=== PATIENT | male | born 1945 | race Caucasian/White ===

== ENCOUNTER 2020-12-25 00:24 | Observation (INO) | payer OTHER ==
[2020-12-25 00:45] LABS: Absolute Lymphocytes (CBC) 1.9 K/uL (0.7-4.9); Basophils % 1.2 % (0-1.3); Hematocrit 35.3 % (39.6-49.0); Lymphocytes % 27.9 % (15.3-44.8); MPV 9.4 fL (7.6-11.3); RBC Red Blood Cell Count 4.18 M/uL (4.33-5.43)
[2020-12-25 01:01] LABS: Protime INR 0.95
[2020-12-25 01:11] LABS: ALT/SGPT 17 U/L (12-78); AST/SGOT 12 U/L (15-37); Albumin 3.8 g/dL (3.4-5.0); Alkaline Phosphatase 97 U/L (45-117); BUN Blood Urea Nitrogen 15 mg/dL (7-18); Bicarbonate 26 mmol/L (21-32); Bilirubin Direct 0.1 mg/dL (0-0.2); Bilirubin Total 0.3 mg/dL (0.2-1.0); Glucose Level 119 mg/dL (74-106); NT PRO-BNP 333 pg/mL (<125); Potassium 3.2 mmol/L (3.5-5.1); Protein, Total 7.3 g/dL (6.4-8.2); Sodium Level 135 mmol/L (136-145); Troponin (Emerg Dept Use Only) < 0.02 ng/mL (0.0-0.045)
--- NOTE | 2020-12-25 03:51 | EDPHYS ---
[facility] Name: Farhad Wells Age: 75 yrs Sex: Male : 1945 Arrival Date: 12/25/2020 Time: 00:24 Bed 18 Private MD: ED Physician Ted Wilkinson HPI: 12/25 01:28 This 75 yrs old Male presents to ER via Ambulatory with complaints of Chest rn Pain > 30 y/o. 01:28 The patient or guardian reports chest pain that is located primarily in the substernal rn area. 01:29 Onset: last night. The pain radiates to back. Associated signs and symptoms: Pertinent rn positives: None. Pertinent negatives: abdominal pain, cough, diaphoresis, headache, lower extremity swelling, palpitations, shortness of breath, syncope, vomiting. The chest pain is described as a heaviness. Duration: The patient or guardian reports a single episode, that is still ongoing. Modifying factors: The symptoms are alleviated by nothing. the symptoms are aggravated by nothing. Severity of pain: At its worst the pain was moderate in the emergency department the pain has improved. The patient has not experienced similar symptoms in the past. The patient has not recently seen a physician. Reports chest pain at rest, still ongoing but improving, currently 5/10, has never had before, radiates to back, feels heavy/pressure, no diaphoresis. Did have single episode of emesis. No fever, doesn't feel ill. Rides bike frequently, rode 18 miles today without chest pain. No recent stress test. . Historical: - Allergies: 00:45 Sulfa (Sulfonamide Antibiotics); ak2 - Home Meds: 00:45 Flomax 0.4 mg Oral cp24 1 cap once daily [Active]; Lasix 20 mg Oral tab 1 tab once ak2 daily [Active]; metoprolol tartrate 50 mg Oral tab 1 tab 2 times per day [Active]; Norvasc 5 mg Oral tab 1 tab once daily [Active]; Pravachol 40 mg Oral tab 1 tab once daily [Active]; Protonix 40 mg Oral TbEC 1 tab once daily [Active]; ramipril 10 mg Oral cap 1 cap 2 times per day [Active]; - PMHx: 00:45 BPH; High Cholesterol; Hypertension; ak2 - Immunization history:: Adult Immunizations up to date. - Social history:: Smoking status: unknown. - Family history:: not pertinent. - Hospitalizations: : No recent hospitalization is reported. ROS: 01:29 Constitutional: Negative for fever, chills, and weight loss, Eyes: Negative for injury, rn pain, redness, and discharge, Neck: Negative for injury, pain, and swelling, Cardiovascular: Negative for palpitations, and edema, Respiratory: Negative for shortness of breath, cough, wheezing, and pleuritic chest pain, Abdomen/GI: Negative for abdominal pain, diarrhea, and constipation, Back: Negative for injury and pain, : Negative for injury, bleeding, discharge, and swelling, MS/Extremity: Negative for injury and deformity, Skin: Negative for injury, rash, and discoloration, Neuro: Negative for headache, weakness, numbness, tingling, and seizure. Exam: 01:29 Constitutional: This is a well developed, well nourished patient who is awake, alert, rn appears a little anxious Head/Face: Normocephalic, atraumatic. Eyes: Periorbital areas with no swelling, redness, or edema. Cardiovascular: Bradycardic, regular. No pulse deficits. Respiratory: Speaking full unlabored sentences. No increased work of breathing, no retractions or nasal flaring. Abdomen/GI: Soft, non-tender Skin: Warm, dry, no cyanosis MS/ Extremity: Pulses equal, no cyanosis. Neurovascular intact. Full, normal range of motion. Equal circumference. Neuro: Awake and alert, GCS 15 01:32 ECG was reviewed by the Attending Physician. rn Vital Signs: 00:42 BP 157 / 63; Pulse 53; Resp 16; Temp 97.9; Pulse Ox 100% on R/A; Weight 61.23 kg; ak2 Height 5 ft. 9 in. (175.26 cm); 01:24 BP 146 / 53; Pulse 58; Resp 16; Pulse Ox 100% on R/A; ak2 03:07 BP 132 / 58; Pulse 57; Resp 16; Pulse Ox 100% on R/A; ak2 05:54 BP 125 / 67; Pulse 53; Resp 16; Pulse Ox 100% on R/A; ak2 06:47 BP 145 / 73; Pulse 55; Resp 14; Pulse Ox 100% on R/A; ak2 07:14 BP 152 / 79; Pulse 87; Resp 15 S; Pulse Ox 98% on R/A; jd3 00:42 Body Mass Index 19.94 (61.23 kg, 175.26 cm) ak2 MDM: 00:30 Patient medically screened. rn 03:00 ED course: Pt states chest pain resolved. CT aorta pending. Neg trop. . rn 03:46 Differential diagnosis: abnormal EKG, acute myocardial infarction, acute pericarditis, rn anxiety, coronary artery disease costochondritis, esophagitis, gastritis, gastroesophageal reflux disease (GERD), pancreatitis, pericarditis, pleurisy, pneumonia, pneumothorax, pulmonary embolus, stable angina, thoracic aortic disection, unstable angina. The patient was given aspirin in the Emergency Department. 03:46 Data reviewed: vital signs, nurses notes, lab test result(s), EKG, radiologic studies, rn CT scan, plain films, and as a result, I will admit patient. Counseling: I had a detailed discussion with the patient and/or guardian regarding: the historical points, exam findings, and any diagnostic results supporting the discharge/admit diagnosis, lab results, radiology results, the need for further work-up and treatment in the hospital. Response to treatment: the patient's symptoms have markedly improved after treatment, and as a result, I will admit patient. Admission orders: after a detailed discussion of the patient's condition and case, the admit orders are written by me. ED course: Pt with extensive atherosclerosis of large and medium blood vessels on ct aorta, also noted atherosclerosis of coronary arteries on CT, no clear etiology of chest pain, but given smoking hx, HTN, HLD, and no clear diagnosis of chest pain with diffuse atherosclerosis, will admit for stress test. + incidental ascending aortic aneurysm but no acute dissection or leak. No gross flow abnormalities. . 12/25 00:37 Order name: Basic Metabolic Panel; Complete Time: : rn 12/25 00:37 Order name: CBC with Diff; Complete Time: rn 12/25 00:37 Order name: LFT's; Complete Time: rn 12/25 00:37 Order name: NT PRO-BNP; Complete Time: : rn 12/25 00:37 Order name: PT-INR; Complete Time: rn 12/25 00:37 Order name: Troponin (emerg Dept Use Only); Complete Time: 01:14 rn 12/25 00:37 Order name: XRAY Chest (1 view) rn 12/25 00:37 Order name: EKG; Complete Time: 00:38 rn 12/25 00:37 Order name: Cardiac monitoring; Complete Time: 07:02 rn 12/25 00:37 Order name: CT Aorta for Dissection rn 12/25 04:11 Order name: COVID-19 : Document "Date of Symptom Onset" if Symptomatic. ak2 12/25 05:33 Order name: SARS-COV-2 RT PCR EDMS 12/25 00:37 Order name: EKG - Nurse/Tech; Complete Time: 07:02 rn 12/25 00:37 Order name: IV Saline Lock; Complete Time: 07:03 rn 12/25 00:37 Order name: Labs collected and sent; Complete Time: 07:03 rn 12/25 00:37 Order name: O2 Per Protocol; Complete Time: 07:03 rn 12/25 00:37 Order name: O2 Sat Monitoring; Complete Time: 07:03 rn EC:32 Rate is 58 beats/min. Rhythm is regular. QRS [place] is Normal. RI interval is normal. QRS rn interval is normal. QT interval is normal. T waves are Normal. No ST changes noted. Clinical impression: Sinus bradycardia. Interpreted by me. Reviewed by me. Administered Medications: 03:55 Drug: Aspirin Chewable Tablet 324 mg Route: PO; ak2 03:55 Drug: Lovenox (enoxaparin) 60 mg Route: Sub-Q; Site: left upper abdomen; ak2 Disposition Summary: 12/25/20 03:50 Hospitalization Ordered Hospitalization Status: Observation rn Provider: Emil Virk rn Location: Telemetry/MedSurg (observation) rn Condition: Stable rn Problem: new rn Symptoms: have improved rn Bed/Room Type: Standard rn Room Assignment: 409(12/25/20 06:01) mw Diagnosis - Chest pain, unspecified rn - Atherosclerotic heart disease of [place] coronary artery rn - Thoracic aortic aneurysm, without rupture rn Forms: - Medication Reconciliation Form rn - SBAR form rn Signatures: Dispatcher [employer] EDID Emily Duncan RN RN mw Nieto, Roman, MD MD rn [place], Anthony ak2 Corrections: (The following items were deleted from the chart) 06:01 03:50 rn mw
--- NOTE | 2020-12-25 03:51 | ER ---
Nurse's Notes [facility] Name: Farhad Wells Age: 75 yrs Sex: Male : 1945 Arrival Date: 12/25/2020 Time: 00:24 Bed 18 Private MD: Diagnosis: Chest pain, unspecified;Atherosclerotic heart disease of [place] coronary artery;Thoracic aortic aneurysm, without rupture Presentation: 12/25 00:42 Chief complaint: Patient states: cp x1 day. Coronavirus screen: Client denies travel ak2 out of the [place] in the last 14 days. At this time, the client does not indicate any symptoms associated with coronavirus-19. Ebola Screen: Patient negative for fever greater than or equal to 101.5 degrees Fahrenheit, and additional compatible Ebola Virus Disease symptoms Patient denies exposure to infectious person. Patient denies travel to an Ebola-affected area in the 21 days before illness onset. No symptoms or risks identified at this time. Initial Sepsis Screen: Does the patient meet any 2 criteria? No. Patient's initial sepsis screen is negative. Does the patient have a suspected source of infection? No. Patient's initial sepsis screen is negative. Risk Assessment: Do you want to hurt yourself or someone else? Patient reports no desire to harm self or others. Onset of symptoms was December 24, 2020. 00:42 Method Of Arrival: Ambulatory ak2 00:42 Acuity: CHAPARRO 3 ak2 Triage Assessment: 00:45 General: Appears in no apparent distress. Behavior is calm, cooperative. Pain: ak2 Complains of pain in chest. Cardiovascular: Rhythm is sinus bradycardia. Historical: - Allergies: 00:45 Sulfa (Sulfonamide Antibiotics); ak2 - Home Meds: 00:45 Flomax 0.4 mg Oral cp24 1 cap once daily [Active]; Lasix 20 mg Oral tab 1 tab once ak2 daily [Active]; metoprolol tartrate 50 mg Oral tab 1 tab 2 times per day [Active]; Norvasc 5 mg Oral tab 1 tab once daily [Active]; Pravachol 40 mg Oral tab 1 tab once daily [Active]; Protonix 40 mg Oral TbEC 1 tab once daily [Active]; ramipril 10 mg Oral cap 1 cap 2 times per day [Active]; - PMHx: 00:45 BPH; High Cholesterol; Hypertension; ak2 - Immunization history:: Adult Immunizations up to date. - Social history:: Smoking status: unknown. - Family history:: not pertinent. - Hospitalizations: : No recent hospitalization is reported. Screenin:46 Abuse screen: Denies threats or abuse. Denies injuries from another. Nutritional ak2 screening: No deficits noted. Tuberculosis screening: No symptoms or risk factors identified. Fall Risk None identified. Assessment: 00:46 Pain: Pain radiates to back Pain began 1 day ago. ak2 01:24 Reassessment: Patient and/or family updated on plan of care and expected duration. Pain ak2 level reassessed. 03:06 Reassessment: Patient and/or family updated on plan of care and expected duration. Pain ak2 level reassessed. 05:54 Reassessment: Patient and/or family updated on plan of care and expected duration. Pain ak2 level reassessed. 07:14 Reassessment: Patient and/or family updated on plan of care and expected duration. Pain jd3 level reassessed. Patient is alert, oriented x 3, equal unlabored respirations, skin warm/dry/pink. Patient states feeling better. General: Appears in no apparent distress. comfortable, Behavior is calm, cooperative, appropriate for age. Pain: Denies pain. Neuro: Level of Consciousness is awake, alert, obeys commands, Oriented to person, place, time, situation. Cardiovascular: Capillary refill < 3 seconds Patient's skin is warm and dry. Rhythm is regular. Respiratory: Airway is patent Respiratory effort is even, unlabored, Respiratory pattern is regular, symmetrical. Vital Signs: 00:42 BP 157 / 63; Pulse 53; Resp 16; Temp 97.9; Pulse Ox 100% on R/A; Weight 61.23 kg; ak2 Height 5 ft. 9 in. (175.26 cm); 01:24 BP 146 / 53; Pulse 58; Resp 16; Pulse Ox 100% on R/A; ak2 03:07 BP 132 / 58; Pulse 57; Resp 16; Pulse Ox 100% on R/A; ak2 05:54 BP 125 / 67; Pulse 53; Resp 16; Pulse Ox 100% on R/A; ak2 06:47 BP 145 / 73; Pulse 55; Resp 14; Pulse Ox 100% on R/A; ak2 07:14 BP 152 / 79; Pulse 87; Resp 15 S; Pulse Ox 98% on R/A; jd3 00:42 Body Mass Index 19.94 (61.23 kg, 175.26 cm) ak2 ED Course: 00:24 Patient arrived in ED. bp1 00:30 Ted Wilkinson MD is Attending Physician. rn 00:41 Hugo Larsen is Primary Nurse. ak2 00:45 Triage completed. ak2 00:46 Patient has correct armband on for positive identification. manager banking on. Pulse ak2 ox on. NIBP on. 00:46 No provider procedures requiring assistance completed. Inserted saline lock: 20 gauge ak2 in left upper arm, using aseptic technique. 00:47 Patient placed in the treatment room. ak2 00:47 Patient maintains SpO2 saturation greater than 95% on room air. ak2 00:54 XRAY Chest (1 view) In Process Unspecified. EDMS 01:58 CT Aorta for Dissection In Process Unspecified. EDMS 03:49 Emil Virk MD is Hospitalizing Provider. rn 07:01 Jamaal Lugo RN is Primary Nurse. jd3 08:09 Patient admitted, IV remains in place. jd3 Administered Medications: 03:55 Drug: Aspirin Chewable Tablet 324 mg Route: PO; ak2 03:55 Drug: Lovenox (enoxaparin) 60 mg Route: Sub-Q; Site: left upper abdomen; ak2 Outcome: 03:50 Decision to Hospitalize by Provider. rn 08:08 Admitted to Tele accompanied by tech, via wheelchair, room 409, with chart, Report jd3 called to Yaquelin MORRISSEY 08:08 Condition: stable 08:08 Instructed on the need for admit, Demonstrated understanding of instructions. 08:09 Patient left the ED. jd3 Signatures: Dispatcher [employer] EDMS Ted Wilkinson MD MD rn Davies, Jonathon, RN RN Sarai Webb bp1 Hugo Larsen ak2
[2020-12-25] MEDS ORDERED: ASPIRIN 81 MG CHEWABLE TABLET ONE (04:15)
[2020-12-25] MEDS ORDERED: ENOXAPARIN 60 MG/0.6 ML SQ ONE (04:15)
--- NOTE | 2020-12-25 06:18 | EKG ---
Test Date: 2020-12-25 Test Time: 00:36:13 Flag Car Driver: KENDRA MEASUREMENT RESULTS: Intervals: Rate: 58 MA: 252 QRSD: 100 QT: 442 QTc: 433 [place]: P: 56 MA: 252 QRS: 48 T: 57 INTERPRETIVE STATEMENTS: Sinus bradycardia with sinus arrhythmia with 1st degree AV block Minimal voltage criteria for LVH, may be normal variant Borderline ECG Compared to ECG 05/30/2016 16:20:27 First degree AV block now present Sinus rhythm no longer present Electronically Signed On 12-25-20 06:17:37 CDT by Rojas Walls
[2020-12-25 08:21] VITALS: O2SAT 98
--- NOTE | 2020-12-25 08:37 | RAD REPORT ---
EXAM DESCRIPTION: RAD - Chest Single View - 12/25/2020 12:54 am CLINICAL HISTORY: CHEST PAIN Chest pain. COMPARISON: No comparisons FINDINGS: Portable technique limits examination quality. The lungs are mildly emphysematous but grossly clear. The heart is normal in size. No displaced fract ures. IMPRESSION: No acute intrathoracic process suspected.
[2020-12-25] MEDS ORDERED: cloNIDine HCL 0.1 MG TAB PO ONE (08:45)
[2020-12-25] MEDS ORDERED: ONDANSETRON 4 MG/2 ML VIAL IV PRN (08:45)
[2020-12-25 08:56] VITALS: BMI 20.2
--- NOTE | 2020-12-25 12:41 | RAD REPORT ---
EXAM DESCRIPTION: Angio Aorta For Dissection CLINICAL HISTORY: 75 years Male CHEST PAIN COMPARISON: None Available TECHNIQUE: CT angiography of the chest, abdomen and pelvis was performed with axial dataset after kunal michael injection of intravenous contrast. Multiplanar reformation, 3D and MIP reconstructions were perfo rmed. This exam was performed according to our departmental dose-optimization program, which includes automated exposure control, adjustment of the mA and/or kV according to patient size and/or use of i terative reconstruction technique. FINDINGS: CTA chest: Aorta: Ascending aortic aneurysm measuring 4.7 cm. No dissection. Atherosclerosis is present. Pulmonary arteries: No evidence of pulmonary embolism. Mediastinum: Unremarkable. No adenopathy. Heart: No pericardial effusion. Atherosclerosis of the coronary arteries. Lungs / airways: Calcified granuloma in the lingula. Mild paraseptal emphysematous changes of the ysabel g apices. No consolidation. Airways are patent. Pleura: No significant pleural effusion. No pneumothorax. Osseous: Multilevel degenerative changes. Soft tissues: Unremarkable. CTA abdomen and pelvis: Aorta: Atherosclerosis. No dissection or aneurysm. Celiac: Minimal atherosclerosis of the origin. No significant stenosis. SMA: Long segment of atherosclerosis inferiorly with noncalcified and calcified plaque resulting in moderate narrowing. Renal arteries: Atherosclerosis of the bilateral proximal renal arteries resulting in mild narrowing. CARMELO: Atherosclerosis proximally with mild narrowing.. Right common iliac: Atherosclerosis with mild narrowing. Right external iliac: Atherosclerosis with mild narrowing. Right common femoral: Atherosclerosis with mild narrowing. Left common iliac: Atherosclerosis with mild narrowing. Left external iliac: Atherosclerosis with mild narrowing. Left common femoral: Atherosclerosis with mild narrowing. Abdomen/pelvis: Liver: No focal lesions. No intrahepatic ductal distention. Gallbladder: Negative. Pancreas: Within normal limits. Spleen: Multiple calcified granulomas are present. Kidneys: No hydronephrosis. No focal lesion. Nonspecific mild bilateral perinephric stranding. Retroa ortic left renal vein. Adrenal glands: Within normal limits. Bowel: No significant distention. Appendix: Not seen.. Peritoneum: No free fluid or free air. Lymph Nodes: No lymphadenopathy. Reproductive: Unremarkable. Urinary bladder: Diffuse urinary bladder wall thickening. Osseous structures: Multilevel degenerative changes. Soft tissues: Unremarkable. IMPRESSION: CTA chest: 1. No aortic dissection or pulmonary embolism. 2. A 4.7 cm ascending aortic aneurysm. 3. No acute pulmonary findings. 4. Atherosclerosis of the coronary arteries. CTA abdomen and pelvis: 1. No aortic aneurysm or dissection. 2. Atherosclerosis of the aorta and its major branches as detailed above. 3. Diffuse urinary bladder wall thickening suspicious for cystitis. Electronically signed by: Heriberto Bobo MD 12/25/2020 2:50 AM CDT Due to temporary technical issues with the PACS/Fluency reporting system, reports are being signed by the in house radiologist without review as a courtesy to ensure prompt reporting. The interpreting r adiologist is fully responsible for the content of the report. Due to temporary technical issues with the PACS/Fluency reporting system, reports are being signed by the in house radiologist without review as a courtesy to ensure prompt reporting. The interpreting r adiologist is fully responsible for the content of the report.
--- NOTE | 2020-12-25 13:32 | CON ---
Date of Consultation: 12/25/2020 The patient admitted on 12/25/[address] Virk. Reason For Consultation: Atypical chest pain and hypertension. History Of Present Illness: Mr. Wells is a 75-year-old male. He is a patient of mine in the clinic. He recently had an echocardiogram in September that was normal about 15-18 miles a day witho ut any symptoms, but came in with midepigastric chest pain radiating to the back with nausea and vomi ting. Pressure of 201/94. Troponin is negative. CPK is negative. MB is negative. His pain lasted about 2-3 hours. Denied PND, orthopnea, pedal edema, palpitation, or syncope. Past Medical History: Basically positive for hypertension, gastroesophageal reflux disease, dyslipid emia, benign prostatic hypertrophy. Review of Systems: Negative. Social History: Negative. Family History: Noncontributory. Allergies: TO SULFA. Medications: At home include Norvasc 5 mg daily, Protonix, Pravachol, ramipril, Flomax, aspirin, Las ix 20 daily and Toprol 50 b.i.d. Physical Examination: Vital Signs: Initially when he came in pressure was 201/94, that has improved. He was in sinus rhyt hm. Vital signs were stable, otherwise afebrile. HEENT: Negative. Neck: Supple with no bruit. Chest: Clear. Cardiac: Revealed an S4 gallops. Abdomen: Benign. Extremities: Revealed no clubbing, cyanosis, or edema. Diagnostic Data: Show a creatinine of 1.49. BNP was 333. Potassium of 3.2. EKG was normal. CT an giogram showed atherosclerosis of the coronary. A 4.7 cm ascending aortic aneurysm. Noth ing focal otherwise. Impression And Plan: Atypical chest pain. I think he is having symptoms from gastroesophageal reflu x disease, possibly gallbladder. He is having slight hematuria and I think his kidneys need to be ev aluated. I do not think his pain is cardiac. However, with his CT results of ascending aortic small aneurysm and atherosclerosis in the coronary arteries and his risk factors, I would suggest that we will do a stress test as an outpatient. The case was discussed with Dr. Virk. I am comfortable w ith him going home. I will see him in the office very soon. His other problems including dyslipidem ia, gastroesophageal reflux disease, benign prostatic hypertrophy are normal. His blood pressure is very poorly controlled and may have been a reaction to the way he was feeling, apparently at home in the 130s. Nevertheless, I think if his pressure goes up, we can increase the metoprolol or add hydro chlorothiazide. He will keep a better log of his pressure and watch salt intake. Continue his exerc ise regimen as it is. JOSE GUADALUPE/ANGEL LUIS Voice ID: [id number] Report ID: [id number]
--- NOTE | 2020-12-25 14:10 | RAD REPORT ---
EXAM DESCRIPTION: US - Renal Ultrasound-Complete - 12/25/2020 1:58 pm CLINICAL HISTORY: Hematuria COMPARISON: December 25, 2020 cat scan FINDINGS: The right kidney measures 10 cm with a normal echotexture. The left kidney measures 10 cm with a normal echotexture. Prominent hypertrophied column of [place] seen bilaterally Hydronephrosis is not seen. No gross abnormality of bladder IMPRESSION: Unremarkable renal ultrasound.
[2020-12-25] MEDS ORDERED: PNEUMOCOCCAL VACCINE 0.5 ML IMVAC ONE (15:00)
[2020-12-25 16:28] VITALS: BP 182/84; TEMP 97.6
[2020-12-26] MEDS ORDERED: ASPIRIN EC 81 MG TAB PO SCH (06:00)
== END 2020-12-25 18:15 | disposition home or self-care (01) ==
LOC: ER 00:24 → ERHOLD 03:55 → 4TH 06:06
PROVIDERS: ADMIT Family Medicine; ATTEND Family Medicine
DX: R07.89 Other chest pain (principal); I71.2 Thoracic aortic aneurysm, without rupture; I25.10 Atherosclerotic heart disease of native coronary artery without angina pectoris; I10 Essential (primary) hypertension; K21.9 Gastro-esophageal reflux disease without esophagitis; R31.9 Hematuria, unspecified; E78.5 Hyperlipidemia, unspecified; N40.0 Benign prostatic hyperplasia without lower urinary tract symptoms; Z88.2 Allergy status to sulfonamides; Z79.82 Long term (current) use of aspirin; Z20.822 Contact with and (suspected) exposure to COVID-19
CPT/HCPCS: 93005; 85025; 80048; 36415; 85610; 80076; 84484 ×3; 83880; 71275; 74175; 71045; 76770; 96372; 99285; U0003; Q9967; J1650; G0378 ×2

== ENCOUNTER 2021-01-04 15:58 | Inpatient (IN) | payer OTHER ==
[2021-01-04] MEDS ORDERED: ONDANSETRON 4 MG/2 ML VIAL IV PRN (16:48)
[2021-01-04] MEDS ORDERED: NA CHLORIDE 0.9% 1,000 ML IV SCH (17:00)
[2021-01-04 17:46] VITALS: BMI 20.2
--- NOTE | 2021-01-04 18:49 | ER ---
Nurse's Notes [facility] Name: Farhad Wells Age: 75 yrs Sex: Male : 1945 Arrival Date: 01/04/2021 Time: 16:01 Bed Waiting Private MD: Diagnosis: Dehydration Presentation: 01/04 16:28 Chief complaint: Patient states: N/V/D since yesterday. Back pain since yesterday. ca1 Direct Admit from Dr. Virk. Coronavirus screen: Client denies travel out of the [place] in the last 14 days. diarrhea, nausea, vomiting. Client presents with at least one sign or symptom that may indicate coronavirus-19. Standard/surgical mask placed on the client. Provider contacted for isolation considerations. Ebola Screen: Patient negative for fever greater than or equal to 101.5 degrees Fahrenheit, and additional compatible Ebola Virus Disease symptoms Patient denies exposure to infectious person. Patient denies travel to an Ebola-affected area in the 21 days before illness onset. No symptoms or risks identified at this time. Initial Sepsis Screen: Does the patient meet any 2 criteria? No. Patient's initial sepsis screen is negative. Does the patient have a suspected source of infection? No. Patient's initial sepsis screen is negative. Risk Assessment: Do you want to hurt yourself or someone else? Patient reports no desire to harm self or others. Onset of symptoms was January 03, 2021. 16:28 Method Of Arrival: Ambulatory ca1 16:28 Acuity: CHAPARRO 3 ca1 Historical: - Allergies: 16:31 Sulfa (Sulfonamide Antibiotics); ca1 - Home Meds: 16:31 Flomax 0.4 mg Oral cp24 1 cap once daily [Active]; Lasix 20 mg Oral tab 1 tab once ca1 daily [Active]; metoprolol tartrate 50 mg Oral tab 1 tab 2 times per day [Active]; Pravachol 40 mg Oral tab 1 tab once daily [Active]; Protonix 40 mg Oral TbEC 1 tab once daily [Active]; ramipril 10 mg Oral cap 1 cap 2 times per day [Active]; Norvasc 5 mg Oral tab 1 tab once daily [Active]; - PMHx: 16:31 BPH; High Cholesterol; Hypertension; ca1 - Immunization history:: Client reports receiving the 2nd dose of the Covid vaccine, Date received: September 16, 2020 Client reports receiving the 1st dose of the Covid vaccine, August 19, 2020. - Social history:: Smoking status: Patient/guardian denies using tobacco, the patient reports quitting approximately 30 years ago. Vital Signs: 16:28 BP 142 / 73; Pulse 75; Resp 15 A; Temp 97.6; Weight 61.23 kg; Height 5 ft. 9 in. ca1 (175.26 cm) (R); Pain 0/10; 16:28 Body Mass Index 19.94 (61.23 kg, 175.26 cm) ca1 ED Course: 16:01 Patient arrived in ED. rg4 16:30 Triage completed. ca1 16:31 Arm band placed on right wrist. ca1 18:47 Emil Virk MD is Hospitalizing Provider. ss Administered Medications: No medications were administered Outcome: 18:47 Admitted to Tele Other with Employee Service Officer ss 18:48 Decision to Hospitalize by Provider. ss 18:48 Patient left the ED. Signatures: Dacia Brown, RN RN Marixa Landin rg4 Taylor Blanca RN RN ca1
[2021-01-04] MEDS: METOPROLOL XL 50 MG TAB PO SCH (21:00)
[2021-01-04] MEDS: NA CHLORIDE 0.9% 1,000 ML IV SCH (21:55)
[2021-01-04] MEDS: LORazepam 2 MG/ML VIAL IV PRN (21:56)
[2021-01-05 05:27] LABS: Absolute Lymphocytes (CBC) 0.8 K/uL (0.7-4.9); Basophils % 0.9 % (0-1.3); Hematocrit 34.4 % (39.6-49.0); Lymphocytes % 10.3 % (15.3-44.8); MPV 9.1 fL (7.6-11.3); RBC Red Blood Cell Count 4.06 M/uL (4.33-5.43)
[2021-01-05 06:04] LABS: Potassium 3.4 mmol/L (3.5-5.1)
--- NOTE | 2021-01-05 08:35 | RAD REPORT ---
EXAM DESCRIPTION: US - Abdomen Exam Limited - 01/05/2021 8:20 am CLINICAL HISTORY: Abdominal pain. COMPARISON: None. FINDINGS: A small amount of gallbladder sludge. Several additional tiny echogenic structures within the gallbladder which do not exhibit posterior shadowing. Gallbladder wall measures 3.3 millimeters The biliary tree is normal caliber. IMPRESSION: Small amount of gallbladder sludge. Several additional tiny echogenic structures within the gallbladder probably representing stones whic h did not shadow secondary to a combination of their small size and technical factors. Tiny sludge ba lls are another consideration. Mild gallbladder wall thickening. This may indicate cholecystitis or be secondary to hypoalbuminemia
[2021-01-05] MEDS: METOPROLOL XL 50 MG TAB PO SCH ×2 (08:42→22:19)
[2021-01-05] MEDS: PANTOPRAZOLE 40 MG INJ IV SCH (08:43)
[2021-01-05] MEDS: SODIUM CHLORIDE 0.9% 10ML INJ IV SCH (08:43)
--- NOTE | 2021-01-05 16:37 | PN ---
Date of Progress Note: 01/05/2021 The patient states he feels back to normal this morning and his sodium in fact is 136, potassium stil l slightly low. He is asymptomatic. His appetite is good and he feels he could go home. However, h is ultrasound show positive sludge and stones in the gallbladder and after discussion, it was felt th at surgery was indicated, the timing of which was discussed at length. We will consult Surgery this afternoon and see if we can be scheduled while in the hospital. HR/MODL Voice ID: [id number] Report ID: [id number]
[2021-01-05] MEDS: NA CHLORIDE 0.9% 1,000 ML IV SCH (22:01)
[2021-01-05] MEDS: TAMSULOSIN 0.4 MG SR CAP PO SCH (22:18)
[2021-01-05] MEDS: ramipriL 5 MG CAP PO SCH (22:18)
[2021-01-06 05:38] LABS: Absolute Lymphocytes (CBC) 0.9 K/uL (0.7-4.9); Basophils % 0.6 % (0-1.3); Hematocrit 32.1 % (39.6-49.0); Lymphocytes % 14.9 % (15.3-44.8); MPV 9.1 fL (7.6-11.3); RBC Red Blood Cell Count 3.81 M/uL (4.33-5.43)
[2021-01-06 05:51] LABS: Potassium 3.6 mmol/L (3.5-5.1)
[2021-01-06] MEDS: NA CHLORIDE 0.9% 1,000 ML IV SCH ×2 (06:51→11:21)
[2021-01-06 08:08] LABS: Protime INR 1.02
[2021-01-06 08:22] LABS: Bilirubin Direct 0.4 mg/dL (0-0.2); Bilirubin Total 0.8 mg/dL (0.2-1.0); Protein, Total 6.4 g/dL (6.4-8.2)
--- NOTE | 2021-01-06 08:56 | HP ---
Date of Admission: 01/04/2021 Entrance Complaint: Vomiting, abdominal pain, and general malaise. History Of Present Illness: The patient presented to the office with a history that he woke up the n ight before with pain in his back and a low-grade temperature associated with excessive vomiting, whi ch was projectile in nature and slight amount of diarrhea as well. The patient had similar symptoms approximately 2 weeks ago associated with chest pain. He was admitted and a workup for cardiac statu s was done and this was essentially normal as an outpatient. He had a stress test since then, which was also normal. Past history, the patient is in good general health. Rides a bike up to 75 to 100 miles trip and prior to this episode, has had no problems. However, this time the back pain was also noted in mid thoracic area. It should be noted that when the patient was seen in the office, blood count revealed hyponatremia with a sodium 125 and on further questioning, the patient states he did d rink a lot of water. The day before, he presented to the office, perhaps more than usual and no elec trolyte solution. Past History: As above. Social History: The patient does not smoke. Has daily beer consumption. Family History: Noncontributory. Physical Examination: General: The patient is an elderly male, in no acute distress with stable vital signs. Head and neck: Normocephalic. Pupils equal and react to light and accommodation. Fundi negative. Trachea midline. Thyroid not palpable. ENT: Negative. Chest: Clear to P and A. Cardiovascular: PMI midclavicular line. Heart sounds normal. Peripheral pulses are present and equ al bilaterally. Abdomen: No organomegaly. Bowel sounds hyperactive. Extremities: Slightly dehydrated. Good tone and movement bilaterally. Reflexes physiologic. Rectal: Deferred. Impression: Acute gastritis, dehydration, hyponatremia. Plan: The patient will be admitted and placed on IV fluids. Slow sodium replacement will be done. An ultrasound will be done of the abdomen as well to make sure he does not have a gallbladder conditi on. Depending on the results of the testing, further treatment may be indicated. HR/MODL Voice ID: [id number]
--- NOTE | 2021-01-06 08:56 | RAD REPORT ---
EXAM DESCRIPTION: RAD - Chest Single View - 01/06/2021 8:38 am CLINICAL HISTORY: possiblepending cholecystectomy, preop chest COMPARISON: December 25 TECHNIQUE: AP portable chest image was obtained 01/06/2021 8:38 am . FINDINGS: No acute lung parenchymal process. Interstitial pattern is similar when adjusting for the technique differences between the 2 examinations. Heart and vasculature are normal. No measurable ple ural effusion and no pneumothorax. No acute bony abnormality seen. No acute aortic findings suspected . IMPRESSION: No acute cardiopulmonary process. No significant change from comparison study.
[2021-01-06] MEDS: allopurinoL 300 MG TAB PO SCH (09:00)
[2021-01-06] MEDS: SODIUM CHLORIDE 0.9% 10ML INJ IV SCH (09:00)
[2021-01-06] MEDS: ASPIRIN 81 MG CHEWABLE TABLET PO SCH (09:00)
[2021-01-06] MEDS: LORazepam 2 MG/ML VIAL IV PRN (09:22)
[2021-01-06] MEDS: AMLODIPINE 5 MG TAB PO SCH (09:22)
[2021-01-06] MEDS: ramipriL 5 MG CAP PO SCH ×2 (09:24→21:51)
[2021-01-06] MEDS: PANTOPRAZOLE 40 MG INJ IV SCH (09:24)
[2021-01-06] MEDS: METOPROLOL XL 50 MG TAB PO SCH ×2 (09:25→21:51)
[2021-01-06] MEDS ORDERED: CEFOXITIN/SWI 1gm 1 GM/10 ML SYR ONE (12:21)
--- NOTE | 2021-01-06 12:38 | EKG ---
Test Date: 2021-01-06 Test Time: 08:21:38 Sql Server Architect: HERBIE MEASUREMENT RESULTS: Intervals: Rate: 68 CA: 222 QRSD: 102 QT: 390 QTc: 414 [place]: P: 51 CA: 222 QRS: 44 T: 53 INTERPRETIVE STATEMENTS: Sinus rhythm with 1st degree AV block Voltage criteria for left ventricular hypertrophy Abnormal ECG Compared to ECG 12/25/2020 00:36:13 Sinus bradycardia no longer present Sinus arrhythmia no longer present Electronically Signed On 01-06-21 12:37:16 CDT by Rojas Walls
[2021-01-06] MEDS ORDERED: ACETAMINOPHEN 500 MG TAB ONE (12:39)
[2021-01-06] MEDS ORDERED: CELECOXIB 100 MG CAPSULE ONE (12:39)
[2021-01-06] MEDS: BUPIVACAINE 0.5% PF 10 ML VIAL ONE ×2 (12:44→13:37)
[2021-01-06] MEDS ORDERED: propofoL 200 MG/20 ML VIAL IV ONE (12:45)
[2021-01-06] MEDS ORDERED: ROCURONIUM 50 MG/5 ML VIAL IV ONE (12:45)
[2021-01-06] MEDS ORDERED: KETOROLAC 30 MG/ML INJ ONE (12:45)
[2021-01-06] MEDS ORDERED: FENTANYL CITR 100 MCG/2 ML ONE (12:45)
[2021-01-06] MEDS ORDERED: dexAMETHasone 4 MG/ML VIAL ONE (12:45)
[2021-01-06] MEDS ORDERED: ONDANSETRON 4 MG/2 ML VIAL ONE (12:45)
[2021-01-06] MEDS ORDERED: LIDOCAINE 2% MPF 5 ML VIAL ONE (12:45)
[2021-01-06] MEDS ORDERED: EPHEDRINE SULF 50 MG/ML VIAL ONE (13:59)
[2021-01-06] MEDS ORDERED: GLYCOPYRROLATE 0.2 MG/ML SYR ONE (13:59)
--- NOTE | 2021-01-06 14:04 | P.BOP ---
Preoperative diagnosis: Acute cholecystitis, gallstone pancreatitis Postoperative diagnosis: same Primary procedure: Laparoscopic cholecystectomy Estimated blood loss: <10cc Specimen: gb Findings: as above Anesthesia: General Complications: None Drain(s): CUCA drain Transferred to: Recovery Room Condition: Good
[2021-01-06] MEDS ORDERED: Ringers Lactate 1,000 ML IV ONE (14:24)
--- NOTE | 2021-01-06 15:16 | CON ---
Date of Consultation: 01/06/2021 Diagnoses: Acute cholecystitis, symptomatic cholelithiasis, nausea, vomiting, intractable abdominal pain. History Of Present Illness: This is a case of a male with interesting story, for the last 2 weeks he has been having epigastric pain. At 1.2 weeks ago he was admitted to trying to rule out heart disea se since he was having pain in the epigastric area and going to his back. At that moment, he was fou nd to have kidney stones and he was discharged with a diagnosis of no cardiac disease that they can s ee that is acute and the patient decided then to start drinking more water and to see if he can get t his kidney stone to pass, but he still developed this epigastric pain radiating to the right upper qu adrant and back, associated with nausea and vomiting. I get to the point that when the blood work wa s done, they found him to have fever and also have some electrolyte disturbance. The patient was adm itted to the hospital once again and during the workup, we discovered that he has acute cholecystitis and gallbladder stones in the form of sludge. He state that he has not been able to eat properly si nce the pain started about 2 weeks ago and pain has started epigastric right to the right upper quadr ant. His knows about it since she has a gallbladder disease in the past and she can suspect to that. Allergies: SULFA. Medications: Flomax, Lasix, Pravachol, Protonix, Norvasc. Past Medical History: BPH, high cholesterol, hypertension. Social Habit: He does not drink. He does not smoke. Family History: Noncontributory. Physical Examination: General: The patient is awake, alert. Eyes: Pupils are equal, reactive, anicteric. Neck: Supple. Chest: Clear. Abdomen: Mild epigastric tenderness, no peritonitis. Extremities: Good capillary refill. Laboratory Data: Blood work shows WBC count of 7.6, hemoglobin of 11.5, platelets of 213. INR 1.02. Alkaline phosphate is 178, ALT 108, AST 29, total bilirubin of 0.8. Amylase 158, lipase 1437. Assessment: This is a 75-year-old patient with gallstone pancreatitis. It started about 2 weeks ago . He has been on and off, feels better from the epigastric pain this time. He was admitted for evid ence of electrolyte disturbance and found to have also that pain in the epigastric area an d found to have gallstones. The primary doctor contacted us for a possibility of laparoscopic possib le open cholecystectomy and the benefits, alternatives, and risks of that fully explained to the rian ent, which include, but not limited to infection, bleeding, damage to adjacent structures, anesthesia complication, choledocholithiasis, bile leak, pancreatitis, WI, and even . He also understands this may not relieve any symptoms. He might need more than one surgical intervention. He understoo d, signed a consent. Patient was booked in OR. TIMMY/ANGEL LUIS Voice ID: [id number] Report ID: [id number]
--- NOTE | 2021-01-06 16:29 | OP ---
Date of Procedure: 01/06/2021 Surgeon: Robert Chamberlain MD Preoperative Diagnoses: Acute cholecystitis, gallstone pancreatitis. Postoperative Diagnosis: Acute cholecystitis, gallstone pancreatitis. Procedure: Laparoscopic cholecystectomy. Specimen: Gallbladder. Anesthesia: General plus local. Drains: CUCA #10. Indications: This is the case of a male, who comes to us with acute abdominal pain, diagnosed with a cute cholecystitis, gallstone pancreatitis. The benefits, alternatives, and risks of laparoscopic po ssible open cholecystectomy were fully explained, which include, but not limited to infection, bleedi ng, damage to adjacent structures, anesthesia complication, choledocholithiasis, bile leak, pancreati tis, DC, and even . He also understands this may not relieve any symptoms. He might need more than one surgical intervention. He understood, signed a consent. Procedure In Detail: The patient was brought to the operating room, placed in supine position. Anes thesia was done without complication. Abdominal area was prepped and draped in usual sterile fashion . Marcaine 0.5% was injected for local anesthetic followed by sharp incision of the skin in the infr aumbilical region. Incision was carried down to fascia, which was opened under direct vision. Perit oneum was encountered opened under direct vision. Vicryl #1 placed inside the fascia. [place] trocar was carefully introduced. Pneumoperitoneum was obtained. I placed 3 more trocars, 5 mm each one of them, 1 in epigastric area and 2 in the upper quadrant using the same technique which consisted of l ocal anesthetic, sharp incision of the skin and introduction of the trocars under direct vision. Thi s allowed me to visualize the area of the gallbladder. Before that, we have to drain the gallbladder due to distention of the gallbladder and swelling. So under direct visualization, we put an Endo ne edle and deflated the gallbladder under direct visualization. Needle was removed once again under di rect visualization. Graspers placed in the fundus of the gallbladder. Another grasper in the infund ibulum retracting the gallbladder in the inferolateral fashion, exposing the triangle of Calot and ob taining critical view. Cystic duct and cystic artery were clearly isolated, free circumferentially a nd a connection between those and the gallbladder were clearly identified. We proceeded to ligate th ose by using at least 3 clips proximal, 1 clip distal, ligation in middle. Same was done with the cy stic artery. No bile leak. No bleeding. The gallbladder was removed from liver using Bovie cauteri zer and removed from abdominal cavity using EndoCatch through the umbilical incision. The area was i nspected once again. Due to all the inflammation in that area, probably related to the gallstone wilson creatitis too, I left a CUCA drain over the right upper quadrant exiting through one of the trocar site and securing that in place with 3-0 nylon. The area was inspected. No bile leak. No bleeding. At that moment, I proceeded to remove the trocars under direct vision. Deflated the pneumoperitoneum. Closed the fascia with #1 Vicryl. Irrigated subcutaneous tissue, closed that with 3-0 chromic and s kin with heath. Sponge count and instrument counts correct. The patient tolerated the procedure w ell. The patient was sent to recovery in stable condition. TIMMY/ANGEL LUIS Voice ID: [id number] Report ID: [id number]
[2021-01-06] MEDS: TAMSULOSIN 0.4 MG SR CAP PO SCH (18:23)
[2021-01-06] MEDS ORDERED: MORPHINE 2 MG/ML SYR IV PRN (18:36)
--- NOTE | 2021-01-06 21:44 | PN ---
The patient underwent his lap choly today. His immediate postoperative period. He has been stable. He did have an increase in his lipase. This will be repeated in the morning. Depending on the resu lts, he may need further evaluation while here. HR/MODL Voice ID: [id number] Report ID: [id number]
[2021-01-07] MEDS: NA CHLORIDE 0.9% 1,000 ML IV SCH ×2 (01:26→14:36)
[2021-01-07] MEDS: HYDROCODONE/APAP 5/325 MG TAB PO PRN ×2 (01:28→09:41)
[2021-01-07 05:45] LABS: Absolute Lymphocytes (CBC) 0.5 K/uL (0.7-4.9); Hematocrit 30.9 % (39.6-49.0); Lymphocytes % 6.3 % (15.3-44.8); MPV 8.9 fL (7.6-11.3); RBC Red Blood Cell Count 3.67 M/uL (4.33-5.43)
[2021-01-07 05:59] LABS: Albumin 2.8 g/dL (3.4-5.0); Bilirubin Direct 0.4 mg/dL (0-0.2); Bilirubin Total 0.9 mg/dL (0.2-1.0); Potassium 3.8 mmol/L (3.5-5.1); Protein, Total 6.1 g/dL (6.4-8.2)
[2021-01-07 07:35] LABS: Blood Morphology Comment NOT SEEN (NOT SEEN); Platelet Estimate ADEQ
[2021-01-07] MEDS: allopurinoL 300 MG TAB PO SCH (09:00)
[2021-01-07] MEDS: SODIUM CHLORIDE 0.9% 10ML INJ IV SCH (09:00)
[2021-01-07] MEDS: AMLODIPINE 5 MG TAB PO SCH (09:42)
[2021-01-07] MEDS: METOPROLOL XL 50 MG TAB PO SCH ×2 (09:42→21:47)
[2021-01-07] MEDS: ramipriL 5 MG CAP PO SCH ×2 (09:43→21:46)
[2021-01-07] MEDS: ASPIRIN 81 MG CHEWABLE TABLET PO SCH (09:43)
[2021-01-07] MEDS: PANTOPRAZOLE 40 MG INJ IV SCH (09:44)
[2021-01-07] MEDS: LORazepam 2 MG/ML VIAL IV PRN (16:56)
--- NOTE | 2021-01-07 17:00 | PN ---
Date of Progress Note: 01/07/2021 The patient states he feels pretty well this afternoon. His amylase and lipase have dropped, specifi ab the latter which is obviously a good sign. However, he is not belching or passing gas. He has been up and about. Blood pressure and pulse, he states are a little higher than his baseline, possi alix secondary to they withholding briefly on his beta-yenifer, trauma of the surgery, and the alcohol withdrawal, although there is no evidence of any alcohol withdrawal syndrome at all. HR/MODL Voice ID: [id number] Report ID: [id number]
[2021-01-07] MEDS: TAMSULOSIN 0.4 MG SR CAP PO SCH (21:47)
[2021-01-08 03:17] VITALS: O2SAT 96
[2021-01-08] MEDS: NA CHLORIDE 0.9% 1,000 ML IV SCH (03:25)
[2021-01-08 06:10] LABS: Basophils % 0.5 % (0-1.3); Hematocrit 30.9 % (39.6-49.0); Lymphocytes % 12.7 % (15.3-44.8); MPV 8.5 fL (7.6-11.3); RBC Red Blood Cell Count 3.69 M/uL (4.33-5.43)
[2021-01-08 06:16] LABS: Potassium 3.6 mmol/L (3.5-5.1)
[2021-01-08 08:15] LABS: Blood Morphology Comment NOT SEEN (NOT SEEN); Platelet Estimate ADEQ
[2021-01-08] MEDS: ramipriL 5 MG CAP PO SCH (08:30)
[2021-01-08] MEDS: METOPROLOL XL 50 MG TAB PO SCH (08:31)
[2021-01-08] MEDS: allopurinoL 300 MG TAB PO SCH (08:31)
[2021-01-08] MEDS: ASPIRIN 81 MG CHEWABLE TABLET PO SCH (08:32)
[2021-01-08] MEDS: PANTOPRAZOLE 40 MG INJ IV SCH (08:32)
[2021-01-08] MEDS: SODIUM CHLORIDE 0.9% 10ML INJ IV SCH (08:32)
[2021-01-08] MEDS: AMLODIPINE 5 MG TAB PO SCH (08:32)
--- NOTE | 2021-01-08 11:43 | PN ---
Date of Progress Note: 01/08/2021 The patient states he feels better. He is passing gas mostly rectally. Still has some slight draina ge. Abdomen is soft. His lipase has increased to 642 range. We will discuss discharge status with Dr. Ricardo grimaldo. Possibly could go home later today. HR/MODL Voice ID: [id number] Report ID: [id number]
--- NOTE | 2021-01-08 15:45 | PN ---
Date of Progress Note: 01/08/2021 Diagnosis: Gallstone pancreatitis, status post cholecystectomy. Subjective: The patient is doing well. No complaint. No nausea, no vomiting. No shortness of [place] th. No chest pain. Abdomen soft and depressible. initially was 1400, came down to 250, c marlyn up to 600, although he is completely asymptomatic. CUCA drain is intact with no bile leak. Plan: He advance his diet. There was a decision about keeping him until the pancreatic enzymes come lower again. He is asymptomatic. He wants to go home. There is a possibility that he will be disc harged home, but if the lipase keeps elevated, he will need an MRCP to make sure there is not residua l stenosis of the distal common bile duct. He also understands the importance of not drinking alcoho l. HM/MODL Voice ID: [id number] Report ID: [id number]
[2021-01-08 17:27] VITALS: BP 172/81; TEMP 98.6
== END 2021-01-08 17:59 | disposition home or self-care (01) | DRG 417 ==
LOC: ER 15:58 → 2ND 16:51 → OBSVTOIN 01-06 12:11
PROVIDERS: ADMIT Family Medicine; ATTEND Family Medicine
PROC: 0FT44ZZ Resection of Gallbladder, Percutaneous Endoscopic Approach (ICD-10-PCS; principal; 2021-01-06 13:30)
DX: K80.00 Calculus of gallbladder with acute cholecystitis without obstruction (principal); K85.10 Biliary acute pancreatitis without necrosis or infection; E87.1 Hypo-osmolality and hyponatremia; I10 Essential (primary) hypertension; E86.0 Dehydration; K29.00 Acute gastritis without bleeding; Z87.891 Personal history of nicotine dependence; Z88.1 Allergy status to other antibiotic agents; Z79.899 Other long term (current) drug therapy
CPT/HCPCS: 36415; 71045; 76705; 80048; 80076; 82150; 82274; 83690; 85025; 85610; 88304; 93005; 94010; 99285; C9113; G0378; J1100; J2270; J2405; J2704; J3010; J7030; J7120

== ENCOUNTER 2024-02-05 10:30 | Day surgery (SDC) | payer OTHER ==
[2024-02-01 13:48] LABS: Absolute Basophils 0.1 K/uL (0-0.5); Absolute Eosinophils 0.2 K/uL (0-0.5); Absolute Lymphocytes (CBC) 1.2 K/uL (0.7-4.9); Absolute Monocytes 0.5 K/uL (0.1-1.3); Absolute Neutrophil 4.2 K/uL (1.8-8.0); Basophils % 0.9 % (0-1.3); Eosinophils % 3.6 % (0-4.4); Hematocrit 39.5 % (39.6-49.0); Hemoglobin 12.5 g/dL (13.6-17.9); Lymphocytes % 19.2 % (15.3-44.8); MCH 28.1 pg (27.0-35.0); MCHC 31.7 g/dL (32.0-36.0); MCV 88.4 fL (80-100); MPV 9.2 fL (7.6-11.3); Monocytes % 7.9 % (3.3-12.3); Neutrophils % 68.4 % (41.7-73.7); Platelets 257 thou/uL (152-406); RBC Red Blood Cell Count 4.47 M/uL (4.33-5.43); Red Cell Distribution Width 15.8 % (12.1-15.2)
--- NOTE | 2024-02-01 13:53 | RAD REPORT ---
EXAM DESCRIPTION: RAD - Chest Pa And Lat (2 Views) - 02/01/2024 1:43 pm CLINICAL HISTORY: PRE OP LEFT HEART CATH Chest pain. COMPARISON: <Comparisons> FINDINGS: The lungs are clear. The heart is normal in size. No displaced fractures. IMPRESSION: No acute or concerning finding suspected. The USPSTF recommends annual screening for lung cancer with low-dose CT (LDCT) in adults aged 50 to 8 0 years who have a 20 pack-year smoking history and currently smoke or have quit within the past 15 y ears.
[2024-02-01 14:01] LABS: Anion Gap 9.5 mEq/L (5.0-15.0); Potassium 3.5 mEq/L (3.5-5.1)
[2024-02-01 14:34] LABS: PTT, Activated Partial Thromb 28.6 SECONDS (24.3-36.9); Protime INR 0.98
--- NOTE | 2024-02-02 14:09 | EKG ---
Test Date: 2024-02-01 Test Time: 13:33:48 Speech Language Pathology Assistant: ELIZABETH MEASUREMENT RESULTS: Intervals: Rate: 70 [place]: 240 QRSD: 94 QT: 396 QTc: 427 [place]: P: 73 [place]: 240 QRS: 74 T: 68 INTERPRETIVE STATEMENTS: Sinus rhythm with 1st degree AV block Voltage criteria for left ventricular hypertrophy Abnormal ECG Compared to ECG 01/06/2021 08:21:38 No significant changes Electronically Signed On 02-02-24 14:05:48 CDT by Duy Westbrook
[2024-02-05] MEDS ORDERED: NA CHLORIDE 0.9% 500 ML ONE (10:40)
[2024-02-05 11:14] VITALS: TEMP 98
[2024-02-05] MEDS ORDERED: VERAPAMIL HCL 10 MG/4 ML VIAL IV ONE (12:33)
[2024-02-05] MEDS ORDERED: LIDOCAINE 1% 20 ML MDV ONE (12:33)
[2024-02-05] MEDS ORDERED: ATROPINE SULF 1 MG/10 ML SYR IV ONE (12:33)
[2024-02-05] MEDS ORDERED: MIDAZOLAM HCL 2 MG/2 ML INJ ONE (12:33)
[2024-02-05] MEDS ORDERED: HEPA 1000U/500MLS 2,000 UNIT/1,000 ML BAG IV ONE (12:33)
[2024-02-05] MEDS ORDERED: HEPARIN 10,000 UNIT/10 ML VIAL IV ONE (12:34)
[2024-02-05] MEDS ORDERED: FENTANYL CITR 100 MCG/2 ML ONE (12:34)
[2024-02-05] MEDS ORDERED: CLOPIDOGREL 75 MG TABLET ONE (12:34)
[2024-02-05] MEDS ORDERED: TICAGRELOR 90 MG TABLET PO ONE (12:34)
[2024-02-05] MEDS ORDERED: HEPARIN 5000 UNIT/ML 1 ML VIAL ONE (12:34)
[2024-02-05] MEDS ORDERED: ASPIRIN 325 MG TAB ONE (12:35)
[2024-02-05 15:28] VITALS: BP 140/68; O2SAT 99
--- NOTE | 2024-02-05 20:39 | OP ---
Date of Procedure: 02/05/2024 Surgeon: LUCIUS SHARPE Procedure Performed: Selective coronary angiogram. Indication: Preop assessment for an open heart surgery before aortic valve replacement and aneurysm repair. Access: Right radial artery 6-[place]ian, closed with TR band. Complications: None. Bleeding: Less than 50 mL. Anesthesia: Total sedation time was 45 minutes, used fentanyl and Versed. Description Of Procedure: After risks, benefits, and alternatives were explained, the patient agreed to the procedure and signed informed consent. The patient was brought into cardiac catheterization laboratory, prepped and draped in usual sterile fashion, and then I accessed right radial artery usin g pediatric micropuncture kit, placed a 6-[place] Slender sheath and took 5-[place]ian [place] 4 catheter in to the aortic root and could not engage anything with it. Then, I exchanged for 6-[place] JL3.5, enga ged the left main, took standard views, and then exchanged for a 3DRC catheter, and was able to image the RCA, but because of the jet from the aortic valve stenosis, the catheter would not stay still an d so we had a nonselective injection of it and then removed the catheter and the sheath, placed TR ba nd for good hemostasis. Findings: 1.Left main appears to be large and normal. 2.LAD; proximal 30% to 40%, mid diffuse 50% to 60%, and then luminal irregularities. Diagonal 1 bra nch has 40% to 55%. 3.Left circumflex has proximal 60% stenosis with moderate size vessel. 4.RCA is large and dominant with proximal 40%, mid 30% to 40%, and the PDA has diffuse 40% stenosis. Conclusion: Moderate coronary artery disease. Recommendation: Proceed with valve replacement and aneurysm repair. This patient might benefit from single-vessel bypass to the LAD. SR/MODL Voice ID: [id number] Report ID: [id number]
== END 2024-02-05 15:35 | disposition home or self-care (01) ==
LOC: CCL 10:30
PROVIDERS: ATTEND Internal Medicine
DX: I35.2 Nonrheumatic aortic (valve) stenosis with insufficiency (principal); I25.10 Atherosclerotic heart disease of native coronary artery without angina pectoris; I71.20 Thoracic aortic aneurysm, without rupture, unspecified; R09.89 Other specified symptoms and signs involving the circulatory and respiratory systems; I10 Essential (primary) hypertension; E78.5 Hyperlipidemia, unspecified; Z87.891 Personal history of nicotine dependence; Z79.82 Long term (current) use of aspirin; Z79.899 Other long term (current) drug therapy; Z88.2 Allergy status to sulfonamides; Z82.49 Family history of ischemic heart disease and other diseases of the circulatory system
CPT/HCPCS: 93005; 85025; 80048; 36415; 85610; 85730; 71046; 93454; 76937; C1893; Q9967; J1644; J2001; J2250; J3010; J7040; 99152; 99153; J0461

== ENCOUNTER 2024-08-29 14:13 | Emergency (ER) | payer OTHER ==
--- OUTSIDE RECORDS SUMMARY | 2024-08-29 14:23 | XMS REPORT | Continuity of Care Document ---
Author Name Unknown Address [address] [facility] [address] [place] [id number] [facility] [address] [facility] [address] [place] [address] Care Team Providers Care Side Stapler Name Role Phone Emil Virk Attending Clinician Sol Peraza Attending Clinician Sol Wilkerson Admitting Clinician Emil Persaud Admitting Clinician Unavailable Payers Payer Name Policy Type Policy Number Effective Date Expirati on Date Source Problems Condition Name Condition Details Condition Category Status Onset Date Resolution Date Last Treatment Date Treating Clinician Comments Source Paroxysmal atrial fibrillati on Paroxysmal atrial fibrillati on Problem [facility] Cardiac pacemaker in situ Pacemaker Problem [facility] Sick sinus syndrome Sick sinus syndrome Problem [facility] Allergies, Adverse Reactions, Alerts Allergy Name Allergy Type Status Severity Reaction(s) Onset Date Inactive Date Treating Clinician Comments Source Sulfa (Sulfona mide Antibiot ics) DA Active MO NAUSEA. VOMITING 2023-06 0 00:00: 00 [facility] Substanc e with sulfonam bruna structur e and antibact erial mechanis m of action (substan ce) Substanc e with sulfonam bruna structur e and antibact erial mechanis m of action (substan ce) Active Unknown [facility] Social History Social Habit Start Date Stop Date Quantity Comments Source History of Tobacco Use [facility] Sex Assigned At [facility] Smoking Status Start Date Stop Date Source Never Smoker [facility] Medications Ordered Medication Name Filled Medication Name Start Date Stop Date Current Medication? Ordering Clinician Indication Dosage Frequency Signature (SIG) Comments Components Source Cyanocobala min 500 MCG Cyanocobala min 500 MCG No 1{table t} QD Cyanocobal hernández 500 MCG Potassium 99 MG Potassium 99 MG No 1{table t} QD Potassium 99 MG amLODIPine Besylate 5 MG amLODIPine Besylate 5 MG No 1{table t} QD amLODIPine Besylate 5 MG Pantoprazol e Sodium 40 MG Pantoprazol e Sodium 40 MG No QD Pantoprazo le Sodium 40 MG Allopurinol 300 MG Allopurinol 300 MG No 1{table t} QD Allopurino l 300 MG Ferrous Sulfate 325 (65 Fe) MG Ferrous Sulfate 325 (65 Fe) MG No 1{table t} Ferrous Sulfate 325 (65 Fe) MG Spironolact one 25 MG Spironolact one 25 MG No 1{table t} Spironolac tone 25 MG Tamsulosin HCl 0.4 MG Tamsulosin HCl 0.4 MG No 1{capsu le} QD Tamsulosin HCl 0.4 MG Clopidogrel Bisulfate 75 MG Clopidogrel Bisulfate 75 MG No 1{table t} QD Clopidogre l Bisulfate 75 MG Metoprolol Succinate ER 25 MG Metoprolol Succinate ER 25 MG No 1{table t} QD Metoprolol Succinate ER 25 MG Atorvastati n Calcium 40 MG Atorvastati n Calcium 40 MG No 1{table t} QD Atorvastat in Calcium 40 MG Aspirin 81 MG Aspirin 81 MG No 1{table t} QD Aspirin 81 MG Furosemide 20 MG Furosemide 20 MG No 1{table t} QD Furosemide 20 MG Vital Signs Vital Name Observation Time Observation Value Comments S ource height 2024-04-18 13:30:00 66 [in_i] [facility] weight-kg 2024-04-18 13:30:00 60.78 kg [facility] bmi 2024-04-18 13:30:00 21.63 kg/m2 Monse [facility] heart rate 2024-04-18 13:30:00 60 /min [facility] blood pressure systolic 2024-04-18 13:30:00 136 mm[Hg] [facility] pressure diastolic 2024-04-18 13:30:00 60 mm[Hg] [facility] Procedures Procedure Date / Time Performed Performing Clinicia n Source [id number] 2024-04-08 00:00:00 CUEJO.01 [facility] [id number] 2024-04-08 00:00:00 CUEJO.01 [facility] [id number] 2024-04-08 00:00:00 CUEJO.01 [facility] [id number] 2024-04-01 00:00:00 CHAAB.01 [facility] [id number] 2024-04-01 00:00:00 CHAAB.01 [facility] [id number] 2024-04-01 00:00:00 CHAAB.01 [facility] [id number] 2024-04-01 00:00:00 CHAAB.01 [facility] [id number] 2024-04-01 00:00:00 CHAAB.01 [facility] Encounters Start Date/Time End Date/Time Encounter Type Admission Type Attending [facility] Care Facility Care Department Encounter ID Source 2024-04-21 23:36:00 Outpatient Emil Virk [facility] [id number] [facility] 2024-04-18 13:07:02 Outpatient Emil Virk [facility] [id number] [facility] ties 2024-04-18 00:00:00 2024-04-18 00:00:00 Office Visit- New Pt.- Level [address] [facility] [id number] [facility] 2024-04-01 05:22:00 2024-04-10 15:16:00 Inpatient Sol Garcia [facility] INTE [id number] [facility] 2024-03-26 13:00:00 2024-03-26 13:00:00 Outpatient Sol Sutton [facility] OUTD [id number] [facility] 2024-03-26 13:00:00 2024-03-26 13:00:00 Outpatient PATRICIA Sutton Sol [facility] OUTD [id number] [facility] Results Test Description Test Time Test Comments Results Result Co mments Source HEPATIC FUNCTION [id number] 03:41:00* Test Item Value Reference Range Interpretation Comme nts TOTAL PROTEIN (test code = PROT) 6.2 g/dL 6.4-8.2 L ALBUMIN (test code = ALB) 2.70 g/dL 3.4-5.0 L BILIRUBIN TOTAL (test code = BILT) 0.80 mg/dL 0.0-1.0 N BILIRUBIN DIRECT (test code = BILD) 0.50 MG/DL 0.1-0.3 H BILIRUBIN INDIRECT (test cod e = BILIND) 0.30 MG/DL SGOT/AST (test code = AST) 30 IUnit/L 8-34 N SGPT/ALT (test code = ALT) 62 IUnit/L 10-49 H ALKALINE PHOSPHATASE TOTAL ( test code = ALKP) 144 IUnit/L 20-125 H [id number] 03:41:00* Test Item Value Reference Range Interpretation Comme nts MAGNESIUM (test code = MAG) 2.31 mg/dL 1.6-2.6 N CBC W/AUTO [id number] 03:28:00* Test Item Value Reference Range Interpretation Comme nts WHITE BLOOD CELL (test code = WBC) 11.3 x10 3/uL 4.5-11.0 H RED BLOOD CELL (test code = RBC) 2.85 x10 6/uL 4.00-5.60 L HEMOGLOBIN (test code = HGB) 7.9 g/dL 12.5-16.9 L HEMATOCRIT (test code = HCT) 23.9 % 37.5-50.7 L MEAN CELL VOLUME (test code = MCV) 83.9 fL 81.0-99.0 N MEAN CELL HGB (test code = MCH) 27.7 pg 27.0-33.0 N MEAN CELL HGB CONCETRATION (test code = MCHC) 33.1 g/dL 33.0-37.0 N RED CELL DISTRIBUTION WIDTH CV (test code = RDW) 15.1 % 11.5-14.5 H RED CELL DISTRIBUTION WIDTH SD (test code = RDW-SD) 46.4 fL 37.0-54.0 N PLATELET COUNT (test code = PLT) 390 x10 3/uL 150-400 N MEAN PLATELET VOLUME (test c ode = MPV) 10.4 fL 7.0-9.0 H NEUTROPHIL % (test code = NT%) 76.9 % 56.0-77.0 N IMMATURE GRANULOCYTE % (test code = IG%) 2.1 % 0.0-2.0 H LYMPHOCYTE % (test code = LY%) 9.0 % 14.0-32.0 L MONOCYTE % (test code = MO%) 7.3 % 4.8-9.0 N EOSINOPHIL % (test code = EO%) 4.2 % 0.3-3.7 H BASOPHIL % (test code = BA%) 0.5 % 0.0-2.0 N NUCLEATED RBC % (test code = NRBC%) 0.0 % 0-0 N NEUTROPHIL # (test code = NT#) 8.70 x10 3/uL 2.0-7.6 H IMMATURE GRANULOCYTE # (test code = IG#) 0.24 x10 3/uL 0.00-0.03 H LYMPHOCYTE # (test code = LY#) 1.02 x10 3/uL 1.0-3.8 N MONOCYTE # (test code = MO#) 0.83 x10 3/uL 0.1-0.8 H EOSINOPHIL # (test code = EO#) 0.48 x10 3/uL 0.0-0.2 H BASOPHIL # (test code = BA#) 0.06 x10 3/uL 0.0-0.2 N NUCLEATED RBC # (test code = NRBC#) 0.00 x10 3/uL 0.0-0.1 N PROTHROMBIN [id number] 03:21:00* Test Item Value Reference Range Interpretation Comme nts PROTHROMBIN TIME PATIENT (test code = PTP) 14.8 SECONDS 9.3-12.9 H INTERNATIONAL NORMAL RATIO (test code = INR) 1.3 0.8-1.2 H TARGET INR BY INDICATION Indication INR1. Prophylaxis of venous thrombosis 2.0 - 3.0 (orthopedic surgery), Prophylaxis of venous thrombosis (other than high-risk surgery), Treatment of Deep Vein Thrombosis/Pulmonary Embolism, Prevention of systemic embolism - Tissue heart valves, Acute Myocardial Infarction (to prevent systemic embolism), Valvular heart disease, Atrial Fibrillation, Bileaflet mechanical valve in aortic position.2. Mechanical prosthetic valves (high risk), 2.5 - 3.5 Presence of Lupus Anticoagulant or Antiphospholipid Antibodies, Prevention of systemic embolism - Acute Myocardial Infarction (to prevent recurrent infarct). GLUCOSE [id number] 20:31:00* Test Item Value Reference Range Interpretation Comme nts GLUCOSE BEDSIDE (test code = GLUBED) 135 MG/DL 70-110 H Performed by cer tified conduit reamer operator at [facility] GLUCOSE [id number] 17:26:00* Test Item Value Reference Range Interpretation Comme nts GLUCOSE BEDSIDE (test code = GLUBED) 124 MG/DL 70-110 H Performed by cer tified conduit reamer operator at [facility] GLUCOSE [id number] 11:33:00* Test Item Value Reference Range Interpretation Comme nts GLUCOSE BEDSIDE (test code = GLUBED) 104 MG/DL 70-110 N Performed by [facility] tified conduit reamer operator at [facility] GLUCOSE [id number] 09:04:00* Test Item Value Reference Range Interpretation Comme nts GLUCOSE BEDSIDE (test code = GLUBED) 174 MG/DL 70-110 H Performed by [facility] tified conduit reamer operator at [facility] BASIC METABOLIC [id number] 04:38:00* Test Item Value Reference Range Interpretation Comme nts SODIUM (test code = NA) 132 mEq/L 134-147 L POTASSIUM (test code = K) 4.1 mEq/L 3.4-5.0 N CHLORIDE (test code = CL) 103 mEq/L 100-108 N CARBON DIOXIDE (test code = CO2) 23 mEq/l 21-33 N ANION GAP (test code = GAP) 10 0-20 N GLUCOSE (test code = GLU) 101 mg/dL 77-141 N BLOOD UREA NITROGEN (test code = BUN) 22 mg/dL 7-25 N GLOMERULAR FILTRATION RATE (test code = GFR) 51.4 70-80 L The Glomerular Filtration Rate is a calculated parameterbased on serum Creatinine, patient age and sex. GFR valuesless than 60 mL/min/1.73 square meters are indicative ofChronic Kidney Disease. Values less than 15 mL/min/1.73square meters indicate Kidney failure. The calculation forGFR is based on the CKD-EPI (2020) calculation. This formulais race indifferent and is the recommended formula for GFRby the National Kidney Foundation for Adults.The GFR will not calculate if the sex is unknown or if thepatient's age is <18 years. CREATININE (test code = CREAT) 1.4 mg/dL 0.6-1.3 H CALCIUM (test code = CA) 8.0 mg/dL 8.0-10.5 N HEPATIC FUNCTION [id number] 04:38:00* Test Item Value Reference Range Interpretation Comme nts TOTAL PROTEIN (test code = PROT) 6.1 g/dL 6.4-8.2 L ALBUMIN (test code = ALB) 2.80 g/dL 3.4-5.0 L BILIRUBIN TOTAL (test code = BILT) 1.20 mg/dL 0.0-1.0 H BILIRUBIN DIRECT (test code = BILD) 0.60 MG/DL 0.1-0.3 H BILIRUBIN INDIRECT (test cod e = BILIND) 0.60 MG/DL SGOT/AST (test code = AST) 46 IUnit/L 8-34 H SGPT/ALT (test code = ALT) 75 IUnit/L 10-49 H ALKALINE PHOSPHATASE TOTAL ( test code = ALKP) 151 IUnit/L 20-125 H [id number] 04:38:00* Test Item Value Reference Range Interpretation Comme nts MAGNESIUM (test code = MAG) 2.41 mg/dL 1.6-2.6 N CBC W/AUTO [id number] 03:56:00* Test Item Value Reference Range Interpretation Comme nts WHITE BLOOD CELL (test code = WBC) 10.9 x10 3/uL 4.5-11.0 N RED BLOOD CELL (test code = RBC) 3.11 x10 6/uL 4.00-5.60 L HEMOGLOBIN (test code = HGB) 8.5 g/dL 12.5-16.9 L HEMATOCRIT (test code = HCT) 26.6 % 37.5-50.7 L MEAN CELL VOLUME (test code = MCV) 85.5 fL 81.0-99.0 N MEAN CELL HGB (test code = MCH) 27.3 pg 27.0-33.0 N MEAN CELL HGB CONCETRATION (test code = MCHC) 32.0 g/dL 33.0-37.0 L RED CELL DISTRIBUTION WIDTH CV (test code = RDW) 15.1 % 11.5-14.5 H RED CELL DISTRIBUTION WIDTH SD (test code = RDW-SD) 46.5 fL 37.0-54.0 N PLATELET COUNT (test code = PLT) 345 x10 3/uL 150-400 N MEAN PLATELET VOLUME (test c ode = MPV) 10.2 fL 7.0-9.0 H NEUTROPHIL % (test code = NT%) 78.7 % 56.0-77.0 H IMMATURE GRANULOCYTE % (test code = IG%) 1.9 % 0.0-2.0 N LYMPHOCYTE % (test code = LY%) 6.1 % 14.0-32.0 L MONOCYTE % (test code = MO%) 7.3 % 4.8-9.0 N EOSINOPHIL % (test code = EO%) 5.5 % 0.3-3.7 H BASOPHIL % (test code = BA%) 0.5 % 0.0-2.0 N NUCLEATED RBC % (test code = NRBC%) 0.0 % 0-0 N NEUTROPHIL # (test code = NT#) 8.59 x10 3/uL 2.0-7.6 H IMMATURE GRANULOCYTE # (test code = IG#) 0.21 x10 3/uL 0.00-0.03 H LYMPHOCYTE # (test code = LY#) 0.67 x10 3/uL 1.0-3.8 L MONOCYTE # (test code = MO#) 0.80 x10 3/uL 0.1-0.8 N EOSINOPHIL # (test code = EO#) 0.60 x10 3/uL 0.0-0.2 H BASOPHIL # (test code = BA#) 0.05 x10 3/uL 0.0-0.2 N NUCLEATED RBC # (test code = NRBC#) 0.00 x10 3/uL 0.0-0.1 N GLUCOSE [id number] 20:14:00* Test Item Value Reference Range Interpretation Comme nts GLUCOSE BEDSIDE (test code = GLUBED) 109 MG/DL 70-110 N Performed by cer tified conduit reamer operator at [facility] PROTHROMBIN [id number] 15:13:00* Test Item Value Reference Range Interpretation Comme nts PROTHROMBIN TIME PATIENT (test code = PTP) 13.4 SECONDS 9.3-12.9 H INTERNATIONAL NORMAL RATIO (test code = INR) 1.2 0.8-1.2 N TARGET INR BY INDICATION Indication INR1. Prophylaxis of venous thrombosis 2.0 - 3.0 (orthopedic surgery), Prophylaxis of venous thrombosis (other than high-risk surgery), Treatment of Deep Vein Thrombosis/Pulmonary Embolism, Prevention of systemic embolism - Tissue heart valves, Acute Myocardial Infarction (to prevent systemic embolism), Valvular heart disease, Atrial Fibrillation, Bileaflet mechanical valve in aortic position.2. Mechanical prosthetic valves (high risk), 2.5 - 3.5 Presence of Lupus Anticoagulant or Antiphospholipid Antibodies, Prevention of systemic embolism - Acute Myocardial Infarction (to prevent recurrent infarct). GLUCOSE [id number] 07:56:00* Test Item Value Reference Range Interpretation Comme nts GLUCOSE BEDSIDE (test code = GLUBED) 119 MG/DL 70-110 H Performed by cer tified conduit reamer operator at [facility] BASIC METABOLIC [id number] 03:23:00* Test Item Value Reference Range Interpretation Comme nts SODIUM (test code = NA) 132 mEq/L 134-147 L POTASSIUM (test code = K) 4.0 mEq/L 3.4-5.0 N CHLORIDE (test code = CL) 101 mEq/L 100-108 N CARBON DIOXIDE (test code = CO2) 25 mEq/l 21-33 N ANION GAP (test code = GAP) 10 0-20 N GLUCOSE (test code = GLU) 110 mg/dL 77-141 N BLOOD UREA NITROGEN (test code = BUN) 23 mg/dL 7-25 N GLOMERULAR FILTRATION RATE (test code = GFR) 47.4 70-80 L The Glomerular Filtration Rate is a calculated parameterbased on serum Creatinine, patient age and sex. GFR valuesless than 60 mL/min/1.73 square meters are indicative ofChronic Kidney Disease. Values less than 15 mL/min/1.73square meters indicate Kidney failure. The calculation forGFR is based on the CKD-EPI (202) calculation. This formulais race indifferent and is the recommended formula for GFRby the National Kidney Foundation for Adults.The GFR will not calculate if the sex is unknown or if thepatient's age is <18 years. CREATININE (test code = CREAT) 1.5 mg/dL 0.6-1.3 H CALCIUM (test code = CA) 8.3 mg/dL 8.0-10.5 N HEPATIC FUNCTION [id number] 03:23:00* Test Item Value Reference Range Interpretation Comme nts TOTAL PROTEIN (test code = PROT) 6.0 g/dL 6.4-8.2 L ALBUMIN (test code = ALB) 2.80 g/dL 3.4-5.0 L BILIRUBIN TOTAL (test code = BILT) 1.10 mg/dL 0.0-1.0 H BILIRUBIN DIRECT (test code = BILD) 0.60 MG/DL 0.1-0.3 H BILIRUBIN INDIRECT (test cod e = BILIND) 0.50 MG/DL SGOT/AST (test code = AST) 58 IUnit/L 8-34 H SGPT/ALT (test code = ALT) 80 IUnit/L 10-49 H ALKALINE PHOSPHATASE TOTAL ( test code = ALKP) 140 IUnit/L 20-125 H [id number] 03:23:00* Test Item Value Reference Range Interpretation Comme nts MAGNESIUM (test code = MAG) 2.34 mg/dL 1.6-2.6 N CBC W/AUTO [id number] 03:17:00* Test Item Value Reference Range Interpretation Comme nts WHITE BLOOD CELL (test code = WBC) 10.2 x10 3/uL 4.5-11.0 N RED BLOOD CELL (test code = RBC) 2.93 x10 6/uL 4.00-5.60 L HEMOGLOBIN (test code = HGB) 8.2 g/dL 12.5-16.9 L HEMATOCRIT (test code = HCT) 25.0 % 37.5-50.7 L MEAN CELL VOLUME (test code = MCV) 85.3 fL 81.0-99.0 N MEAN CELL HGB (test code = MCH) 28.0 pg 27.0-33.0 N MEAN CELL HGB CONCETRATION (test code = MCHC) 32.8 g/dL 33.0-37.0 L RED CELL DISTRIBUTION WIDTH CV (test code = RDW) 15.2 % 11.5-14.5 H RED CELL DISTRIBUTION WIDTH SD (test code = RDW-SD) 47.3 fL 37.0-54.0 N PLATELET COUNT (test code = PLT) 251 x10 3/uL 150-400 N MEAN PLATELET VOLUME (test c ode = MPV) 10.6 fL 7.0-9.0 H NEUTROPHIL % (test code = NT%) 74.3 % 56.0-77.0 N IMMATURE GRANULOCYTE % (test code = IG%) 1.6 % 0.0-2.0 N LYMPHOCYTE % (test code = LY%) 8.9 % 14.0-32.0 L MONOCYTE % (test code = MO%) 11.1 % 4.8-9.0 H EOSINOPHIL % (test code = EO%) 3.9 % 0.3-3.7 H BASOPHIL % (test code = BA%) 0.2 % 0.0-2.0 N NUCLEATED RBC % (test code = NRBC%) 0.0 % 0-0 N NEUTROPHIL # (test code = NT#) 7.55 x10 3/uL 2.0-7.6 N IMMATURE GRANULOCYTE # (test code = IG#) 0.16 x10 3/uL 0.00-0.03 H LYMPHOCYTE # (test code = LY#) 0.90 x10 3/uL 1.0-3.8 L MONOCYTE # (test code = MO#) 1.13 x10 3/uL 0.1-0.8 H EOSINOPHIL # (test code = EO#) 0.40 x10 3/uL 0.0-0.2 H BASOPHIL # (test code = BA#) 0.02 x10 3/uL 0.0-0.2 N NUCLEATED RBC # (test code = NRBC#) 0.00 x10 3/uL 0.0-0.1 N BASIC METABOLIC [id number] 21:04:00* Test Item Value Reference Range Interpretation Comme nts SODIUM (test code = NA) 131 mEq/L 134-147 L POTASSIUM (test code = K) 3.7 mEq/L 3.4-5.0 N CHLORIDE (test code = CL) 99 mEq/L 100-108 L CARBON DIOXIDE (test code = CO2) 25 mEq/l 21-33 N ANION GAP (test code = GAP) 11 0-20 N GLUCOSE (test code = GLU) 136 mg/dL 77-141 BLOOD UREA NITROGEN (test code = BUN) 28 mg/dL 7-25 H GLOMERULAR FILTRATION RATE (test code = GFR) 43.8 70-80 L The Glomerular Filtration Rate is a calculated parameterbased on serum Creatinine, patient age and sex. GFR valuesless than 60 mL/min/1.73 square meters are indicative ofChronic Kidney Disease. Values less than 15 mL/min/1.73square meters indicate Kidney failure. The calculation forGFR is based on the CKD-EPI (2020) calculation. This formulais race indifferent and is the recommended formula for GFRby the National Kidney Foundation for Adults.The GFR will not calculate if the sex is unknown or if thepatient's age is <18 years. CREATININE (test code = CREAT) 1.6 mg/dL 0.6-1.3 H CALCIUM (test code = CA) 7.7 mg/dL 8.0-10.5 L [id number] 21:04:00* Test Item Value Reference Range Interpretation Comme nts MAGNESIUM (test code = MAG) 2.11 mg/dL 1.6-2.6 N CALCIUM [id number] 21:04:00* Test Item Value Reference Range Interpretation Comme nts CALCIUM IONIZED (test code = HENRY) 1.07 MMOL/L 1.09-1.30 L GLUCOSE [id number] 17:12:00* Test Item Value Reference Range Interpretation Comme nts GLUCOSE BEDSIDE (test code = GLUBED) 142 MG/DL 70-110 H Performed by cer tified conduit reamer operator at [facility] GLUCOSE [id number] 11:43:00* Test Item Value Reference Range Interpretation Comme nts GLUCOSE BEDSIDE (test code = GLUBED) 113 MG/DL 70-110 H Performed by cer tified conduit reamer operator at [facility] GLUCOSE [id number] 07:51:00* Test Item Value Reference Range Interpretation Comme nts GLUCOSE BEDSIDE (test code = GLUBED) 112 MG/DL 70-110 H Performed by [facility] tified conduit reamer operator at [facility] HEPATIC FUNCTION [id number] 04:14:00* Test Item Value Reference Range Interpretation Comme nts TOTAL PROTEIN (test code = PROT) 5.6 g/dL 6.4-8.2 L ALBUMIN (test code = ALB) 2.70 g/dL 3.4-5.0 L BILIRUBIN TOTAL (test code = BILT) 1.10 mg/dL 0.0-1.0 H BILIRUBIN DIRECT (test code = BILD) 0.60 MG/DL 0.1-0.3 H BILIRUBIN INDIRECT (test cod e = BILIND) 0.50 MG/DL SGOT/AST (test code = AST) 70 IUnit/L 8-34 H SGPT/ALT (test code = ALT) 72 IUnit/L 10-49 H ALKALINE PHOSPHATASE TOTAL ( test code = ALKP) 123 IUnit/L 20-125 BASIC METABOLIC [id number] 03:26:00* Test Item Value Reference Range Interpretation Comme nts SODIUM (test code = NA) 133 mEq/L 134-147 L POTASSIUM (test code = K) 3.7 mEq/L 3.4-5.0 N CHLORIDE (test code = CL) 98 mEq/L 100-108 L CARBON DIOXIDE (test code = CO2) 27 mEq/l 21-33 N ANION GAP (test code = GAP) 12 0-20 N GLUCOSE (test code = GLU) 108 mg/dL 77-141 N BLOOD UREA NITROGEN (test code = BUN) 31 mg/dL 7-25 H GLOMERULAR FILTRATION RATE (test code = GFR) 43.8 70-80 L The Glomerular Filtration Rate is a calculated parameterbased on serum Creatinine, patient age and sex. GFR valuesless than 60 mL/min/1.73 square meters are indicative ofChronic Kidney Disease. Values less than 15 mL/min/1.73square meters indicate Kidney failure. The calculation forGFR is based on the CKD-EPI (2020) calculation. This formulais race indifferent and is the recommended formula for GFRby the National Kidney Foundation for Adults.The GFR will not calculate if the sex is unknown or if thepatient's age is <18 years. CREATININE (test code = CREAT) 1.6 mg/dL 0.6-1.3 H CALCIUM (test code = CA) 8.3 mg/dL 8.0-10.5 N [id number] 03:26:00* Test Item Value Reference Range Interpretation Comme nts MAGNESIUM (test code = MAG) 2.26 mg/dL 1.6-2.6 N CALCIUM [id number] 03:15:00* Test Item Value Reference Range Interpretation Comme nts CALCIUM IONIZED (test code = HENRY) 1.07 MMOL/L 1.09-1.30 L CBC W/AUTO [id number] 03:01:00* Test Item Value Reference Range Interpretation Comme nts WHITE BLOOD CELL (test code = WBC) 9.2 x10 3/uL 4.5-11.0 N RED BLOOD CELL (test code = RBC) 2.71 x10 6/uL 4.00-5.60 L HEMOGLOBIN (test code = HGB) 7.5 g/dL 12.5-16.9 L HEMATOCRIT (test code = HCT) 23.0 % 37.5-50.7 L MEAN CELL VOLUME (test code = MCV) 84.9 fL 81.0-99.0 N MEAN CELL HGB (test code = MCH) 27.7 pg 27.0-33.0 N MEAN CELL HGB CONCETRATION (test code = MCHC) 32.6 g/dL 33.0-37.0 L RED CELL DISTRIBUTION WIDTH CV (test code = RDW) 15.4 % 11.5-14.5 H RED CELL DISTRIBUTION WIDTH SD (test code = RDW-SD) 46.7 fL 37.0-54.0 N PLATELET COUNT (test code = PLT) 193 x10 3/uL 150-400 N MEAN PLATELET VOLUME (test c ode = MPV) 10.9 fL 7.0-9.0 H NEUTROPHIL % (test code = NT%) 76.3 % 56.0-77.0 N IMMATURE GRANULOCYTE % (test code = IG%) 1.1 % 0.0-2.0 N LYMPHOCYTE % (test code = LY%) 7.9 % 14.0-32.0 L MONOCYTE % (test code = MO%) 10.8 % 4.8-9.0 H EOSINOPHIL % (test code = EO%) 3.7 % 0.3-3.7 N BASOPHIL % (test code = BA%) 0.2 % 0.0-2.0 N NUCLEATED RBC % (test code = NRBC%) 0.0 % 0-0 N NEUTROPHIL # (test code = NT#) 7.04 x10 3/uL 2.0-7.6 N IMMATURE GRANULOCYTE # (test code = IG#) 0.10 x10 3/uL 0.00-0.03 H LYMPHOCYTE # (test code = LY#) 0.73 x10 3/uL 1.0-3.8 L MONOCYTE # (test code = MO#) 1.00 x10 3/uL 0.1-0.8 H EOSINOPHIL # (test code = EO#) 0.34 x10 3/uL 0.0-0.2 H BASOPHIL # (test code = BA#) 0.02 x10 3/uL 0.0-0.2 N NUCLEATED RBC # (test code = NRBC#) 0.00 x10 3/uL 0.0-0.1 N GLUCOSE [id number] 20:39:00* Test Item Value Reference Range Interpretation Comme nts GLUCOSE BEDSIDE (test code = GLUBED) 121 MG/DL 70-110 H Performed by cer tified conduit reamer operator at [facility] BASIC METABOLIC [id number] 16:40:00* Test Item Value Reference Range Interpretation Comme nts SODIUM (test code = NA) 132 mEq/L 134-147 L POTASSIUM (test code = K) 4.0 mEq/L 3.4-5.0 N CHLORIDE (test code = CL) 101 mEq/L 100-108 N CARBON DIOXIDE (test code = CO2) 26 mEq/l 21-33 N ANION GAP (test code = GAP) 9 0-20 N GLUCOSE (test code = GLU) 119 mg/dL 77-141 N BLOOD UREA NITROGEN (test code = BUN) 36 mg/dL 7-25 H GLOMERULAR FILTRATION RATE (test code = GFR) 40.8 70-80 L The Glomerular Filtration Rate is a calculated parameterbased on serum Creatinine, patient age and sex. GFR valuesless than 60 mL/min/1.73 square meters are indicative ofChronic Kidney Disease. Values less than 15 mL/min/1.73square meters indicate Kidney failure. The calculation forGFR is based on the CKD-EPI (2020) calculation. This formulais race indifferent and is the recommended formula for GFRby the National Kidney Foundation for Adults.The GFR will not calculate if the sex is unknown or if thepatient's age is <18 years. CREATININE (test code = CREAT) 1.7 mg/dL 0.6-1.3 H CALCIUM (test code = CA) 7.9 mg/dL 8.0-10.5 L [id number] 16:40:00* Test Item Value Reference Range Interpretation Comme nts MAGNESIUM (test code = MAG) 2.32 mg/dL 1.6-2.6 N CALCIUM [id number] 16:40:00* Test Item Value Reference Range Interpretation Comme nts CALCIUM IONIZED (test code = HENRY) 1.06 MMOL/L 1.09-1.30 L CBC W/AUTO [id number] 16:33:00* Test Item Value Reference Range Interpretation Comme nts WHITE BLOOD CELL (test code = WBC) 9.3 x10 3/uL 4.5-11.0 N RED BLOOD CELL (test code = RBC) 2.72 x10 6/uL 4.00-5.60 L HEMOGLOBIN (test code = HGB) 7.5 g/dL 12.5-16.9 L HEMATOCRIT (test code = HCT) 22.5 % 37.5-50.7 L MEAN CELL VOLUME (test code = MCV) 82.7 fL 81.0-99.0 N MEAN CELL HGB (test code = MCH) 27.6 pg 27.0-33.0 N MEAN CELL HGB CONCETRATION (test code = MCHC) 33.3 g/dL 33.0-37.0 N RED CELL DISTRIBUTION WIDTH CV (test code = RDW) 15.5 % 11.5-14.5 H RED CELL DISTRIBUTION WIDTH SD (test code = RDW-SD) 46.9 fL 37.0-54.0 N PLATELET COUNT (test code = PLT) 192 x10 3/uL 150-400 N MEAN PLATELET VOLUME (test c ode = MPV) 11.4 fL 7.0-9.0 H NEUTROPHIL % (test code = NT%) 75.1 % 56.0-77.0 N IMMATURE GRANULOCYTE % (test code = IG%) 1.0 % 0.0-2.0 N LYMPHOCYTE % (test code = LY%) 8.8 % 14.0-32.0 L MONOCYTE % (test code = MO%) 12.2 % 4.8-9.0 H EOSINOPHIL % (test code = EO%) 2.6 % 0.3-3.7 N BASOPHIL % (test code = BA%) 0.3 % 0.0-2.0 N NUCLEATED RBC % (test code = NRBC%) 0.0 % 0-0 N NEUTROPHIL # (test code = NT#) 6.99 x10 3/uL 2.0-7.6 N IMMATURE GRANULOCYTE # (test code = IG#) 0.09 x10 3/uL 0.00-0.03 H LYMPHOCYTE # (test code = LY#) 0.82 x10 3/uL 1.0-3.8 L MONOCYTE # (test code = MO#) 1.13 x10 3/uL 0.1-0.8 H EOSINOPHIL # (test code = EO#) 0.24 x10 3/uL 0.0-0.2 H BASOPHIL # (test code = BA#) 0.03 x10 3/uL 0.0-0.2 N NUCLEATED RBC # (test code = NRBC#) 0.00 x10 3/uL 0.0-0.1 N GLUCOSE [id number] 12:07:00* Test Item Value Reference Range Interpretation Comme nts GLUCOSE BEDSIDE (test code = GLUBED) 98 MG/DL 70-110 N Performed by cer tony conduit reamer operator at [facility] BASIC METABOLIC [id number] 09:58:00* Test Item Value Reference Range Interpretation Comme nts SODIUM (test code = NA) 132 mEq/L 134-147 L POTASSIUM (test code = K) 4.0 mEq/L 3.4-5.0 N CHLORIDE (test code = CL) 101 mEq/L 100-108 N CARBON DIOXIDE (test code = CO2) 27 mEq/l 21-33 N ANION GAP (test code = GAP) 8 0-20 N GLUCOSE (test code = GLU) 131 mg/dL 77-141 N BLOOD UREA NITROGEN (test code = BUN) 37 mg/dL 7-25 H GLOMERULAR FILTRATION RATE (test code = GFR) 38.1 70-80 L The Glomerular Filtration Rate is a calculated parameterbased on serum Creatinine, patient age and sex. GFR valuesless than 60 mL/min/1.73 square meters are indicative ofChronic Kidney Disease. Values less than 15 mL/min/1.73square meters indicate Kidney failure. The calculation forGFR is based on the CKD-EPI (202) calculation. This formulais race indifferent and is the recommended formula for GFRby the National Kidney Foundation for Adults.The GFR will not calculate if the sex is unknown or if thepatient's age is <18 years. CREATININE (test code = CREAT) 1.8 mg/dL 0.6-1.3 H CALCIUM (test code = CA) 7.9 mg/dL 8.0-10.5 L [id number] 09:58:00* Test Item Value Reference Range Interpretation Comme nts MAGNESIUM (test code = MAG) 2.43 mg/dL 1.6-2.6 N CALCIUM [id number] 09:58:00* Test Item Value Reference Range Interpretation Comme nts CALCIUM IONIZED (test code = HENRY) 1.06 MMOL/L 1.09-1.30 L GLUCOSE [id number] 07:42:00* Test Item Value Reference Range Interpretation Comme nts GLUCOSE BEDSIDE (test code = GLUBED) 115 MG/DL 70-110 H Performed by cer tony conduit reamer operator at [facility] BASIC METABOLIC [id number] 02:41:00* Test Item Value Reference Range Interpretation Comme nts SODIUM (test code = NA) 134 mEq/L 134-147 N POTASSIUM (test code = K) 4.4 mEq/L 3.4-5.0 N CHLORIDE (test code = CL) 101 mEq/L 100-108 N CARBON DIOXIDE (test code = CO2) 26 mEq/l 21-33 N ANION GAP (test code = GAP) 12 0-20 N GLUCOSE (test code = GLU) 121 mg/dL 77-141 N BLOOD UREA NITROGEN (test code = BUN) 38 mg/dL 7-25 H GLOMERULAR FILTRATION RATE (test code = GFR) 40.8 70-80 L The Glomerular Filtration Rate is a calculated parameterbased on serum Creatinine, patient age and sex. GFR valuesless than 60 mL/min/1.73 square meters are indicative ofChronic Kidney Disease. Values less than 15 mL/min/1.73square meters indicate Kidney failure. The calculation forGFR is based on the CKD-EPI (2020) calculation. This formulais race indifferent and is the recommended formula for GFRby the National Kidney Foundation for Adults.The GFR will not calculate if the sex is unknown or if thepatient's age is <18 years. CREATININE (test code = CREAT) 1.7 mg/dL 0.6-1.3 H CALCIUM (test code = CA) 8.1 mg/dL 8.0-10.5 N [id number] 02:41:00* Test Item Value Reference Range Interpretation Comme nts MAGNESIUM (test code = MAG) 2.57 mg/dL 1.6-2.6 N CALCIUM [id number] 02:41:00* Test Item Value Reference Range Interpretation Comme nts CALCIUM IONIZED (test code = HENRY) 1.06 MMOL/L 1.09-1.30 L CBC W/AUTO [id number] 02:18:00* Test Item Value Reference Range Interpretation Comme nts WHITE BLOOD CELL (test code = WBC) 8.5 x10 3/uL 4.5-11.0 N RED BLOOD CELL (test code = RBC) 2.61 x10 6/uL 4.00-5.60 L HEMOGLOBIN (test code = HGB) 7.2 g/dL 12.5-16.9 L HEMATOCRIT (test code = HCT) 21.9 % 37.5-50.7 L MEAN CELL VOLUME (test code = MCV) 83.9 fL 81.0-99.0 N MEAN CELL HGB (test code = MCH) 27.6 pg 27.0-33.0 N MEAN CELL HGB CONCETRATION (test code = MCHC) 32.9 g/dL 33.0-37.0 L RED CELL DISTRIBUTION WIDTH CV (test code = RDW) 15.6 % 11.5-14.5 H RED CELL DISTRIBUTION WIDTH SD (test code = RDW-SD) 46.9 fL 37.0-54.0 N PLATELET COUNT (test code = PLT) 143 x10 3/uL 150-400 L MEAN PLATELET VOLUME (test c ode = MPV) 11.5 fL 7.0-9.0 H NEUTROPHIL % (test code = NT%) 74.3 % 56.0-77.0 N IMMATURE GRANULOCYTE % (test code = IG%) 1.1 % 0.0-2.0 N LYMPHOCYTE % (test code = LY%) 9.2 % 14.0-32.0 L MONOCYTE % (test code = MO%) 12.1 % 4.8-9.0 H EOSINOPHIL % (test code = EO%) 3.1 % 0.3-3.7 N BASOPHIL % (test code = BA%) 0.2 % 0.0-2.0 N NUCLEATED RBC % (test code = NRBC%) 0.0 % 0-0 N NEUTROPHIL # (test code = NT#) 6.29 x10 3/uL 2.0-7.6 N IMMATURE GRANULOCYTE # (test code = IG#) 0.09 x10 3/uL 0.00-0.03 H LYMPHOCYTE # (test code = LY#) 0.78 x10 3/uL 1.0-3.8 L MONOCYTE # (test code = MO#) 1.02 x10 3/uL 0.1-0.8 H EOSINOPHIL # (test code = EO#) 0.26 x10 3/uL 0.0-0.2 H BASOPHIL # (test code = BA#) 0.02 x10 3/uL 0.0-0.2 N NUCLEATED RBC # (test code = NRBC#) 0.00 x10 3/uL 0.0-0.1 N BASIC METABOLIC [id number] 20:14:00* Test Item Value Reference Range Interpretation Comme nts SODIUM (test code = NA) 133 mEq/L 134-147 L POTASSIUM (test code = K) 4.2 mEq/L 3.4-5.0 N CHLORIDE (test code = CL) 103 mEq/L 100-108 N CARBON DIOXIDE (test code = CO2) 27 mEq/l 21-33 N ANION GAP (test code = GAP) 7 0-20 N GLUCOSE (test code = GLU) 131 mg/dL 77-141 N BLOOD UREA NITROGEN (test code = BUN) 38 mg/dL 7-25 H GLOMERULAR FILTRATION RATE (test code = GFR) 43.8 70-80 L The Glomerular Filtration Rate is a calculated parameterbased on serum Creatinine, patient age and sex. GFR valuesless than 60 mL/min/1.73 square meters are indicative ofChronic Kidney Disease. Values less than 15 mL/min/1.73square meters indicate Kidney failure. The calculation forGFR is based on the CKD-EPI (2020) calculation. This formulais race indifferent and is the recommended formula for GFRby the National Kidney Foundation for Adults.The GFR will not calculate if the sex is unknown or if thepatient's age is <18 years. CREATININE (test code = CREAT) 1.6 mg/dL 0.6-1.3 H CALCIUM (test code = CA) 7.7 mg/dL 8.0-10.5 L [id number] 20:14:00* Test Item Value Reference Range Interpretation Comme nts MAGNESIUM (test code = MAG) 2.46 mg/dL 1.6-2.6 N CALCIUM [id number] 20:14:00* Test Item Value Reference Range Interpretation Comme nts CALCIUM IONIZED (test code = HENRY) 1.05 MMOL/L 1.09-1.30 L GLUCOSE [id number] 17:12:00* Test Item Value Reference Range Interpretation Comme nts GLUCOSE BEDSIDE (test code = GLUBED) 117 MG/DL 70-110 H Performed by cer tified conduit reamer operator at [facility] BASIC METABOLIC [id number] 13:40:00* Test Item Value Reference Range Interpretation Comme nts SODIUM (test code = NA) 134 mEq/L 134-147 N POTASSIUM (test code = K) 3.9 mEq/L 3.4-5.0 N CHLORIDE (test code = CL) 101 mEq/L 100-108 N CARBON DIOXIDE (test code = CO2) 25 mEq/l 21-33 N ANION GAP (test code = GAP) 12 0-20 N GLUCOSE (test code = GLU) 158 mg/dL 77-141 H BLOOD UREA NITROGEN (test code = BUN) 35 mg/dL 7-25 H GLOMERULAR FILTRATION RATE (test code = GFR) 43.8 70-80 L The Glomerular Filtration Rate is a calculated parameterbased on serum Creatinine, patient age and sex. GFR valuesless than 60 mL/min/1.73 square meters are indicative ofChronic Kidney Disease. Values less than 15 mL/min/1.73square meters indicate Kidney failure. The calculation forGFR is based on the CKD-EPI (2020) calculation. This formulais race indifferent and is the recommended formula for GFRby the National Kidney Foundation for Adults.The GFR will not calculate if the sex is unknown or if thepatient's age is <18 years. CREATININE (test code = CREAT) 1.6 mg/dL 0.6-1.3 H CALCIUM (test code = CA) 7.7 mg/dL 8.0-10.5 L [id number] 13:40:00* Test Item Value Reference Range Interpretation Comme nts MAGNESIUM (test code = MAG) 2.39 mg/dL 1.6-2.6 N GLUCOSE [id number] 08:06:00* Test Item Value Reference Range Interpretation Comme [facility] GLUCOSE BEDSIDE (test code = GLUBED) 120 MG/DL 70-110 H Performed by cer tified conduit reamer operator at [facility] POC ARTERIAL BLOOD [id number] 06:13:00* Test Item Value Reference Range Interpretation Comme nts POC ARTERIAL BLOOD GAS PH (t est code = POCPHA) 7.500 7.35-7.45 H POC ARTERIAL BLOOD GAS PCO2 (test code = GTTUUS0D) 33.0 mmHg 35.0-45 L POC TCO2 ARTERIAL (test code = POCTCO2) 26.7 POC ARTERIAL BLOOD GAS PO2 ( test code = [id number]) 62.6 mmHg 80-100.0 L POC HCO3 ARTERIAL (test code = LJXBVJ0L) 25.7 MMOL/L 22.0-26.0 N POC BASE EXCESS (test code = POCBEA) 2.6 MMOL/L -4.0-4.0 N POC O2 SATURATION (test code = POCO2S) 93.8 % 90-100 N ABG DELIVERY (test code = ILSA) Cannula ABG TEMPERATURE (test code = TEMPA) 99 F BASIC METABOLIC [id number] 06:13:00* Test Item Value Reference Range Interpretation Comme nts SODIUM (test code = NA/ABG) 134 mmol/L 134-147 N POTASSIUM (test code = K/ABG) 4.0 mmol/L 3.4-5.0 N CHLORIDE (test code = CL/ABG) 99 mmol/L 100-108 L CREATININE ABG (test code = CREAABG) 1.6 mg/dL 0.8-1.3 H POC IONIZED CALCIUM (test co de = POCCA) 1.09 MMOL/L 1.12-1.32 L POC GLUCOSE (test code = POCGLU) 144 MG/DL 70-110 H HEMOGLOBIN [id number] 06:13:00* Test Item Value Reference Range Interpretation Comme nts HEMOGLOBIN ABG (test code = HGB/ABG) 8.2 G/DL 12.5-16.9 L [id number] 06:13:00* Test Item Value Reference Range Interpretation Comme nts HEMATOCRIT (test code = HCT/ABG) 24 % 37.5-50.7 L POC LACTIC [id number] 06:13:00* Test Item Value Reference Range Interpretation Comme nts POC LACTIC ACID (test code = POCLAC) 1.1 mmol/l 0.9-1.7 N BASIC METABOLIC [id number] 03:48:00* Test Item Value Reference Range Interpretation Comme nts SODIUM (test code = NA) 135 mEq/L 134-147 N POTASSIUM (test code = K) 4.1 mEq/L 3.4-5.0 N CHLORIDE (test code = CL) 104 mEq/L 100-108 N CARBON DIOXIDE (test code = CO2) 25 mEq/l 21-33 N ANION GAP (test code = GAP) 10 0-20 N GLUCOSE (test code = GLU) 118 mg/dL 77-141 N BLOOD UREA NITROGEN (test code = BUN) 32 mg/dL 7-25 H GLOMERULAR FILTRATION RATE (test code = GFR) 47.4 70-80 L The Glomerular Filtration Rate is a calculated parameterbased on serum Creatinine, patient age and sex. GFR valuesless than 60 mL/min/1.73 square meters are indicative ofChronic Kidney Disease. Values less than 15 mL/min/1.73square meters indicate Kidney failure. The calculation forGFR is based on the CKD-EPI (2020) calculation. This formulais race indifferent and is the recommended formula for GFRby the National Kidney Foundation for Adults.The GFR will not calculate if the sex is unknown or if thepatient's age is <18 years. CREATININE (test code = CREAT) 1.5 mg/dL 0.6-1.3 H CALCIUM (test code = CA) 7.5 mg/dL 8.0-10.5 L [id number] 03:48:00* Test Item Value Reference Range Interpretation Comme nts MAGNESIUM (test code = MAG) 2.32 mg/dL 1.6-2.6 N CBC W/AUTO [id number] 03:29:00* Test Item Value Reference Range Interpretation Comme nts WHITE BLOOD CELL (test code = WBC) 9.9 x10 3/uL 4.5-11.0 N RED BLOOD CELL (test code = RBC) 2.64 x10 6/uL 4.00-5.60 L HEMOGLOBIN (test code = HGB) 7.4 g/dL 12.5-16.9 L HEMATOCRIT (test code = HCT) 22.0 % 37.5-50.7 L MEAN CELL VOLUME (test code = MCV) 83.3 fL 81.0-99.0 N MEAN CELL HGB (test code = MCH) 28.0 pg 27.0-33.0 N MEAN CELL HGB CONCETRATION (test code = MCHC) 33.6 g/dL 33.0-37.0 N RED CELL DISTRIBUTION WIDTH CV (test code = RDW) 15.6 % 11.5-14.5 H RED CELL DISTRIBUTION WIDTH SD (test code = RDW-SD) 47.3 fL 37.0-54.0 N PLATELET COUNT (test code = PLT) 106 x10 3/uL 150-400 L IMMATURE PLATELET FRACTION (test code = IPF) 6.2 % 0.9-11.2 N MEAN PLATELET VOLUME (test c ode = MPV) 11.7 fL 7.0-9.0 H NEUTROPHIL % (test code = NT%) 82.4 % 56.0-77.0 H IMMATURE GRANULOCYTE % (test code = IG%) 0.8 % 0.0-2.0 N LYMPHOCYTE % (test code = LY%) 6.9 % 14.0-32.0 L MONOCYTE % (test code = MO%) 8.4 % 4.8-9.0 N EOSINOPHIL % (test code = EO%) 1.3 % 0.3-3.7 N BASOPHIL % (test code = BA%) 0.2 % 0.0-2.0 N NUCLEATED RBC % (test code = NRBC%) 0.0 % 0-0 N NEUTROPHIL # (test code = NT#) 8.19 x10 3/uL 2.0-7.6 H IMMATURE GRANULOCYTE # (test code = IG#) 0.08 x10 3/uL 0.00-0.03 H LYMPHOCYTE # (test code = LY#) 0.69 x10 3/uL 1.0-3.8 L MONOCYTE # (test code = MO#) 0.83 x10 3/uL 0.1-0.8 H EOSINOPHIL # (test code = EO#) 0.13 x10 3/uL 0.0-0.2 N BASOPHIL # (test code = BA#) 0.02 x10 3/uL 0.0-0.2 N NUCLEATED RBC # (test code = NRBC#) 0.00 x10 3/uL 0.0-0.1 N BASIC METABOLIC [id number] 22:27:00* Test Item Value Reference Range Interpretation Comme nts SODIUM (test code = NA) 135 mEq/L 134-147 N POTASSIUM (test code = K) 4.0 mEq/L 3.4-5.0 N CHLORIDE (test code = CL) 104 mEq/L 100-108 N CARBON DIOXIDE (test code = CO2) 25 mEq/l 21-33 N ANION GAP (test code = GAP) 10 0-20 N GLUCOSE (test code = GLU) 120 mg/dL 77-141 N BLOOD UREA NITROGEN (test code = BUN) 35 mg/dL 7-25 H GLOMERULAR FILTRATION RATE (test code = GFR) 47.4 70-80 L The Glomerular Filtration Rate is a calculated parameterbased on serum Creatinine, patient age and sex. GFR valuesless than 60 mL/min/1.73 square meters are indicative ofChronic Kidney Disease. Values less than 15 mL/min/1.73square meters indicate Kidney failure. The calculation forGFR is based on the CKD-EPI (2020) calculation. This formulais race indifferent and is the recommended formula for GFRby the National Kidney Foundation for Adults.The GFR will not calculate if the sex is unknown or if thepatient's age is <18 years. CREATININE (test code = CREAT) 1.5 mg/dL 0.6-1.3 H CALCIUM (test code = CA) 7.6 mg/dL 8.0-10.5 L [id number] 22:27:00* Test Item Value Reference Range Interpretation Comme nts MAGNESIUM (test code = MAG) 2.43 mg/dL 1.6-2.6 N CALCIUM [id number] 22:27:00* Test Item Value Reference Range Interpretation Comme nts CALCIUM IONIZED (test code = HENRY) MMOL/L 1.09-1.30 GLUCOSE [id number] 20:47:00* Test Item Value Reference Range Interpretation Comme nts GLUCOSE BEDSIDE (test code = GLUBED) 155 MG/DL 70-110 H Performed by cer tony conduit reamer operator at [facility] BASIC METABOLIC [id number] 16:11:00* Test Item Value Reference Range Interpretation Comme nts SODIUM (test code = NA) 135 mEq/L 134-147 N POTASSIUM (test code = K) 3.9 mEq/L 3.4-5.0 N CHLORIDE (test code = CL) 104 mEq/L 100-108 N CARBON DIOXIDE (test code = CO2) 25 mEq/l 21-33 N ANION GAP (test code = GAP) 10 0-20 N GLUCOSE (test code = GLU) 133 mg/dL 77-141 N BLOOD UREA NITROGEN (test code = BUN) 31 mg/dL 7-25 H GLOMERULAR FILTRATION RATE (test code = GFR) 51.4 70-80 L The Glomerular Filtration Rate is a calculated parameterbased on serum Creatinine, patient age and sex. GFR valuesless than 60 mL/min/1.73 square meters are indicative ofChronic Kidney Disease. Values less than 15 mL/min/1.73square meters indicate Kidney failure. The calculation forGFR is based on the CKD-EPI (2020) calculation. This formulais race indifferent and is the recommended formula for GFRby the National Kidney Foundation for Adults.The GFR will not calculate if the sex is unknown or if thepatient's age is <18 years. CREATININE (test code = CREAT) 1.4 mg/dL 0.6-1.3 H CALCIUM (test code = CA) 7.9 mg/dL 8.0-10.5 L [id number] 16:11:00* Test Item Value Reference Range Interpretation Comme nts MAGNESIUM (test code = MAG) 2.42 mg/dL 1.6-2.6 N POC ARTERIAL BLOOD [id number] 15:31:00* Test Item Value Reference Range Interpretation Comme nts POC ARTERIAL BLOOD GAS PH (t est code = POCPHA) 7.545 7.35-7.45 HH POC ARTERIAL BLOOD GAS PCO2 (test code = [id number]) 29.3 mmHg 35.0-45 LL POC TCO2 ARTERIAL (test code = POCTCO2) 26.1 POC ARTERIAL BLOOD GAS PO2 ( test code = XDPRY8S) 60.1 mmHg 80-100.0 L POC HCO3 ARTERIAL (test code = [id number]) 25.2 MMOL/L 22.0-26.0 N POC BASE EXCESS (test code = POCBEA) 2.9 MMOL/L -4.0-4.0 N POC O2 SATURATION (test code = POCO2S) 93.3 % 90-100 N ABG DELIVERY (test code = ILSA) Cannula ABG TEMPERATURE (test code = TEMPA) 99.9 F ABG SITE (test code = SITEA) L Radial MARCO'S TEST (test code = ALLENS) N/A BASIC METABOLIC [id number] 15:31:00* Test Item Value Reference Range Interpretation Comme nts SODIUM (test code = NA/ABG) 132 mmol/L 134-147 L POTASSIUM (test code = K/ABG) 3.9 mmol/L 3.4-5.0 N CHLORIDE (test code = CL/ABG) 99 mmol/L 100-108 L CREATININE ABG (test code = CREAABG) 1.5 mg/dL 0.8-1.3 H POC IONIZED CALCIUM (test co de = POCCA) 1.13 MMOL/L 1.12-1.32 N POC GLUCOSE (test code = POCGLU) 145 MG/DL 70-110 H HEMOGLOBIN [id number] 15:31:00* Test Item Value Reference Range Interpretation Comme nts HEMOGLOBIN ABG (test code = HGB/ABG) 9.5 G/DL 12.5-16.9 L [id number] 15:31:00* Test Item Value Reference Range Interpretation Comme nts HEMATOCRIT (test code = HCT/ABG) 28 % 37.5-50.7 L POC LACTIC [id number] 15:31:00* Test Item Value Reference Range Interpretation Comme nts POC LACTIC ACID (test code = POCLAC) 1.1 mmol/l 0.9-1.7 N GLUCOSE [id number] 11:29:00* Test Item Value Reference Range Interpretation Comme nts GLUCOSE BEDSIDE (test code = GLUBED) 135 MG/DL 70-110 H Performed by cer tified conduit reamer operator at [facility] GLUCOSE [id number] 07:49:00* Test Item Value Reference Range Interpretation Comme nts GLUCOSE BEDSIDE (test code = GLUBED) 129 MG/DL 70-110 H Performed by [employer] conduit reamer operator at [facility] CBC W/AUTO [id number] 05:50:00* Test Item Value Reference Range Interpretation Comme nts WHITE BLOOD CELL (test code = WBC) 13.0 x10 3/uL 4.5-11.0 H RED BLOOD CELL (test code = RBC) 2.88 x10 6/uL 4.00-5.60 L HEMOGLOBIN (test code = HGB) 7.9 g/dL 12.5-16.9 L HEMATOCRIT (test code = HCT) 24.4 % 37.5-50.7 L MEAN CELL VOLUME (test code = MCV) 84.7 fL 81.0-99.0 N MEAN CELL HGB (test code = MCH) 27.4 pg 27.0-33.0 N MEAN CELL HGB CONCETRATION (test code = MCHC) 32.4 g/dL 33.0-37.0 L RED CELL DISTRIBUTION WIDTH CV (test code = RDW) 16.1 % 11.5-14.5 H RED CELL DISTRIBUTION WIDTH SD (test code = RDW-SD) 50.3 fL 37.0-54.0 N PLATELET COUNT (test code = PLT) 89 x10 3/uL 150-400 L MEAN PLATELET VOLUME (test code = MPV) 11.6 fL 7.0-9.0 H NEUTROPHIL % (test code = NT%) 84.0 % 56.0-77.0 H IMMATURE GRANULOCYTE % (test code = IG%) 1.5 % 0.0-2.0 N LYMPHOCYTE % (test code = LY%) 7.0 % 14.0-32.0 L MONOCYTE % (test code = MO%) 7.3 % 4.8-9.0 N EOSINOPHIL % (test code = EO%) 0.1 % 0.3-3.7 L BASOPHIL % (test code = BA%) 0.1 % 0.0-2.0 N NUCLEATED RBC % (test code = NRBC%) 0.0 % 0-0 N NEUTROPHIL # (test code = NT#) 10.96 x10 3/uL 2.0-7.6 H IMMATURE GRANULOCYTE # (test code = IG#) 0.19 x10 3/uL 0.00-0.03 H LYMPHOCYTE # (test code = LY#) 0.91 x10 3/uL 1.0-3.8 L MONOCYTE # (test code = MO#) 0.95 x10 3/uL 0.1-0.8 H EOSINOPHIL # (test code = EO#) 0.01 x10 3/uL 0.0-0.2 N BASOPHIL # (test code = BA#) 0.01 x10 3/uL 0.0-0.2 N NUCLEATED RBC # (test code = NRBC#) 0.00 x10 3/uL 0.0-0.1 N PLT [id number] 05:50:00* Test Item Value Reference Range Interpretation Comme nts PLATELET ESTIMATE (test code = PLTEST) 96 x10 3/uL 150-400 L PLATELET MORPHOLOGY (test code = PLTMORPH) LARGE PLATELETS BASIC METABOLIC [id number] 05:10:00* Test Item Value Reference Range Interpretation Comme nts SODIUM (test code = NA) 135 mEq/L 134-147 N POTASSIUM (test code = K) 4.2 mEq/L 3.4-5.0 CHLORIDE (test code = CL) 105 mEq/L 100-108 N CARBON DIOXIDE (test code = CO2) 24 mEq/l 21-33 ANION GAP (test code = GAP) 10 0-20 N GLUCOSE (test code = GLU) 118 mg/dL 77-141 BLOOD UREA NITROGEN (test code = BUN) 31 mg/dL 7-25 H GLOMERULAR FILTRATION RATE (test code = GFR) 47.4 70-80 L The Glomerular Filtration Rate is a calculated parameterbased on serum Creatinine, patient age and sex. GFR valuesless than 60 mL/min/1.73 square meters are indicative ofChronic Kidney Disease. Values less than 15 mL/min/1.73square meters indicate Kidney failure. The calculation forGFR is based on the CKD-EPI (2020) calculation. This formulais race indifferent and is the recommended formula for GFRby the National Kidney Foundation for Adults.The GFR will not calculate if the sex is unknown or if thepatient's age is <18 years. CREATININE (test code = CREAT) 1.5 mg/dL 0.6-1.3 H CALCIUM (test code = CA) 8.2 mg/dL 8.0-10.5 HEPATIC FUNCTION [id number] 05:10:00* Test Item Value Reference Range Interpretation Comme nts TOTAL PROTEIN (test code = PROT) 5.3 g/dL 6.4-8.2 L ALBUMIN (test code = ALB) 2.90 g/dL 3.4-5.0 L BILIRUBIN TOTAL (test code = BILT) 0.80 mg/dL 0.0-1.0 N BILIRUBIN DIRECT (test code = BILD) 0.40 MG/DL 0.1-0.3 H BILIRUBIN INDIRECT (test cod e = BILIND) 0.40 MG/DL SGOT/AST (test code = AST) 58 IUnit/L 8-34 H SGPT/ALT (test code = ALT) 19 IUnit/L 10-49 N ALKALINE PHOSPHATASE TOTAL ( test code = ALKP) 59 IUnit/L 20-125 N [id number] 05:10:00* Test Item Value Reference Range Interpretation Comme nts MAGNESIUM (test code = MAG) 2.09 mg/dL 1.6-2.6 N BASIC METABOLIC [id number] 04:00:00* Test Item Value Reference Range Interpretation Comme nts SODIUM (test code = NA) 130 mEq/L 134-147 L POTASSIUM (test code = K) 3.3 mEq/L 3.4-5.0 L CHLORIDE (test code = CL) 103 mEq/L 100-108 N CARBON DIOXIDE (test code = CO2) 19 mEq/l 21-33 L ANION GAP (test code = GAP) 11 0-20 N GLUCOSE (test code = GLU) 349 mg/dL 77-141 H BLOOD UREA NITROGEN (test code = BUN) 22 mg/dL 7-25 N GLOMERULAR FILTRATION RATE (test code = GFR) 56.2 70-80 L The Glomerular Filtration Rate is a calculated parameterbased on serum Creatinine, patient age and sex. GFR valuesless than 60 mL/min/1.73 square meters are indicative ofChronic Kidney Disease. Values less than 15 mL/min/1.73square meters indicate Kidney failure. The calculation forGFR is based on the CKD-EPI (2020) calculation. This formulais race indifferent and is the recommended formula for GFRby the National Kidney Foundation for Adults.The GFR will not calculate if the sex is unknown or if thepatient's age is <18 years. CREATININE (test code = CREAT) 1.3 mg/dL 0.6-1.3 N CALCIUM (test code = CA) 6.2 mg/dL 8.0-10.5 LL Critical result called to CUCA [email or web address].KAF at 0359 04/04/24Nurse read back result and tech confirmed it's correct? Y COMMENTS: POD #1HEPATIC FUNCTION [id number] 04:00:00* Test Item Value Reference Range Interpretation Comme nts TOTAL PROTEIN (test code = PROT) 4.4 g/dL 6.4-8.2 L ALBUMIN (test code = ALB) 2.30 g/dL 3.4-5.0 L BILIRUBIN TOTAL (test code = BILT) 0.60 mg/dL 0.0-1.0 N BILIRUBIN DIRECT (test code = BILD) 0.30 MG/DL 0.1-0.3 N BILIRUBIN INDIRECT (test cod e = BILIND) 0.30 MG/DL SGOT/AST (test code = AST) 48 IUnit/L 8-34 H SGPT/ALT (test code = ALT) 14 IUnit/L 10-49 N ALKALINE PHOSPHATASE TOTAL ( test code = ALKP) 52 IUnit/L 20-125 N COMMENTS: POD #[id number] 04:00:00* Test Item Value Reference Range Interpretation Comme nts MAGNESIUM (test code = MAG) 1.70 mg/dL 1.6-2.6 N COMMENTS: POD #1GLUCOSE [id number] 20:38:00* Test Item Value Reference Range Interpretation Comme nts GLUCOSE BEDSIDE (test code = GLUBED) 175 MG/DL 70-110 H Performed by cer tified conduit reamer operator at [facility] BASIC METABOLIC [id number] 18:00:00* Test Item Value Reference Range Interpretation Comme nts SODIUM (test code = NA) 134 mEq/L 134-147 N POTASSIUM (test code = K) 3.8 mEq/L 3.4-5.0 N CHLORIDE (test code = CL) 103 mEq/L 100-108 N CARBON DIOXIDE (test code = CO2) 24 mEq/l 21-33 N ANION GAP (test code = GAP) 11 0-20 N GLUCOSE (test code = GLU) 173 mg/dL 77-141 H BLOOD UREA NITROGEN (test code = BUN) 30 mg/dL 7-25 H GLOMERULAR FILTRATION RATE (test code = GFR) 47.4 70-80 L The Glomerular Filtration Rate is a calculated parameterbased on serum Creatinine, patient age and sex. GFR valuesless than 60 mL/min/1.73 square meters are indicative ofChronic Kidney Disease. Values less than 15 mL/min/1.73square meters indicate Kidney failure. The calculation forGFR is based on the CKD-EPI (202) calculation. This formulais race indifferent and is the recommended formula for GFRby the National Kidney Foundation for Adults.The GFR will not calculate if the sex is unknown or if thepatient's age is <18 years. CREATININE (test code = CREAT) 1.5 mg/dL 0.6-1.3 H CALCIUM (test code = CA) 8.2 mg/dL 8.0-10.5 N [id number] 18:00:00* Test Item Value Reference Range Interpretation Comme nts MAGNESIUM (test code = MAG) 2.24 mg/dL 1.6-2.6 N GLUCOSE [id number] 16:36:00* Test Item Value Reference Range Interpretation Comme nts GLUCOSE BEDSIDE (test code = GLUBED) 152 MG/DL 70-110 H Performed by shell shelton at [facility] [id number] 13:32:00* Test Item Value Reference Range Interpretation Comments SURGICAL (test code = SR) RUN DATE: 04/03/24 [place] - LAB PAGE 1 RUN TIME: 1332 Specimen Inquiry RUN USER: INTERFACE PATIENT : FARHAD WELLS LOC: VIN U #: [id number] AGE/SX: 79/M ROOM: [facility] [place] RE04/01/24REG DR: Sol Sutton MD : 46 BED: 1 DIS: STATUS: ADM IN TLOC: SPEC #: [id number] RECD: 04/02/24 STATUS: SANTOS ARIAS #: [id number] ELISEO: 04/01/24- SUBM DR: Sol Sutton MD ENTERED: 04/02/24 SP TYPE: SURGICAL OTHR DR: Svetlana Hu MD, Curtis S DO Resnick, Harvey MDORDERED: 03976, 18915/2, 99194, ANATOMIC SPEC COPIES TO: Svetlana Hu MD [address] [place] [address] Sol Sutton MD [address] [place] [address] [address] [place] [address] Kaushik Lopez DO [phone] Emil Virk MD [address] [facility] [address] [place] [address] PROCEDURES: [id number] (04/03/24-1238) 09425 (04/02/24) 57412 (04/02/24) TISSUES: A. ATRIUM - LEFT ATRIAL APPENDAGE B. AORTA C. AORTIC VALVE - LEAFLETS CLINICAL HISTORY CAD FINAL DIAGNOSIS 1. Heart, left atrial appendage, wedge biopsy: -Myocardium with focal mild ischemic change. 2. Aorta, NOS, partial excision: -Patchy calcified atherosclerosis. CONTINUED ON NEXT PAGE RUN DATE: 04/03/24 [facility] PAGE 2 RUN TIME: 1332 Specimen Inquiry RUN USER: INTERFACE SPEC #: [id number] PATIENT: FARHAD WELLS #[id number] (Continued) ---- FINAL DIAGNOSIS (Continued) 3. 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 GROSS DESCRIPTION 1. Received in formalin labeled "left atrial appendage" is a 3.5 x 2.2 x 0.9 cm torres-redatrial appendage. The specimen is serially sectioned and no gross lesions are identified. Driver/Guide sections are submitted in cassette A-B. 2. Received in formalin labeled "aorta" is an unoriented segment of aorta measuring 5.8 cmin length, 4.2 x 2.2 cm in diameter, and a separate piece of aorta measuring 10 x 1.5 x 0.1cm. There is a scant amount of soft tissue on the outer surfaces with focal areas ofcongestion. The specimen is serially sectioned to reveal fatty streaks. No gross lesionsare identified. Driver/Guide sections are submitted in cassettes C-D. 3. Received in formalin labeled "aortic valve leaflets" is a 3 x 2.5 x 0.4 cm aggregate ofmultiple torres-white irregular to crescent-shaped valvular tissues. Two of thecrescent-shaped fragments are adhered to one another. The specimen is serially sectionedto reveal calcifications measuring up to 0.5 cm in thickness. Driver/Guide sections aresubmitted in cassette E, following decalcification. Technical component performed at [facility],[address] [place] [address], [place] [address] Unless gross only, the diagnosis is based upon microscopic examination.Immunohistochemistry: This test was developed and its performance characteristicsdetermined by this laboratory. It has not been approved nor does it need approvalby the [place] FDA. Appropriate positive and negative controls are reviewed and judgedto be acceptable for performedimmunohistochemistry and/or special stains. This laboratoryis certified under the Clinical Laboratory Improvement Amendments (CLIA-88) as qualified toperform high complexity clinical laboratory testing. CLINICAL INFORMATION CAD Signed SIGNATURE ON FILE BraydonAbdias 04/03/24 1332 END OF REPORT BASIC METABOLIC [id number] 11:39:00* Test Item Value Reference Range Interpretation Comme nts SODIUM (test code = NA/ABG) 134 mmol/L 134-147 N POTASSIUM (test code = K/ABG) 3.9 mmol/L 3.4-5.0 N CHLORIDE (test code = CL/ABG) 99 mmol/L 100-108 L CREATININE ABG (test code = CREAABG) 1.5 mg/dL 0.8-1.3 H POC IONIZED CALCIUM (test co de = POCCA) 1.13 MMOL/L 1.12-1.32 N POC GLUCOSE (test code = POCGLU) 209 MG/DL 70-110 H HEMOGLOBIN [id number] 11:39:00* Test Item Value Reference Range Interpretation Comme nts HEMOGLOBIN ABG (test code = HGB/ABG) 9.0 G/DL 12.5-16.9 L [id number] 11:39:00* Test Item Value Reference Range Interpretation Comme nts HEMATOCRIT (test code = HCT/ABG) 26 % 37.5-50.7 L POC LACTIC [id number] 11:39:00* Test Item Value Reference Range Interpretation Comme nts POC LACTIC ACID (test code = POCLAC) 2.0 mmol/l 0.9-1.7 H POC VENOUS BLOOD [id number] 11:39:00* Test Item Value Reference Range Interpretation Comme nts POC VENOUS BLOOD GAS PH (vicente t code = POCPHV) 7.393 7.33-7.45 N POC VENOUS BLOOD GAS PCO2 (t est code = AUTDRN5R) 43.4 mmHg 43-47 N POC VENOUS BLOOD GAS PO2 (te st code = JXALH6S) 22.3 mmHG 10-50 N POC TCO2 VENOUS (test code = DRXYHV6N) 27.8 POC HCO3 VENOUS (test code = SLVCBV4V) 26.4 MMOL/L 22-27 N POC BASE EXCESS VENOUS (test code = POCBEV) 1.5 MMOL/L -4.0-4.0 N POC O2 SATURATION VENOUS (te st code = JIHX7IP) 37.4 % 60-80 L VENOUS BLOOD GAS DELIVERY (t est code = DELV) Cannula VENOUS BLOOD GAS TEMP (test code = TEMPV) 100.1 F VENOUS BLOOD GAS SITE (test code = SITEV) Central Line GLUCOSE [id number] 10:58:00* Test Item Value Reference Range Interpretation Comme [facility] GLUCOSE BEDSIDE (test code = GLUBED) 192 MG/DL 70-110 H Performed by cer UICO,Incied conduit reamer operator at [facility] GLUCOSE [id number] 08:07:00* Test Item Value Reference Range Interpretation Comme [facility] GLUCOSE BEDSIDE (test code = GLUBED) 158 MG/DL 70-110 H Performed by cer UICO,Incied conduit reamer operator at [facility] POC ARTERIAL BLOOD [id number] 06:13:00* Test Item Value Reference Range Interpretation Comme [facility] POC ARTERIAL BLOOD GAS PH (t est code = POCPHA) 7.459 7.35-7.45 H POC ARTERIAL BLOOD GAS PCO2 (test code = EOOKWT9A) 35.0 mmHg 35.0-45 N POC TCO2 ARTERIAL (test code = POCTCO2) 25.9 POC ARTERIAL BLOOD GAS PO2 ( test code = TVWGS4U) 67.6 mmHg 80-100.0 L POC HCO3 ARTERIAL (test code = UXOGIT7W) 24.9 MMOL/L 22.0-26.0 N POC BASE EXCESS (test code = POCBEA) 1.0 MMOL/L -4.0-4.0 N POC O2 SATURATION (test code = POCO2S) 94.3 % 90-100 N ABG DELIVERY (test code = ILSA) Cannula ABG TEMPERATURE (test code = TEMPA) 98.1 F ABG SITE (test code = SITEA) Art Line MARCO'S TEST (test code = ALLENS) N/A BASIC METABOLIC [id number] 06:13:00* Test Item Value Reference Range Interpretation Comme nts SODIUM (test code = NA/ABG) 137 mmol/L 134-147 N POTASSIUM (test code = K/ABG) 4.0 mmol/L 3.4-5.0 N CHLORIDE (test code = CL/ABG) 101 mmol/L 100-108 N CREATININE ABG (test code = CREAABG) 1.5 mg/dL 0.8-1.3 H POC IONIZED CALCIUM (test co de = POCCA) 1.18 MMOL/L 1.12-1.32 N POC GLUCOSE (test code = POCGLU) 151 MG/DL 70-110 H HEMOGLOBIN [id number] 06:13:00* Test Item Value Reference Range Interpretation Comme nts HEMOGLOBIN ABG (test code = HGB/ABG) 9.3 G/DL 12.5-16.9 L [id number] 06:13:00* Test Item Value Reference Range Interpretation Comme nts HEMATOCRIT (test code = HCT/ABG) 27 % 37.5-50.7 L POC LACTIC [id number] 06:13:00* Test Item Value Reference Range Interpretation Comme nts POC LACTIC ACID (test code = POCLAC) 1.1 mmol/l 0.9-1.7 N BASIC METABOLIC [id number] 02:58:00* Test Item Value Reference Range Interpretation Comme nts SODIUM (test code = NA) 138 mEq/L 134-147 N POTASSIUM (test code = K) 3.9 mEq/L 3.4-5.0 N CHLORIDE (test code = CL) 108 mEq/L 100-108 N CARBON DIOXIDE (test code = CO2) 23 mEq/l 21-33 N ANION GAP (test code = GAP) 11 0-20 N GLUCOSE (test code = GLU) 133 mg/dL 77-141 N BLOOD UREA NITROGEN (test code = BUN) 24 mg/dL 7-25 N GLOMERULAR FILTRATION RATE (test code = GFR) 51.4 70-80 L The Glomerular Filtration Rate is a calculated parameterbased on serum Creatinine, patient age and sex. GFR valuesless than 60 mL/min/1.73 square meters are indicative ofChronic Kidney Disease. Values less than 15 mL/min/1.73square meters indicate Kidney failure. The calculation forGFR is based on the CKD-EPI (202) calculation. This formulais race indifferent and is the recommended formula for GFRby the National Kidney Foundation for Adults.The GFR will not calculate if the sex is unknown or if thepatient's age is <18 years. CREATININE (test code = CREAT) 1.4 mg/dL 0.6-1.3 H CALCIUM (test code = CA) 7.4 mg/dL 8.0-10.5 L COMMENTS: POD #1HEPATIC FUNCTION [id number] 02:58:00* Test Item Value Reference Range Interpretation Comme nts TOTAL PROTEIN (test code = PROT) 5.2 g/dL 6.4-8.2 L ALBUMIN (test code = ALB) 3.00 g/dL 3.4-5.0 L BILIRUBIN TOTAL (test code = BILT) 0.80 mg/dL 0.0-1.0 N BILIRUBIN DIRECT (test code = BILD) 0.40 MG/DL 0.1-0.3 H BILIRUBIN INDIRECT (test cod e = BILIND) 0.40 MG/DL SGOT/AST (test code = AST) 96 IUnit/L 8-34 H SGPT/ALT (test code = ALT) 24 IUnit/L 10-49 N ALKALINE PHOSPHATASE TOTAL ( test code = ALKP) 49 IUnit/L 20-125 N COMMENTS: POD #[id number] 02:58:00* Test Item Value Reference Range Interpretation Comme nts MAGNESIUM (test code = MAG) 1.94 mg/dL 1.6-2.6 N COMMENTS: POD #1CBC W/AUTO [id number] 02:56:00* Test Item Value Reference Range Interpretation Comme nts WHITE BLOOD CELL (test code = WBC) 17.3 x10 3/uL 4.5-11.0 H RED BLOOD CELL (test code = RBC) 3.13 x10 6/uL 4.00-5.60 L HEMOGLOBIN (test code = HGB) 8.5 g/dL 12.5-16.9 L HEMATOCRIT (test code = HCT) 25.7 % 37.5-50.7 L MEAN CELL VOLUME (test code = MCV) 82.1 fL 81.0-99.0 N MEAN CELL HGB (test code = MCH) 27.2 pg 27.0-33.0 N MEAN CELL HGB CONCETRATION (test code = MCHC) 33.1 g/dL 33.0-37.0 N RED CELL DISTRIBUTION WIDTH CV (test code = RDW) 16.7 % 11.5-14.5 H RED CELL DISTRIBUTION WIDTH SD (test code = RDW-SD) 49.7 fL 37.0-54.0 N PLATELET COUNT (test code = PLT) 120 x10 3/uL 150-400 L IMMATURE PLATELET FRACTION (test code = IPF) 8.7 % 0.9-11.2 N MEAN PLATELET VOLUME (test code = MPV) 11.9 fL 7.0-9.0 H NEUTROPHIL % (test code = NT%) 78.4 % 56.0-77.0 H IMMATURE GRANULOCYTE % (test code = IG%) 0.6 % 0.0-2.0 N LYMPHOCYTE % (test code = LY%) 8.6 % 14.0-32.0 L MONOCYTE % (test code = MO%) 9.7 % 4.8-9.0 H EOSINOPHIL % (test code = EO%) 2.5 % 0.3-3.7 N BASOPHIL % (test code = BA%) 0.2 % 0.0-2.0 N NUCLEATED RBC % (test code = NRBC%) 0.0 % 0-0 N NEUTROPHIL # (test code = NT#) 13.52 x10 3/uL 2.0-7.6 H IMMATURE GRANULOCYTE # (test code = IG#) 0.10 x10 3/uL 0.00-0.03 H LYMPHOCYTE # (test code = LY#) 1.49 x10 3/uL 1.0-3.8 N MONOCYTE # (test code = MO#) 1.68 x10 3/uL 0.1-0.8 H EOSINOPHIL # (test code = EO#) 0.43 x10 3/uL 0.0-0.2 H BASOPHIL # (test code = BA#) 0.03 x10 3/uL 0.0-0.2 N NUCLEATED RBC # (test code = NRBC#) 0.00 x10 3/uL 0.0-0.1 N POC ARTERIAL BLOOD [id number] 02:38:00* Test Item Value Reference Range Interpretation Comme nts POC ARTERIAL BLOOD GAS PH (t est code = POCPHA) 7.468 7.35-7.45 H POC ARTERIAL BLOOD GAS PCO2 (test code = ZUHZWD4Q) 34.2 mmHg 35.0-45 L POC TCO2 ARTERIAL (test code = POCTCO2) 25.8 POC ARTERIAL BLOOD GAS PO2 ( test code = NRIYT2U) 54.9 mmHg 80-100.0 L POC HCO3 ARTERIAL (test code = EUOZHO2N) 24.8 MMOL/L 22.0-26.0 N POC BASE EXCESS (test code = POCBEA) 1.1 MMOL/L -4.0-4.0 N POC O2 SATURATION (test code = POCO2S) 90.3 % 90-100 N ABG DELIVERY (test code = ILSA) Cannula ABG TEMPERATURE (test code = TEMPA) 98.9 F ABG SITE (test code = SITEA) Art Line MARCO'S TEST (test code = ALLENS) N/A BASIC METABOLIC [id number] 02:38:00* Test Item Value Reference Range Interpretation Comme nts SODIUM (test code = NA/ABG) 134 mmol/L 134-147 N POTASSIUM (test code = K/ABG) 4.8 mmol/L 3.4-5.0 N CHLORIDE (test code = CL/ABG) 102 mmol/L 100-108 N CREATININE ABG (test code = CREAABG) 1.5 mg/dL 0.8-1.3 H POC IONIZED CALCIUM (test co de = POCCA) 1.12 MMOL/L 1.12-1.32 N POC GLUCOSE (test code = POCGLU) 147 MG/DL 70-110 H HEMOGLOBIN [id number] 02:38:00* Test Item Value Reference Range Interpretation Comme nts HEMOGLOBIN ABG (test code = HGB/ABG) 8.8 G/DL 12.5-16.9 L [id number] 02:38:00* Test Item Value Reference Range Interpretation Comme nts HEMATOCRIT (test code = HCT/ABG) 26 % 37.5-50.7 L POC LACTIC [id number] 02:38:00* Test Item Value Reference Range Interpretation Comme nts POC LACTIC ACID (test code = POCLAC) 1.1 mmol/l 0.9-1.7 N GLUCOSE [id number] 20:27:00* Test Item Value Reference Range Interpretation Comme nts GLUCOSE BEDSIDE (test code = GLUBED) 137 MG/DL 70-110 H Performed by cer tified conduit reamer operator at [facility] BASIC METABOLIC [id number] 18:16:00* Test Item Value Reference Range Interpretation Comme nts SODIUM (test code = NA) 139 mEq/L 134-147 N POTASSIUM (test code = K) 4.3 mEq/L 3.4-5.0 N CHLORIDE (test code = CL) 107 mEq/L 100-108 N CARBON DIOXIDE (test code = CO2) 22 mEq/l 21-33 N ANION GAP (test code = GAP) 14 0-20 N GLUCOSE (test code = GLU) 153 mg/dL 77-141 H BLOOD UREA NITROGEN (test code = BUN) 23 mg/dL 7-25 N GLOMERULAR FILTRATION RATE (test code = GFR) 47.4 70-80 L The Glomerular Filtration Rate is a calculated parameterbased on serum Creatinine, patient age and sex. GFR valuesless than 60 mL/min/1.73 square meters are indicative ofChronic Kidney Disease. Values less than 15 mL/min/1.73square meters indicate Kidney failure. The calculation forGFR is based on the CKD-EPI (202) calculation. This formulais race indifferent and is the recommended formula for GFRby the National Kidney Foundation for Adults.The GFR will not calculate if the sex is unknown or if thepatient's age is <18 years. CREATININE (test code = CREAT) 1.5 mg/dL 0.6-1.3 H CALCIUM (test code = CA) 8.3 mg/dL 8.0-10.5 N [id number] 18:16:00* Test Item Value Reference Range Interpretation Comme nts MAGNESIUM (test code = MAG) 2.39 mg/dL 1.6-2.6 N CALCIUM [id number] 18:16:00* Test Item Value Reference Range Interpretation Comme nts CALCIUM IONIZED (test code = HENRY) 1.10 MMOL/L 1.09-1.30 N POC ARTERIAL BLOOD [id number] 17:57:00* Test Item Value Reference Range Interpretation Comme nts POC ARTERIAL BLOOD GAS PH (t est code = POCPHA) 7.447 7.35-7.45 N POC ARTERIAL BLOOD GAS PCO2 (test code = WYKUGI0X) 33.7 mmHg 35.0-45 L POC TCO2 ARTERIAL (test code = POCTCO2) 24.3 POC ARTERIAL BLOOD GAS PO2 ( test code = LQYIU7Y) 50.0 mmHg 80-100.0 L POC HCO3 ARTERIAL (test code = DRCTZW5Q) 23.2 MMOL/L 22.0-26.0 N POC BASE EXCESS (test code = POCBEA) -0.8 MMOL/L -4.0-4.0 N POC O2 SATURATION (test code = POCO2S) 86.9 % 90-100 L ABG DELIVERY (test code = ILSA) Room Air ABG TEMPERATURE (test code = TEMPA) 100 F ABG SITE (test code = SITEA) Art Line BASIC METABOLIC [id number] 17:57:00* Test Item Value Reference Range Interpretation Comme nts SODIUM (test code = NA/ABG) 137 mmol/L 134-147 N POTASSIUM (test code = K/ABG) 4.3 mmol/L 3.4-5.0 N CHLORIDE (test code = CL/ABG) 105 mmol/L 100-108 N CREATININE ABG (test code = CREAABG) 1.5 mg/dL 0.8-1.3 H POC IONIZED CALCIUM (test co de = POCCA) 1.15 MMOL/L 1.12-1.32 N POC GLUCOSE (test code = POCGLU) 188 MG/DL 70-110 H HEMOGLOBIN [id number] 17:57:00* Test Item Value Reference Range Interpretation Comme nts HEMOGLOBIN ABG (test code = HGB/ABG) 8.9 G/DL 12.5-16.9 L [id number] 17:57:00* Test Item Value Reference Range Interpretation Comme nts HEMATOCRIT (test code = HCT/ABG) 26 % 37.5-50.7 L POC LACTIC [id number] 17:57:00* Test Item Value Reference Range Interpretation Comme nts POC LACTIC ACID (test code = POCLAC) 2.2 mmol/l 0.9-1.7 H GLUCOSE [id number] 16:51:00* Test Item Value Reference Range Interpretation Comme nts GLUCOSE BEDSIDE (test code = GLUBED) 145 MG/DL 70-110 H Performed by cer tified conduit reamer operator at [facility] CBC W/AUTO [id number] 16:40:00* Test Item Value Reference Range Interpretation Comme nts WHITE BLOOD CELL (test code = WBC) 12.5 x10 3/uL 4.5-11.0 H RED BLOOD CELL (test code = RBC) 3.10 x10 6/uL 4.00-5.60 L HEMOGLOBIN (test code = HGB) 8.6 g/dL 12.5-16.9 L HEMATOCRIT (test code = HCT) 25.6 % 37.5-50.7 L MEAN CELL VOLUME (test code = MCV) 82.6 fL 81.0-99.0 MEAN CELL HGB (test code = MCH) 27.7 pg 27.0-33.0 N MEAN CELL HGB CONCETRATION (test code = MCHC) 33.6 g/dL 33.0-37.0 N RED CELL DISTRIBUTION WIDTH CV (test code = RDW) 16.5 % 11.5-14.5 H RED CELL DISTRIBUTION WIDTH SD (test code = RDW-SD) 49.1 fL 37.0-54.0 N PLATELET COUNT (test code = PLT) 111 x10 3/uL 150-400 L IMMATURE PLATELET FRACTION (test code = IPF) 7.5 % 0.9-11.2 N MEAN PLATELET VOLUME (test code = MPV) 11.5 fL 7.0-9.0 H NEUTROPHIL % (test code = NT%) 85.2 % 56.0-77.0 H IMMATURE GRANULOCYTE % (test code = IG%) 0.6 % 0.0-2.0 N LYMPHOCYTE % (test code = LY%) 6.8 % 14.0-32.0 L MONOCYTE % (test code = MO%) 7.3 % 4.8-9.0 N EOSINOPHIL % (test code = EO%) 0.0 % 0.3-3.7 L BASOPHIL % (test code = BA%) 0.1 % 0.0-2.0 N NUCLEATED RBC % (test code = NRBC%) 0.0 % 0-0 N NEUTROPHIL # (test code = NT#) 10.61 x10 3/uL 2.0-7.6 H IMMATURE GRANULOCYTE # (test code = IG#) 0.08 x10 3/uL 0.00-0.03 H LYMPHOCYTE # (test code = LY#) 0.85 x10 3/uL 1.0-3.8 L MONOCYTE # (test code = MO#) 0.91 x10 3/uL 0.1-0.8 H EOSINOPHIL # (test code = EO#) 0.00 x10 3/uL 0.0-0.2 N BASOPHIL # (test code = BA#) 0.01 x10 3/uL 0.0-0.2 N NUCLEATED RBC # (test code = NRBC#) 0.00 x10 3/uL 0.0-0.1 N GLUCOSE [id number] 12:07:00* Test Item Value Reference Range Interpretation Comme nts GLUCOSE BEDSIDE (test code = GLUBED) 128 MG/DL 70-110 H Performed by cer tified conduit reamer operator at [facility] CBC W/AUTO [id number] 09:10:00* Test Item Value Reference Range Interpretation Comme nts WHITE BLOOD CELL (test code = WBC) 10.7 x10 3/uL 4.5-11.0 N RED BLOOD CELL (test code = RBC) 2.63 x10 6/uL 4.00-5.60 L HEMOGLOBIN (test code = HGB) 7.6 g/dL 12.5-16.9 L HEMATOCRIT (test code = HCT) 22.7 % 37.5-50.7 L MEAN CELL VOLUME (test code = MCV) 86.3 fL 81.0-99.0 N MEAN CELL HGB (test code = MCH) 28.9 pg 27.0-33.0 N MEAN CELL HGB CONCETRATION (test code = MCHC) 33.5 g/dL 33.0-37.0 N RED CELL DISTRIBUTION WIDTH CV (test code = RDW) 14.6 % 11.5-14.5 H RED CELL DISTRIBUTION WIDTH SD (test code = RDW-SD) 45.8 fL 37.0-54.0 N PLATELET COUNT (test code = PLT) 107 x10 3/uL 150-400 L MEAN PLATELET VOLUME (test c ode = MPV) 11.9 fL 7.0-9.0 H NEUTROPHIL % (test code = NT%) 82.1 % 56.0-77.0 H IMMATURE GRANULOCYTE % (test code = IG%) 0.4 % 0.0-2.0 N LYMPHOCYTE % (test code = LY%) 9.0 % 14.0-32.0 L MONOCYTE % (test code = MO%) 8.3 % 4.8-9.0 N EOSINOPHIL % (test code = EO%) 0.0 % 0.3-3.7 L BASOPHIL % (test code = BA%) 0.2 % 0.0-2.0 N NUCLEATED RBC % (test code = NRBC%) 0.0 % 0-0 N NEUTROPHIL # (test code = NT#) 8.80 x10 3/uL 2.0-7.6 H IMMATURE GRANULOCYTE # (test code = IG#) 0.04 x10 3/uL 0.00-0.03 H LYMPHOCYTE # (test code = LY#) 0.97 x10 3/uL 1.0-3.8 L MONOCYTE # (test code = MO#) 0.89 x10 3/uL 0.1-0.8 H EOSINOPHIL # (test code = EO#) 0.00 x10 3/uL 0.0-0.2 N BASOPHIL # (test code = BA#) 0.02 x10 3/uL 0.0-0.2 N NUCLEATED RBC # (test code = NRBC#) 0.00 x10 3/uL 0.0-0.1 N BASIC METABOLIC [id number] 08:38:00* Test Item Value Reference Range Interpretation Comme nts SODIUM (test code = NA) 141 mEq/L 134-147 N POTASSIUM (test code = K) 4.3 mEq/L 3.4-5.0 N CHLORIDE (test code = CL) 111 mEq/L 100-108 H CARBON DIOXIDE (test code = CO2) 23 mEq/l 21-33 N ANION GAP (test code = GAP) 11 0-20 N GLUCOSE (test code = GLU) 115 mg/dL 77-141 N BLOOD UREA NITROGEN (test code = BUN) 18 mg/dL 7-25 N GLOMERULAR FILTRATION RATE (test code = GFR) 47.4 70-80 L The Glomerular Filtration Rate is a calculated parameterbased on serum Creatinine, patient age and sex. GFR valuesless than 60 mL/min/1.73 square meters are indicative ofChronic Kidney Disease. Values less than 15 mL/min/1.73square meters indicate Kidney failure. The calculation forGFR is based on the CKD-EPI (2020) calculation. This formulais race indifferent and is the recommended formula for GFRby the National Kidney Foundation for Adults.The GFR will not calculate if the sex is unknown or if thepatient's age is <18 years. CREATININE (test code = CREAT) 1.5 mg/dL 0.6-1.3 H CALCIUM (test code = CA) 8.5 mg/dL 8.0-10.5 N [id number] 08:38:00* Test Item Value Reference Range Interpretation Comme nts MAGNESIUM (test code = MAG) 2.39 mg/dL 1.6-2.6 N POC ARTERIAL BLOOD [id number] 07:43:00* Test Item Value Reference Range Interpretation Comme nts POC ARTERIAL BLOOD GAS PH (t est code = POCPHA) 7.385 7.35-7.45 N POC ARTERIAL BLOOD GAS PCO2 (test code = MWIYDS1D) 39.4 mmHg 35.0-45 N POC TCO2 ARTERIAL (test code = POCTCO2) 24.8 POC ARTERIAL BLOOD GAS PO2 ( test code = JGOYW6G) 70.4 mmHg 80-100.0 L POC HCO3 ARTERIAL (test code = [id number]) 23.6 MMOL/L 22.0-26.0 N POC BASE EXCESS (test code = POCBEA) -1.4 MMOL/L -4.0-4.0 N POC O2 SATURATION (test code = POCO2S) 93.7 % 90-100 N ABG DELIVERY (test code = ILSA) Room Air ABG TEMPERATURE (test code = TEMPA) 97.5 F ABG SITE (test code = SITEA) Art Line MARCO'S TEST (test code = ALLENS) N/A BASIC METABOLIC [id number] 07:43:00* Test Item Value Reference Range Interpretation Comme nts SODIUM (test code = NA/ABG) 142 mmol/L 134-147 N POTASSIUM (test code = K/ABG) 4.2 mmol/L 3.4-5.0 N CHLORIDE (test code = CL/ABG) 109 mmol/L 100-108 H CREATININE ABG (test code = CREAABG) 1.4 mg/dL 0.8-1.3 H POC IONIZED CALCIUM (test co de = POCCA) 1.22 MMOL/L 1.12-1.32 N POC GLUCOSE (test code = POCGLU) 121 MG/DL 70-110 H HEMOGLOBIN [id number] 07:43:00* Test Item Value Reference Range Interpretation Comme nts HEMOGLOBIN ABG (test code = HGB/ABG) 7.1 G/DL 12.5-16.9 L [id number] 07:43:00* Test Item Value Reference Range Interpretation Comme nts HEMATOCRIT (test code = HCT/ABG) 21 % 37.5-50.7 L POC LACTIC [id number] 07:43:00* Test Item Value Reference Range Interpretation Comme nts POC LACTIC ACID (test code = POCLAC) 0.9 mmol/l 0.9-1.7 N GLUCOSE [id number] 07:13:00* Test Item Value Reference Range Interpretation Comme nts GLUCOSE BEDSIDE (test code = GLUBED) 95 MG/DL 70-110 N Performed by cer tified conduit reamer operator at [facility] GLUCOSE [id number] 05:21:00* Test Item Value Reference Range Interpretation Comme nts GLUCOSE BEDSIDE (test code = GLUBED) 124 MG/DL 70-110 H Performed by cer tified conduit reamer operator at [facility] GLUCOSE [id number] 05:21:00* Test Item Value Reference Range Interpretation Comme nts GLUCOSE BEDSIDE (test code = GLUBED) 118 MG/DL 70-110 H Performed by cer tified conduit reamer operator at [facility] GLUCOSE [id number] 05:21:00* Test Item Value Reference Range Interpretation Comme nts GLUCOSE BEDSIDE (test code = GLUBED) 117 MG/DL 70-110 H Performed by cer tified conduit reamer operator at [facility] POC ARTERIAL BLOOD [id number] 03:18:00* Test Item Value Reference Range Interpretation Comme nts POC ARTERIAL BLOOD GAS PH (t est code = POCPHA) 7.361 7.35-7.45 N POC ARTERIAL BLOOD GAS PCO2 (test code = [id number]) 40.9 mmHg 35.0-45 N POC TCO2 ARTERIAL (test code = POCTCO2) 24.4 POC ARTERIAL BLOOD GAS PO2 ( test code = AAVIR2D) 107.3 mmHg 80-100.0 H POC HCO3 ARTERIAL (test code = WIWQIO0N) 23.2 MMOL/L 22.0-26.0 N POC BASE EXCESS (test code = POCBEA) -2.2 MMOL/L -4.0-4.0 N POC O2 SATURATION (test code = POCO2S) 98.0 % 90-100 N ABG DELIVERY (test code = ILSA) Cannula ABG TEMPERATURE (test code = TEMPA) 97.2 F ABG SITE (test code = SITEA) Art Line BASIC METABOLIC [id number] 03:18:00* Test Item Value Reference Range Interpretation Comme nts SODIUM (test code = NA/ABG) 142 mmol/L 134-147 N POTASSIUM (test code = K/ABG) 4.1 mmol/L 3.4-5.0 N CHLORIDE (test code = CL/ABG) 108 mmol/L 100-108 N CREATININE ABG (test code = CREAABG) 1.5 mg/dL 0.8-1.3 H POC IONIZED CALCIUM (test co de = POCCA) 1.22 MMOL/L 1.12-1.32 N POC GLUCOSE (test code = POCGLU) 128 MG/DL 70-110 H HEMOGLOBIN [id number] 03:18:00* Test Item Value Reference Range Interpretation Comme [facility] HEMOGLOBIN ABG (test code = HGB/ABG) 6.9 G/DL 12.5-16.9 L [id number] 03:18:00* Test Item Value Reference Range Interpretation Comme nts HEMATOCRIT (test code = HCT/ABG) 20 % 37.5-50.7 L POC LACTIC [id number] 03:18:00* Test Item Value Reference Range Interpretation Comme nts POC LACTIC ACID (test code = POCLAC) 0.9 mmol/l 0.9-1.7 N BASIC METABOLIC [id number] 00:44:00* Test Item Value Reference Range Interpretation Comme nts SODIUM (test code = NA) 144 mEq/L 134-147 N POTASSIUM (test code = K) 3.7 mEq/L 3.4-5.0 N CHLORIDE (test code = CL) 113 mEq/L 100-108 H CARBON DIOXIDE (test code = CO2) 24 mEq/l 21-33 N ANION GAP (test code = GAP) 11 0-20 N GLUCOSE (test code = GLU) 119 mg/dL 77-141 N BLOOD UREA NITROGEN (test code = BUN) 18 mg/dL 7-25 N GLOMERULAR FILTRATION RATE (test code = GFR) 47.4 70-80 L The Glomerular Filtration Rate is a calculated parameterbased on serum Creatinine, patient age and sex. GFR valuesless than 60 mL/min/1.73 square meters are indicative ofChronic Kidney Disease. Values less than 15 mL/min/1.73square meters indicate Kidney failure. The calculation forGFR is based on the CKD-EPI (202) calculation. This formulais race indifferent and is the recommended formula for GFRby the National Kidney Foundation for Adults.The GFR will not calculate if the sex is unknown or if thepatient's age is <18 years. CREATININE (test code = CREAT) 1.5 mg/dL 0.6-1.3 H CALCIUM (test code = CA) 8.7 mg/dL 8.0-10.5 N COMMENTS: POD #1HEPATIC FUNCTION [id number] 00:44:00* Test Item Value Reference Range Interpretation Comme nts TOTAL PROTEIN (test code = PROT) 5.3 g/dL 6.4-8.2 L ALBUMIN (test code = ALB) 3.30 g/dL 3.4-5.0 L BILIRUBIN TOTAL (test code = BILT) 1.30 mg/dL 0.0-1.0 H BILIRUBIN DIRECT (test code = BILD) 0.70 MG/DL 0.1-0.3 H BILIRUBIN INDIRECT (test cod e = BILIND) 0.60 MG/DL SGOT/AST (test code = AST) 127 IUnit/L 8-34 H SGPT/ALT (test code = ALT) 39 IUnit/L 10-49 N ALKALINE PHOSPHATASE TOTAL ( test code = ALKP) 50 IUnit/L 20-125 N COMMENTS: POD #[id number] 00:44:00* Test Item Value Reference Range Interpretation Comme nts MAGNESIUM (test code = MAG) 2.10 mg/dL 1.6-2.6 N COMMENTS: POD #1CBC W/AUTO [id number] 00:30:00* Test Item Value Reference Range Interpretation Comme nts WHITE BLOOD CELL (test code = WBC) 8.6 x10 3/uL 4.5-11.0 N RED BLOOD CELL (test code = RBC) 2.68 x10 6/uL 4.00-5.60 L HEMOGLOBIN (test code = HGB) 7.7 g/dL 12.5-16.9 L HEMATOCRIT (test code = HCT) 23.1 % 37.5-50.7 L MEAN CELL VOLUME (test code = MCV) 86.2 fL 81.0-99.0 N MEAN CELL HGB (test code = MCH) 28.7 pg 27.0-33.0 N MEAN CELL HGB CONCETRATION (test code = MCHC) 33.3 g/dL 33.0-37.0 N RED CELL DISTRIBUTION WIDTH CV (test code = RDW) 14.5 % 11.5-14.5 N RED CELL DISTRIBUTION WIDTH SD (test code = RDW-SD) 45.0 fL 37.0-54.0 N PLATELET COUNT (test code = PLT) 104 x10 3/uL 150-400 L IMMATURE PLATELET FRACTION (test code = IPF) 5.0 % 0.9-11.2 N MEAN PLATELET VOLUME (test c ode = MPV) 11.1 fL 7.0-9.0 H NEUTROPHIL % (test code = NT%) 88.6 % 56.0-77.0 H IMMATURE GRANULOCYTE % (test code = IG%) 0.5 % 0.0-2.0 N LYMPHOCYTE % (test code = LY%) 4.7 % 14.0-32.0 L MONOCYTE % (test code = MO%) 6.2 % 4.8-9.0 N EOSINOPHIL % (test code = EO%) 0.0 % 0.3-3.7 L BASOPHIL % (test code = BA%) 0.0 % 0.0-2.0 N NUCLEATED RBC % (test code = NRBC%) 0.0 % 0-0 N NEUTROPHIL # (test code = NT#) 7.62 x10 3/uL 2.0-7.6 H IMMATURE GRANULOCYTE # (test code = IG#) 0.04 x10 3/uL 0.00-0.03 H LYMPHOCYTE # (test code = LY#) 0.40 x10 3/uL 1.0-3.8 L MONOCYTE # (test code = MO#) 0.53 x10 3/uL 0.1-0.8 N EOSINOPHIL # (test code = EO#) 0.00 x10 3/uL 0.0-0.2 N BASOPHIL # (test code = BA#) 0.00 x10 3/uL 0.0-0.2 N NUCLEATED RBC # (test code = NRBC#) 0.00 x10 3/uL 0.0-0.1 N POC ARTERIAL BLOOD [id number] 19:22:00* Test Item Value Reference Range Interpretation Comme nts POC ARTERIAL BLOOD GAS PH (t est code = POCPHA) 7.383 7.35-7.45 N POC ARTERIAL BLOOD GAS PCO2 (test code = AGZKRS8J) 41.1 mmHg 35.0-45 N POC TCO2 ARTERIAL (test code = POCTCO2) 25.7 POC ARTERIAL BLOOD GAS PO2 ( test code = DNLHL2C) 151.9 mmHg 80-100.0 H POC HCO3 ARTERIAL (test code = ZJPSZI9S) 24.5 MMOL/L 22.0-26.0 N POC BASE EXCESS (test code = POCBEA) -0.6 MMOL/L -4.0-4.0 N POC O2 SATURATION (test code = POCO2S) 99.3 % 90-100 N FIO2 (test code = FIO2A) 40 % PaO2/FiO2 (test code = MFH6WBP7) 379.75 mm/Hg ABG DELIVERY (test code = ILSA) Adult Vent ABG VENT MODE (test code = MODEA) PS ABG TEMPERATURE (test code = TEMPA) 98.4 F ABG SITE (test code = SITEA) Art Line BASIC METABOLIC [id number] 19:22:00* Test Item Value Reference Range Interpretation Comme nts SODIUM (test code = NA/ABG) 141 mmol/L 134-147 N POTASSIUM (test code = K/ABG) 4.0 mmol/L 3.4-5.0 N CHLORIDE (test code = CL/ABG) 108 mmol/L 100-108 N CREATININE ABG (test code = CREAABG) 1.3 mg/dL 0.8-1.3 N POC IONIZED CALCIUM (test co de = POCCA) 1.36 MMOL/L 1.12-1.32 H POC GLUCOSE (test code = POCGLU) 90 MG/DL 70-110 N HEMOGLOBIN [id number] 19:22:00* Test Item Value Reference Range Interpretation Comme nts HEMOGLOBIN ABG (test code = HGB/ABG) 6.9 G/DL 12.5-16.9 L [id number] 19:22:00* Test Item Value Reference Range Interpretation Comme nts HEMATOCRIT (test code = HCT/ABG) 20 % 37.5-50.7 L POC LACTIC [id number] 19:22:00* Test Item Value Reference Range Interpretation Comme nts POC LACTIC ACID (test code = POCLAC) 1.4 mmol/l 0.9-1.7 N HEMOGLOBIN [id number] 18:53:00* Test Item Value Reference Range Interpretation Comme nts HEMOGLOBIN ABG (test code = HGB/ABG) 7.0 G/DL 12.5-16.9 L [id number] 18:53:00* Test Item Value Reference Range Interpretation Comme nts HEMATOCRIT (test code = HCT/ABG) 21 % 37.5-50.7 L POC LACTIC [id number] 18:53:00* Test Item Value Reference Range Interpretation Comme nts POC LACTIC ACID (test code = POCLAC) 1.3 mmol/l 0.9-1.7 N POC ARTERIAL BLOOD [id number] 18:53:00* Test Item Value Reference Range Interpretation Comme nts POC ARTERIAL BLOOD GAS PH (t est code = POCPHA) 7.367 7.35-7.45 N POC ARTERIAL BLOOD GAS PCO2 (test code = VQZIPO8T) 41.6 mmHg 35.0-45 N POC TCO2 ARTERIAL (test code = POCTCO2) 25.2 POC ARTERIAL BLOOD GAS PO2 ( test code = SDFMB7O) 143.1 mmHg 80-100.0 H POC HCO3 ARTERIAL (test code = UISAMP6H) 23.9 MMOL/L 22.0-26.0 N POC BASE EXCESS (test code = POCBEA) -1.4 MMOL/L -4.0-4.0 N POC O2 SATURATION (test code = POCO2S) 99.1 % 90-100 N FIO2 (test code = FIO2A) 40 % PaO2/FiO2 (test code = ZRY7CQE3) 357.75 mm/Hg ABG DELIVERY (test code = ILSA) Adult Vent ABG VENT RESP RATE (test cod e = RRA) 20 /MIN ABG PEEP (test code = PEEPA) 5 cmH2O ABG PRESSURE SUPPORT (test c ode = PSABG) 10 cmH2O ABG TEMPERATURE (test code = TEMPA) 98.2 F ABG SITE (test code = SITEA) Art Line MARCO'S TEST (test code = ALLENS) N/A BASIC METABOLIC [id number] 18:53:00* Test Item Value Reference Range Interpretation Comme nts SODIUM (test code = NA/ABG) 142 mmol/L 134-147 N POTASSIUM (test code = K/ABG) 3.8 mmol/L 3.4-5.0 N CHLORIDE (test code = CL/ABG) 109 mmol/L 100-108 H CREATININE ABG (test code = CREAABG) 1.3 mg/dL 0.8-1.3 N POC IONIZED CALCIUM (test co de = POCCA) 1.37 MMOL/L 1.12-1.32 H POC GLUCOSE (test code = POCGLU) 95 MG/DL 70-110 N POC ARTERIAL BLOOD [id number] 18:12:00* Test Item Value Reference Range Interpretation Comme nts POC ARTERIAL BLOOD GAS PH (t est code = POCPHA) 7.426 7.35-7.45 N POC ARTERIAL BLOOD GAS PCO2 (test code = RGZREO2V) 35.2 mmHg 35.0-45 N POC TCO2 ARTERIAL (test code = POCTCO2) 24.2 POC ARTERIAL BLOOD GAS PO2 ( test code = HPVWD5J) 129.7 mmHg 80-100.0 H POC HCO3 ARTERIAL (test code = QLUPWW3G) 23.1 MMOL/L 22.0-26.0 N POC BASE EXCESS (test code = POCBEA) -1.2 MMOL/L -4.0-4.0 N POC O2 SATURATION (test code = POCO2S) 99.1 % 90-100 N FIO2 (test code = FIO2A) 40 % PaO2/FiO2 (test code = [id number]) 324.25 mm/Hg ABG DELIVERY (test code = ILSA) Adult Vent ABG VENT RESP RATE (test cod e = RRA) 20 /MIN ABG PEEP (test code = PEEPA) 5 cmH2O ABG PRESSURE SUPPORT (test c ode = PSABG) 500 cmH2O ABG TEMPERATURE (test code = TEMPA) 96.4 F ABG SITE (test code = SITEA) Art Line MARCO'S TEST (test code = ALLENS) N/A BASIC METABOLIC [id number] 18:12:00* Test Item Value Reference Range Interpretation Comme nts SODIUM (test code = NA/ABG) 143 mmol/L 134-147 N POTASSIUM (test code = K/ABG) 3.7 mmol/L 3.4-5.0 N CHLORIDE (test code = CL/ABG) 109 mmol/L 100-108 H CREATININE ABG (test code = CREAABG) 1.2 mg/dL 0.8-1.3 N POC IONIZED CALCIUM (test co de = POCCA) 1.39 MMOL/L 1.12-1.32 H POC GLUCOSE (test code = POCGLU) 106 MG/DL 70-110 N HEMOGLOBIN [id number] 18:12:00* Test Item Value Reference Range Interpretation Comme nts HEMOGLOBIN ABG (test code = HGB/ABG) 7.3 G/DL 12.5-16.9 L [id number] 18:12:00* Test Item Value Reference Range Interpretation Comme nts HEMATOCRIT (test code = HCT/ABG) 21 % 37.5-50.7 L POC LACTIC [id number] 18:12:00* Test Item Value Reference Range Interpretation Comme nts POC LACTIC ACID (test code = POCLAC) 1.8 mmol/l 0.9-1.7 H GLUCOSE [id number] 17:49:00* Test Item Value Reference Range Interpretation Comme nts GLUCOSE BEDSIDE (test code = GLUBED) 101 MG/DL 70-110 N Performed by cer tified conduit reamer operator at [facility] CBC W/AUTO [id number] 17:15:00* Test Item Value Reference Range Interpretation Comme nts WHITE BLOOD CELL (test code = WBC) 7.3 x10 3/uL 4.5-11.0 N RED BLOOD CELL (test code = RBC) 2.45 x10 6/uL 4.00-5.60 L HEMOGLOBIN (test code = HGB) 7.1 g/dL 12.5-16.9 L HEMATOCRIT (test code = HCT) 21.1 % 37.5-50.7 L MEAN CELL VOLUME (test code = MCV) 86.1 fL 81.0-99.0 N MEAN CELL HGB (test code = MCH) 29.0 pg 27.0-33.0 N MEAN CELL HGB CONCETRATION (test code = MCHC) 33.6 g/dL 33.0-37.0 N RED CELL DISTRIBUTION WIDTH CV (test code = RDW) 14.4 % 11.5-14.5 N RED CELL DISTRIBUTION WIDTH SD (test code = RDW-SD) 44.9 fL 37.0-54.0 N PLATELET COUNT (test code = PLT) 80 x10 3/uL 150-400 L MEAN PLATELET VOLUME (test c ode = MPV) 10.5 fL 7.0-9.0 H NEUTROPHIL % (test code = NT%) 87.5 % 56.0-77.0 H IMMATURE GRANULOCYTE % (test code = IG%) 0.8 % 0.0-2.0 N LYMPHOCYTE % (test code = LY%) 2.8 % 14.0-32.0 L MONOCYTE % (test code = MO%) 8.5 % 4.8-9.0 N EOSINOPHIL % (test code = EO%) 0.3 % 0.3-3.7 N BASOPHIL % (test code = BA%) 0.1 % 0.0-2.0 N NUCLEATED RBC % (test code = NRBC%) 0.0 % 0-0 N NEUTROPHIL # (test code = NT#) 6.36 x10 3/uL 2.0-7.6 N IMMATURE GRANULOCYTE # (test code = IG#) 0.06 x10 3/uL 0.00-0.03 H LYMPHOCYTE # (test code = LY#) 0.20 x10 3/uL 1.0-3.8 L MONOCYTE # (test code = MO#) 0.62 x10 3/uL 0.1-0.8 N EOSINOPHIL # (test code = EO#) 0.02 x10 3/uL 0.0-0.2 N BASOPHIL # (test code = BA#) 0.01 x10 3/uL 0.0-0.2 N NUCLEATED RBC # (test code = NRBC#) 0.00 x10 3/uL 0.0-0.1 N COMMENTS: On arrivalPLT [id number] 17:15:00* Test Item Value Reference Range Interpretation Comme nts PLATELET ESTIMATE (test code = PLTEST) 107 x10 3/uL 150-400 L PLATELET MORPHOLOGY (test co de = PLTMORPH) NORMAL COMMENTS: On arrivalBASIC METABOLIC [id number] 16:11:00* Test Item Value Reference Range Interpretation Comme nts SODIUM (test code = NA) 143 mEq/L 134-147 N POTASSIUM (test code = K) 3.9 mEq/L 3.4-5.0 N CHLORIDE (test code = CL) 113 mEq/L 100-108 H CARBON DIOXIDE (test code = CO2) 23 mEq/l 21-33 N ANION GAP (test code = GAP) 11 0-20 N GLUCOSE (test code = GLU) 100 mg/dL 77-141 N BLOOD UREA NITROGEN (test code = BUN) 14 mg/dL 7-25 N GLOMERULAR FILTRATION RATE (test code = GFR) 61.9 70-80 L The Glomerular Filtration Rate is a calculated parameterbased on serum Creatinine, patient age and sex. GFR valuesless than 60 mL/min/1.73 square meters are indicative ofChronic Kidney Disease. Values less than 15 mL/min/1.73square meters indicate Kidney failure. The calculation forGFR is based on the CKD-EPI (2020) calculation. This formulais race indifferent and is the recommended formula for GFRby the National Kidney Foundation for Adults.The GFR will not calculate if the sex is unknown or if thepatient's age is <18 years. CREATININE (test code = CREAT) 1.2 mg/dL 0.6-1.3 N CALCIUM (test code = CA) 9.4 mg/dL 8.0-10.5 N COMMENTS: On arrivalComment: On [id number] 16:11:00* Test Item Value Reference Range Interpretation Comme [facility] MAGNESIUM (test code = MAG) 2.48 mg/dL 1.6-2.6 N COMMENTS: On arrivalComment: On arrivalPROTHROMBIN [id number] 16:07:00* Test Item Value Reference Range Interpretation Comme [facility] PROTHROMBIN TIME PATIENT (test code = PTP) 13.8 SECONDS 9.3-12.9 H INTERNATIONAL NORMAL RATIO (test code = INR) 1.2 0.8-1.2 N TARGET INR BY INDICATION Indication INR1. Prophylaxis of venous thrombosis 2.0 - 3.0 (orthopedic surgery), Prophylaxis of venous thrombosis (other than high-risk surgery), Treatment of Deep Vein Thrombosis/Pulmonary Embolism, Prevention of systemic embolism - Tissue heart valves, Acute Myocardial Infarction (to prevent systemic embolism), Valvular heart disease, Atrial Fibrillation, Bileaflet mechanical valve in aortic position.2. Mechanical prosthetic valves (high risk), 2.5 - 3.5 Presence of Lupus Anticoagulant or Antiphospholipid Antibodies, Prevention of systemic embolism - Acute Myocardial Infarction (to prevent recurrent infarct). COMMENTS: On arrivalTHROMBOPLASTIN TIME [id number] 16:07:00* Test Item Value Reference [facility] PARTIAL (test code = PTT) 33.0 Seconds 25.0-39.5 N Therapeutic Rang e: 50.4 - 88.3 Seconds Effective 10/09/2018 COMMENTS: [facility] [id number] 15:39:00* Test Item Value Reference Range Interpretation Comme [facility] POC ARTERIAL BLOOD GAS PH (t est code = POCPHA) 7.357 7.35-7.45 N POC ARTERIAL BLOOD GAS PCO2 (test code = ZDGGLE1A) 39.3 mmHg 35.0-45 N POC TCO2 ARTERIAL (test code = POCTCO2) 23.4 POC ARTERIAL BLOOD GAS PO2 ( test code = RIDPW5H) 129.5 mmHg 80-100.0 H POC HCO3 ARTERIAL (test code = LSSDIY4B) 22.1 MMOL/L 22.0-26.0 N POC BASE EXCESS (test code = POCBEA) -3.4 MMOL/L -4.0-4.0 N POC O2 SATURATION (test code = POCO2S) 98.9 % 90-100 N FIO2 (test code = FIO2A) 50.0 % PaO2/FiO2 (test code = [id number]) 259.00 mm/Hg ABG DELIVERY (test code = ILSA) Adult Vent ABG VENT MODE (test code = MODEA) AC ABG VENT RESP RATE (test cod e = RRA) 20 /MIN ABG TIDAL VOLUME (test code = TVA) 500 ml ABG PEEP (test code = PEEPA) 5 cmH2O ABG TEMPERATURE (test code = TEMPA) 98 F ABG SITE (test code = SITEA) Art Line MARCO'S TEST (test code = ALLENS) N/A BASIC METABOLIC [id number] 15:39:00* Test Item Value Reference Range Interpretation Comme nts SODIUM (test code = NA/ABG) 143 mmol/L 134-147 N POTASSIUM (test code = K/ABG) 3.9 mmol/L 3.4-5.0 N CHLORIDE (test code = CL/ABG) 110 mmol/L 100-108 H CREATININE ABG (test code = CREAABG) 1.1 mg/dL 0.8-1.3 N POC IONIZED CALCIUM (test co de = POCCA) 1.36 MMOL/L 1.12-1.32 H POC GLUCOSE (test code = POCGLU) 110 MG/DL 70-110 N HEMOGLOBIN [id number] 15:39:00* Test Item Value Reference Range Interpretation Comme nts HEMOGLOBIN ABG (test code = HGB/ABG) 6.6 G/DL 12.5-16.9 L [id number] 15:39:00* Test Item Value Reference Range Interpretation Comme nts HEMATOCRIT (test code = HCT/ABG) 19 % 37.5-50.7 L [id number] 14:29:00* Test Item Value Reference Range Interpretation Comme nts ACT-ISTAT (test code = ACTI) 134 SEC 74-137 N Performed by cer tified conduit reamer operator at [facility] POC ARTERIAL BLOOD [id number] 14:29:00* Test Item Value Reference Range Interpretation Comme nts POC ARTERIAL BLOOD GAS PH (t est code = POCPHA) 7.192 7.35-7.45 LL POC ARTERIAL BLOOD GAS PCO2 (test code = QWXGFH1D) 45.1 mmHg 35.0-45 H POC TCO2 ARTERIAL (test code = POCTCO2) 18.7 POC ARTERIAL BLOOD GAS PO2 ( test code = NLKBM3S) 314.4 mmHg 80-100.0 HH POC HCO3 ARTERIAL (test code = KHUHXQ3X) 17.3 MMOL/L 22.0-26.0 LL POC BASE EXCESS (test code = POCBEA) -10.2 MMOL/L -4.0-4.0 L POC O2 SATURATION (test code = POCO2S) 99.9 % 90-100 N BASIC METABOLIC [id number] 14:29:00* Test Item Value Reference Range Interpretation Comme nts SODIUM (test code = NA/ABG) 143 mmol/L 134-147 N POTASSIUM (test code = K/ABG) 3.5 mmol/L 3.4-5.0 N CHLORIDE (test code = CL/ABG) 112 mmol/L 100-108 H CREATININE ABG (test code = CREAABG) 1.0 mg/dL 0.8-1.3 N POC IONIZED CALCIUM (test co de = POCCA) 1.43 MMOL/L 1.12-1.32 H POC GLUCOSE (test code = POCGLU) 141 MG/DL 70-110 H HEMOGLOBIN [id number] 14:29:00* Test Item Value Reference Range Interpretation Comme nts HEMOGLOBIN ABG (test code = HGB/ABG) 7.7 G/DL 12.5-16.9 L [id number] 14:29:00* Test Item Value Reference Range Interpretation Comme nts HEMATOCRIT (test code = HCT/ABG) 23 % 37.5-50.7 L POC LACTIC [id number] 14:29:00* Test Item Value Reference Range Interpretation Comme nts POC LACTIC ACID (test code = POCLAC) 2.1 mmol/l 0.9-1.7 H [id number] 14:04:00* Test Item Value Reference Range Interpretation Comme nts R-TIME (test code = RTIME) 5.1 min 4.6-9.1 N K-TIME (test code = KTIME) 1.6 min 0.8-2.1 N ANGLE (test code = ANG) 70.6 degrees 63-78 N MAXIMUM AMPLITUDE (test code = MA) 54.1 mm 52-69 N TEG PUNCH HAND RAP MAXIMUM AMPLITUD E (test code = CRTMA) 50.5 mm 52-70 L TEG CIT KOALIN HEPARINASE CT (test code = CKHR) 5.7 mins 4.3-8.3 N Citrated FUNC FIB MAX AMP (t est code = CFFMA) 14.2 mm 15-32 L CIT FUNCTIONAL FIB ESTIMATED (test code = CFFFLEV) 259.1 mg/dL 278-581 L [id number] 13:11:00* Test Item Value Reference Range Interpretation Comme nts ACT-ISTAT (test code = ACTI) 128 SEC 74-137 N Performed by cer tony conduit reamer operator at [facility] POC ARTERIAL BLOOD [id number] 13:10:00* Test Item Value Reference Range Interpretation Comme nts POC ARTERIAL BLOOD GAS PH (t est code = POCPHA) 7.330 7.35-7.45 L POC ARTERIAL BLOOD GAS PCO2 (test code = OCMCOQ3I) 44.2 mmHg 35.0-45 N POC TCO2 ARTERIAL (test code = POCTCO2) 24.6 POC ARTERIAL BLOOD GAS PO2 ( test code = DACYI3T) 362.3 mmHg 80-100.0 HH POC HCO3 ARTERIAL (test code = JEHJJC8J) 23.3 MMOL/L 22.0-26.0 N POC BASE EXCESS (test code = POCBEA) -2.5 MMOL/L -4.0-4.0 N POC O2 SATURATION (test code = POCO2S) 99.9 % 90-100 N BASIC METABOLIC [id number] 13:10:00* Test Item Value Reference Range Interpretation Comme nts SODIUM (test code = NA/ABG) 140 mmol/L 134-147 N POTASSIUM (test code = K/ABG) 3.9 mmol/L 3.4-5.0 N CHLORIDE (test code = CL/ABG) 106 mmol/L 100-108 N CREATININE ABG (test code = CREAABG) 1.1 mg/dL 0.8-1.3 N POC IONIZED CALCIUM (test co de = POCCA) 1.22 MMOL/L 1.12-1.32 N POC GLUCOSE (test code = POCGLU) 155 MG/DL 70-110 H HEMOGLOBIN [id number] 13:10:00* Test Item Value Reference Range Interpretation Comme nts HEMOGLOBIN ABG (test code = HGB/ABG) 7.2 G/DL 12.5-16.9 L [id number] 13:10:00* Test Item Value Reference Range Interpretation Comme nts HEMATOCRIT (test code = HCT/ABG) 21 % 37.5-50.7 L POC LACTIC [id number] 13:10:00* Test Item Value Reference Range Interpretation Comme nts POC LACTIC ACID (test code = POCLAC) 1.6 mmol/l 0.9-1.7 N [id number] 12:14:00* Test Item Value Reference Range Interpretation Comme nts ACT-ISTAT (test code = ACTI) 544 SEC 74-137 H Performed by cer tony conduit reamer operator at [facility] POC ARTERIAL BLOOD [id number] 12:01:00* Test Item Value Reference Range Interpretation Comme nts POC ARTERIAL BLOOD GAS PH (t est code = POCPHA) 7.392 7.35-7.45 N POC ARTERIAL BLOOD GAS PCO2 (test code = MIEKWZ8Q) 38.4 mmHg 35.0-45 N POC TCO2 ARTERIAL (test code = POCTCO2) 24.6 POC ARTERIAL BLOOD GAS PO2 ( test code = EBNXP4I) 384.8 mmHg 80-100.0 HH POC HCO3 ARTERIAL (test code = CSWMJV8N) 23.4 MMOL/L 22.0-26.0 N POC BASE EXCESS (test code = POCBEA) -1.4 MMOL/L -4.0-4.0 N POC O2 SATURATION (test code = POCO2S) 100.0 % 90-100 N BASIC METABOLIC [id number] 12:01:00* Test Item Value Reference Range Interpretation Comme nts SODIUM (test code = NA/ABG) 135 mmol/L 134-147 N POTASSIUM (test code = K/ABG) 4.7 mmol/L 3.4-5.0 N CHLORIDE (test code = CL/ABG) 104 mmol/L 100-108 N CREATININE ABG (test code = CREAABG) 1.0 mg/dL 0.8-1.3 N POC IONIZED CALCIUM (test co de = POCCA) 1.22 MMOL/L 1.12-1.32 N POC GLUCOSE (test code = POCGLU) 193 MG/DL 70-110 H HEMOGLOBIN [id number] 12:01:00* Test Item Value Reference Range Interpretation Comme nts HEMOGLOBIN ABG (test code = HGB/ABG) 7.1 G/DL 12.5-16.9 L [id number] 12:01:00* Test Item Value Reference Range Interpretation Comme nts HEMATOCRIT (test code = HCT/ABG) 21 % 37.5-50.7 L POC LACTIC [id number] 12:01:00* Test Item Value Reference Range Interpretation Comme nts POC LACTIC ACID (test code = POCLAC) 0.8 mmol/l 0.9-1.7 L [id number] 11:23:00* Test Item Value Reference Range Interpretation Comme nts ACT-ISTAT (test code = ACTI) 562 SEC 74-137 H Performed by cer tified conduit reamer operator at [facility] POC ARTERIAL BLOOD [id number] 11:09:00* Test Item Value Reference Range Interpretation Comme nts POC ARTERIAL BLOOD GAS PH (t est code = POCPHA) 7.379 7.35-7.45 N POC ARTERIAL BLOOD GAS PCO2 (test code = FPWMYV8G) 38.4 mmHg 35.0-45 N POC TCO2 ARTERIAL (test code = POCTCO2) 23.8 POC ARTERIAL BLOOD GAS PO2 ( test code = RBZXC2R) 190.6 mmHg 80-100.0 H POC HCO3 ARTERIAL (test code = EMHNYZ9E) 22.6 MMOL/L 22.0-26.0 N POC BASE EXCESS (test code = POCBEA) -2.3 MMOL/L -4.0-4.0 N POC O2 SATURATION (test code = POCO2S) 99.6 % 90-100 N BASIC METABOLIC [id number] 11:09:00* Test Item Value Reference Range Interpretation Comme nts SODIUM (test code = NA/ABG) 134 mmol/L 134-147 N POTASSIUM (test code = K/ABG) 6.1 mmol/L 3.4-5.0 HH CHLORIDE (test code = CL/ABG) 102 mmol/L 100-108 N CREATININE ABG (test code = CREAABG) 0.9 mg/dL 0.8-1.3 N POC IONIZED CALCIUM (test co de = POCCA) 1.76 MMOL/L 1.12-1.32 HH POC GLUCOSE (test code = POCGLU) 257 MG/DL 70-110 H HEMOGLOBIN [id number] 11:09:00* Test Item Value Reference Range Interpretation Comme nts HEMOGLOBIN ABG (test code = HGB/ABG) 7.6 G/DL 12.5-16.9 L [id number] 11:09:00* Test Item Value Reference Range Interpretation Comme nts HEMATOCRIT (test code = HCT/ABG) 22 % 37.5-50.7 L POC LACTIC [id number] 11:09:00* Test Item Value Reference Range Interpretation Comme nts POC LACTIC ACID (test code = POCLAC) 1.7 mmol/l 0.9-1.7 N [id number] 10:38:00* Test Item Value Reference Range Interpretation Comme nts ACT-ISTAT (test code = ACTI) 611 SEC 74-137 H Performed by cer tified conduit reamer operator at [facility] POC ARTERIAL BLOOD [id number] 10:23:00* Test Item Value Reference Range Interpretation Comme nts POC ARTERIAL BLOOD GAS PH (t est code = POCPHA) 7.411 7.35-7.45 N POC ARTERIAL BLOOD GAS PCO2 (test code = YTBQKC5K) 36.8 mmHg 35.0-45 N POC TCO2 ARTERIAL (test code = POCTCO2) 24.5 POC ARTERIAL BLOOD GAS PO2 ( test code = KSCUK6G) 360.7 mmHg 80-100.0 HH POC HCO3 ARTERIAL (test code = TMHELX5K) 23.4 MMOL/L 22.0-26.0 N POC BASE EXCESS (test code = POCBEA) -1.0 MMOL/L -4.0-4.0 N POC O2 SATURATION (test code = POCO2S) 100.0 % 90-100 N BASIC METABOLIC [id number] 10:23:00* Test Item Value Reference Range Interpretation Comme nts SODIUM (test code = NA/ABG) 137 mmol/L 134-147 N POTASSIUM (test code = K/ABG) 5.5 mmol/L 3.4-5.0 H CHLORIDE (test code = CL/ABG) 103 mmol/L 100-108 N CREATININE ABG (test code = CREAABG) 1.0 mg/dL 0.8-1.3 N POC IONIZED CALCIUM (test co de = POCCA) 1.05 MMOL/L 1.12-1.32 L POC GLUCOSE (test code = POCGLU) 180 MG/DL 70-110 H HEMOGLOBIN [id number] 10:23:00* Test Item Value Reference Range Interpretation Comme nts HEMOGLOBIN ABG (test code = HGB/ABG) 9.0 G/DL 12.5-16.9 L [id number] 10:23:00* Test Item Value Reference Range Interpretation Comme nts HEMATOCRIT (test code = HCT/ABG) 26 % 37.5-50.7 L POC LACTIC [id number] 10:23:00* Test Item Value Reference Range Interpretation Comme nts POC LACTIC ACID (test code = POCLAC) 0.4 mmol/l 0.9-1.7 L [id number] 10:03:00* Test Item Value Reference Range Interpretation Comme nts ACT-ISTAT (test code = ACTI) 611 SEC 74-137 H Performed by cer tified conduit reamer operator at [facility] POC ARTERIAL BLOOD [id number] 09:49:00* Test Item Value Reference Range Interpretation Comme nts POC ARTERIAL BLOOD GAS PH (t est code = POCPHA) 7.421 7.35-7.45 N POC ARTERIAL BLOOD GAS PCO2 (test code = OAYSAE1V) 36.1 mmHg 35.0-45 N POC TCO2 ARTERIAL (test code = POCTCO2) 24.6 POC ARTERIAL BLOOD GAS PO2 ( test code = CCNWH2L) 417.3 mmHg 80-100.0 HH POC HCO3 ARTERIAL (test code = QNVDNI4F) 23.5 MMOL/L 22.0-26.0 N POC BASE EXCESS (test code = POCBEA) -0.8 MMOL/L -4.0-4.0 N POC O2 SATURATION (test code = POCO2S) 100.0 % 90-100 N BASIC METABOLIC [id number] 09:49:00* Test Item Value Reference Range Interpretation Comme nts SODIUM (test code = NA/ABG) 137 mmol/L 134-147 N POTASSIUM (test code = K/ABG) 5.2 mmol/L 3.4-5.0 H CHLORIDE (test code = CL/ABG) 103 mmol/L 100-108 N CREATININE ABG (test code = CREAABG) 1.1 mg/dL 0.8-1.3 N POC IONIZED CALCIUM (test co de = POCCA) 1.09 MMOL/L 1.12-1.32 L POC GLUCOSE (test code = POCGLU) 167 MG/DL 70-110 H HEMOGLOBIN [id number] 09:49:00* Test Item Value Reference Range Interpretation Comme nts HEMOGLOBIN ABG (test code = HGB/ABG) 9.2 G/DL 12.5-16.9 L [id number] 09:49:00* Test Item Value Reference Range Interpretation Comme nts HEMATOCRIT (test code = HCT/ABG) 27 % 37.5-50.7 L POC LACTIC [id number] 09:49:00* Test Item Value Reference Range Interpretation Comme nts POC LACTIC ACID (test code = POCLAC) < 0.3 mmol/l 0.9-1.7 L [id number] 09:29:00* Test Item Value Reference Range Interpretation Comme nts ACT-ISTAT (test code = ACTI) 684 SEC 74-137 H Performed by cer tified conduit reamer operator at [facility] POC ARTERIAL BLOOD [id number] 09:15:00* Test Item Value Reference Range Interpretation Comme nts POC ARTERIAL BLOOD GAS PH (t est code = POCPHA) 7.391 7.35-7.45 N POC ARTERIAL BLOOD GAS PCO2 (test code = PGIMFE8K) 40.9 mmHg 35.0-45 N POC TCO2 ARTERIAL (test code = POCTCO2) 26.1 POC ARTERIAL BLOOD GAS PO2 ( test code = WQXCR0U) 738.6 mmHg 80-100.0 HH POC HCO3 ARTERIAL (test code = ELFGIK3N) 24.8 MMOL/L 22.0-26.0 N POC BASE EXCESS (test code = POCBEA) -0.2 MMOL/L -4.0-4.0 N POC O2 SATURATION (test code = POCO2S) 100.0 % 90-100 N BASIC METABOLIC [id number] 09:15:00* Test Item Value Reference Range Interpretation Comme nts SODIUM (test code = NA/ABG) 137 mmol/L 134-147 N POTASSIUM (test code = K/ABG) 5.4 mmol/L 3.4-5.0 H CHLORIDE (test code = CL/ABG) 105 mmol/L 100-108 N CREATININE ABG (test code = CREAABG) 1.0 mg/dL 0.8-1.3 N POC IONIZED CALCIUM (test co de = POCCA) 1.08 MMOL/L 1.12-1.32 L POC GLUCOSE (test code = POCGLU) 170 MG/DL 70-110 H HEMOGLOBIN [id number] 09:15:00* Test Item Value Reference Range Interpretation Comme nts HEMOGLOBIN ABG (test code = HGB/ABG) 9.0 G/DL 12.5-16.9 L [id number] 09:15:00* Test Item Value Reference Range Interpretation Comme nts HEMATOCRIT (test code = HCT/ABG) 27 % 37.5-50.7 L POC LACTIC [id number] 09:15:00* Test Item Value Reference Range Interpretation Comme nts POC LACTIC ACID (test code = POCLAC) < 0.3 mmol/l 0.9-1.7 L [id number] 08:48:00* Test Item Value Reference Range Interpretation Comme nts ACT-ISTAT (test code = ACTI) 556 SEC 74-137 H Performed by cer tified conduit reamer operator at [facility] [id number] 08:48:00* Test Item Value Reference Range Interpretation Comme nts ACT-ISTAT (test code = ACTI) 421 SEC 74-137 H Performed by cer tony conduit reamer operator at [facility] POC ARTERIAL BLOOD [id number] 08:26:00* Test Item Value Reference Range Interpretation Comme nts POC ARTERIAL BLOOD GAS PH (t est code = POCPHA) 7.384 7.35-7.45 N POC ARTERIAL BLOOD GAS PCO2 (test code = EDSCXM2A) 35.4 mmHg 35.0-45 N POC TCO2 ARTERIAL (test code = POCTCO2) 22.2 POC ARTERIAL BLOOD GAS PO2 ( test code = HLURQ5T) 578.9 mmHg 80-100.0 HH POC HCO3 ARTERIAL (test code = XWOGJT6O) 21.1 MMOL/L 22.0-26.0 L POC BASE EXCESS (test code = POCBEA) -3.5 MMOL/L -4.0-4.0 N POC O2 SATURATION (test code = POCO2S) 100.0 % 90-100 N BASIC METABOLIC [id number] 08:26:00* Test Item Value Reference Range Interpretation Comme nts SODIUM (test code = NA/ABG) 141 mmol/L 134-147 N POTASSIUM (test code = K/ABG) 3.3 mmol/L 3.4-5.0 L CHLORIDE (test code = CL/ABG) 109 mmol/L 100-108 H CREATININE ABG (test code = CREAABG) 1.1 mg/dL 0.8-1.3 N POC IONIZED CALCIUM (test co de = POCCA) 1.15 MMOL/L 1.12-1.32 N POC GLUCOSE (test code = POCGLU) 75 MG/DL 70-110 N HEMOGLOBIN [id number] 08:26:00* Test Item Value Reference Range Interpretation Comme nts HEMOGLOBIN ABG (test code = HGB/ABG) 10.0 G/DL 12.5-16.9 L [id number] 08:26:00* Test Item Value Reference Range Interpretation Comme nts HEMATOCRIT (test code = HCT/ABG) 29 % 37.5-50.7 L POC LACTIC [id number] 08:26:00* Test Item Value Reference Range Interpretation Comme nts POC LACTIC ACID (test code = POCLAC) < 0.3 mmol/l 0.9-1.7 L POC ARTERIAL BLOOD [id number] 08:07:00* Test Item Value Reference Range Interpretation Comme nts POC ARTERIAL BLOOD GAS PH (t est code = POCPHA) 7.402 7.35-7.45 N POC ARTERIAL BLOOD GAS PCO2 (test code = JGASWM9H) 32.6 mmHg 35.0-45 L POC TCO2 ARTERIAL (test code = POCTCO2) 21.3 POC ARTERIAL BLOOD GAS PO2 ( test code = TAVCQ1L) 530.2 mmHg 80-100.0 HH POC HCO3 ARTERIAL (test code = GKYENA2J) 20.3 MMOL/L 22.0-26.0 L POC BASE EXCESS (test code = POCBEA) -3.9 MMOL/L -4.0-4.0 N POC O2 SATURATION (test code = POCO2S) 100.0 % 90-100 N BASIC METABOLIC [id number] 08:07:00* Test Item Value Reference Range Interpretation Comme nts SODIUM (test code = NA/ABG) 142 mmol/L 134-147 N POTASSIUM (test code = K/ABG) 3.0 mmol/L 3.4-5.0 L CHLORIDE (test code = CL/ABG) 109 mmol/L 100-108 H CREATININE ABG (test code = CREAABG) 1.0 mg/dL 0.8-1.3 N POC IONIZED CALCIUM (test co de = POCCA) 1.10 MMOL/L 1.12-1.32 L POC GLUCOSE (test code = POCGLU) 56 MG/DL 70-110 L HEMOGLOBIN [id number] 08:07:00* Test Item Value Reference Range Interpretation Comme nts HEMOGLOBIN ABG (test code = HGB/ABG) 9.5 G/DL 12.5-16.9 L [id number] 08:07:00* Test Item Value Reference Range Interpretation Comme nts HEMATOCRIT (test code = HCT/ABG) 28 % 37.5-50.7 L POC LACTIC [id number] 08:07:00* Test Item Value Reference Range Interpretation Comme nts POC LACTIC ACID (test code = POCLAC) < 0.3 mmol/l 0.9-1.7 L [id number] 08:06:00* Test Item Value Reference Range Interpretation Comme nts ACT-ISTAT (test code = ACTI) 116 SEC 74-137 N Performed by cer tified conduit reamer operator at [facility] LIPID PROFILE (CORONARY RISK)2024-04-01 07:22:00* Test Item Value Reference Range Interpretation Comme nts TRIGLYCERIDES (test code = TRIG) 80 mg/dL 40-150 N CHOLESTEROL (test code = CHOL) 164 mg/dL <200 CHOLESTEROL/HDL RATIO (test code = CHOLHDL) 3.35 RATIO 3.43-4.97 L RISK ASSOCIATED WITH CHOL/HDL RATIOS: RISK MALE FEMALE1/2 AVERAGE 3.43 3.27AVERAGE 4.97 4.442X AVERAGE 9.55 7.053X AVERAGE 23.39 11.04 NOTE THAT THE REFERENCE VALUE IS RELATEDTO RISK LEVELS RECOMMENDED BY THE NATL.HEART, LUNG, AND BLOOD INST. HDL CHOLESTEROL (test code = HDL) 48.9 MG/DL 40-60 N HDL Interpreta tion < 40.0 mg/dL Low (undesirable, high risk)> 60.0 mg/dL High (desirable, low risk) Reference interval for healthy adults was established by theNational Cholesterol Education Program (NCEP). LIPOPROTEIN LDL (test code = LDL) 104.0 mg/dL 0-100 H <100 DKEMITF28 0-129 NEAR OPTIMAL/ABOVE [id number] HIGH>EH=322 VERY HIGH*Guidelines provided by the National Cholesterol EducationProgram Adult Treatment Panel III GLUCOSE [id number] 06:26:00* Test Item Value Reference Range Interpretation Comme [facility] GLUCOSE BEDSIDE (test code = GLUBED) 198 MG/DL 70-110 H Performed by cer tified conduit reamer operator at [facility] PROTHROMBIN [id number] 17:49:00* Test Item Value Reference Range Interpretation Comme [facility] PROTHROMBIN TIME PATIENT (test code = PTP) 11.3 SECONDS 9.3-12.9 N INTERNATIONAL NORMAL RATIO (test code = INR) 1.0 0.8-1.2 N TARGET INR BY INDICATION Indication INR1. Prophylaxis of venous thrombosis 2.0 - 3.0 (orthopedic surgery), Prophylaxis of venous thrombosis (other than high-risk surgery), Treatment of Deep Vein Thrombosis/Pulmonary Embolism, Prevention of systemic embolism - Tissue heart valves, Acute Myocardial Infarction (to prevent systemic embolism), Valvular heart disease, Atrial Fibrillation, Bileaflet mechanical valve in aortic position.2. Mechanical prosthetic valves (high risk), 2.5 - 3.5 Presence of Lupus Anticoagulant or Antiphospholipid Antibodies, Prevention of systemic embolism - Acute Myocardial Infarction (to prevent recurrent infarct). THROMBOPLASTIN TIME [id number] 17:49:00* Test Item Value Reference Range Interpretation Comme nts THROMBOPLASTIN TIME PARTIAL (test code = PTT) 29.1 Seconds 25.0-39.5 N Therapeutic Rang e: 50.4 - 88.3 Seconds Effective 10/09/2018 B-TYPE NATRIURETIC [id number] 17:48:00* Test Item Value Reference Range Interpretation Comme nts B-TYPE NATRIURETIC PEPTIDE ( test code = BNP) 91.0 PG/ML 0-100 N UA RFLX MICR CULT IF [id number] 17:44:00* Test Item Value Reference Range Interpretation Comme nts UA COLOR (test code = COLU) YELLOW YEL/STRAW UA APPEARANCE (test code = APPU) CLEAR CLEAR UA GLUCOSE DIPSTICK (test code = DGLUU) NEGATIVE NEGATIVE UA BILIRUBIN DIPSTICK (test code = BILU) NEGATIVE NEGATIVE UA KETONE DIPSTICK (test code = KETU) NEGATIVE NEGATIVE UA SPECIFIC GRAVITY (test code = SGU) 1.010 1.005-1.030 N UA BLOOD DIPSTICK (test code = EDWARD) 1+ NEGATIVE A UA PH DIPSTICK (test code = LANDY) 5.0 5.0-7.0 N UA PROTEIN DIPSTICK (test code = PROU) NEGATIVE NEGATIVE UA UROBILINIOGEN DIPSTICK (test code = URO) 0.2 mg/dL 0.2-1.0 UA NITRITE DIPSTICK (test code = GONZALEZ) NEGATIVE NEGATIVE UA LEUKOCYTE ESTERASE DIPSTICK (test code = LEUU) NEGATIVE NEGATIVE UA WBC (test code = WBCU) 0-3 WBC/HPF 0-3 UA RBC (test code = RBCU) NONE SEEN RBC/HPF 0-3 UA WBC NO REFLEX (test code = WBCUCL) 0-3 WBC/HPF 0-3 UA BACTERIA (test code = BACU) NONE SEEN /HPF NONE SEEN UA SQUAMOUS CELLS (test code = SQU) NONE SEEN /HPF NONE SEEN UA MUCUS (test code = MUCU) TRACE /LPF NONE SEEN Indication for culture: Flank PainSpecimen Description: CLEAN CATCHCOMPREHENSIVE METABOLIC [id number] 17:43:00* Test Item Value Reference Range Interpretation Comme nts SODIUM (test code = NA) 139 mEq/L 134-147 N POTASSIUM (test code = K) 4.0 mEq/L 3.4-5.0 N CHLORIDE (test code = CL) 105 mEq/L 100-108 N CARBON DIOXIDE (test code = CO2) 28 mEq/l 21-33 N ANION GAP (test code = GAP) 10 0-20 N GLUCOSE (test code = GLU) 94 mg/dL 77-141 N BLOOD UREA NITROGEN (test code = BUN) 14 mg/dL 7-25 N GLOMERULAR FILTRATION RATE (test code = GFR) 51.8 70-80 L The Glomerular Filtration Rate is a calculated parameterbased on serum Creatinine, patient age and sex. GFR valuesless than 60 mL/min/1.73 square meters are indicative ofChronic Kidney Disease. Values less than 15 mL/min/1.73square meters indicate Kidney failure. The calculation forGFR is based on the CKD-EPI (2020) calculation. This formulais race indifferent and is the recommended formula for GFRby the National Kidney Foundation for Adults.The GFR will not calculate if the sex is unknown or if thepatient's age is <18 years. CREATININE (test code = CREAT) 1.4 mg/dL 0.6-1.3 H TOTAL PROTEIN (test code = PROT) 7.5 g/dL 6.4-8.2 N ALBUMIN (test code = ALB) 4.30 g/dL 3.4-5.0 N CALCIUM (test code = CA) 9.4 mg/dL 8.0-10.5 N BILIRUBIN TOTAL (test code = BILT) 1.00 mg/dL 0.0-1.0 N SGOT/AST (test code = AST) 22 IUnit/L 8-34 N SGPT/ALT (test code = ALT) 14 IUnit/L 10-49 N ALKALINE PHOSPHATASE TOTAL (test code = ALKP) 94 IUnit/L 20-125 N [id number] 17:43:00* Test Item Value Reference Range Interpretation Comme nts HGBA1C% (test code = HGBA1C%) 5.0 %A1C 4.8-6.0 N CBC W/AUTO [id number] 17:29:00* Test Item Value Reference Range Interpretation Comme nts WHITE BLOOD CELL (test code = WBC) 5.9 x10 3/uL 4.5-11.0 N RED BLOOD CELL (test code = RBC) 4.81 x10 6/uL 4.00-5.60 N HEMOGLOBIN (test code = HGB) 13.7 g/dL 12.5-16.9 N HEMATOCRIT (test code = HCT) 41.3 % 37.5-50.7 N MEAN CELL VOLUME (test code = MCV) 85.9 fL 81.0-99.0 N MEAN CELL HGB (test code = MCH) 28.5 pg 27.0-33.0 N MEAN CELL HGB CONCETRATION (test code = MCHC) 33.2 g/dL 33.0-37.0 N RED CELL DISTRIBUTION WIDTH CV (test code = RDW) 14.4 % 11.5-14.5 N RED CELL DISTRIBUTION WIDTH SD (test code = RDW-SD) 44.7 fL 37.0-54.0 N PLATELET COUNT (test code = PLT) 258 x10 3/uL 150-400 N MEAN PLATELET VOLUME (test c ode = MPV) 11.4 fL 7.0-9.0 H NEUTROPHIL % (test code = NT%) 64.4 % 56.0-77.0 N IMMATURE GRANULOCYTE % (test code = IG%) 0.5 % 0.0-2.0 N LYMPHOCYTE % (test code = LY%) 22.6 % 14.0-32.0 N MONOCYTE % (test code = MO%) 9.4 % 4.8-9.0 H EOSINOPHIL % (test code = EO%) 2.2 % 0.3-3.7 N BASOPHIL % (test code = BA%) 0.9 % 0.0-2.0 N NUCLEATED RBC % (test code = NRBC%) 0.0 % 0-0 N NEUTROPHIL # (test code = NT#) 3.79 x10 3/uL 2.0-7.6 N IMMATURE GRANULOCYTE # (test code = IG#) 0.03 x10 3/uL 0.00-0.03 N LYMPHOCYTE # (test code = LY#) 1.33 x10 3/uL 1.0-3.8 N MONOCYTE # (test code = MO#) 0.55 x10 3/uL 0.1-0.8 N EOSINOPHIL # (test code = EO#) 0.13 x10 3/uL 0.0-0.2 N BASOPHIL # (test code = BA#) 0.05 x10 3/uL 0.0-0.2 N NUCLEATED RBC # (test code = NRBC#) 0.00 x10 3/uL 0.0-0.1 N Notes Date/Time Note Provider Source 2024-04-10 13:41:00 [facility] ([facility]) Discharge Summary REPORT#:[id number] REPORT STATUS: Signed REPORT INITIALIZATION DATE:04/10/24 TIME: 134 PATIENT: FARHAD WELLS UNIT #: [id number] ROOM/BED: [place] [address] : 46 AGE: 79 SEX: M ATTEND: Sol Sutton MD ADM AUTHOR: Jeri Ambrose REPT SERVICE DT/TIME: 04/10/24 1341 * ALL edits or amendments must be made on the electronic/computer document * PCP PCP PCP: PCP: Emil Virk MD Discharge to: home General Information Discharge date: 04/10/24 Discharge diagnosis: s/p ascending aorta replacement, AVR, CABGx1 Hospital course: This is a 78-year-old gentleman with a past medical history of aortic valve stenosis, hyperlipidemia who was also found to have an ascending aortic aneurysm measuring 5 cm. The patient was seen by his display specialist for 6-month follow-up. Recent echocardiogram completed on 01/22/2024 showed EF 55 to 60%, aortic valve mean/peak gradient of 30/42 mmHg, NAS measuring 0.9 cm , peak velocity 4.5 m/s. Patient also noted to have moderate mitral regurgitation, mild pulmonary hypertension with RV systolic pressure 45 mmHg. The patient underwent left heart catheterization on 02/05/2024 that showed left main to be normal, LAD proximal 30 to 40%, mid diffuse 50 to 60%, then luminal irregularities. Diagonal 1 has 40 to 55% stenosis. Circumflex proximal 60% stenosis, RCA large dominant with proximal 40%, mid 30 to 40% in the PDA with diffuse 40% stenosis. 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 Patient denies any chest pain but does report occasional dyspnea on exertion. Patient is being admitted today for replacement of ascending aorta, AVR, and possible coronary artery bypass graft surgery. Assessment/plan: 1. Dyspnea on exertion 2. Aortic valve stenosis 3. Ascending aortic aneurysm 4. Coronary artery disease 5. Hypertension 6. Hyperlipidemia Patient seen and examined by Dr. Sutton. Dr. Sutton has discussed with the patient the need for aortic valve replacement as well as ascending aortic replacement and possible coronary artery bypass graft surgery. Dr. Sutton discussed with the patient the operation, risks involved, benefits, alternatives , and complications. The patient's questions were answered and patient agreed to proceed with surgery. Patient is scheduled for surgery today. Admit to CVICU postoperatively Monitor heart rhythm and hemodynamics Strict I's and O's Cardiology and critical care consulted. 04/01/24 1. Exploration of innominate artery. 2. Chimney graft to the innominate artery (8 mm Hemashield graft). 3. Aortic root replacement (29 Konect graft, Bentall procedure). 4. Replacement of ascending aorta. 5. Hemiarch replacement. 6. Total circulatory arrest with antegrade cerebral perfusion. 7. Repair of innominate artery. 8. Amputation of left atrial appendage. 04/02/24 POD 1 AAOx3, reports pain well controlled AAOx3 Respiratory: On 3L NC, wean as tolerated, Encourage IS, Deep Breathing, nebs, pep and flutter CXR reviewed, Mediastinal CT 130cc, Pleural CT 340cc, continue to monitor. Cardiac: Sinus bradycardia, temporary pacing wires in place pacing at 80, hold BB, on amiodarone gtt @ 0.5, finish IV bag, start PO amiodarone GI: Cardiac diet, Continue Bowel regimen, positive bowel sounds, on insulin gtt : Mann, 167cc urine output last night PT/OT, encourage ambulation today DVT prophylaxis Labs reviewed- replace electrolytes as needed Disposition will be home with , good family support. Patient seen and examined by Dr. Sutton. Plan of care discussed with patient and multidisciplinary team. The patient's questions were answered. 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 and 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 Patient seen and examined by Dr. Sutton. Plan of care discussed with patient and multidisciplinary team. The patient's questions were answered. 04/04/24 POD 3 AAOx3, reports pain well controlled, patient states he is feeling better today Labs reviewed, hemoglobin 7.9 On 4L NC, wean off as tolerated, Encourage spirometer use, deep Breathing, nebs, pep and flutter CXR reviewed, Mediastinal CT 30, left pleural CT 150, reassess after ambulation for discontinuation Underlying rhythm was sinus bradycardia and junctional beats, temporary epicardial pacing wires in place, AV pacing at 84, hold BB Tolerating cardiac diet, nutritional supplements, continue Bowel regimen, positive bowel sounds, glycemic control Patient started on dobutamine yesterday currently at 5 Monitoring renal function closely, creatinine 1.5, strict I's and O's and daily weights, weight up from baseline PT/OT, encourage ambulation today, out of bed to chair for meals DVT prophylaxis with SCDs, GI prophylaxis with PPI Labs reviewed- replace electrolytes as needed Disposition will be home with , good family support. Discussed plan of care with patient, RN, and Dr. Isabel. The patient's questions were answered. MDM done by Dr. Isabel 04/05/24 POD 4 Patient alert, awake and oriented, reports pain well controlled Labs reviewed, hemoglobin stable 7.4 Remains on 4L NC, wean off as tolerated, Encourage spirometer use, deep Breathing, nebs, pep and flutter CXR reviewed, both chest tubes discontinued yesterday Underlying rhythm was sinus bradycardia, junctional beats, in/out slow afib, temporary epicardial pacing wires in place, AV pacing at 80, hold BB Tolerating cardiac diet, nutritional supplements, continue Bowel regimen, positive bowel sounds, glycemic control Patient on dobutamine currently at 5, attempt to decrease to 3 and monitor outputs and perfusion Continue lasix drip at 5 mg/hr, replace electrolytes and recheck labs this afternoon Monitoring renal function closely, creatinine stable 1.5, strict I's and O's and daily weights, weight trending down, 66.7 kg from 68.2 PT/OT, encourage ambulation today, out of bed to chair for meals DVT prophylaxis with SCDs, GI prophylaxis with PPI Labs reviewed- replace electrolytes as needed Disposition will be home with , good family support. Discussed plan of care with patient, RN, and Dr. Isabel. The patient's questions were answered. MDM done by Dr. Isabel 04/06/24 POD 5 Patient alert, awake and oriented, reports pain well controlled Labs reviewed, hemoglobin stable 7.2, recheck labs this afternoon Now on room air, encourage spirometer use, deep Breathing, nebs, pep and flutter CXR reviewed shows 15% left apical pneumothorax slightly improved from prior study Underlying rhythm irregular rhythm, atrial fibrillation, PACs, heart rate 60s to 70s Temporary epicardial pacing wires in place, AV pacing at 80, hold BB threshold 2.5 for ventricular, 3.0 for atrial, EP consulted per cardiology Tolerating cardiac diet, nutritional supplements, continue Bowel regimen, reports bowel movement glycemic control Dobutamine at 3, monitor outputs and perfusion, repeat echocardiogram today Continue lasix drip at 5 mg/hr, replace electrolytes and recheck labs this afternoon Monitoring renal function closely, creatinine 1.7, strict I's and O's and daily weights, 24-hour fluid balance -944, weight trending down Recheck labs this afternoon PT/OT, encourage ambulation today, out of bed to chair for meals DVT prophylaxis with SCDs, GI prophylaxis with PPI Labs reviewed- replace electrolytes as needed Disposition will be home with , good family support. Discussed plan of care with patient, RN, and Dr. Isabel. The patient's questions were answered. MDM done by Dr. Isabel 04/07/24 POD 6 Patient alert, awake and oriented, reports pain well controlled Labs reviewed, hemoglobin stable 7.5, replace electrolytes as needed Remains on room air, encourage spirometer use, deep Breathing, nebs, pep and flutter CXR reviewed Underlying rhythm atrial fibrillation, HR 64 Temporary epicardial pacing wires in place, AV pacing at 80, hold BB threshold 2.5 for ventricular, 3.0 for atrial, EP consulted per cardiology-plan to monitor patient over the weekend Tolerating cardiac diet, nutritional supplements, continue Bowel regimen, reports bowel movement glycemic control Dobutamine at 3- decrease to 2 today, monitor outputs and perfusion, echocardiogram shows EF 55 to 60%, RV systolic function mildly reduced, RVSP 48 mmHg Discontinue Lasix drip yesterday, intermittent IV Lasix received 40 mg IV yesterday evening Monitoring renal function closely, creatinine 1.6, strict I's and O's and daily weights, 24-hour fluid balance -1416, weight trending down 63.7 kg from 65.2, pre op baseline wt 61.2 PT/OT, encourage ambulation today, out of bed to chair for meals DVT prophylaxis with SCDs, GI prophylaxis with PPI Disposition will be home with , good family support. Discussed plan of care with patient, RN, and Dr. Isabel. The patient's questions were answered. MDM done by Dr. Isabel 04/08/24 POD 7 Patient alert, awake and oriented, reports pain well controlled Labs reviewed, hemoglobin stable 8.2, replace electrolytes as needed Remains on room air, encourage spirometer use, deep Breathing, nebs, pep and flutter CXR reviewed Underlying rhythm atrial fibrillation Temporary epicardial pacing wires in place, AV pacing at 80, hold BB threshold 3.0for ventricular, 3.5 for atrial, EP following Tolerating cardiac diet, nutritional supplements, continue Bowel regimen, reports bowel movement glycemic control Dobutamine at 2- decrease to 1 today Lasix 40 mg IV x 1 Monitoring renal function closely, creatinine 1.5, strict I's and O's and daily weights, 24-hour fluid balance -1715, weight trending down 62.6 from 63.7 kg, pre op baseline wt 61.2 PT/OT, encourage ambulation, out of bed to chair for meals DVT prophylaxis with SCDs, GI prophylaxis with PPI Disposition will be home with , good family support. Discussed plan of care with patient, RN, and Dr. Isabel. The patient's questions were answered. MDM done by Dr. Isabel 04/09/24 POD 8 Patient resting comfortable, denies complaints Status post pacemaker placed by EP yesterday. Bedside pacer interrogation within normal limits this morning. Will DC epicardial pacing wires today. Obtain echocardiogram. Labs reviewed, on room air, encourage I-S and deep breathing CXR reviewed, shows bilateral pleural effusion. Will obtain ultrasound. Restart beta-yenifer Monitoring renal function closely, creatinine 1.5, strict I's and O's and daily weights, PT/OT, encourage ambulation, out of bed to chair for meals DVT prophylaxis with SCDs, GI prophylaxis with PPI Disposition will be home with , good family support. Discussed plan of care with patient, RN, and Dr. Isabel. The patient's questions were answered. US chest shows moderate plueral effusion, Consider Pigtail placement tomorrow. Discussed with ICC WIll give Lasix IV today MDM done by Dr. Isabel 04/10/24 POD 9 Patient resting comfortable, denies complaints Status post pacemaker placed, doing well Labs reviewed, replace electrolytes as needed on room air, encourage I-S and deep breathing CXR reviewed, shows moderate sized left pleural effusion HR monitored, BP well controlled, metoprolol 12.5 BID, amiodarone 200mg BID Echocardiogram, EF 60-64%, trivial pericardial efussion posterior to the heart Monitoring renal function closely, creatinine 1.5, strict I's and O's and daily weights, Lasix today PT/OT, encourage ambulation, out of bed to chair for meals DVT prophylaxis with SCDs, GI prophylaxis with PPI Disposition will be home with , good family support. Discussed plan of care with patient, RN, and Dr. Isabel. The patient's questions were answered. US chest shows moderate plueral effusion, resolved over night for Right side, will DC patient on Lasix 40mg PO x5 days, and Potassium along with other CV meds. Given post op appointment. Discharge instructions, do's and dont's, do not drive 4-6 weeks, sternal precautions, shower only, and all other instructions printed out in packet. All questions answered. MDM done by Dr. Isabel Consultants: anesthesiology, cardiology, cardiovascular surgery, critical/ student records specialist, hospitalist Med Rec PCP PCP: PCP: Emil Virk MD Med Rec Discharge meds: Stop taking the following medications: PANTOPRAZOLE DR (PROTONIX) 40 MG TAB.DR 40 MILLIGRAM ORAL DAILY. FUROSEMIDE (LASIX) 20 MG TAB 20 MILLIGRAM ORAL DAILY. CARVEDILOL (COREG) 6.25 MG TAB 6.25 MILLIGRAM ORAL TWICE DAILY WITH MEALS. Continue taking these medications: ASPIRIN EC (ECOTRIN) 81 MG TAB.EC 81 MILLIGRAM ORAL DAILY. ALLOPURINOL (ZYLOPRIM) 300 MG TAB 300 MILLIGRAM ORAL DAILY. amLODIPine (NORVASC) 5 MG TAB 5 MILLIGRAM ORAL DAILY. TAMSULOSIN ER (FLOMAX) 0.4 MG CAP.SR.24H 0.4 MILLIGRAM ORAL DAILY. Start taking the following new medications: DOXYCYCLINE MONOHYDRATE (MONODOX) 100 MG CAP 100 MILLIGRAM ORAL EVERY 12 HOURS. Days = 7 Qty = 14 No Refills CLOPIDOGREL (PLAVIX) 75 MG TAB 75 MILLIGRAM ORAL DAILY. Days = 30 Qty = 30 No Refills FERROUS SULFATE (FEOSOL) 325 MG (65 MG IRON) TAB 325 MILLIGRAM ORAL DAILY. Days = 30 Qty = 30 No Refills AMIODARONE (PACERONE) 200 MG TAB 200 MILLIGRAM ORAL TWICE DAILY. Days = 14 Qty = 21 No Refills Instructions: take 200mg BID x1 week, then 200mg daily x1 week. ATORVASTATIN (LIPITOR) 40 MG TAB 40 MILLIGRAM ORAL 2100 Days = 30 Qty = 30 No Refills METOPROLOL TARTRATE (LOPRESSOR) 25 MG TAB 12.5 MILLIGRAM ORAL EVERY 12 HOURS. Days = 30 Qty = 60 No Refills SPIRONOLACTONE (ALDACTONE) 25 MG TAB 25 MILLIGRAM ORAL DAILY. Days = 30 Qty = 30 No Refills FUROSEMIDE (LASIX) 40 MG TAB 40 MILLIGRAM ORAL DAILY. Days = 5 Qty = [address] (PROTONIX) 40 MG TAB.DR 40 MILLIGRAM ORAL DAILY. Days = 30 Qty = 30 No Refills CYANOCOBALAMIN (VITAMIN B-12) 500 MCG TAB 500 MICROGRAM ORAL DAILY. Days = 30 Qty = 30 No Refills DOXYCYCLINE HYCLATE (VIBRA-TAB) 100 MG TAB 100 MILLIGRAM ORAL EVERY 12 HOURS. Qty = 14 No Refills POTASSIUM CHLORIDE ER (KLOR-CON M20) 20 MEQ TAB.SR 20 MILLIEQUIVALENT ORAL TWICE DAILY. Days = 7 Qty = 14 No Refills Instructions: TAKE WITH FOOD Objective VS/I O Last Documented: Result Date Time Temp 97.8 04/10 1200 Pulse Ox 98 04/10 1200 B/P 127/61 04/10 1200 B/P Mean 88 04/10 1200 Pulse 66 04/10 1200 FiO2 21 04/10 1152 O2 Delivery Room air 04/10 1152 Resp 21 04/10 0700 O2 Flow Rate 1 04/06 0133 24 hour I O ending at 0700: 04/10 0700 04/09 1900 Intake Total 340.00 1000 Output Total 800 1150 Balance -460.00 -150 Intake, IV 100.00 Intake, Oral 240 1000 Number 1 2 Bowel Movements Number Voids 6 Output, Urine 800 1150 Patient 62.4 kg Weight Weight Standing scale Measurement Method PATIENT WEIGHT: Weight (lb): 137 Weight (oz): 9.1 Weight (kg): 62.400 General appearance: alert, awake, oriented Head/Eyes: atraumatic, clear cornea, EOMI, normocephalic ENT: normal dentition, normal sinus, moist mucosal membranes Neck: full range of motion, non-tender Breast: symmetrical, no discharge, no mass Cardiovascular: normal capillary refill, regular rate rhythm, normal heart sounds Respiratory: no distress, no tenderness GI: soft, non-tender, no guarding Genitourinary: urine Extremities: moves all, no edema-all extremities, normal capillary refill, normal range of motion, normal sensory, normal motor function Musculoskeletal: full range of motion, normal inspection Neuro/POST FORM REMOVER: alert, oriented X 3 Skin: dry, intact, no gross abnormalities, normal color, normal turgor Wound/incision: Location: STERNUM Site Condition: dressing clean dry, dressing intact, edges approximated Results Findings/Data: Laboratory Tests: 04/10 Chemistry Sodium (134 - 147 mEq/L) 133 L Potassium (3.4 - 5.0 mEq/L) 4.3 Chloride (100 - 108 mEq/L) 103 Carbon Dioxide (21 - 33 mEq/l) 22 Anion Gap (0 - 20) 12 BUN (7 - 25 mg/dL) 26 H Creatinine (0.6 - 1.3 mg/dL) 1.5 H Glomerular Filtr Rate (70 - 80) 47.4 L Glucose (77 - 141 mg/dL) 113 POC Glucose (70 - 110 MG/DL) 135 H 124 H Calcium (8.0 - 10.5 mg/dL) 8.3 Magnesium (1.6 - 2.6 mg/dL) 2.31 Total Bilirubin (0.0 - 1.0 mg/dL) 0.80 Direct Bilirubin (0.1 - 0.3 MG/DL) 0.50 H Indirect Bilirubin (MG/DL) 0.30 AST (8 - 34 IUnit/L) 30 ALT (10 - 49 IUnit/L) 62 H Total Alk Phosphatase (20 - 125 IUnit/L) 144 H Total Protein (6.4 - 8.2 g/dL) 6.2 L Albumin (3.4 - 5.0 g/dL) 2.70 L Coagulation INR (0.8 - 1.2) 1.3 H PT Patient/Control Mix (9.3 - 12.9 SECONDS) 14.8 H Hematology WBC (4.5 - 11.0 x10 3/uL) 11.3 H RBC (4.00 - 5.60 x10 6/uL) 2.85 L Hgb (12.5 - 16.9 g/dL) 7.9 L Hct (37.5 - 50.7 %) 23.9 L MCV (81.0 - 99.0 fL) 83.9 MCH (27.0 - 33.0 pg) 27.7 MCHC (33.0 - 37.0 g/dL) 33.1 RDW (11.5 - 14.5 %) 15.1 H Plt Count (150 - 400 x10 3/uL) 390 MPV (7.0 - 9.0 fL) 10.4 H Neut % (Auto) (56.0 - 77.0 %) 76.9 Lymph % (Auto) (14.0 - 32.0 %) 9.0 L [place] % (Auto) (4.8 - 9.0 %) 7.3 Eos % (Auto) (0.3 - 3.7 %) 4.2 H Baso % (Auto) (0.0 - 2.0 %) 0.5 Neut # (Auto) (2.0 - 7.6 x10 3/uL) 8.70 H Lymph # (Auto) (1.0 - 3.8 x10 3/uL) 1.02 [place] # (Auto) (0.1 - 0.8 x10 3/uL) 0.83 H Eos # (Auto) (0.0 - 0.2 x10 3/uL) 0.48 H Baso # (Auto) (0.0 - 0.2 x10 3/uL) 0.06 Abs Immat Gran (auto) (0.00 - 0.03 x10 3/uL) 0.24 H Immature Gran % (0.0 - 2.0 %) 2.1 H Nucleated RBC % (0 - 0 %) 0.0 Nucleated RBCs # (Man) (0.0 - 0.1 x10 3/uL) 0.00 Radiology data: Recent Impressions: RADIOLOGY - XR CHEST 1 V 04/10 0570 Report Impression - Status: SIGNED Entered: 04/10/2024 8110 IMPRESSION: Mild degree of congestive heart failure with moderate-sized left pleural effusion. Impression By: [email or web address] Capir Marley M.D. Results: labs reviewed, vital signs reviewed, rhythm personally rev'd, current med profile rev'd Treatments Procedures Lab: Chemistry last 24 hrs: 04/10 220 Chemistry Sodium (134 - 147 mEq/L) 133 L Potassium (3.4 - 5.0 mEq/L) 4.3 Chloride (100 - 108 mEq/L) 103 BUN (7 - 25 mg/dL) 26 H Creatinine (0.6 - 1.3 mg/dL) 1.5 H Glucose (77 - 141 mg/dL) 113 AST (8 - 34 IUnit/L) 30 ALT (10 - 49 IUnit/L) 62 H Hematology last 24 hrs: 04/10 220 Hematology WBC (4.5 - 11.0 x10 3/uL) 11.3 H Hgb (12.5 - 16.9 g/dL) 7.9 L Hct (37.5 - 50.7 %) 23.9 L Plt Count (150 - 400 x10 3/uL) 390 Neut % (Auto) (56.0 - 77.0 %) 76.9 Coagulation last 24 hrs: 04/10 0220 Coagulation INR (0.8 - 1.2) 1.3 H Imaging: Recent Impressions: RADIOLOGY - XR CHEST 1 V 04/08 1958 Report Impression - Status: SIGNED Entered: 04/08/20242120 IMPRESSION: 1. There is a 15% left apical pneumothorax. 2. No other significant change Impression By: [email or web address] Capri Robbins M.D. RADIOLOGY - XR CHEST 1 V 04/09 0558 Report Impression - Status: SIGNED Entered: 04/09/2024 0724 IMPRESSION: 1. Residual tiny left apical pneumothorax. 2. Persistent CHF with increased effusions. Impression By: Kishan Goins M.D. ULTRASOUND - US SOFT TISSUE TORSO 04/09 1402 Report Impression - Status: SIGNED Entered: 04/09/2024 1421 IMPRESSION: Moderate bilateral pleural effusions. Impression By: Armani Steele M.D. RADIOLOGY - XR CHEST 1 V 04/10 0537 Report Impression - Status: SIGNED Entered: 04/10/2024 0929 IMPRESSION: Mild degree of congestive heart failure with moderate-sized left pleural effusion. Impression By: [email or web address] - Zacarias Marley M.D. Discharge Instructions PCP PCP: PCP: Emil Virk MD Discharge Instructions Additional Discharge Routines: PCP Follow-Up, Attending Follow-Up Quality: Discharge Advanced Care Plan 65 or Older Discussed with: patient Current Medications Current medication review: I attest that the foregoing medication list in the medical record is true, accurate, and complete to the best of my knowledge. at 1418 at 1212 RPT #:[id number] END OF REPORT [facility] 2024-04-10 13:27:00 [facility] ([facility]) EP Progress Note REPORT#:[id number] REPORT STATUS: Signed REPORT INITIALIZATION DATE:04/10/24 TIME: 1326 PATIENT: FARHAD WELLS UNIT #: [id number] ROOM/BED: 2206-1 : 46 AGE: 79 SEX: M ATTEND: Sol Sutton MD ADM AUTHOR: Lauren Wagoner MODERN DANCER REPT SERVICE DT/TIME: 04/10/24 1327 * ALL edits or amendments must be made on the electronic/computer document * Angelina Wagoner 04/10/24 1327: Subjective Chief complaint: awake and alert Objective General VS/I O Laboratory Tests 04/10/24 0220: [Embedded Image Not Available] Current Medications Sig/Joe Start time Last Medication Dose Route Stop Time Status Admin Furosemide 40 MG DAILY 04/11 900 DCD PO 07/10 0859 Furosemide 40 MG ONCE ONE 04/10 1000 DC 04/10 IV 04/10 1001 1035 Doxycycline 100 MG Q12HR 04/10 900 DCD 04/10 Monohydrate PO 04/17 0859 0844 Spironolactone 25 MG DAILY 04/10 900 DCD 04/10 PO 07/09 0859 0844 Melatonin 3 MG BEDTIME PRN PRN 04/09 164 DCD 04/09 PO 07/08 1644 2026 Metoprolol Tartrate 12.5 MG Q12HR 04/09 0945 DCD 04/10 PO 07/08 0944 0845 Acetaminophen 100 ML Q6H PRN PRN 04/08 2000 DCD 04/09 IV 0502 Hydrocodone Bitart/ 2 TAB Q4H PRN PRN 04/08 1245 DCD Acetaminophen PO 04/13 1244 Amiodarone HCl 200 MG BID 04/08 900 DCD 04/10 PO 07/07 0859 0844 Amlodipine Besylate 5 MG DAILY 04/07 1845 DCD 04/10 PO 07/06 1844 0845 Cyanocobalamin 500 MCG DAILY 04/04 900 DCD 04/10 PO 07/03 0859 0843 Ferrous Sulfate 325 MG DAILY 04/04 900 DCD 04/10 PO 07/03 0859 0844 Calcium Carbonate 1,000 MG Q2H PRN PRN 04/03 1330 DCD 04/04 PO 07/02 1329 1226 Bisacodyl 10 MG ONCE PRN 04/03 1200 DCD RECTAL 07/02 1159 Insulin Human Lispro 0 AC HS 04/02 1130 DC 04/09 SUBQ 07/01 1129 0941 Clopidogrel Bisulfate 75 MG DAILY 04/02 900 DCD 04/10 PO 07/01 0859 0844 Polyethylene Glycol 17 GM DAILY 04/02 900 DCD 04/08 PO 07/01 0859 0948 Pantoprazole 40 MG DAILY@0600 04/02 600 DCD 04/10 PO 07/01 0559 0602 Atorvastatin Calcium 40 MG 2100 04/01 2100 DCD 04/06 PO 05/01 Sennosides 17.2 MG BEDTIME 04/01 2100 DCD 04/03 PO 06/30 2058 203 Aspirin 81 MG DAILY 04/01 1451 DCD 04/10 PO 06/30 1450 0843 Acetaminophen 650 MG Q4H PRN PRN 04/01 900 DCD 04/03 PO 06/30 0859 1934 Acetaminophen 650 MG Q4H PRN PRN 04/01 900 DCD RECTAL 06/30 0859 Allopurinol 300 MG DAILY 04/01 900 DCD 04/10 PO 06/30 0859 0844 Calcium Chloride 1 GM ASDIR PRN 04/01 900 DCD IV 06/30 0859 Dextrose/Water 125 ML ASDIR PRN 04/01 900 DCD IV 06/30 0859 Dextrose/Water 250 ML ASDIR PRN 04/01 900 DCD IV 06/30 0859 Docusate Sodium 100 MG BID 04/01 900 DCD 04/08 PO 06/30 0859 0946 Glucagon 1 MG ASDIR PRN 04/01 900 DCD IM 06/30 0859 Magnesium Sulfate 100 ML ASDIR PRN 04/01 900 DCD IV 06/30 0859 Magnesium Sulfate 50 ML ASDIR PRN 04/01 900 DCD 04/03 IV 06/30 0859 0607 Magnesium Sulfate/ 100 ML ASDIR PRN 04/01 900 DCD 04/10 Dextrose IV 06/30 0859 0423 Ondansetron HCl 4 MG Q6H PRN PRN 04/01 900 DCD 04/05 IV 06/30 858 0324 Potassium Chloride 100 ML ASDIR PRN 04/01 900 DCD 04/07 IV 06/30 Sodium Bicarbonate 50 MEQ ASDIR PRN 04/01 900 DCD IV 06/30 858 Sodium Chloride 250 ML Q24H 04/01 900 DCD IV 06/30 858 Tamsulosin HCl 0.4 MG DAILY 04/01 900 DCD 04/10 PO 06/30 858 0844 Last Documented: Result Date Time Pulse Ox 97 04/10 1446 B/P 122/60 04/10 1446 B/P Mean 85 04/10 144 Pulse 77 04/10 144 Temp 36.6 04/10 1200 FiO2 21 04/10 115 O2 Delivery Room air 04/10 115 Resp 21 04/10 07 O2 Flow Rate 1 04/06 0133 24 hour I O ending at 0700: 04/10 0700 04/09 1900 Intake Total 340.00 1000 Output Total 800 1150 Balance -460.00 -150 Intake, IV 100.00 Intake, Oral 240 1000 Number 1 2 Bowel Movements Number Voids 6 Output, Urine 800 1150 Patient 62.4 kg Weight Weight Standing scale Measurement Method PATIENT WEIGHT: Weight (lb): 137 Weight (oz): 9.1 Weight (kg): 62.400 Physical Exam General appearance: alert, awake, oriented, no acute distress HEENT: mucosal membranes moist, pupils reactive to light Neck: non-tender Cardiovascular: CV assessment: regular rate and rhythm Respiratory: no distress Abdomen: non-tender Genitourinary: no flank pain Extremities: dry, moves all Musculoskeletal: normal inspection Neuro/POST FORM REMOVER: alert Diagnosis, Assessment Plan Free Text A P: Assessment: Complete heart block AV stenosis s/p replacement of aortic root and Bentall procedure Ascending aorta aneurysm s/p repair CAD s/p CABG PLan: Continue to monitor over weekend for instrinsic stable rhythm Will assess monday for any need for permanent pacing support Discussed with patient and his regarding plan 04/10/24 - s/p dual chamber PPM ([place]) 04/08/24 - Device interrogation - Ap < 1%, Human Resources Benefits Assistant 39%, normal lead testing, no events besides AF, normal functioning device - Doxycycline 100mg BID x 7 days - Ok for DC from EP standpoint - Follow up with Dr. Pratt in 1-2 weeks Discussed post op and follow up care - Follow up with Dr. Pratt in 1-2 weeks - Antibiotics as prescribed - Pressure dressing x 72 hours, keep post op dressing clean, dry until follow up - No driving x 2 weeks - No arm above head or elbow above shoulder level x 6 weeks - Sling x 1 week, at night while sleeping x 4-6 weeks - Monitor site for infection, fever - No lifting, pushing, pulling, swinging with affected arm x 6 weeks - Do not itch, scratch, pick, scrub, rub site, no lotions or ointments - Do not submerge incision site in water, no swimming x 6 weeks Total time spent in patient care including chart, imaging and lab review, counseling care coordination and management is 60 min Consultants: anesthesiology, cardiology, cardiovascular surgery, critical/ student records specialist, hospitalist Code status: full code Plan discussed with: patient Steven Espino 04/15/24 0934: Attestations Physician Attestation Agree w/findings plan: Agree with the findings and plan as documented by Lauren Wagoner MODERN DANCER at 1731 at 0936 RPT #:[id number] END OF REPORT [facility] 2024-04-10 11:45:00 [facility] Cardiology Progress Note REPORT#:[id number] REPORT STATUS: Signed REPORT INITIALIZATION DATE:04/10/24 TIME: 114 PATIENT: FARHAD WELLS UNIT #: [id number] ROOM/BED: [place] [id number] : 46 AGE: 79 SEX: M ATTEND: Sol Sutton MD ADM AUTHOR: Svetlana Hu MD REPT SERVICE DT/TIME: 04/10/24 1145 * ALL edits or amendments must be made on the electronic/computer document * Subjective Free Text Subj Notes Free Text Subj Notes: Doing okay, stable post pacemaker. Breathing is good, wanting to go home Objective General VS/I O: 24 hour I O ending at 0700: 04/10 0700 04/09 1900 Intake Total 340.00 1000 Output Total 800 1150 Balance -460.00 -150 Intake, IV 100.00 Intake, Oral 240 1000 Number 1 2 Bowel Movements Number Voids 6 Output, Urine 800 1150 Patient 62.4 kg Weight Weight Standing scale Measurement Method Vital Signs: Date Time Temp Pulse Resp B/P B/P Pulse O2 O2 Flow FiO2 Mean Ox Delivery Rate 04/10 0918 97 Room air 04/10 0800 97.7 04/10 0607 71 37 152/71 102 93 04/10 0501 64 36 110/62 80 97 04/10 0400 98.3 04/10 0400 64 24 134/72 97 95 04/10 0301 64 22 125/57 82 95 04/10 0200 65 23 142/65 94 96 04/10 0100 64 21 146/65 94 95 04/10 0000 98.3 04/10 0000 79 26 134/66 94 95 04/09 2301 61 23 130/58 84 95 04/09 2200 60 26 107/57 78 93 04/09 2100 69 16 115/57 80 95 04/09 2000 98.8 04/09 2000 76 34 131/60 86 95 04/09 1926 95 Room air 04/09 1900 66 23 126/62 85 96 04/09 1800 80 31 140/65 94 04/09 1700 78 27 147/70 101 95 04/09 1600 72 23 162/74 107 97 04/09 1505 99 Room air 21 04/09 1500 85 31 153/89 113 04/09 1400 75 23 130/62 89 97 04/09 1300 74 24 134/61 88 100 04/09 1200 74 28 125/63 88 99 PATIENT WEIGHT: Weight (lb): 137 Weight (oz): 9.1 Weight (kg): 62.400 Medications: Active Meds + DC'd Last 24 Hrs Furosemide (LASIX) 40 MG DAILY PO Furosemide (LASIX 40 mg/4 mL INJECTION) 40 MG ONCE ONE IV (DC) Doxycycline Monohydrate (DOXYCYCLINE MONOHYDRATE) 100 MG Q12HR PO Spironolactone (ALDACTONE) 25 MG DAILY PO Melatonin (Melatonin) 3 MG BEDTIME PRN PRN PO Furosemide (LASIX 40 mg/4 mL INJECTION) 40 MG ONCE ONE IV (DC) Metoprolol Tartrate (LOPRESSOR) 12.5 MG Q12HR PO Spironolactone (ALDACTONE) 12.5 MG DAILY PO (DC) Acetaminophen (OFIRMEV 10MG/ML) 100 ML Q6H PRN PRN IV (CKD) Hydrocodone Bitart/Acetaminophen (NORCO 5/325) 2 TAB Q4H PRN PRN PO Amiodarone HCl (CORDARONE) 200 MG BID PO Amlodipine Besylate (NORVASC) 5 MG DAILY PO Cyanocobalamin (Vitamin B-12 500 mcg tab) 500 MCG DAILY PO Ferrous Sulfate (FERROUS SULFATE) 325 MG DAILY PO Calcium Carbonate (TUMS CHEW TAB) 1,000 MG Q2H PRN PRN PO Bisacodyl (DULCOLAX) 10 MG ONCE PRN RECTAL Insulin Human Lispro (HUMALOG) 0 AC HS SUBQ (DC) Clopidogrel Bisulfate (Plavix) 75 MG DAILY PO Polyethylene Glycol (MIRALAX) 17 GM DAILY PO Pantoprazole (PROTONIX) 40 MG DAILY@0600 PO Atorvastatin Calcium (LIPITOR) 40 MG 2100 PO Sennosides (Senna Lax 8.6 MG TABLET) 17.2 MG BEDTIME PO Aspirin (ASPIRIN) 81 MG DAILY PO Acetaminophen (TYLENOL) 650 MG Q4H PRN PRN PO Acetaminophen (TYLENOL) 650 MG Q4H PRN PRN RECTAL Allopurinol (ZYLOPRIM) 300 MG DAILY PO Calcium Chloride (CALCIUM CHLORIDE) 1 GM ASDIR PRN IV Dextrose/Water (DEXTROSE 10% IN WATER) 125 ML ASDIR PRN IV (CKD) Dextrose/Water (DEXTROSE 10% IN WATER) 250 ML ASDIR PRN IV (CKD) Docusate Sodium (COLACE) 100 MG BID PO Glucagon (GLUCAGON) 1 MG ASDIR PRN IM Magnesium Sulfate (MAGNESIUM SULFATE 4GM/SWFI 100ML) 100 ML ASDIR PRN IV Magnesium Sulfate (MAGNESIUM SULFATE 2GM/SWFI 50ML) 50 ML ASDIR PRN IV Magnesium Sulfate/Dextrose (MAGNESIUM SULFATE 1GM/D5W 100ML) 100 ML ASDIR PRN IV Ondansetron HCl (ZOFRAN) 4 MG Q6H PRN PRN IV Potassium Chloride (KCL 20MEQ/SWFI 100ML) 100 ML ASDIR PRN IV Sodium Bicarbonate (SODIUM BICARBONATE) 50 MEQ ASDIR PRN IV Sodium Chloride (SODIUM CHLORIDE 0.9%) 250 ML Q24H IV Tamsulosin HCl (Flomax 0.4 mg) 0.4 MG DAILY PO Physical Exam General appearance: alert, awake, oriented Neck: no JVD Cardiovascular: CV assessment: regular rate and rhythm Respiratory: decreased breath sounds, no distress Abdomen: soft Genitourinary: no urinary catheter Lower extremity: LE assessment: no edema Musculoskeletal: normal inspection Neuro/POST FORM REMOVER: alert, oriented X 3 Skin: dry Psychiatry: normal affect, normal judgment/insight, normal mood Results Findings/Data: Laboratory Tests 04/10 Chemistry Sodium (134 - 147 mEq/L) 133 L Potassium (3.4 - 5.0 mEq/L) 4.3 Chloride (100 - 108 mEq/L) 103 Carbon Dioxide (21 - 33 mEq/l) 22 Anion Gap (0 - 20) 12 BUN (7 - 25 mg/dL) 26 H Creatinine (0.6 - 1.3 mg/dL) 1.5 H Glomerular Filtr Rate (70 - 80) 47.4 L Glucose (77 - 141 mg/dL) 113 POC Glucose (70 - 110 MG/DL) 135 H 124 H Calcium (8.0 - 10.5 mg/dL) 8.3 Magnesium (1.6 - 2.6 mg/dL) 2.31 Total Bilirubin (0.0 - 1.0 mg/dL) 0.80 Direct Bilirubin (0.1 - 0.3 MG/DL) 0.50 H Indirect Bilirubin (MG/DL) 0.30 AST (8 - 34 IUnit/L) 30 ALT (10 - 49 IUnit/L) 62 H Total Alk Phosphatase (20 - 125 IUnit/L) 144 H Total Protein (6.4 - 8.2 g/dL) 6.2 L Albumin (3.4 - 5.0 g/dL) 2.70 L Laboratory Tests 04/10 220 Coagulation INR (0.8 - 1.2) 1.3 H PT Patient/Control Mix (9.3 - 12.9 SECONDS) 14.8 H Laboratory Tests 04/10 220 Hematology WBC (4.5 - 11.0 x10 3/uL) 11.3 H RBC (4.00 - 5.60 x10 6/uL) 2.85 L Hgb (12.5 - 16.9 g/dL) 7.9 L Hct (37.5 - 50.7 %) 23.9 L MCV (81.0 - 99.0 fL) 83.9 MCH (27.0 - 33.0 pg) 27.7 MCHC (33.0 - 37.0 g/dL) 33.1 RDW (11.5 - 14.5 %) 15.1 H Plt Count (150 - 400 x10 3/uL) 390 MPV (7.0 - 9.0 fL) 10.4 H Neut % (Auto) (56.0 - 77.0 %) 76.9 Lymph % (Auto) (14.0 - 32.0 %) 9.0 L [place] % (Auto) (4.8 - 9.0 %) 7.3 Eos % (Auto) (0.3 - 3.7 %) 4.2 H Baso % (Auto) (0.0 - 2.0 %) 0.5 Neut # (Auto) (2.0 - 7.6 x10 3/uL) 8.70 H Lymph # (Auto) (1.0 - 3.8 x10 3/uL) 1.02 [place] # (Auto) (0.1 - 0.8 x10 3/uL) 0.83 H Eos # (Auto) (0.0 - 0.2 x10 3/uL) 0.48 H Baso # (Auto) (0.0 - 0.2 x10 3/uL) 0.06 Abs Immat Gran (auto) (0.00 - 0.03 x10 3/uL) 0.24 H Immature Gran % (0.0 - 2.0 %) 2.1 H Nucleated RBC % (0 - 0 %) 0.0 Nucleated RBCs # (Man) (0.0 - 0.1 x10 3/uL) 0.00 Laboratory Tests 04/10 0220 Chemistry Magnesium (1.6 - 2.6 mg/dL) 2.31 Radiology data: Recent Impressions: ULTRASOUND - US SOFT TISSUE TORSO 04/09 1402 Report Impression - Status: SIGNED Entered: 04/09/2024 1421 IMPRESSION: Moderate bilateral pleural effusions. Impression By: Armani Steele M.D. RADIOLOGY - XR CHEST 1 V 04/10 5037 Report Impression - Status: SIGNED Entered: 04/10/2024 8368 IMPRESSION: Mild degree of congestive heart failure with moderate-sized left pleural effusion. Impression By: Abdoulaye Marley M.D. Diagnosis, Assessment Plan Free Text DxA P Notes Free Text DxA P Notes: This is a 71-year-old male with medical history of aortic valve stenosis, hyperlipidemia, hypertension who was found to have 5 cm ascending aortic aneurysm. The patient was brought in today and underwent aortic root replacement, replacement of ascending aorta, hemiarch replacement, CABG x1 CENTENO to LAD, and amputation of left atrial appendage. 1. Aortic root replacement, replacement of ascending aorta, hemiarch replacement , CABG x1 CENTENO to LAD, and amputation of left atrial appendage * post-op care by CTS and critical care * on DAPT, statin, BB 2. Acute RV failure * 04/02: echo LVEF 50%, TAPSE 0.6 cm, RVSP 37 mmHg, bioprosthetic AV noted * 04/04: Echo LVEF 55%, RV mildly dilated, TAPSE 0.9cm, RVSP 48 mmHg * 04/06/24: Echo LVEF 55-60%, TAPSE 0.8 cm LA severely dilated, mild to mod MR * off dobutamine, off Lasix gtt * good urine output * HF team following * CXR 04/09 showed moderate bilateral pleural effusion, had 1 dose of IV lasix today 3. Bradycardia/post-op afib s/p dual chamber PPM ([facility]) * 04/08/24 s/p PPM placement 4. Hypertension * BP stable * on amlodipine 5 mg daily and metoprolol 12.5 mg BID 5. Hyperlipidemia * continue statin 04/10/2024: Remained hemodynamically stable, appears a little volume overloaded, chest x-ray reviewed and discussed with critical care team plan to do 1 dose of IV Lasix and discharged home on 40 p.o. Lasix daily. Follow-up with Dr. SHARPE in 1 week at 1148 RPT #:[id number] END OF REPORT [facility] 2024-04-10 09:03:00 [facility] ([facility]) Heart Failure Progress Note REPORT#:[id number] REPORT STATUS: Signed REPORT INITIALIZATION DATE:04/10/24 TIME: 902 PATIENT: FARHAD WELLS UNIT #: [id number] ROOM/BED: [place] [address] : 46 AGE: 79 SEX: M ATTEND: Sol Sutton MD ADM AUTHOR: Moises Lazo SAW MAKER REPT SERVICE DT/TIME: 04/10/24 0903 * ALL edits or amendments must be made on the electronic/computer document * Moises Lazo 04/10/24 0903: Subjective HPI: This is a 78-year-old patient with a past medical history of aortic valve stenosis, hyperlipidemia who was also found to have an ascending aortic aneurysm measuring 5 cm. ECHO on 01/22/2024 showed EF 55 to 60%. LHC on 02/05/2024 showed left main to be normal, LAD proximal 30 to 40%, mid diffuse 50 to 60%, then luminal irregularities. Diagonal 1 has 40 to 55% stenosis. Circumflex proximal 60% stenosis, RCA large dominant with proximal 40 %, mid 30 to 40% in the PDA with diffuse 40% stenosis. 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 Patient was admitted on 04/01/24 and underwent. Intraoperatively, the patient received shocks due to V-fib; currently on Amiodarone drip 1. Exploration of innominate artery. 2. Chimney graft to the innominate artery (8 mm Hemashield graft). 3. Aortic root replacement (29 Konect graft, Bentall procedure). 4. Replacement of ascending aorta. 5. Hemiarch replacement. 6. Total circulatory arrest with antegrade cerebral perfusion. 7. Repair of innominate artery. 8. Amputation of left atrial appendage. 9. CABG x1 (CENTENO to LAD) Currently, the patient is OOB, sitting upright in chair w/ family at bedside. Objective General VS/I O: Vital Signs Date Temp Pulse Resp B/P B/P Mean Pulse Ox FiO2 04/09-04/10 36.8-37.1 60-85 16-37 107-162/57-89 78-113 93-100 21 24 hour I O ending at 0700: 04/10 0700 04/09 1900 Intake Total 340.00 1000 Output Total 800 1150 Balance -460.00 -150 Intake, IV 100.00 Intake, Oral 240 1000 Number 1 2 Bowel Movements Number Voids 6 Output, Urine 800 1150 Patient 62.4 kg Weight Weight Standing scale Measurement Method PATIENT WEIGHT: Weight (lb): 137 Weight (oz): 9.1 Weight (kg): 62.400 Medications: Medication(s) Ordered: fs Category Unknown Sig/Joe Start time Last Medication Dose Route Stop Time Status Admin Melatonin 3 MG BEDTIME PRN PRN 04/09 164 AC 04/09 PO 07/08 164 202 Anti-Infective Agents Sig/Joe Start time Last Medication Dose Route Stop Time Status Admin Doxycycline 100 MG Q12HR 04/10 900 AC 04/10 Monohydrate PO 04/17 08 0844 Autonomic Drugs Sig/Joe Start time Last Medication Dose Route Stop Time Status Admin Tamsulosin HCl 0.4 MG DAILY 04/01 900 AC 04/10 PO 06/30 0859 0844 Blood Formation,Coagulation Sig/Joe Start time Last Medication Dose Route Stop Time Status Admin Ferrous Sulfate 325 MG DAILY 04/04 900 AC 04/10 PO 07/03 0859 0844 Clopidogrel Bisulfate 75 MG DAILY 04/02 900 AC 04/10 PO 07/01 0859 0844 Cardiovascular Drugs Sig/Joe Start time Last Medication Dose Route Stop Time Status Admin Spironolactone 25 MG DAILY 04/10 900 AC 04/10 PO 07/09 0859 0844 Metoprolol Tartrate 12.5 MG Q12HR 04/09 945 AC 04/10 PO 07/08 0944 0845 Spironolactone 12.5 MG DAILY 04/09 900 DC 04/09 PO 07/08 0859 0942 Amiodarone HCl 200 MG BID 04/08 900 AC 04/10 PO 07/07 0859 0844 Amlodipine Besylate 5 MG DAILY 04/07 1845 AC 04/10 PO 07/06 184 0845 Atorvastatin Calcium 40 MG 2100 04/01 2100 AC 04/06 PO 05/01 Central Nervous System Agents Sig/Joe Start time Last Medication Dose Route Stop Time Status Admin Acetaminophen 100 ML Q6H PRN PRN 04/08 2000 CKD 04/09 IV 0502 Hydrocodone Bitart/ 2 TAB Q4H PRN PRN 04/08 1245 AC Acetaminophen PO 04/13 1244 Aspirin 81 MG DAILY 04/01 1451 AC 04/10 PO 06/30 1450 0843 Acetaminophen 650 MG Q4H PRN PRN 04/01 900 AC 04/03 PO 06/30 0859 1934 Acetaminophen 650 MG Q4H PRN PRN 04/01 900 AC RECTAL 06/30 0859 Magnesium Sulfate 100 ML ASDIR PRN 04/01 900 AC IV 06/30 0859 Magnesium Sulfate 50 ML ASDIR PRN 04/01 900 AC 04/03 IV 06/30 0859 0607 Magnesium Sulfate/ 100 ML ASDIR PRN 04/01 900 AC 04/10 Dextrose IV 06/30 0859 0423 Electrolytic, Caloric, And Kylee Sig/Joe Start time Last Medication Dose Route Stop Time Status Admin Furosemide 40 MG ONCE ONE 04/09 1530 DC 04/09 IV 04/09 1531 1625 Calcium Carbonate 1,000 MG Q2H PRN PRN 04/03 1330 AC 04/04 PO 07/02 1329 1226 Calcium Chloride 1 GM ASDIR PRN 04/01 900 AC IV 06/30 0859 Dextrose/Water 125 ML ASDIR PRN 04/01 900 CKD IV 06/30 0859 Dextrose/Water 250 ML ASDIR PRN 04/01 900 CKD IV 06/30 0859 Potassium Chloride 100 ML ASDIR PRN 04/01 900 AC 04/07 IV 06/30 0859 2125 Sodium Bicarbonate 50 MEQ ASDIR PRN 04/01 900 AC IV 06/30 0859 Sodium Chloride 250 ML Q24H 04/01 900 AC IV 06/30 0859 Gastrointestinal Drugs Sig/Joe Start time Last Medication Dose Route Stop Time Status Admin Bisacodyl 10 MG ONCE PRN 04/03 1200 AC RECTAL 07/02 1159 Polyethylene Glycol 17 GM DAILY 04/02 900 AC 04/08 PO 07/01 0859 0948 Pantoprazole 40 MG DAILY@0600 04/02 600 AC 04/10 PO 07/01 0559 0602 Sennosides 17.2 MG BEDTIME 04/01 2100 AC 04/03 PO 06/30 2058 203 Docusate Sodium 100 MG BID 04/01 900 AC 04/08 PO 06/30 0859 0946 Ondansetron HCl 4 MG Q6H PRN PRN 04/01 900 AC 04/05 IV 06/30 0859 0324 Hormones And Synthetic Substit Sig/Joe Start time Last Medication Dose Route Stop Time Status Admin Insulin Human Lispro 0 AC HS 04/02 1130 DC 04/09 SUBQ 07/01 1129 0941 Glucagon 1 MG ASDIR PRN 04/01 900 AC IM 06/30 0859 Miscellaneous Therapeutic Agen Sig/Joe Start time Last Medication Dose Route Stop Time Status Admin Allopurinol 300 MG DAILY 04/01 900 AC 04/10 PO 06/30 858 0844 Vitamins Sig/Joe Start time Last Medication Dose Route Stop Time Status Admin Cyanocobalamin 500 MCG DAILY 04/04 900 AC 04/10 PO 07/03 0859 0843 Active Meds + DC'd Last 24 Hrs Doxycycline Monohydrate (DOXYCYCLINE MONOHYDRATE) 100 MG Q12HR PO Spironolactone (ALDACTONE) 25 MG DAILY PO Melatonin (Melatonin) 3 MG BEDTIME PRN PRN PO Furosemide (LASIX 40 mg/4 mL INJECTION) 40 MG ONCE ONE IV (DC) Metoprolol Tartrate (LOPRESSOR) 12.5 MG Q12HR PO Spironolactone (ALDACTONE) 12.5 MG DAILY PO (DC) Acetaminophen (OFIRMEV 10MG/ML) 100 ML Q6H PRN PRN IV (CKD) Hydrocodone Bitart/Acetaminophen (NORCO 5/325) 2 TAB Q4H PRN PRN PO Amiodarone HCl (CORDARONE) 200 MG BID PO Amlodipine Besylate (NORVASC) 5 MG DAILY PO Cyanocobalamin (Vitamin B-12 500 mcg tab) 500 MCG DAILY PO Ferrous Sulfate (FERROUS SULFATE) 325 MG DAILY PO Calcium Carbonate (TUMS CHEW TAB) 1,000 MG Q2H PRN PRN PO Bisacodyl (DULCOLAX) 10 MG ONCE PRN RECTAL Insulin Human Lispro (HUMALOG) 0 AC HS SUBQ (DC) Clopidogrel Bisulfate (Plavix) 75 MG DAILY PO Polyethylene Glycol (MIRALAX) 17 GM DAILY PO Pantoprazole (PROTONIX) 40 MG DAILY@0600 PO Atorvastatin Calcium (LIPITOR) 40 MG 2100 PO Sennosides (Senna Lax 8.6 MG TABLET) 17.2 MG BEDTIME PO Aspirin (ASPIRIN) 81 MG DAILY PO Acetaminophen (TYLENOL) 650 MG Q4H PRN PRN PO Acetaminophen (TYLENOL) 650 MG Q4H PRN PRN RECTAL Allopurinol (ZYLOPRIM) 300 MG DAILY PO Calcium Chloride (CALCIUM CHLORIDE) 1 GM ASDIR PRN IV Dextrose/Water (DEXTROSE 10% IN WATER) 125 ML ASDIR PRN IV (CKD) Dextrose/Water (DEXTROSE 10% IN WATER) 250 ML ASDIR PRN IV (CKD) Docusate Sodium (COLACE) 100 MG BID PO Glucagon (GLUCAGON) 1 MG ASDIR PRN IM Magnesium Sulfate (MAGNESIUM SULFATE 4GM/SWFI 100ML) 100 ML ASDIR PRN IV Magnesium Sulfate (MAGNESIUM SULFATE 2GM/SWFI 50ML) 50 ML ASDIR PRN IV Magnesium Sulfate/Dextrose (MAGNESIUM SULFATE 1GM/D5W 100ML) 100 ML ASDIR PRN IV Ondansetron HCl (ZOFRAN) 4 MG Q6H PRN PRN IV Potassium Chloride (KCL 20MEQ/SWFI 100ML) 100 ML ASDIR PRN IV Sodium Bicarbonate (SODIUM BICARBONATE) 50 MEQ ASDIR PRN IV Sodium Chloride (SODIUM CHLORIDE 0.9%) 250 ML Q24H IV Tamsulosin HCl (Flomax 0.4 mg) 0.4 MG DAILY PO Status post: CABG Physical Exam General appearance: alert, awake, oriented Cardiovascular: regular rate and rhythm Respiratory: no distress Extremities: moves all Neuro/POST FORM REMOVER: alert, oriented X 3, normal speech Skin: dry, normal color, mid sternal incision CDI without bleeding Psychiatry: normal affect, normal judgment/insight, normal mood Results Findings/data: Laboratory Tests 04/10/24219: [Embedded Image Not Available] Laboratory Tests 04/10 1713 1122 Chemistry Sodium (134 - 147 mEq/L) 133 L Potassium (3.4 - 5.0 mEq/L) 4.3 Chloride (100 - 108 mEq/L) 103 Carbon Dioxide (21 - 33 mEq/l) 22 Anion Gap (0 - 20) 12 BUN (7 - 25 mg/dL) 26 H Creatinine (0.6 - 1.3 mg/dL) 1.5 H Glomerular Filtr Rate (70 - 80) 47.4 L Glucose (77 - 141 mg/dL) 113 POC Glucose (70 - 110 MG/DL) 135 H 124 H 104 Calcium (8.0 - 10.5 mg/dL) 8.3 Magnesium (1.6 - 2.6 mg/dL) 2.31 Total Bilirubin (0.0 - 1.0 mg/dL) 0.80 Direct Bilirubin (0.1 - 0.3 MG/DL) 0.50 H Indirect Bilirubin (MG/DL) 0.30 AST (8 - 34 IUnit/L) 30 ALT (10 - 49 IUnit/L) 62 H Total Alk Phosphatase (20 - 125 IUnit/L) 144 H Total Protein (6.4 - 8.2 g/dL) 6.2 L Albumin (3.4 - 5.0 g/dL) 2.70 L Laboratory Tests 04/10 220 Coagulation INR (0.8 - 1.2) 1.3 H PT Patient/Control Mix (9.3 - 12.9 SECONDS) 14.8 H Laboratory Tests 04/10 220 Hematology WBC (4.5 - 11.0 x10 3/uL) 11.3 H RBC (4.00 - 5.60 x10 6/uL) 2.85 L Hgb (12.5 - 16.9 g/dL) 7.9 L Hct (37.5 - 50.7 %) 23.9 L MCV (81.0 - 99.0 fL) 83.9 MCH (27.0 - 33.0 pg) 27.7 MCHC (33.0 - 37.0 g/dL) 33.1 RDW (11.5 - 14.5 %) 15.1 H Plt Count (150 - 400 x10 3/uL) 390 MPV (7.0 - 9.0 fL) 10.4 H Neut % (Auto) (56.0 - 77.0 %) 76.9 Lymph % (Auto) (14.0 - 32.0 %) 9.0 L [place] % (Auto) (4.8 - 9.0 %) 7.3 Eos % (Auto) (0.3 - 3.7 %) 4.2 H Baso % (Auto) (0.0 - 2.0 %) 0.5 Neut # (Auto) (2.0 - 7.6 x10 3/uL) 8.70 H Lymph # (Auto) (1.0 - 3.8 x10 3/uL) 1.02 [place] # (Auto) (0.1 - 0.8 x10 3/uL) 0.83 H Eos # (Auto) (0.0 - 0.2 x10 3/uL) 0.48 H Baso # (Auto) (0.0 - 0.2 x10 3/uL) 0.06 Abs Immat Gran (auto) (0.00 - 0.03 x10 3/uL) 0.24 H Immature Gran % (0.0 - 2.0 %) 2.1 H Nucleated RBC % (0 - 0 %) 0.0 Nucleated RBCs # (Man) (0.0 - 0.1 x10 3/uL) 0.00 Laboratory Tests Test Result Date Time Chemistry B-Natriuretic Peptide (0 - 100 PG/ML) 91.0 03/26 1636 Recent Impressions: ULTRASOUND - US SOFT TISSUE TORSO 04/09 1402 Report Impression - Status: SIGNED Entered: 04/09/2024 1421 IMPRESSION: Moderate bilateral pleural effusions. Impression By: Armani Steele M.D. Diagnosis, Assessment Plan Consultants: anesthesiology, cardiology, cardiovascular surgery, critical/ student records specialist, hospitalist Free Text DxA P Notes Free text DxA P notes: V-fib/R on T occured during surgery, required 8 shocks currently on amiodarone 200mg bid AV-paced rate 60 -s/p PPM implantation per EP, 04/08 Aortic root replacement, replacement of ascending aorta, hemiarch replacement, CABG x1 CENTENO to LAD, and amputation of left atrial appendage monitor for fluid overload Maintain MAP 70-90 Strict I Os and daily standing weight Maintain K 4 and Mg 2 Trend CBC, BMP2 24 hour I/O= -0.6L BP 132/64 AV paced rate 60 LVEF 55-60% Meds: Plavix, Amiodarone, ASA, Lipitor, metoprolol tartrate, spironolactone HTN on amlodipine 5mg daily HLD on atorvastatin 40mg daily Hypotension (resolved) -dobutamine d/c -EAMON shows dilated IVC indicative of volume overload -recommend lasix 40mg po daily x5 days, then reassess volume status Patient is currently AV paced at the rate of 60. Underlying rhythm is junctional rhythm Patient is hemodynamically stable continue DAPT with aspirin and Plavix Continue Lipitor and amiodarone Maintain MAP 70-90 Maintain CVP 8-10 Strict I Os and daily standing weight Maintain K 4 and Mg 2 Trend CBC, BMP -cont. metoprolol 12.5mg bid -if urine output < 30 ml/hr, initiate inotrope, milrinone -cont. spironolactone 25mg daily Andrés Limon 04/11/24 1521: Attestations Physician Attestation Agree w/findings plan: Status post PPM postcardiotomy shock-resolved RV failure-resolved s/p Aortic root replacement, replacement of ascending aorta, hemiarch replacement, s/p CABG x1 CENTENO to LAD, and amputation of left atrial appendage Hypertension Hyperlipidemia Status post TTE, IVC dilated, blunting of respiratory phasic changes noted. Noted plans for discharge today Recommend Lasix 40 mg p.o. daily for 5 days and further titration of diuretic therapy on outpatient basis continue aspirin and Plavix Continue metoprolol Lipitor and amiodarone Maintain K 4 and Mg 2 Trend CBC, BMP I have personally seen and examined the patient independently, and reviewed the patient's history, exam, and all cardiac and laboratory data. I agree with the history, physical, and the assessment and plan as outlined by Moises Lazo . I was present and supervised. at 1217 at 1523 RPT #:[id number] END OF REPORT [facility] 2024-04-09 20:37:00 [id number] [place] [address] PATIENT NAME: FARHAD WELLS ADMIT DATE: 04/01/24 ACCOUNT NO: [id number] ROOM NO: 220 AGE: 79 REPORT TYPE: eECHOCARDIOGRAM REPORT SEX: M ADMITTING PHYSICIAN:Sol Sutton MD ATTENDING PHYSICIAN:Sol Sutton MD *[place] [address] Limited Transthoracic Echocardiogram Patient: Farhad Wells Study Date: 04/09/2024 BP: 134 / 61 URN: [id number] Location: : 1945 Age: 79 Gender: M Height: 70 in / 177.8 cm Weight: 138 lb / 62.6 kg BMI/BSA: 19.8 kg/m 2 / 1.75 m 2 *Ordering Physician: * Halima Gilliam *Interpreting Physician: * Svetlana Hu MD *Slasher Tender Helper: * [address]ina [address] Indications: R/O Pericardial Effusion. Study data: Transthoracic echocardiogram, limited study. Procedure: A transthoracic echocardiogram was performed. Images were obtained using a [employer] cardiac ultrasound machine. Image quality was adequate. Limited 2D and limited spectral Doppler. Location: Bedside. Patient status: Inpatient. Patient room number: 2206. Study status: Routine. Heart rate: 76 bpm. Findings Left ventricle: The cavity size is normal. Wall thickness is normal. Systolic function is normal. The estimated ejection fraction is 60-64%. Pericardium: A trivial pericardial effusion is identified posterior to the heart. PATIENT NAME: FARHAD WELLS Systemic veins: Inferior vena cava: The IVC is dilated. Respirophasic diameter changes are blunted (< 50%). Measurements Left ventricle Value Ref 04/06/2024 TIAN, LAX 4.5 cm 4.2 - 5.8 3.9 ESD, LAX 2.9 cm 2.5 - 4.0 3.0 FS, LAX 35 % 25 - 43 23 IVS, ED 1.1 cm 0.6 - 1.0 1.3 PW, ED 1.1 cm 0.6 - 1.0 1.3 IVS/PW, ED 1.03 --------- 1.04 EF 64 % 52 - 72 47 Right ventricle Value Ref 04/06/2024 TIAN, LAX 3.6 cm --------- 3.1 Tricuspid valve Value Ref 04/06/2024 TR peak v 2.4 m/sec <=2.8 3.1 Peak RV-RA grad, S 23 mm Hg --------- 38 Conclusions Summary: Left ventricle: The cavity size is normal. Wall thickness is normal. Systolic function is normal. The estimated ejection fraction is 60-64%. Electronically signed by Svetlana Hu MD 04/09/2024 20:37 at 2036 PATIENT NAME: FARHAD WELLS [facility] 2024-04-09 15:40:00 [facility] Cardiology Progress Note REPORT#:[id number] REPORT STATUS: Signed REPORT INITIALIZATION DATE:04/09/24 TIME: 1540 PATIENT: FARHAD WELLS UNIT #: [id number] ROOM/BED: [place] [address] : 46 AGE: 79 SEX: M ATTEND: Sol Sutton MD ADM AUTHOR: Judith Barbosa AGACNP REPT SERVICE DT/TIME: 04/09/24 1540 * ALL edits or amendments must be made on the electronic/computer document * Subjective Comments: S/p PPM. Objective General VS/I O: 24 hour I O ending at 0700: 04/09 0700 04/08 1900 Intake Total 527 Output Total 650 1000 Balance -650 -473 Intake, Oral 240 Intake, Oral 287 Supplement Number Voids 5 Output, Urine 650 1000 Patient 62.6 kg Weight Weight Standing scale Measurement Method Vital Signs Date Temp Pulse Resp B/P B/P Mean Pulse Ox FiO2 04/08-04/09 36.6-37.0 61-73 17-29 115-152/57-70 82-100 93-99 21 PATIENT WEIGHT: Weight (lb): 138 Weight (oz): 0.15 Weight (kg): 62.600 Medications: Active Meds + DC'd Last 24 Hrs Spironolactone (ALDACTONE) 25 MG DAILY PO Furosemide (LASIX 40 mg/4 mL INJECTION) 40 MG ONCE ONE IV (DC) Metoprolol Tartrate (LOPRESSOR) 12.5 MG Q12HR PO Spironolactone (ALDACTONE) 12.5 MG DAILY PO (DC) Acetaminophen (OFIRMEV 10MG/ML) 100 ML Q6H PRN PRN IV (CKD) Fentanyl Citrate (SUBLIMAZE) 0 .STK-MED ONE .ROUTE (DC) Midazolam HCl (VERSED) 0 .STK-MED ONE .ROUTE (DC) Midazolam HCl (VERSED) 0 .STK-MED ONE .ROUTE (DC) Gentamicin Sulfate (GARAMYCIN) 0 .STK-MED ONE .ROUTE (DC) Hydrocodone Bitart/Acetaminophen (NORCO 5/325) 2 TAB Q4H PRN PRN PO Amiodarone HCl (CORDARONE) 200 MG BID PO Amlodipine Besylate (NORVASC) 5 MG DAILY PO Cyanocobalamin (Vitamin B-12 500 mcg tab) 500 MCG DAILY PO Ferrous Sulfate (FERROUS SULFATE) 325 MG DAILY PO Calcium Carbonate (TUMS CHEW TAB) 1,000 MG Q2H PRN PRN PO Bisacodyl (DULCOLAX) 10 MG ONCE PRN RECTAL Vasopressin (VASOSTRICT 20 Unit/NS 100ML) 100 ML ASDIR IV (DC) Insulin Human Lispro (HUMALOG) 0 AC HS SUBQ Clopidogrel Bisulfate (Plavix) 75 MG DAILY PO Polyethylene Glycol (MIRALAX) 17 GM DAILY PO Pantoprazole (PROTONIX) 40 MG DAILY@0600 PO Atorvastatin Calcium (LIPITOR) 40 MG 2100 PO Sennosides (Senna Lax 8.6 MG TABLET) 17.2 MG BEDTIME PO Aspirin (ASPIRIN) 81 MG DAILY PO Acetaminophen (TYLENOL) 650 MG Q4H PRN PRN PO Acetaminophen (TYLENOL) 650 MG Q4H PRN PRN RECTAL Allopurinol (ZYLOPRIM) 300 MG DAILY PO Calcium Chloride (CALCIUM CHLORIDE) 1 GM ASDIR PRN IV Dextrose/Water (DEXTROSE 10% IN WATER) 125 ML ASDIR PRN IV (CKD) Dextrose/Water (DEXTROSE 10% IN WATER) 250 ML ASDIR PRN IV (CKD) Docusate Sodium (COLACE) 100 MG BID PO Glucagon (GLUCAGON) 1 MG ASDIR PRN IM Magnesium Sulfate (MAGNESIUM SULFATE 4GM/SWFI 100ML) 100 ML ASDIR PRN IV Magnesium Sulfate (MAGNESIUM SULFATE 2GM/SWFI 50ML) 50 ML ASDIR PRN IV Magnesium Sulfate/Dextrose (MAGNESIUM SULFATE 1GM/D5W 100ML) 100 ML ASDIR PRN IV Ondansetron HCl (ZOFRAN) 4 MG Q6H PRN PRN IV Potassium Chloride (KCL 20MEQ/SWFI 100ML) 100 ML ASDIR PRN IV Sodium Bicarbonate (SODIUM BICARBONATE) 50 MEQ ASDIR PRN IV Sodium Chloride (SODIUM CHLORIDE 0.9%) 250 ML Q24H IV Tamsulosin HCl (Flomax 0.4 mg) 0.4 MG DAILY PO Sodium Chloride (SODIUM CHLORIDE) 20 ML PREOP ONCALL IV (DC) Pacemaker: permanent Physical Exam General appearance: alert, awake, oriented Neck: no JVD Cardiovascular: CV assessment: regular rate and rhythm Respiratory: decreased breath sounds, no distress Abdomen: soft Genitourinary: no urinary catheter Lower extremity: LE assessment: no edema Musculoskeletal: normal inspection Neuro/POST FORM REMOVER: alert, oriented X 3 Skin: dry Psychiatry: normal affect, normal judgment/insight, normal mood Results Findings/Data: Laboratory Tests 04/09 04/09 04/09 04/08 1122 0878 0300 2002 Chemistry Sodium (134 - 147 mEq/L) 132 L Potassium (3.4 - 5.0 mEq/L) 4.1 Chloride (100 - 108 mEq/L) 103 Carbon Dioxide (21 - 33 mEq/l) 23 Anion Gap (0 - 20) 10 BUN (7 - 25 mg/dL) 22 Creatinine (0.6 - 1.3 mg/dL) 1.4 H Glomerular Filtr Rate (70 - 80) 51.4 L Glucose (77 - 141 mg/dL) 101 POC Glucose (70 - 110 MG/DL) 104 174 H 109 Calcium (8.0 - 10.5 mg/dL) 8.0 Magnesium (1.6 - 2.6 mg/dL) 2.41 Total Bilirubin (0.0 - 1.0 mg/dL) 1.20 H Direct Bilirubin (0.1 - 0.3 MG/DL) 0.60 H Indirect Bilirubin (MG/DL) 0.60 AST (8 - 34 IUnit/L) 46 H ALT (10 - 49 IUnit/L) 75 H Total Alk Phosphatase (20 - 125 IUnit/L) 151 H Total Protein (6.4 - 8.2 g/dL) 6.1 L Albumin (3.4 - 5.0 g/dL) 2.80 L Laboratory Tests 04/09 0300 Hematology WBC (4.5 - 11.0 x10 3/uL) 10.9 RBC (4.00 - 5.60 x10 6/uL) 3.11 L Hgb (12.5 - 16.9 g/dL) 8.5 L Hct (37.5 - 50.7 %) 26.6 L MCV (81.0 - 99.0 fL) 85.5 MCH (27.0 - 33.0 pg) 27.3 MCHC (33.0 - 37.0 g/dL) 32.0 L RDW (11.5 - 14.5 %) 15.1 H Plt Count (150 - 400 x10 3/uL) 345 MPV (7.0 - 9.0 fL) 10.2 H Neut % (Auto) (56.0 - 77.0 %) 78.7 H Lymph % (Auto) (14.0 - 32.0 %) 6.1 L [place] % (Auto) (4.8 - 9.0 %) 7.3 Eos % (Auto) (0.3 - 3.7 %) 5.5 H Baso % (Auto) (0.0 - 2.0 %) 0.5 Neut # (Auto) (2.0 - 7.6 x10 3/uL) 8.59 H Lymph # (Auto) (1.0 - 3.8 x10 3/uL) 0.67 L [place] # (Auto) (0.1 - 0.8 x10 3/uL) 0.80 Eos # (Auto) (0.0 - 0.2 x10 3/uL) 0.60 H Baso # (Auto) (0.0 - 0.2 x10 3/uL) 0.05 Abs Immat Gran (auto) (0.00 - 0.03 x10 3/uL) 0.21 H Immature Gran % (0.0 - 2.0 %) 1.9 Nucleated RBC % (0 - 0 %) 0.0 Nucleated RBCs # (Man) (0.0 - 0.1 x10 3/uL) 0.00 Laboratory Tests 04/09 0300 Chemistry Magnesium (1.6 - 2.6 mg/dL) 2.41 Radiology data: Recent Impressions: RADIOLOGY - XR CHEST 1 V 04/08 1958 Report Impression - Status: SIGNED Entered: 04/08/2024 2121 IMPRESSION: 1. There is a 15% left apical pneumothorax. 2. No other significant change Impression By: Missy Robbins M.D. RADIOLOGY - XR CHEST 1 V 04/09 0558 Report Impression - Status: SIGNED Entered: 04/09/2024 0724 IMPRESSION: 1. Residual tiny left apical pneumothorax. 2. Persistent CHF with increased effusions. Impression By: Kishan Goins M.D. ULTRASOUND - US SOFT TISSUE TORSO 04/09 1402 Report Impression - Status: SIGNED Entered: 04/09/2024 1421 IMPRESSION: Moderate bilateral pleural effusions. Impression By: [email or web address] - Brandon A Morello, M.D. Results: labs reviewed, vital signs reviewed, rhythm personally rev'd Diagnosis, Assessment Plan Plan discussed with: patient, collaborating MD, nurse Free Text DxA P Notes Free Text DxA P Notes: This is a 71-year-old male with medical history of aortic valve stenosis, hyperlipidemia, hypertension who was found to have 5 cm ascending aortic aneurysm. The patient was brought in today and underwent aortic root replacement, replacement of ascending aorta, hemiarch replacement, CABG x1 CENTENO to LAD, and amputation of left atrial appendage. 1. Aortic root replacement, replacement of ascending aorta, hemiarch replacement , CABG x1 CENTENO to LAD, and amputation of left atrial appendage * post-op care by CTS and critical care * on DAPT, statin, BB 2. Acute RV failure * 04/02: echo LVEF 50%, TAPSE 0.6 cm, RVSP 37 mmHg, bioprosthetic AV noted * 04/04: Echo LVEF 55%, RV mildly dilated, TAPSE 0.9cm, RVSP 48 mmHg * 04/06/24: Echo LVEF 55-60%, TAPSE 0.8 cm LA severely dilated, mild to mod MR * off dobutamine, off Lasix gtt * good urine output * HF team following * CXR 04/09 showed moderate bilateral pleural effusion, had 1 dose of IV lasix today 3. Bradycardia/post-op afib s/p dual chamber PPM (BSc) * 04/08/24 s/p PPM placement 4. Hypertension * BP stable * on amlodipine 5 mg daily and metoprolol 12.5 mg BID 5. Hyperlipidemia * continue statin MDM by Dr. Hu. at 1727 at 1148 RPT #:[id number] END OF REPORT [facility] 2024-04-09 11:57:00 [facility] ([facility] Critical Care Progress Note REPORT#:[id number] REPORT STATUS: Signed REPORT INITIALIZATION DATE:04/09/24 TIME: 1157 PATIENT: FARHAD WELLS UNIT #: [id number] ROOM/BED: [place] [address] : 46 AGE: 79 SEX: M ATTEND: Sol Sutton MD ADM AUTHOR: Con Landeros MD REPT SERVICE DT/TIME: 04/09/24 9288 * ALL edits or amendments must be made on the electronic/computer document * Subjective Chief complaint: Ascending aortic aneurysm Aortic insufficiency Ascending aortic aneurysm Severe aortic insufficiency Postop day 7 status post aortic root replacement, replacement of ascending aorta , hemiarch, AVR CABG x 1 V-fib arrest ALAA Sinus bradycardia Volume overload Acute hypoxic respiratory insufficiency following thoracic surgery Acute blood loss anemia secondary to surgery Small apical ptx Hypertension Hyperglycemia Acute kidney injury HPI: Farhad Wells is a 78-year-old gentleman with past medical history of aortic valve stenosis, hyperlipidemia, hypertension. Patient was evaluated by his display specialist and found to have an ascending aortic aneurysm of 4.9 cm. He was also found to have mild to moderate aortic stenosis with moderate aortic insufficiency. He has preserved ejection fraction preoperatively. Today he underwent AVR with CABG x 1 and aortic root replacement with replacement of the ascending aorta and hemiarch replacement. He is in the CVICU for postoperative care. He is currently on a nitroglycerin infusion at 5 along with an insulin drip at 3. He remains intubated at this time. His preoperative echo showed preserved EF with severe aortic insufficiency. Postoperatively off-pump wall closing patient sustained a V-fib arrest. Differential of R on T phenomenon versus transient ischemic insult secondary to coronary calcification that could have been manipulated. He received 4 subcutaneous defibrillations and 2 internal defibrillations. After cardiac arrest episode patient was noted to have some ischemic changes on his echocardiogram with RV dilatation. He is not requiring IR inotropic support at this time. His EBL was 700. Received 750 of Cell Saver. In total he received 2 of cryo, 2 FFP 1 platelet and 1 RBC. Received 2 L of crystalloid and had a urine output of 650 throughout the case. Sedation is off at this time. He is being warmed with a warming blanket. Postoperative labs, EKG, chest x-ray pending. Will plan to extubate shortly. 04/02: Patient seen and evaluated at bedside. Patient is out of bed to chair. Pain is well-controlled. No acute events overnight. He was successfully extubated yesterday evening without difficulty. He remains on no drips at this time. Continues to require pacing and is sinus bradycardic. 04/03: Patient seen and evaluated at bedside. Started on norepi in the evening for RV support and renal perfusion. Urine output steady. Is having pre-syncope. No chest pain or sob. Formal echo pending. Will transition to vasopressin off of levo. 04/05: Patient seen and evaluated at bedside. Continued on dobutamine overnight. Still being paced. 04/06: Patient seen evaluated bedside. Pain well-controlled. No acute events overnight. Dobutamine at 3 and Lasix drip at 5. Plan to repeat an echocardiogram today. 04/07: Patient seen and evaluated overnight. No acute events. Continues to be paced. Repeat echo improved. 04/08: Patient seen evaluated bedside. Tolerating dobutamine wean well yesterday. Will continue to wean. Urine output adequate. Pain well- controlled. On room air. 04/09: Patient is postop day 7 after CABG x 1 and aortic root plus hemiarch repair for aortic aneurysm. His immediate postop course was complicated with A- fib, left pneumothorax, bilateral pleural effusion. He is status post permanent pacemaker placement. Continues on amiodarone at 200 g p.o. twice daily. LFTs are within normal limits. Patient has been diuresed adequately. He had significant decline in RV function and required dobutamine which has been discontinued now. Patient also developed left-sided pneumothorax but the chest x-ray from this morning shows complete resolution. Patient has bilateral pleural effusion and request has been placed for image guided thoracentesis on the right side. He continues on metoprolol at 12.5 mg p.o. 3 times daily. Central venous catheter, chest tube and Mann have been discontinued. He is ambulating with physical therapy, tolerating oral diet, had bowel movement and able to void without any trouble. Patient has difficulty sleeping and will receive melatonin tonight. Appetite is poor and Ensure is being increased to 3 times daily. Patient reports: Yes: bowel movement, shortness of breath. No: diarrhea, fever, vomiting. Nursing reports: No: confusion, constipation, delirium, diarrhea, fever, vomiting. Review of Systems Constitutional: Reports: generalized weakness. Denies: fatigue, fever. Skin: Denies: diaphoresis, ecchymosis. Allergy/Immun: Denies: anaphylaxis, hives. Eyes: Denies: redness, discharge. ENT: Denies: nose bleeding, sinus problem, throat swelling, tongue swelling. Respiratory: Denies: SOB. GI: Denies: melena, nausea, vomiting. : Denies: hematuria, nocturia. Heme: Denies: bleeding, bruising. Endocrine: Denies: polydipsia, polyphagia. Neuro: Denies: confusion, dizziness, seizure. Psych: Denies: confusion, delusional. Objective General VS/I O Last Documented: Result Date Time Pulse Ox 95 04/09 821 FiO2 21 04/09 821 O2 Delivery Room air 04/09 821 B/P 124/59 04/09 600 B/P Mean 85 04/09 600 Pulse 61 04/09 600 Resp 17 04/09 600 Temp 97.9 04/09 0400 O2 Flow Rate 1 04/06 0133 24 hour I O ending at 0700: 04/09 0700 04/08 1900 Intake Total 527 Output Total 650 1000 Balance -650 -473 Intake, Oral 240 Intake, Oral 287 Supplement Number Voids 5 Output, Urine 650 1000 Patient 62.6 kg Weight Weight Standing scale Measurement Method PATIENT WEIGHT: Weight (lb): 138 Weight (oz): 0.15 Weight (kg): 62.600 Medications: Active Meds + DC'd Last 24 Hrs Metoprolol Tartrate (LOPRESSOR) 12.5 MG Q12HR PO Spironolactone (ALDACTONE) 12.5 MG DAILY PO Acetaminophen (OFIRMEV 10MG/ML) 100 ML Q6H PRN PRN IV (CKD) Fentanyl Citrate (SUBLIMAZE) 0 .STK-MED ONE .ROUTE (DC) Midazolam HCl (VERSED) 0 .STK-MED ONE .ROUTE (DC) Midazolam HCl (VERSED) 0 .STK-MED ONE .ROUTE (DC) Gentamicin Sulfate (GARAMYCIN) 0 .STK-MED ONE .ROUTE (DC) Vancomycin HCl (VANCOMYCIN HCL) 0 .STK-MED ONE .ROUTE (DC) Lidocaine HCl (LIDOCAINE HCL/PF) 0 .STK-MED ONE .ROUTE (DC) Sodium Bicarbonate (SODIUM BICARBONATE) 0 .STK-MED ONE IV (DC) Vancomycin HCl (VANCOMYCIN HCL) 0 .STK-MED ONE .ROUTE (DC) Hydrocodone Bitart/Acetaminophen (NORCO 5/325) 2 TAB Q4H PRN PRN PO Amiodarone HCl (CORDARONE) 200 MG BID PO Amlodipine Besylate (NORVASC) 5 MG DAILY PO Cyanocobalamin (Vitamin B-12 500 mcg tab) 500 MCG DAILY PO Ferrous Sulfate (FERROUS SULFATE) 325 MG DAILY PO Calcium Carbonate (TUMS CHEW TAB) 1,000 MG Q2H PRN PRN PO Bisacodyl (DULCOLAX) 10 MG ONCE PRN RECTAL Vasopressin (VASOSTRICT 20 Unit/NS 100ML) 100 ML ASDIR IV (DC) Insulin Human Lispro (HUMALOG) 0 AC HS SUBQ Clopidogrel Bisulfate (Plavix) 75 MG DAILY PO Polyethylene Glycol (MIRALAX) 17 GM DAILY PO Pantoprazole (PROTONIX) 40 MG DAILY@0600 PO Atorvastatin Calcium (LIPITOR) 40 MG 2100 PO Sennosides (Senna Lax 8.6 MG TABLET) 17.2 MG BEDTIME PO Aspirin (ASPIRIN) 81 MG DAILY PO Acetaminophen (TYLENOL) 650 MG Q4H PRN PRN PO Acetaminophen (TYLENOL) 650 MG Q4H PRN PRN RECTAL Allopurinol (ZYLOPRIM) 300 MG DAILY PO Calcium Chloride (CALCIUM CHLORIDE) 1 GM ASDIR PRN IV Dextrose/Water (DEXTROSE 10% IN WATER) 125 ML ASDIR PRN IV (CKD) Dextrose/Water (DEXTROSE 10% IN WATER) 250 ML ASDIR PRN IV (CKD) Docusate Sodium (COLACE) 100 MG BID PO Glucagon (GLUCAGON) 1 MG ASDIR PRN IM Magnesium Sulfate (MAGNESIUM SULFATE 4GM/SWFI 100ML) 100 ML ASDIR PRN IV Magnesium Sulfate (MAGNESIUM SULFATE 2GM/SWFI 50ML) 50 ML ASDIR PRN IV Magnesium Sulfate/Dextrose (MAGNESIUM SULFATE 1GM/D5W 100ML) 100 ML ASDIR PRN IV Ondansetron HCl (ZOFRAN) 4 MG Q6H PRN PRN IV Potassium Chloride (KCL 20MEQ/SWFI 100ML) 100 ML ASDIR PRN IV Sodium Bicarbonate (SODIUM BICARBONATE) 50 MEQ ASDIR PRN IV Sodium Chloride (SODIUM CHLORIDE 0.9%) 250 ML Q24H IV Tamsulosin HCl (Flomax 0.4 mg) 0.4 MG DAILY PO Sodium Chloride (SODIUM CHLORIDE) 20 ML PREOP ONCALL IV (DC) Post-op: day 8 Status post: CABG times 1+ Aortic root and hemiarch repair Physical Exam General appearance: alert, awake, oriented, no acute distress, pleasant, conversational, mental status normal, no respiratory distress Head/eyes: atraumatic, clear cornea, EOMI, PERRL ENT: moist mucosal membranes, normal nose, normal sinus Neck: non-tender, no JVD, no masses or swelling Respiratory: aerating well, clear to auscultation, symmetric expansion, no distress Abdomen: soft, non-tender, no distention, no guarding, no rebound Extremities: moves all, no clubbing, no cyanosis, no edema Neuro/POST FORM REMOVER: alert, oriented X 3, no motor deficits Skin: dry, normal color, normal temperature, no rash Psychiatry: normal affect, not homicidal, not suicidal, no hallucinations Results Findings/data: Laboratory Tests 04/09 04/09 04/09 04/08 1122 0852 0300 2003 Chemistry Sodium (134 - 147 mEq/L) 132 L Potassium (3.4 - 5.0 mEq/L) 4.1 Chloride (100 - 108 mEq/L) 103 Carbon Dioxide (21 - 33 mEq/l) 23 Anion Gap (0 - 20) 10 BUN (7 - 25 mg/dL) 22 Creatinine (0.6 - 1.3 mg/dL) 1.4 H Glomerular Filtr Rate (70 - 80) 51.4 L Glucose (77 - 141 mg/dL) 101 POC Glucose (70 - 110 MG/DL) 104 174 H 109 Calcium (8.0 - 10.5 mg/dL) 8.0 Magnesium (1.6 - 2.6 mg/dL) 2.41 Total Bilirubin (0.0 - 1.0 mg/dL) 1.20 H Direct Bilirubin (0.1 - 0.3 MG/DL) 0.60 H Indirect Bilirubin (MG/DL) 0.60 AST (8 - 34 IUnit/L) 46 H ALT (10 - 49 IUnit/L) 75 H Total Alk Phosphatase (20 - 125 IUnit/L) 151 H Total Protein (6.4 - 8.2 g/dL) 6.1 L Albumin (3.4 - 5.0 g/dL) 2.80 L Laboratory Tests 04/08 1320 Coagulation INR (0.8 - 1.2) 1.2 PT Patient/Control Mix (9.3 - 12.9 SECONDS) 13.4 H Laboratory Tests 04/09 0300 Hematology WBC (4.5 - 11.0 x10 3/uL) 10.9 RBC (4.00 - 5.60 x10 6/uL) 3.11 L Hgb (12.5 - 16.9 g/dL) 8.5 L Hct (37.5 - 50.7 %) 26.6 L MCV (81.0 - 99.0 fL) 85.5 MCH (27.0 - 33.0 pg) 27.3 MCHC (33.0 - 37.0 g/dL) 32.0 L RDW (11.5 - 14.5 %) 15.1 H Plt Count (150 - 400 x10 3/uL) 345 MPV (7.0 - 9.0 fL) 10.2 H Neut % (Auto) (56.0 - 77.0 %) 78.7 H Lymph % (Auto) (14.0 - 32.0 %) 6.1 L [place] % (Auto) (4.8 - 9.0 %) 7.3 Eos % (Auto) (0.3 - 3.7 %) 5.5 H Baso % (Auto) (0.0 - 2.0 %) 0.5 Neut # (Auto) (2.0 - 7.6 x10 3/uL) 8.59 H Lymph # (Auto) (1.0 - 3.8 x10 3/uL) 0.67 L [place] # (Auto) (0.1 - 0.8 x10 3/uL) 0.80 Eos # (Auto) (0.0 - 0.2 x10 3/uL) 0.60 H Baso # (Auto) (0.0 - 0.2 x10 3/uL) 0.05 Abs Immat Gran (auto) (0.00 - 0.03 x10 3/uL) 0.21 H Immature Gran % (0.0 - 2.0 %) 1.9 Nucleated RBC % (0 - 0 %) 0.0 Nucleated RBCs # (Man) (0.0 - 0.1 x10 3/uL) 0.00 Laboratory Tests 04/09/24 0300: [Embedded Image Not Available] Radiology data Recent Impressions: ULTRASOUND - DUP VEIN PETRA 04/08 1231 Report Impression - Status: SIGNED Entered: 04/08/2024 2205 IMPRESSION: Normal Venous Doppler ultrasound of the bilateral lower extremity. Impression By: Kishan Goins M.D. RADIOLOGY - XR CHEST 1 V 04/08 1958 Report Impression - Status: SIGNED Entered: 04/08/20242120 IMPRESSION: 1. There is a 15% left apical pneumothorax. 2. No other significant change Impression By: Missy Robbins M.D. RADIOLOGY - XR CHEST 1 V 04/09 0558 Report Impression - Status: SIGNED Entered: 04/09/2024 0724 IMPRESSION: 1. Residual tiny left apical pneumothorax. 2. Persistent CHF with increased effusions. Impression By: Kishan Goins M.D. Results: labs reviewed, vital signs reviewed, rhythm personally rev'd, x-ray personally reviewed, current med profile rev'd Free Text Obj Notes Free Text Obj Notes: GEN: Appears in no acute distress, interactive and conversational HEENT: Atraumatic, normocephalic, moist mucous membranes NECK: Supple, good range of motion, no tenderness, no JVD LUNGS: Symmetrical air entry, no acute respiratory distress, no accessory muscle use CV: S1, S2 regular rate and rhythm, warm and well perfused GI: Abdomen is soft, not tender or distended EXT/Musc: No edema or cyanosis. Pedal pulses present. Compartments soft Skin: Surgical site clean, dry and intact. Warm to touch NEURO: Awake, alert and oriented x3. No facial droop or focal deficit Diagnosis, Assessment Plan Free text A P: Farhad Wells is a 79-year-old male with a history of ascending aortic aneurysm and aortic insufficiency that is postoperative aortic root replacement, replacement of ascending aorta, hemiarch replacement with antegrade cerebral perfusion. Ascending aortic aneurysm Severe aortic insufficiency Postop day 7 status post aortic root replacement, replacement of ascending aorta , hemiarch, AVR CABG x 1 V-fib arrest ALAA Sinus bradycardia Volume overload Acute hypoxic respiratory insufficiency following thoracic surgery Acute blood loss anemia secondary to surgery Small apical ptx Hypertension Hyperglycemia Acute kidney injury Neuro:multimodal pain control Respiratory: Pulmonary hygiene, incentive spirometry, on room air ABG reviewed. Follow up cxr for pneumothorax resolution. Cardiovascular: Wean dobutamine to 1 metoprolol on hold. Repeat echo shows mild RV dysfunction and no longer dilated (was dilated and severe). Consult to EP for junctional rhythm. Wean dobutamine today and continue spot dose lasix. Renal: strict I/Os, monitor Cr and replete electrolytes GI:cardiac diet ID: White count stable no fever Hem: monitor Hgb Endo: BG control with insulin sliding scale Misc: PTOT consult, DVT and GI ppx with SCD and PPI Full code Critical care time 32 minutes spent with patient excluding bedside procedures and teaching 04/09/2024 Patient is postop day 7 after CABG x 1 and aortic root plus hemiarch repair for aortic aneurysm. His immediate postop course was complicated with A-fib, left pneumothorax, bilateral pleural effusion. He is status post permanent pacemaker placement. Continues on amiodarone at 200 g p.o. twice daily. LFTs are within normal limits. Patient has been diuresed adequately. He had significant decline in RV function and required dobutamine which has been discontinued now. Patient also developed left-sided pneumothorax but the chest x-ray from this morning shows complete resolution. Patient has bilateral pleural effusion and request has been placed for image guided thoracentesis on the right side. He continues on metoprolol at 12.5 mg p.o. 3 times daily. Central venous catheter, chest tube and Mann have been discontinued. He is ambulating with physical therapy, tolerating oral diet, had bowel movement and able to void without any trouble. Patient has difficulty sleeping and will receive melatonin tonight. Appetite is poor and Ensure is being increased to 3 times daily. Patient is postop day 7 after CABG x 1 and aortic root plus hemiarch repair for aortic aneurysm Had significant decline in both LV and RV function Patient has compromised EF and required permanent pacemaker placement Also had decline in RV function and was on dobutamine drip that has been discontinued now Subsequent echocardiogram showed improvement in RV function Has developed bilateral pleural effusion right greater than the left Ultrasound guided chest tube placement request has been placed with IR Patient will be scheduled for tomorrow morning he is on Lasix 40 mg every 12 hours Developed left-sided pneumothorax that has resolved on the chest x-ray from this morning Has poor appetite Increase Ensure to 1 can PO 3 times daily Complains of insomnia Start on melatonin 3 mg PO nightly Wires have been discontinued Duplex scan negative for any venous thromboembolism Patient remains in A-fib rate controlled at 73 On Amiodarone 200 mg PO twice daily Has acute on CKD Creatinine is 1.4 mg/dL Follow urine output and BMP Has acute blood loss anemia Does not meet transfusion threshold at this time SCDs for DVT prophylaxis Con Landeros MD [facility] 04/09/2024 3.49 pm Consultants: anesthesiology, cardiology, cardiovascular surgery, critical/ student records specialist, hospitalist Code status: full code Plan discussed with: patient, consultants, nurse, interdisc care team, pharmacy/ pharmacist Critical care time: Minutes: 35 Quality: Gen Med Crit Care Advanced Care Plan 65 or Older Discussed with: patient at 1549 RPT #:[id number] END OF REPORT [facility] 2024-04-09 09:34:00 [facility] Cardiothoracic Surgery Prog REPORT#:[id number] REPORT STATUS: Signed REPORT INITIALIZATION DATE:04/09/24 TIME: 933 PATIENT: FARHAD WELLS UNIT #: [id number] ROOM/BED: [place] [id number] : 46 AGE: 79 SEX: M ATTEND: Sol Sutton MD ADM AUTHOR: Halima Gilliam Physic REPT SERVICE DT/TIME: 04/09/24 0934 * ALL edits or amendments must be made on the electronic/computer document * See Addendum General Post-op: day 8 Status post: post op cabg/avr/ascending aortic aneurysm replacement Subjective Chief complaint: post op cabg/avr/ascending aortic aneurysm replacement Review of Systems Constitutional: Denies: chills, generalized weakness. Skin: Denies: abrasion, diaphoresis, itching. Respiratory: Denies: [place] (dyspnea on exertion), pneumonia, SOB. Cardiovascular: Denies: chest pain, palpitations. GI: Denies: abdominal pain, nausea, vomiting. : Denies: dysuria, flank pain. Heme: Denies: adenopathy, bleeding, bruising. Endocrine: Denies: cold intolerance, heat intolerance, polydipsia. Neuro: Denies: bladder dysfunction, seizure, syncope. All systems rev neg: except as marked (fatigue) Objective General VS/I O Last Documented: Result Date Time Pulse Ox 98 04/09 600 B/P 124/59 04/09 600 B/P Mean 85 04/09 06 Pulse 61 04/09 06 Resp 17 04/09 600 Temp 97.9 04/09 0400 O2 Delivery Room air 04/08 2030 FiO2 21 04/08 1116 O2 Flow Rate 1 04/06 0133 24 hour I O ending at 0700: 04/09 0700 04/08 1900 Intake Total 527 Output Total 650 1000 Balance -650 -473 Intake, Oral 240 Intake, Oral 287 Supplement Number Voids 5 Output, Urine 650 1000 Patient 62.6 kg Weight Weight Standing scale Measurement Method PATIENT WEIGHT: Weight (lb): 138 Weight (oz): 0.15 Weight (kg): 62.600 Physical Exam General appearance: alert, awake, oriented Wound/incision: Location: sternum Site condition: edges approximated, incision intact HEENT: anicteric, mucosal membranes moist, pupils reactive to light Neck: full range of motion, non-tender Cardiovascular: normal heart sounds, regular rate rhythm Respiratory: aerating well, symmetric expansion, no distress Abdomen: soft, non-tender Genitourinary: urine, no bladder distention, no flank pain Extremities: dry, moves all Musculoskeletal: full range of motion, painless range of motion Neuro/POST FORM REMOVER: alert, oriented X 3 Skin: dry, intact Psychiatry: normal affect, normal mood Quality: Trauma Gen Surg Advanced Care Plan 65 or Older Discussed with: patient Current Medications Current medication review: I attest that the foregoing medication list in the medical record is true, accurate, and complete to the best of my knowledge. Diagnosis, Assessment Plan Free Text A P: This is a 78-year-old gentleman with a past medical history of aortic valve stenosis, hyperlipidemia who was also found to have an ascending aortic aneurysm measuring 5 cm. The patient was seen by his display specialist for 6-month follow-up. Recent echocardiogram completed on 01/22/2024 showed EF 55 to 60%, aortic valve mean/peak gradient of 30/42 mmHg, NAS measuring 0.9 cm , peak velocity 4.5 m/s. Patient also noted to have moderate mitral regurgitation, mild pulmonary hypertension with RV systolic pressure 45 mmHg. The patient underwent left heart catheterization on 02/05/2024 that showed left main to be normal, LAD proximal 30 to 40%, mid diffuse 50 to 60%, then luminal irregularities. Diagonal 1 has 40 to 55% stenosis. Circumflex proximal 60% stenosis, RCA large dominant with proximal 40%, mid 30 to 40% in the PDA with diffuse 40% stenosis. 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 Patient denies any chest pain but does report occasional dyspnea on exertion. Patient is being admitted today for replacement of ascending aorta, AVR, and possible coronary artery bypass graft surgery. Assessment/plan: 1. Dyspnea on exertion 2. Aortic valve stenosis 3. Ascending aortic aneurysm 4. Coronary artery disease 5. Hypertension 6. Hyperlipidemia Patient seen and examined by Dr. Sutton. Dr. Sutton has discussed with the patient the need for aortic valve replacement as well as ascending aortic replacement and possible coronary artery bypass graft surgery. Dr. Sutton discussed with the patient the operation, risks involved, benefits, alternatives , and complications. The patient's questions were answered and patient agreed to proceed with surgery. Patient is scheduled for surgery today. Admit to CVICU postoperatively Monitor heart rhythm and hemodynamics Strict I's and O's Cardiology and critical care consulted. 04/01/24 1. Exploration of innominate artery. 2. Chimney graft to the innominate artery (8 mm Hemashield graft). 3. Aortic root replacement (29 Konect graft, Bentall procedure). 4. Replacement of ascending aorta. 5. Hemiarch replacement. 6. Total circulatory arrest with antegrade cerebral perfusion. 7. Repair of innominate artery. 8. Amputation of left atrial appendage. 04/02/24 POD 1 AAOx3, reports pain well controlled AAOx3 Respiratory: On 3L NC, wean as tolerated, Encourage IS, Deep Breathing, nebs, pep and flutter CXR reviewed, Mediastinal CT 130cc, Pleural CT 340cc, continue to monitor. Cardiac: Sinus bradycardia, temporary pacing wires in place pacing at 80, hold BB, on amiodarone gtt @ 0.5, finish IV bag, start PO amiodarone GI: Cardiac diet, Continue Bowel regimen, positive bowel sounds, on insulin gtt : Mann, 167cc urine output last night PT/OT, encourage ambulation today DVT prophylaxis Labs reviewed- replace electrolytes as needed Disposition will be home with , good family support. Patient seen and examined by Dr. Sutton. Plan of care discussed with patient and multidisciplinary team. The patient's questions were answered. 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 and 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 Patient seen and examined by Dr. Sutton. Plan of care discussed with patient and multidisciplinary team. The patient's questions were answered. 04/04/24 POD 3 AAOx3, reports pain well controlled, patient states he is feeling better today Labs reviewed, hemoglobin 7.9 On 4L NC, wean off as tolerated, Encourage spirometer use, deep Breathing, nebs, pep and flutter CXR reviewed, Mediastinal CT 30, left pleural CT 150, reassess after ambulation for discontinuation Underlying rhythm was sinus bradycardia and junctional beats, temporary epicardial pacing wires in place, AV pacing at 84, hold BB Tolerating cardiac diet, nutritional supplements, continue Bowel regimen, positive bowel sounds, glycemic control Patient started on dobutamine yesterday currently at 5 Monitoring renal function closely, creatinine 1.5, strict I's and O's and daily weights, weight up from baseline PT/OT, encourage ambulation today, out of bed to chair for meals DVT prophylaxis with SCDs, GI prophylaxis with PPI Labs reviewed- replace electrolytes as needed Disposition will be home with , good family support. Discussed plan of care with patient, RN, and Dr. Isabel. The patient's questions were answered. MDM done by Dr. Isabel 04/05/24 POD 4 Patient alert, awake and oriented, reports pain well controlled Labs reviewed, hemoglobin stable 7.4 Remains on 4L NC, wean off as tolerated, Encourage spirometer use, deep Breathing, nebs, pep and flutter CXR reviewed, both chest tubes discontinued yesterday Underlying rhythm was sinus bradycardia, junctional beats, in/out slow afib, temporary epicardial pacing wires in place, AV pacing at 80, hold BB Tolerating cardiac diet, nutritional supplements, continue Bowel regimen, positive bowel sounds, glycemic control Patient on dobutamine currently at 5, attempt to decrease to 3 and monitor outputs and perfusion Continue lasix drip at 5 mg/hr, replace electrolytes and recheck labs this afternoon Monitoring renal function closely, creatinine stable 1.5, strict I's and O's and daily weights, weight trending down, 66.7 kg from 68.2 PT/OT, encourage ambulation today, out of bed to chair for meals DVT prophylaxis with SCDs, GI prophylaxis with PPI Labs reviewed- replace electrolytes as needed Disposition will be home with , good family support. Discussed plan of care with patient, RN, and Dr. Isabel. The patient's questions were answered. MDM done by Dr. Isabel 04/06/24 POD 5 Patient alert, awake and oriented, reports pain well controlled Labs reviewed, hemoglobin stable 7.2, recheck labs this afternoon Now on room air, encourage spirometer use, deep Breathing, nebs, pep and flutter CXR reviewed shows 15% left apical pneumothorax slightly improved from prior study Underlying rhythm irregular rhythm, atrial fibrillation, PACs, heart rate 60s to 70s Temporary epicardial pacing wires in place, AV pacing at 80, hold BB threshold 2.5 for ventricular, 3.0 for atrial, EP consulted per cardiology Tolerating cardiac diet, nutritional supplements, continue Bowel regimen, reports bowel movement glycemic control Dobutamine at 3, monitor outputs and perfusion, repeat echocardiogram today Continue lasix drip at 5 mg/hr, replace electrolytes and recheck labs this afternoon Monitoring renal function closely, creatinine 1.7, strict I's and O's and daily weights, 24-hour fluid balance -944, weight trending down Recheck labs this afternoon PT/OT, encourage ambulation today, out of bed to chair for meals DVT prophylaxis with SCDs, GI prophylaxis with PPI Labs reviewed- replace electrolytes as needed Disposition will be home with , good family support. Discussed plan of care with patient, RN, and Dr. Isabel. The patient's questions were answered. MDM done by Dr. Isabel 04/07/24 POD 6 Patient alert, awake and oriented, reports pain well controlled Labs reviewed, hemoglobin stable 7.5, replace electrolytes as needed Remains on room air, encourage spirometer use, deep Breathing, nebs, pep and flutter CXR reviewed Underlying rhythm atrial fibrillation, HR 64 Temporary epicardial pacing wires in place, AV pacing at 80, hold BB threshold 2.5 for ventricular, 3.0 for atrial, EP consulted per cardiology-plan to monitor patient over the weekend Tolerating cardiac diet, nutritional supplements, continue Bowel regimen, reports bowel movement glycemic control Dobutamine at 3- decrease to 2 today, monitor outputs and perfusion, echocardiogram shows EF 55 to 60%, RV systolic function mildly reduced, RVSP 48 mmHg Discontinue Lasix drip yesterday, intermittent IV Lasix received 40 mg IV yesterday evening Monitoring renal function closely, creatinine 1.6, strict I's and O's and daily weights, 24-hour fluid balance -1416, weight trending down 63.7 kg from 65.2, pre op baseline wt 61.2 PT/OT, encourage ambulation today, out of bed to chair for meals DVT prophylaxis with SCDs, GI prophylaxis with PPI Disposition will be home with , good family support. Discussed plan of care with patient, RN, and Dr. Isabel. The patient's questions were answered. MDM done by Dr. Isabel 04/08/24 POD 7 Patient alert, awake and oriented, reports pain well controlled Labs reviewed, hemoglobin stable 8.2, replace electrolytes as needed Remains on room air, encourage spirometer use, deep Breathing, nebs, pep and flutter CXR reviewed Underlying rhythm atrial fibrillation Temporary epicardial pacing wires in place, AV pacing at 80, hold BB threshold 3.0for ventricular, 3.5 for atrial, EP following Tolerating cardiac diet, nutritional supplements, continue Bowel regimen, reports bowel movement glycemic control Dobutamine at 2- decrease to 1 today Lasix 40 mg IV x 1 Monitoring renal function closely, creatinine 1.5, strict I's and O's and daily weights, 24-hour fluid balance -1715, weight trending down 62.6 from 63.7 kg, pre op baseline wt 61.2 PT/OT, encourage ambulation, out of bed to chair for meals DVT prophylaxis with SCDs, GI prophylaxis with PPI Disposition will be home with , good family support. Discussed plan of care with patient, RN, and Dr. Isabel. The patient's questions were answered. MDM done by Dr. Isabel 04/09/24 POD 8 Patient resting comfortable, denies complaints Status post pacemaker placed by EP yesterday. Bedside pacer interrogation within normal limits this morning. Will DC epicardial pacing wires today. Obtain echocardiogram. Labs reviewed, on room air, encourage I-S and deep breathing CXR reviewed, shows bilateral pleural effusion. Will obtain ultrasound. Restart beta-yenifer Monitoring renal function closely, creatinine 1.5, strict I's and O's and daily weights, PT/OT, encourage ambulation, out of bed to chair for meals DVT prophylaxis with SCDs, GI prophylaxis with PPI Disposition will be home with , good family support. Discussed plan of care with patient, RN, and Dr. Isabel. The patient's questions were answered. MDM done by Dr. Isabel Consultants: cardiology, critical/student records specialist at 1349 at 1940 Addendum 1: 04/09/24 1518 by Halima Gilliam US chest shows moderate plueral effusion, Consider Pigtail placement tomorrow. Discussed with ICC WIll give Lasix IV today at 1519 RPT #:[id number] END OF REPORT [facility] 2024-04-09 09:09:00 [facility] ([facility]) Heart Failure Progress Note REPORT#:[id number] REPORT STATUS: Signed REPORT INITIALIZATION DATE:04/09/24 TIME: 908 PATIENT: FARHAD WELLS UNIT #: [id number] ROOM/BED: [address] : 46 AGE: 79 SEX: M ATTEND: Sol Sutton MD ADM AUTHOR: Moises Lazo REPT SERVICE DT/TIME: 04/09/24 09 * ALL edits or amendments must be made on the electronic/computer document * Moises Lazo 04/09/24 0909: Subjective HPI: This is a 78-year-old patient with a past medical history of aortic valve stenosis, hyperlipidemia who was also found to have an ascending aortic aneurysm measuring 5 cm. ECHO on 01/22/2024 showed EF 55 to 60%. LHC on 02/05/2024 showed left main to be normal, LAD proximal 30 to 40%, mid diffuse 50 to 60%, then luminal irregularities. Diagonal 1 has 40 to 55% stenosis. Circumflex proximal 60% stenosis, RCA large dominant with proximal 40 %, mid 30 to 40% in the PDA with diffuse 40% stenosis. 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 Patient was admitted on 04/01/24 and underwent. Intraoperatively, the patient received shocks due to V-fib; currently on Amiodarone drip 1. Exploration of innominate artery. 2. Chimney graft to the innominate artery (8 mm Hemashield graft). 3. Aortic root replacement (29 Konect graft, Bentall procedure). 4. Replacement of ascending aorta. 5. Hemiarch replacement. 6. Total circulatory arrest with antegrade cerebral perfusion. 7. Repair of innominate artery. 8. Amputation of left atrial appendage. 9. CABG x1 (CENTENO to LAD) Currently, the patient is OOB, sleeping comfortably in chair w/ family at bedside. Objective General VS/I O: Vital Signs Date Temp Pulse Resp B/P B/P Mean Pulse Ox FiO2 04/08-04/09 36.6-37.0 61-73 17-29 115-152/57-70 82-100 93-100 21 24 hour I O ending at 0700: 04/09 0700 04/08 1900 Intake Total 527 Output Total 650 1000 Balance -650 -473 Intake, Oral 240 Intake, Oral 287 Supplement Number Voids 5 Output, Urine 650 1000 Patient 62.6 kg Weight Weight Standing scale Measurement Method PATIENT WEIGHT: Weight (lb): 138 Weight (oz): 0.15 Weight (kg): 62.600 Medications: Medication(s) Ordered: Anti-Infective Agents Sig/Joe Start time Last Medication Dose Route Stop Time Status Admin Gentamicin Sulfate 0 .STK-MED ONE 04/08 1601 DC 04/08 .ROUTE 164 Vancomycin HCl 0 .STK-MED ONE 04/08 1413 DC 04/08 .ROUTE 1554 Vancomycin HCl 0 .STK-MED ONE 04/08 1406 DC 04/08 .ROUTE 1554 Autonomic Drugs Sig/Joe Start time Last Medication Dose Route Stop Time Status Admin Dobutamine HCl/ 250 ML TITRATE 04/03 134 DC 04/06 Dextrose IV 07/02 1344 0504 Tamsulosin HCl 0.4 MG DAILY 04/01 900 AC 04/08 PO 06/30 0859 0945 Blood Formation,Coagulation Sig/Joe Start time Last Medication Dose Route Stop Time Status Admin Ferrous Sulfate 325 MG DAILY 04/04 900 AC 04/08 PO 07/03 0859 0946 Clopidogrel Bisulfate 75 MG DAILY 04/02 09 AC 04/08 PO 07/01 0859 0946 Cardiovascular Drugs Sig/Joe Start time Last Medication Dose Route Stop Time Status Admin Spironolactone 12.5 MG DAILY 04/09 09 AC PO 07/08 0859 Lidocaine HCl 0 .STK-MED ONE 04/08 1406 DC 04/08 .ROUTE 1554 Spironolactone 12.5 MG ONCE ONE 04/08 1000 DC 04/08 PO 04/08 1001 1016 Amiodarone HCl 200 MG BID 04/08 0900 AC 04/08 PO 07/07 0859 2223 Amlodipine Besylate 5 MG DAILY 04/07 1845 AC 04/08 PO 07/06 1844 0947 Atorvastatin Calcium 40 MG 2100 04/01 2100 AC 04/06 PO 05/01 205 202 Central Nervous System Agents Sig/Joe Start time Last Medication Dose Route Stop Time Status Admin Acetaminophen 100 ML Q6H PRN PRN 04/08 2000 CKD 04/09 IV 0502 Fentanyl Citrate 0 .STK-MED ONE 04/08 161 DC 04/08 .ROUTE 1644 Midazolam HCl 0 .STK-MED ONE 04/08 1612 DC 04/08 .ROUTE 1644 Midazolam HCl 0 .STK-MED ONE 04/08 1603 DC 04/08 .ROUTE 1644 Hydrocodone Bitart/ 2 TAB Q4H PRN PRN 04/08 1245 AC Acetaminophen PO 04/13 1244 Aspirin 81 MG DAILY 04/01 1451 AC 04/08 PO 06/30 1450 0946 Acetaminophen 650 MG Q4H PRN PRN 04/01 900 AC 04/03 PO 06/30 0859 1934 Acetaminophen 650 MG Q4H PRN PRN 04/01 900 AC RECTAL 06/30 0859 Magnesium Sulfate 100 ML ASDIR PRN 04/01 900 AC IV 06/30 0859 Magnesium Sulfate 50 ML ASDIR PRN 04/01 900 AC 04/03 IV 06/30 0859 0607 Magnesium Sulfate/ 100 ML ASDIR PRN 04/01 900 AC 04/09 Dextrose IV 06/30 0859 0502 Electrolytic, Caloric, And Kylee Sig/Joe Start time Last Medication Dose Route Stop Time Status Admin Sodium Bicarbonate 0 .STK-MED ONE 04/08 1406 DC 04/08 IV 1554 Calcium Carbonate 1,000 MG Q2H PRN PRN 04/03 1330 AC 04/04 PO 07/02 1329 1226 Calcium Chloride 1 GM ASDIR PRN 04/01 900 AC IV 06/30 0859 Dextrose/Water 125 ML ASDIR PRN 04/01 900 CKD IV 06/30 0859 Dextrose/Water 250 ML ASDIR PRN 04/01 900 CKD IV 06/30 0859 Potassium Chloride 100 ML ASDIR PRN 04/01 900 AC 04/07 IV 06/30 0859 2125 Sodium Bicarbonate 50 MEQ ASDIR PRN 04/01 900 AC IV 06/30 0859 Sodium Chloride 250 ML Q24H 04/01 900 AC IV 06/30 0859 Sodium Chloride 20 ML PREOP ONCALL 04/01 0500 DC IV 06/30 0459 Gastrointestinal Drugs Sig/Joe Start time Last Medication Dose Route Stop Time Status Admin Bisacodyl 10 MG ONCE PRN 04/03 1200 AC RECTAL 07/02 1159 Polyethylene Glycol 17 GM DAILY 04/02 900 AC 04/08 PO 07/01 0859 0948 Pantoprazole 40 MG DAILY@0600 04/02 600 AC 04/09 PO 07/01 0559 0501 Sennosides 17.2 MG BEDTIME 04/01 2100 AC 04/03 PO 06/30 Docusate Sodium 100 MG BID 04/01 900 AC 04/08 PO 06/30 858 09 Ondansetron HCl 4 MG Q6H PRN PRN 04/01 900 AC 04/05 IV 06/30 858 0324 Hormones And Synthetic Substit Sig/Joe Start time Last Medication Dose Route Stop Time Status Admin Vasopressin 100 ML ASDIR 04/03 715 DC 04/03 IV 07/02 713 0837 Insulin Human Lispro 0 AC HS 04/02 1130 AC 04/03 SUBQ 07/019 2035 Glucagon 1 MG ASDIR PRN 04/01 900 AC IM 06/30 858 Miscellaneous Therapeutic Agen Sig/Joe Start time Last Medication Dose Route Stop Time Status Admin Allopurinol 300 MG DAILY 04/01 900 AC 04/08 PO 06/30 858 0946 Vitamins Sig/Joe Start time Last Medication Dose Route Stop Time Status Admin Cyanocobalamin 500 MCG DAILY 04/04 900 AC 04/08 PO 07/03 858 0946 Active Meds + DC'd Last 24 Hrs Spironolactone (ALDACTONE) 12.5 MG DAILY PO Acetaminophen (OFIRMEV 10MG/ML) 100 ML Q6H PRN PRN IV (CKD) Fentanyl Citrate (SUBLIMAZE) 0 .STK-MED ONE .ROUTE (DC) Midazolam HCl (VERSED) 0 .STK-MED ONE .ROUTE (DC) Midazolam HCl (VERSED) 0 .STK-MED ONE .ROUTE (DC) Gentamicin Sulfate (GARAMYCIN) 0 .STK-MED ONE .ROUTE (DC) Vancomycin HCl (VANCOMYCIN HCL) 0 .STK-MED ONE .ROUTE (DC) Lidocaine HCl (LIDOCAINE HCL/PF) 0 .STK-MED ONE .ROUTE (DC) Sodium Bicarbonate (SODIUM BICARBONATE) 0 .STK-MED ONE IV (DC) Vancomycin HCl (VANCOMYCIN HCL) 0 .STK-MED ONE .ROUTE (DC) Hydrocodone Bitart/Acetaminophen (NORCO 5/325) 2 TAB Q4H PRN PRN PO Spironolactone (ALDACTONE) 12.5 MG ONCE ONE PO (DC) Amiodarone HCl (CORDARONE) 200 MG BID PO Amlodipine Besylate (NORVASC) 5 MG DAILY PO Cyanocobalamin (Vitamin B-12 500 mcg tab) 500 MCG DAILY PO Ferrous Sulfate (FERROUS SULFATE) 325 MG DAILY PO Dobutamine HCl/Dextrose (DOBUTamine 500MG/D5W 250ML) 250 ML TITRATE IV ( DC) Calcium Carbonate (TUMS CHEW TAB) 1,000 MG Q2H PRN PRN PO Bisacodyl (DULCOLAX) 10 MG ONCE PRN RECTAL Vasopressin (VASOSTRICT 20 Unit/NS 100ML) 100 ML ASDIR IV (DC) Insulin Human Lispro (HUMALOG) 0 AC HS SUBQ Clopidogrel Bisulfate (Plavix) 75 MG DAILY PO Polyethylene Glycol (MIRALAX) 17 GM DAILY PO Pantoprazole (PROTONIX) 40 MG DAILY@0600 PO Atorvastatin Calcium (LIPITOR) 40 MG 2100 PO Sennosides (Senna Lax 8.6 MG TABLET) 17.2 MG BEDTIME PO Aspirin (ASPIRIN) 81 MG DAILY PO Acetaminophen (TYLENOL) 650 MG Q4H PRN PRN PO Acetaminophen (TYLENOL) 650 MG Q4H PRN PRN RECTAL Allopurinol (ZYLOPRIM) 300 MG DAILY PO Calcium Chloride (CALCIUM CHLORIDE) 1 GM ASDIR PRN IV Dextrose/Water (DEXTROSE 10% IN WATER) 125 ML ASDIR PRN IV (CKD) Dextrose/Water (DEXTROSE 10% IN WATER) 250 ML ASDIR PRN IV (CKD) Docusate Sodium (COLACE) 100 MG BID PO Glucagon (GLUCAGON) 1 MG ASDIR PRN IM Magnesium Sulfate (MAGNESIUM SULFATE 4GM/SWFI 100ML) 100 ML ASDIR PRN IV Magnesium Sulfate (MAGNESIUM SULFATE 2GM/SWFI 50ML) 50 ML ASDIR PRN IV Magnesium Sulfate/Dextrose (MAGNESIUM SULFATE 1GM/D5W 100ML) 100 ML ASDIR PRN IV Ondansetron HCl (ZOFRAN) 4 MG Q6H PRN PRN IV Potassium Chloride (KCL 20MEQ/SWFI 100ML) 100 ML ASDIR PRN IV Sodium Bicarbonate (SODIUM BICARBONATE) 50 MEQ ASDIR PRN IV Sodium Chloride (SODIUM CHLORIDE 0.9%) 250 ML Q24H IV Tamsulosin HCl (Flomax 0.4 mg) 0.4 MG DAILY PO Sodium Chloride (SODIUM CHLORIDE) 20 ML PREOP ONCALL IV (DC) Status post: CABG Physical Exam General appearance: alert, awake, oriented Cardiovascular: regular rate and rhythm Respiratory: no distress Extremities: moves all Neuro/POST FORM REMOVER: alert, oriented X 3, normal speech Skin: dry, normal color, mid sternal incision CDI without bleeding Psychiatry: normal affect, normal judgment/insight, normal mood Results Findings/data: Laboratory Tests 04/09/24 0300: [Embedded Image Not Available] Laboratory Tests 04/09 04/09 04/08 0852 0300 2002 Chemistry Sodium (134 - 147 mEq/L) 132 L Potassium (3.4 - 5.0 mEq/L) 4.1 Chloride (100 - 108 mEq/L) 103 Carbon Dioxide (21 - 33 mEq/l) 23 Anion Gap (0 - 20) 10 BUN (7 - 25 mg/dL) 22 Creatinine (0.6 - 1.3 mg/dL) 1.4 H Glomerular Filtr Rate (70 - 80) 51.4 L Glucose (77 - 141 mg/dL) 101 POC Glucose (70 - 110 MG/DL) 174 H 109 Calcium (8.0 - 10.5 mg/dL) 8.0 Magnesium (1.6 - 2.6 mg/dL) 2.41 Total Bilirubin (0.0 - 1.0 mg/dL) 1.20 H Direct Bilirubin (0.1 - 0.3 MG/DL) 0.60 H Indirect Bilirubin (MG/DL) 0.60 AST (8 - 34 IUnit/L) 46 H ALT (10 - 49 IUnit/L) 75 H Total Alk Phosphatase (20 - 125 IUnit/L) 151 H Total Protein (6.4 - 8.2 g/dL) 6.1 L Albumin (3.4 - 5.0 g/dL) 2.80 L Laboratory Tests 04/08 1320 Coagulation INR (0.8 - 1.2) 1.2 PT Patient/Control Mix (9.3 - 12.9 SECONDS) 13.4 H Laboratory Tests 04/09 0300 Hematology WBC (4.5 - 11.0 x10 3/uL) 10.9 RBC (4.00 - 5.60 x10 6/uL) 3.11 L Hgb (12.5 - 16.9 g/dL) 8.5 L Hct (37.5 - 50.7 %) 26.6 L MCV (81.0 - 99.0 fL) 85.5 MCH (27.0 - 33.0 pg) 27.3 MCHC (33.0 - 37.0 g/dL) 32.0 L RDW (11.5 - 14.5 %) 15.1 H Plt Count (150 - 400 x10 3/uL) 345 MPV (7.0 - 9.0 fL) 10.2 H Neut % (Auto) (56.0 - 77.0 %) 78.7 H Lymph % (Auto) (14.0 - 32.0 %) 6.1 L [place] % (Auto) (4.8 - 9.0 %) 7.3 Eos % (Auto) (0.3 - 3.7 %) 5.5 H Baso % (Auto) (0.0 - 2.0 %) 0.5 Neut # (Auto) (2.0 - 7.6 x10 3/uL) 8.59 H Lymph # (Auto) (1.0 - 3.8 x10 3/uL) 0.67 L [place] # (Auto) (0.1 - 0.8 x10 3/uL) 0.80 Eos # (Auto) (0.0 - 0.2 x10 3/uL) 0.60 H Baso # (Auto) (0.0 - 0.2 x10 3/uL) 0.05 Abs Immat Gran (auto) (0.00 - 0.03 x10 3/uL) 0.21 H Immature Gran % (0.0 - 2.0 %) 1.9 Nucleated RBC % (0 - 0 %) 0.0 Nucleated RBCs # (Man) (0.0 - 0.1 x10 3/uL) 0.00 Laboratory Tests Test Result Date Time Chemistry B-Natriuretic Peptide (0 - 100 PG/ML) 91.0 03/26 1636 Recent Impressions: ULTRASOUND - DUP VEIN PETRA 04/08 1231 Report Impression - Status: SIGNED Entered: 04/08/2024 1258 IMPRESSION: Normal Venous Doppler ultrasound of the bilateral lower extremity. Impression By: Kishan Goins M.D. RADIOLOGY - XR CHEST 1 V 04/08 1958 Report Impression - Status: SIGNED Entered: 04/08/20242120 IMPRESSION: 1. There is a 15% left apical pneumothorax. 2. No other significant change Impression By: Missy - Randall Robbins M.D. RADIOLOGY - XR CHEST 1 V 04/09 0558 Report Impression - Status: SIGNED Entered: 04/09/2024 0724 IMPRESSION: 1. Residual tiny left apical pneumothorax. 2. Persistent CHF with increased effusions. Impression By: AidenAsad Goins M.D. Diagnosis, Assessment Plan Consultants: cardiology, critical/student records specialist Free Text DxA P Notes Free text DxA P notes: V-fib/R on T occured during surgery, required 8 shocks currently on amiodarone 200mg bid AV-paced rate 80 EP consulted for PPM Aortic root replacement, replacement of ascending aorta, hemiarch replacement, CABG x1 CENTENO to LAD, and amputation of left atrial appendage monitor for fluid overload Maintain MAP 70-90 Strict I Os and daily standing weight Maintain K 4 and Mg 2 Trend CBC, BMP2 24 hour I/O= -1.1L BP 159/72 AV paced rate 80 LVEF 55-60% Meds: Plavix, Amiodarone, ASA, Lipitor, metoprolol tartrate, spironolactone HTN on amlodipine 5mg daily HLD on atorvastatin 40mg daily Hypotension (resolved) -dobutamine d/c Patient is currently AV paced at the rate of 80. Underlying rhythm is junctional rhythm Patient is hemodynamically stable continue DAPT with aspirin and Plavix Continue Lipitor and amiodarone Maintain MAP 70-90 Maintain CVP 8-10 Strict I Os and daily standing weight Maintain K 4 and Mg 2 Trend CBC, BMP -cont. to hold BB -if urine output < 30 ml/hr, initiate inotrope, milrinone -increase spironolactone to 25mg daily -dobutamine d/c -s/p PPM implantation per EP, 04/08 Andrés Limon 04/11/24 1518: Attestations Physician Attestation Agree w/findings plan: Postcardiotomy shock RV failure s/p Aortic root replacement, replacement of ascending aorta, hemiarch replacement, s/p CABG x1 CENTENO to LAD, and amputation of left atrial appendage Hypertension Hyperlipidemia Stable hemodynamics Status post discontinuation of dobutamine yesterday Status post PPM placement yesterday increase spironolactone to 25 mg p.o. daily Can start beta-blockers today Continue aspirin and Plavix Continue Lipitor and amiodarone Maintain K 4 and Mg 2 Trend CBC, BMP Critical care time spent 35 minutes I have personally seen and examined the patient independently, and reviewed the patient's history, exam, and all cardiac and laboratory data. I agree with the history, physical, and the assessment and plan as outlined by Moises Lazo . I was present and supervised. at 1336 at 1523 RPT #:[id number] END OF REPORT [facility] 2024-04-09 03:40:00 [id number] [place] [address] PATIENT NAME: FARHAD WELLS ADMIT DATE: 04/01/24 ACCOUNT NO: [id number] ROOM NO: 220 AGE: 79 REPORT TYPE: eELECTROCARDIOGRAM REPORT SEX: M ADMITTING PHYSICIAN:Sol Sutton MD ATTENDING PHYSICIAN:Sol Sutton MD Order: [id number] Test Reason : EKG Test Date/Time Stamp: MonApr 09 2024 03:40:54 Blood Pressure : / mmHG Vent. Rate : 062 BPM Atrial Rate : 000 BPM P-R Int : 000 ms QRS Dur : 136 ms QT Int : 532 ms P-R-T Axes : 000 088 015 degrees QTc Int : 539 ms Atrial fibrillation with frequent ventricular-paced complexes Nonspecific intraventricular block T wave abnormality, consider anterior ischemia Abnormal ECG When compared with ECG of 08-APR-2024 06:45, Significant changes have occurred Confirmed by MD VELIZ GERARD ([id number]) on 04/09/2024 9:02:21 PM Referred By: Sol Sutton Confirmed by:SAUD VELIZ MD at 2102 PATIENT NAME: FARHAD WELLS [facility] 2024-04-08 17:46:00 [id number] [place] [id number] PATIENT NAME: FARHAD WELLS ADMIT DATE: 04/01/24 ACCOUNT NO: [id number] ROOM NO: 220 AGE: 79 REPORT TYPE: OPERATIVE REPORT SEX: M ADMITTING PHYSICIAN:Sol Sutton MD ATTENDING PHYSICIAN:Sol Sutton MD OPERATION DATE: 04/08/2024 PREOPERATIVE DIAGNOSES: 1. Sick sinus syndrome. 2. Recent aortic valve replacement. POSTOPERATIVE DIAGNOSES: 1. Sick sinus syndrome. 2. Recent aortic valve replacement. SURGEON: Steven Brooks M.D. GREASE RACK WORKER: ESTIMATED BLOOD LOSS: 10 mL. PROCEDURE: 1. Dual chamber pacemaker placement. 2. Moderate sedation. ANESTHESIA: Moderate conscious sedation was provided under my direct supervision by sedation trained nurse. Sedation time 30 minutes. Versed and fentanyl. See report for details. PROCEDURE IN DETAIL: After informed consent was obtained, the patient was brought to the electrophysiology laboratory in a fasting sedated state. Area over his chest was prepped and draped in the usual sterile fashion. Moderate sedation and prophylactic antibiotics were given. Lidocaine was used and a 3-cm skin incision was made in the left subclavicular area. Electrocautery sharp and blunt dissections were used to breach the muscular fascia and a pocket was created for eventual implantation of the device. Vascular access was obtained x2 in the left axillary vein. Ventricular lead to the RV apex. R waves 15, pacing 0.5. Atrial lead to the right atrial appendage. P waves as atrial fibrillation waves at around 4. Sheaths removed from the body. Leads secured to fascia using Ethibond. Pocket was irrigated with antibiotic solution using the pulse size worker. Hemostasis was meticulous. Leads connected to the device and device placed in the pocket. We used an antibiotic envelope. Incision was closed using absorbable sutures and Dermabond. The patient tolerated the procedure well. Procedure was complete. SUMMARY OF HARDWARE IMPLANTED: 1. The new pacemaker is [employer] [id number]. 2. Ventricular lead [id number]. PATIENT NAME: FARHAD WELLS 3. Atrial lead [id number]. IMPRESSION: Successful dual chamber pacemaker placement via left axillary vein. PLAN: 1. Routine postop monitoring, ICU care. 2. Discontinue epicardial pacer leads. 3. To be discussed with primary cardiology as far as anticoagulation strategy, may consider a cardioversion in the near future. Dictated By: Steven Brooks MD Date Dictated: 04/08/2024 17:46:04 Date Transcribed: 04/08/2024 23:15:16 DIONISIO/JESUS/MEGAN Receipt ID: [id number] Authenticated by Steven Brooks MD On 04/15/2024 09:40:30 AM at 0940 PATIENT NAME: FARHAD WELLS [facility] 2024-04-08 12:33:00 [facility] ([facility] Heart Failure Progress Note REPORT#:[id number] REPORT STATUS: Signed REPORT INITIALIZATION DATE:04/08/24 TIME: 1233 PATIENT: FARHAD WELLS UNIT #: [id number] ROOM/BED: [place] [address] : 46 AGE: 79 SEX: M ATTEND: Sol Sutton MD ADM AUTHOR: Moises Lazo [facility] REPT SERVICE DT/TIME: 04/08/24 1233 * ALL edits or amendments must be made on the electronic/computer document * Moises Lazo 04/08/24 1233: Subjective HPI: This is a 78-year-old patient with a past medical history of aortic valve stenosis, hyperlipidemia who was also found to have an ascending aortic aneurysm measuring 5 cm. ECHO on 01/22/2024 showed EF 55 to 60%. LHC on 02/05/2024 showed left main to be normal, LAD proximal 30 to 40%, mid diffuse 50 to 60%, then luminal irregularities. Diagonal 1 has 40 to 55% stenosis. Circumflex proximal 60% stenosis, RCA large dominant with proximal 40 %, mid 30 to 40% in the PDA with diffuse 40% stenosis. 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 Patient was admitted on 04/01/24 and underwent. Intraoperatively, the patient received shocks due to V-fib; currently on Amiodarone drip 1. Exploration of innominate artery. 2. Chimney graft to the innominate artery (8 mm Hemashield graft). 3. Aortic root replacement (29 Konect graft, Bentall procedure). 4. Replacement of ascending aorta. 5. Hemiarch replacement. 6. Total circulatory arrest with antegrade cerebral perfusion. 7. Repair of innominate artery. 8. Amputation of left atrial appendage. 9. CABG x1 (CENTENO to LAD) Currently, the patient is resting comfortably in bed, reading. Objective General VS/I O: Vital Signs Date Temp Pulse Resp B/P B/P Mean Pulse Ox FiO2 04/07-04/08 36.6-37.0 79-80 22-37 132-176/60-79 87-114 94-100 24 hour I O ending at 0700: 04/08 0700 04/07 1900 Intake Total 1130.00 Output Total 1300 1545 Balance -1300 -415.00 Intake, IV 43.00 Intake, Oral 720 Intake, Oral 367 Supplement Number 1 2 Bowel Movements Output, Urine 1300 1545 Patient 62.6 kg Weight Weight Standing scale Measurement Method PATIENT WEIGHT: Weight (lb): 138 Weight (oz): 0.15 Weight (kg): 62.600 Medications: Medication(s) Ordered: Anti-Infective Agents Sig/Joe Start time Last Medication Dose Route Stop Time Status Admin Cefazolin Sodium 2 GM PREOP ONCALL 04/01 0500 DC IV 04/08 0459 Vancomycin HCl 1,000 MG PREOP ONCALL 04/01 0500 DC Sodium Chloride 250 ML IV 04/08 0459 Autonomic Drugs Sig/Joe Start time Last Medication Dose Route Stop Time Status Admin Dobutamine HCl/ 250 ML TITRATE 04/03 1345 DC 04/06 Dextrose IV 07/02 1344 0504 Tamsulosin HCl 0.4 MG DAILY 04/01 900 AC 04/08 PO 06/30 0759 0945 Blood Formation,Coagulation Sig/Joe Start time Last Medication Dose Route Stop Time Status Admin Ferrous Sulfate 325 MG DAILY 04/04 900 AC 04/08 PO 07/03 0759 0946 Clopidogrel Bisulfate 75 MG DAILY 04/02 900 AC 04/08 PO 07/01 0859 0946 Cardiovascular Drugs Sig/Joe Start time Last Medication Dose Route Stop Time Status Admin Spironolactone 12.5 MG DAILY 04/09 900 AC PO 07/08 0859 Spironolactone 12.5 MG ONCE ONE 04/08 1000 DC 04/08 PO 04/08 1001 1016 Amiodarone HCl 200 MG BID 04/08 900 AC 04/08 PO 07/07 0859 0945 Amlodipine Besylate 5 MG DAILY 04/07 184 AC 04/08 PO 07/06 184 0947 Atorvastatin Calcium 40 MG 2100 04/01 2100 AC 04/06 PO 05/01 Amiodarone HCl 200 MG TID 04/01 900 DC 04/07 PO 06/30 0859 2042 Central Nervous System Agents Sig/Joe Start time Last Medication Dose Route Stop Time Status Admin Hydrocodone Bitart/ 2 TAB Q4H PRN PRN 04/08 1245 UNV Acetaminophen PO 04/13 1244 Aspirin 81 MG DAILY 04/01 1451 AC 04/08 PO 06/30 1450 0946 Acetaminophen 650 MG Q4H PRN PRN 04/01 900 AC 04/03 PO 06/30 0859 1934 Acetaminophen 650 MG Q4H PRN PRN 04/01 900 AC RECTAL 06/30 0859 Magnesium Sulfate 100 ML ASDIR PRN 04/01 900 AC IV 06/30 0859 Magnesium Sulfate 50 ML ASDIR PRN 04/01 900 AC 04/03 IV 06/30 0859 0607 Magnesium Sulfate/ 100 ML ASDIR PRN 04/01 900 AC 04/08 Dextrose IV 06/30 0859 0512 Electrolytic, Caloric, And Kylee Sig/Joe Start time Last Medication Dose Route Stop Time Status Admin Calcium Gluconate 50 ML ONCE ONE 04/07 2115 DC 04/07 IV 04/07 2124 212 Furosemide 40 MG ONCE ONE 04/07 170 DC 04/07 IV 04/07 1701 1709 Calcium Carbonate 1,000 MG Q2H PRN PRN 04/03 1330 AC 04/04 PO 07/02 1329 1226 Calcium Chloride 1 GM ASDIR PRN 04/01 900 AC IV 06/30 0859 Dextrose/Water 125 ML ASDIR PRN 04/01 900 CKD IV 06/30 0859 Dextrose/Water 250 ML ASDIR PRN 04/01 900 CKD IV 06/30 0859 Potassium Chloride 100 ML ASDIR PRN 04/01 900 AC 04/07 IV 06/30 0859 2125 Sodium Bicarbonate 50 MEQ ASDIR PRN 04/01 900 AC IV 06/30 0859 Sodium Chloride 250 ML Q24H 04/01 900 AC IV 06/30 858 Sodium Chloride 20 ML PREOP ONCALL 04/01 0500 AC IV 06/30 0459 Gastrointestinal Drugs Sig/Joe Start time Last Medication Dose Route Stop Time Status Admin Bisacodyl 10 MG ONCE PRN 04/03 1200 AC RECTAL 07/02 1159 Polyethylene Glycol 17 GM DAILY 04/02 900 AC 04/08 PO 07/01 0859 0948 Pantoprazole 40 MG DAILY@0600 04/02 600 AC 04/08 PO 07/01 0559 0512 Sennosides 17.2 MG BEDTIME 04/01 2100 AC 04/03 PO 06/30 2058 203 Docusate Sodium 100 MG BID 04/01 900 AC 04/08 PO 06/30 0759 0946 Ondansetron HCl 4 MG Q6H PRN PRN 04/01 900 AC 04/05 IV 06/30 0859 0324 Hormones And Synthetic Substit Sig/Joe Start time Last Medication Dose Route Stop Time Status Admin Vasopressin 100 ML ASDIR 04/03 0715 CKD 04/03 IV 07/02 0714 0837 Insulin Human Lispro 0 AC HS 04/02 1130 AC 04/03 SUBQ 07/01 1129 2036 Glucagon 1 MG ASDIR PRN 04/01 900 AC IM 06/30 0859 Miscellaneous Therapeutic Agen Sig/Joe Start time Last Medication Dose Route Stop Time Status Admin Allopurinol 300 MG DAILY 04/01 900 AC 04/08 PO 06/30 858 0946 Vitamins Sig/Joe Start time Last Medication Dose Route Stop Time Status Admin Cyanocobalamin 500 MCG DAILY 04/04 900 AC 04/08 PO 07/03 0859 0946 Active Meds + DC'd Last 24 Hrs Spironolactone (ALDACTONE) 12.5 MG DAILY PO Hydrocodone Bitart/Acetaminophen (NORCO 5/325) 2 TAB Q4H PRN PRN PO (UNV ) Spironolactone (ALDACTONE) 12.5 MG ONCE ONE PO (DC) Amiodarone HCl (CORDARONE) 200 MG BID PO Calcium Gluconate (Calcium Gluconate 1 GM/NS 50 mL (B2)) 50 ML ONCE ONE IV (DC) Amlodipine Besylate (NORVASC) 5 MG DAILY PO Furosemide (LASIX 40 mg/4 mL INJECTION) 40 MG ONCE ONE IV (DC) Cyanocobalamin (Vitamin B-12 500 mcg tab) 500 MCG DAILY PO Ferrous Sulfate (FERROUS SULFATE) 325 MG DAILY PO Dobutamine HCl/Dextrose (DOBUTamine 500MG/D5W 250ML) 250 ML TITRATE IV ( DC) Calcium Carbonate (TUMS CHEW TAB) 1,000 MG Q2H PRN PRN PO Bisacodyl (DULCOLAX) 10 MG ONCE PRN RECTAL Vasopressin (VASOSTRICT 20 Unit/NS 100ML) 100 ML ASDIR IV (CKD) Insulin Human Lispro (HUMALOG) 0 AC HS SUBQ Clopidogrel Bisulfate (Plavix) 75 MG DAILY PO Polyethylene Glycol (MIRALAX) 17 GM DAILY PO Pantoprazole (PROTONIX) 40 MG DAILY@0600 PO Atorvastatin Calcium (LIPITOR) 40 MG 2100 PO Sennosides (Senna Lax 8.6 MG TABLET) 17.2 MG BEDTIME PO Aspirin (ASPIRIN) 81 MG DAILY PO Acetaminophen (TYLENOL) 650 MG Q4H PRN PRN PO Acetaminophen (TYLENOL) 650 MG Q4H PRN PRN RECTAL Allopurinol (ZYLOPRIM) 300 MG DAILY PO Amiodarone HCl (CORDARONE) 200 MG TID PO (DC) Calcium Chloride (CALCIUM CHLORIDE) 1 GM ASDIR PRN IV Dextrose/Water (DEXTROSE 10% IN WATER) 125 ML ASDIR PRN IV (CKD) Dextrose/Water (DEXTROSE 10% IN WATER) 250 ML ASDIR PRN IV (CKD) Docusate Sodium (COLACE) 100 MG BID PO Glucagon (GLUCAGON) 1 MG ASDIR PRN IM Magnesium Sulfate (MAGNESIUM SULFATE 4GM/SWFI 100ML) 100 ML ASDIR PRN IV Magnesium Sulfate (MAGNESIUM SULFATE 2GM/SWFI 50ML) 50 ML ASDIR PRN IV Magnesium Sulfate/Dextrose (MAGNESIUM SULFATE 1GM/D5W 100ML) 100 ML ASDIR PRN IV Ondansetron HCl (ZOFRAN) 4 MG Q6H PRN PRN IV Potassium Chloride (KCL 20MEQ/SWFI 100ML) 100 ML ASDIR PRN IV Sodium Bicarbonate (SODIUM BICARBONATE) 50 MEQ ASDIR PRN IV Sodium Chloride (SODIUM CHLORIDE 0.9%) 250 ML Q24H IV Tamsulosin HCl (Flomax 0.4 mg) 0.4 MG DAILY PO Cefazolin Sodium (KEFZOL OR ANCEF) 2 GM PREOP ONCALL IV (DC) Sodium Chloride (SODIUM CHLORIDE) 20 ML PREOP ONCALL IV Vancomycin HCl (VANCOMYCIN HCL) 1,000 MG PREOP ONCALL IV (DC) Sodium Chloride (SODIUM CHLORIDE 0.9%) 250 ML Status post: CABG Physical Exam General appearance: alert, awake, oriented Cardiovascular: regular rate and rhythm Respiratory: no distress Extremities: moves all Neuro/POST FORM REMOVER: alert, oriented X 3, normal speech Skin: dry, normal color, mid sternal incision CDI without bleeding Psychiatry: normal affect, normal judgment/insight, normal mood Results Findings/data: Laboratory Tests 04/08/24 0254: [Embedded Image Not Available] 04/07/242037: [Embedded Image Not Available] Laboratory Tests 04/08 04/08 04/07 04/07 0745 0254 2037 1651 Chemistry Sodium (134 - 147 mEq/L) 132 L 131 L Potassium (3.4 - 5.0 mEq/L) 4.0 3.7 Chloride (100 - 108 mEq/L) 101 99 L Carbon Dioxide (21 - 33 mEq/l) 25 25 Anion Gap (0 - 20) 10 11 BUN (7 - 25 mg/dL) 23 28 H Creatinine (0.6 - 1.3 mg/dL) 1.5 H 1.6 H Glomerular Filtr Rate (70 - 80) 47.4 L 43.8 L Glucose (77 - 141 mg/dL) 110 136 POC Glucose (70 - 110 MG/DL) 119 H 142 H Calcium (8.0 - 10.5 mg/dL) 8.3 7.7 L Ionized Calcium Katharina (1.09 - 1.30 MMOL/L) 1.07 L Magnesium (1.6 - 2.6 mg/dL) 2.34 2.11 Total Bilirubin (0.0 - 1.0 mg/dL) 1.10 H Direct Bilirubin (0.1 - 0.3 MG/DL) 0.60 H Indirect Bilirubin (MG/DL) 0.50 AST (8 - 34 IUnit/L) 58 H ALT (10 - 49 IUnit/L) 80 H Total Alk Phosphatase (20 - 125 IUnit/L) 140 H Total Protein (6.4 - 8.2 g/dL) 6.0 L Albumin (3.4 - 5.0 g/dL) 2.80 L Laboratory Tests 04/08 0254 Hematology WBC (4.5 - 11.0 x10 3/uL) 10.2 RBC (4.00 - 5.60 x10 6/uL) 2.93 L Hgb (12.5 - 16.9 g/dL) 8.2 L Hct (37.5 - 50.7 %) 25.0 L MCV (81.0 - 99.0 fL) 85.3 MCH (27.0 - 33.0 pg) 28.0 MCHC (33.0 - 37.0 g/dL) 32.8 L RDW (11.5 - 14.5 %) 15.2 H Plt Count (150 - 400 x10 3/uL) 251 MPV (7.0 - 9.0 fL) 10.6 H Neut % (Auto) (56.0 - 77.0 %) 74.3 Lymph % (Auto) (14.0 - 32.0 %) 8.9 L [place] % (Auto) (4.8 - 9.0 %) 11.1 H Eos % (Auto) (0.3 - 3.7 %) 3.9 H Baso % (Auto) (0.0 - 2.0 %) 0.2 Neut # (Auto) (2.0 - 7.6 x10 3/uL) 7.55 Lymph # (Auto) (1.0 - 3.8 x10 3/uL) 0.90 L [place] # (Auto) (0.1 - 0.8 x10 3/uL) 1.13 H Eos # (Auto) (0.0 - 0.2 x10 3/uL) 0.40 H Baso # (Auto) (0.0 - 0.2 x10 3/uL) 0.02 Abs Immat Gran (auto) (0.00 - 0.03 x10 3/uL) 0.16 H Immature Gran % (0.0 - 2.0 %) 1.6 Nucleated RBC % (0 - 0 %) 0.0 Nucleated RBCs # (Man) (0.0 - 0.1 x10 3/uL) 0.00 Laboratory Tests Test Result Date Time Chemistry B-Natriuretic Peptide (0 - 100 PG/ML) 91.0 10 1636 Recent Impressions: RADIOLOGY - XR CHEST 1 V 04/08 0612 Report Impression - Status: SIGNED Entered: 04/08/2024 0933 IMPRESSION: Mild central pulmonary vascularity with interstitial edema with tiny bilateral pleural effusions. Persistent left upper apical medial pneumothorax. Impression By: [email or web address] Capri Marley M.D. Diagnosis, Assessment Plan Consultants: cardiology, critical/student records specialist Free Text DxA P Notes Free text DxA P notes: V-fib/R on T occured during surgery, required 8 shocks currently on amiodarone 200mg bid AV-paced rate 80 EP consulted for PPM Aortic root replacement, replacement of ascending aorta, hemiarch replacement, CABG x1 CENTENO to LAD, and amputation of left atrial appendage monitor for fluid overload Maintain MAP 70-90 Strict I Os and daily standing weight Maintain K 4 and Mg 2 Trend CBC, BMP2 24 hour I/O= -1715 ml BP 160/74 AV paced rate 80 LVEF 55-60% Meds: Plavix, Amiodarone, ASA, Lipitor, metoprolol tartrate was d/c due to bradycardia HTN on amlodipine 5mg daily HLD on atorvastatin 40mg daily Hypotension -on dobutamine IV gtt, 5mcg Patient is currently AV paced at the rate of 80. Underlying rhythm is junctional rhythm Patient is hemodynamically stable continue DAPT with aspirin and Plavix Continue Lipitor and amiodarone Maintain MAP 70-90 Maintain CVP 8-10 Strict I Os and daily standing weight Maintain K 4 and Mg 2 Trend CBC, BMP -cont. to hold BB -if urine output < 30 ml/hr, initiate inotrope, milrinone -start spironolactone 12.5mg daily -decrease dobutamine IV gtt to 1 mcg -PPM implantation today per EP Andrés Limon 04/09/24 1326: Attestations Physician Attestation Agree w/findings plan: Postcardiotomy shock RV failure s/p Aortic root replacement, replacement of ascending aorta, hemiarch replacement, s/p CABG x1 CENTENO to LAD, and amputation of left atrial appendage Hypertension Hyperlipidemia Start spironolactone 12.5 mg p.o. daily dobutamine at 1 mcg Can further wean down and turn off Noted plans for PPM today Continue to hold off beta-blockers Continue aspirin and Plavix Continue Lipitor and amiodarone Maintain K 4 and Mg 2 Trend CBC, BMP Critical care time spent 35 minutes I have personally seen and examined the patient independently, and reviewed the patient's history, exam, and all cardiac and laboratory data. I agree with the history, physical, and the assessment and plan as outlined by Moiess Lazo . I was present and supervised. at 1244 at 1329 RPT #:[id number] END OF REPORT [facility] 2024-04-08 08:06:00 [facility] Cardiology Progress Note REPORT#:[id number] REPORT STATUS: Signed REPORT INITIALIZATION DATE:04/08/24 TIME: 805 PATIENT: FARHAD WELLS UNIT #: [id number] ROOM/BED: [place] [id number] : 46 AGE: 79 SEX: M ATTEND: Sol Sutton MD ADM AUTHOR: Judith BarbosaCNYuliya REPT SERVICE DT/TIME: 04/08/24 08 * ALL edits or amendments must be made on the electronic/computer document * Subjective Comments: Patient is doing better. Objective General VS/I O: 24 hour I O ending at 0700: 04/08 0700 04/07 1900 Intake Total 1130.00 Output Total 1300 1545 Balance -1300 -415.00 Intake, IV 43.00 Intake, Oral 720 Intake, Oral 367 Supplement Number 1 2 Bowel Movements Output, Urine 1300 1545 Patient 62.6 kg Weight Weight Standing scale Measurement Method Vital Signs Date Temp Pulse Resp B/P B/P Mean Pulse Ox FiO2 04/07-04/08 36.6-37.0 79-80 22-37 132-176/60-79 87-114 94-100 21 PATIENT WEIGHT: Weight (lb): 138 Weight (oz): 0.15 Weight (kg): 62.600 Medications: Active Meds + DC'd Last 24 Hrs Amiodarone HCl (CORDARONE) 200 MG BID PO Calcium Gluconate (Calcium Gluconate 1 GM/NS 50 mL (B2)) 50 ML ONCE ONE IV (DC) Amlodipine Besylate (NORVASC) 5 MG DAILY PO Furosemide (LASIX 40 mg/4 mL INJECTION) 40 MG ONCE ONE IV (DC) Cyanocobalamin (Vitamin B-12 500 mcg tab) 500 MCG DAILY PO Ferrous Sulfate (FERROUS SULFATE) 325 MG DAILY PO Dobutamine HCl/Dextrose (DOBUTamine 500MG/D5W 250ML) 250 ML TITRATE IV Calcium Carbonate (TUMS CHEW TAB) 1,000 MG Q2H PRN PRN PO Bisacodyl (DULCOLAX) 10 MG ONCE PRN RECTAL Vasopressin (VASOSTRICT 20 Unit/NS 100ML) 100 ML ASDIR IV (CKD) Insulin Human Lispro (HUMALOG) 0 AC HS SUBQ Clopidogrel Bisulfate (Plavix) 75 MG DAILY PO Polyethylene Glycol (MIRALAX) 17 GM DAILY PO Pantoprazole (PROTONIX) 40 MG DAILY@0600 PO Atorvastatin Calcium (LIPITOR) 40 MG 2100 PO Sennosides (Senna Lax 8.6 MG TABLET) 17.2 MG BEDTIME PO Aspirin (ASPIRIN) 81 MG DAILY PO Acetaminophen (TYLENOL) 650 MG Q4H PRN PRN PO Acetaminophen (TYLENOL) 650 MG Q4H PRN PRN RECTAL Allopurinol (ZYLOPRIM) 300 MG DAILY PO Amiodarone HCl (CORDARONE) 200 MG TID PO (DC) Calcium Chloride (CALCIUM CHLORIDE) 1 GM ASDIR PRN IV Dextrose/Water (DEXTROSE 10% IN WATER) 125 ML ASDIR PRN IV (CKD) Dextrose/Water (DEXTROSE 10% IN WATER) 250 ML ASDIR PRN IV (CKD) Docusate Sodium (COLACE) 100 MG BID PO Glucagon (GLUCAGON) 1 MG ASDIR PRN IM Magnesium Sulfate (MAGNESIUM SULFATE 4GM/SWFI 100ML) 100 ML ASDIR PRN IV Magnesium Sulfate (MAGNESIUM SULFATE 2GM/SWFI 50ML) 50 ML ASDIR PRN IV Magnesium Sulfate/Dextrose (MAGNESIUM SULFATE 1GM/D5W 100ML) 100 ML ASDIR PRN IV Ondansetron HCl (ZOFRAN) 4 MG Q6H PRN PRN IV Potassium Chloride (KCL 20MEQ/SWFI 100ML) 100 ML ASDIR PRN IV Sodium Bicarbonate (SODIUM BICARBONATE) 50 MEQ ASDIR PRN IV Sodium Chloride (SODIUM CHLORIDE 0.9%) 250 ML Q24H IV Tamsulosin HCl (Flomax 0.4 mg) 0.4 MG DAILY PO Cefazolin Sodium (KEFZOL OR ANCEF) 2 GM PREOP ONCALL IV (DC) Sodium Chloride (SODIUM CHLORIDE) 20 ML PREOP ONCALL IV Vancomycin HCl (VANCOMYCIN HCL) 1,000 MG PREOP ONCALL IV (DC) Sodium Chloride (SODIUM CHLORIDE 0.9%) 250 ML Physical Exam General appearance: alert, awake, oriented Neck: no JVD Cardiovascular: CV assessment: regular rate and rhythm Respiratory: decreased breath sounds, on oxygen, shortness of breath Abdomen: soft Genitourinary: no urinary catheter Lower extremity: LE assessment: no edema Musculoskeletal: normal inspection Neuro/POST FORM REMOVER: alert, oriented X 3 Skin: dry Psychiatry: normal affect, normal judgment/insight, normal mood Results Findings/Data: Laboratory Tests 04/08 04/08 04/07 04/07 04/07 0745 0254 2038 1651 1123 Chemistry Sodium (134 - 147 mEq/L) 132 L 131 L Potassium (3.4 - 5.0 mEq/L) 4.0 3.7 Chloride (100 - 108 mEq/L) 101 99 L Carbon Dioxide (21 - 33 mEq/l) 25 25 Anion Gap (0 - 20) 10 11 BUN (7 - 25 mg/dL) 23 28 H Creatinine (0.6 - 1.3 mg/dL) 1.5 H 1.6 H Glomerular Filtr Rate (70 - 80) 47.4 L 43.8 L Glucose (77 - 141 mg/dL) 110 136 POC Glucose (70 - 110 MG/DL) 119 H 142 H 113 H Calcium (8.0 - 10.5 mg/dL) 8.3 7.7 L Ionized Calcium Katharina (1.09 - 1.30 MMOL/L) 1.07 L Magnesium (1.6 - 2.6 mg/dL) 2.34 2.11 Total Bilirubin (0.0 - 1.0 mg/dL) 1.10 H Direct Bilirubin (0.1 - 0.3 MG/DL) 0.60 H Indirect Bilirubin (MG/DL) 0.50 AST (8 - 34 IUnit/L) 58 H ALT (10 - 49 IUnit/L) 80 H Total Alk Phosphatase (20 - 125 IUnit/L) 140 H Total Protein (6.4 - 8.2 g/dL) 6.0 L Albumin (3.4 - 5.0 g/dL) 2.80 L Laboratory Tests 04/08 254 Hematology WBC (4.5 - 11.0 x10 3/uL) 10.2 RBC (4.00 - 5.60 x10 6/uL) 2.93 L Hgb (12.5 - 16.9 g/dL) 8.2 L Hct (37.5 - 50.7 %) 25.0 L MCV (81.0 - 99.0 fL) 85.3 MCH (27.0 - 33.0 pg) 28.0 MCHC (33.0 - 37.0 g/dL) 32.8 L RDW (11.5 - 14.5 %) 15.2 H Plt Count (150 - 400 x10 3/uL) 251 MPV (7.0 - 9.0 fL) 10.6 H Neut % (Auto) (56.0 - 77.0 %) 74.3 Lymph % (Auto) (14.0 - 32.0 %) 8.9 L [place] % (Auto) (4.8 - 9.0 %) 11.1 H Eos % (Auto) (0.3 - 3.7 %) 3.9 H Baso % (Auto) (0.0 - 2.0 %) 0.2 Neut # (Auto) (2.0 - 7.6 x10 3/uL) 7.55 Lymph # (Auto) (1.0 - 3.8 x10 3/uL) 0.90 L [place] # (Auto) (0.1 - 0.8 x10 3/uL) 1.13 H Eos # (Auto) (0.0 - 0.2 x10 3/uL) 0.40 H Baso # (Auto) (0.0 - 0.2 x10 3/uL) 0.02 Abs Immat Gran (auto) (0.00 - 0.03 x10 3/uL) 0.16 H Immature Gran % (0.0 - 2.0 %) 1.6 Nucleated RBC % (0 - 0 %) 0.0 Nucleated RBCs # (Man) (0.0 - 0.1 x10 3/uL) 0.00 Laboratory Tests 04/08 Chemistry Magnesium (1.6 - 2.6 mg/dL) 2.34 2.11 Radiology data: Recent Impressions: RADIOLOGY - XR CHEST 1 V 04/07 0859 Report Impression - Status: SIGNED Entered: 04/07/2024918 IMPRESSION: 1. Tiny pneumothorax at the medial right upper chest is improved from the prior study. 2. No other significant change. Impression By: Missy Robbins M.D. Results: labs reviewed, vital signs reviewed Telemetry Interpretation: AV paced at 80 Diagnosis, Assessment Plan Plan discussed with: patient, spouse/partner, collaborating MD Free Text DxA P Notes Free Text DxA P Notes: This is a 71-year-old male with medical history of aortic valve stenosis, hyperlipidemia, hypertension who was found to have 5 cm ascending aortic aneurysm. The patient was brought in today and underwent aortic root replacement, replacement of ascending aorta, hemiarch replacement, CABG x1 CENTENO to LAD, and amputation of left atrial appendage. 1. Aortic root replacement, replacement of ascending aorta, hemiarch replacement , CABG x1 CENTENO to LAD, and amputation of left atrial appendage * post-op care by CTS and critical care * on DAPT, statin, no BB d/t junctional/slow afib rhythm 2. Acute RV failure * 04/02: echo LVEF 50%, TAPSE 0.6 cm, RVSP 37 mmHg, bioprosthetic AV noted * 04/04: Echo LVEF 55%, RV mildly dilated, TAPSE 0.9cm, RVSP 48 mmHg * 04/06/24: Echo LVEF 55-60%, TAPSE 0.8 cm LA severely dilated, mild to mod MR * on dobutamine at 1 mcg, off Lasix gtt * good urine output, negative fluid balance, creatinine stable * HF team following 3. Bradycardia/post-op afib * AV paced at 80 * EP following 4. Hypertension * BP stable * on amlodipine 5 mg daily 5. Hyperlipidemia * continue statin MDM by Dr. Hu. at 1501 at 1148 RPT #:[id number] END OF REPORT [facility] 2024-04-08 07:29:00 [facility] ([facility]) Critical Care Progress Note REPORT#:[id number] REPORT STATUS: Signed REPORT INITIALIZATION DATE:04/08/24 TIME: 728 PATIENT: FARHAD WELLS UNIT #: [id number] ROOM/BED: [place] [id number] : 46 AGE: 79 SEX: M ATTEND: Sol Sutton MD ADM AUTHOR: Kaushik Lopez DO REPT SERVICE DT/TIME: 04/08/24728 * ALL edits or amendments must be made on the electronic/computer document * Subjective Chief complaint: AI, Ascending aortic aneurysm HPI: Patient is a 78-year-old gentleman with past medical history of aortic valve stenosis, hyperlipidemia, hypertension. Patient was evaluated by his display specialist and found to have an ascending aortic aneurysm of 4.9 cm. He was also found to have mild to moderate aortic stenosis with moderate aortic insufficiency. He has preserved ejection fraction preoperatively. Today he underwent AVR with CABG x 1 and aortic root replacement with replacement of the ascending aorta and hemiarch replacement. He is in the CVICU for postoperative care. He is currently on a nitroglycerin infusion at 5 along with an insulin drip at 3. He remains intubated at this time. His preoperative echo showed preserved EF with severe aortic insufficiency. Postoperatively off-pump wall closing patient sustained a V-fib arrest. Differential of R on T phenomenon versus transient ischemic insult secondary to coronary calcification that could have been manipulated. He received 4 subcutaneous defibrillations and 2 internal defibrillations. After cardiac arrest episode patient was noted to have some ischemic changes on his echocardiogram with RV dilatation. He is not requiring IR inotropic support at this time. His EBL was 700. Received 750 of Cell Saver. In total he received 2 of cryo, 2 FFP 1 platelet and 1 RBC. Received 2 L of crystalloid and had a urine output of 650 throughout the case. Sedation is off at this time. He is being warmed with a warming blanket. Postoperative labs, EKG, chest x-ray pending. Will plan to extubate shortly. 04/02: Patient seen and evaluated at bedside. Patient is out of bed to chair. Pain is well-controlled. No acute events overnight. He was successfully extubated yesterday evening without difficulty. He remains on no drips at this time. Continues to require pacing and is sinus bradycardic. 04/03: Patient seen and evaluated at bedside. Started on norepi in the evening for RV support and renal perfusion. Urine output steady. Is having pre-syncope. No chest pain or sob. Formal echo pending. Will transition to vasopressin off of levo. 04/05: Patient seen and evaluated at bedside. Continued on dobutamine overnight. Still being paced. 04/06: Patient seen evaluated bedside. Pain well-controlled. No acute events overnight. Dobutamine at 3 and Lasix drip at 5. Plan to repeat an echocardiogram today. 04/07: Patient seen and evaluated overnight. No acute events. Continues to be paced. Repeat echo improved. 04/08: Patient seen evaluated bedside. Tolerating dobutamine wean well yesterday. Will continue to wean. Urine output adequate. Pain well- controlled. On room air. Objective Free Text Obj Notes Free Text Obj Notes: GEN: Appears in no acute distress, interactive and conversational HEENT: Atraumatic, normocephalic, moist mucous membranes NECK: Supple, good range of motion, no tenderness, no JVD LUNGS: Symmetrical air entry, no acute respiratory distress, no accessory muscle use CV: S1, S2 regular rate and rhythm, warm and well perfused GI: Abdomen is soft, not tender or distended EXT/Musc: No edema or cyanosis. Pedal pulses present. Compartments soft Skin: Surgical site clean, dry and intact. Warm to touch NEURO: Awake, alert and oriented x3. No facial droop or focal deficit Diagnosis, Assessment Plan Free text A P: Patient is a 79-year-old male with a history of ascending aortic aneurysm and aortic insufficiency that is postoperative aortic root replacement, replacement of ascending aorta, hemiarch replacement with antegrade cerebral perfusion. Ascending aortic aneurysm Severe aortic insufficiency Postop day 7 status post aortic root replacement, replacement of ascending aorta , hemiarch, AVR CABG x 1 V-fib arrest ALAA Sinus bradycardia Volume overload Acute hypoxic respiratory insufficiency following thoracic surgery Acute blood loss anemia secondary to surgery Small apical ptx Hypertension Hyperglycemia Acute kidney injury Neuro:multimodal pain control Respiratory: Pulmonary hygiene, incentive spirometry, on room air ABG reviewed. Follow up cxr for pneumothorax resolution. Cardiovascular: Wean dobutamine to 1 metoprolol on hold. Repeat echo shows mild RV dysfunction and no longer dilated (was dilated and severe). Consult to EP for junctional rhythm. Wean dobutamine today and continue spot dose lasix. Renal: strict I/Os, monitor Cr and replete electrolytes GI:cardiac diet ID: White count stable no fever Hem: monitor Hgb Endo: BG control with insulin sliding scale Misc: PTOT consult, DVT and GI ppx with SCD and PPI Full code Critical care time 32 minutes spent with patient excluding bedside procedures and teaching Consultants: cardiology, critical/student records specialist Quality: Gen Med Crit Care Advanced Care Plan 65 or Older Discussed with: patient at 0730 RPT #:[id number] END OF REPORT [facility] 2024-04-08 07:22:00 [facility] Cardiothoracic Surgery Prog REPORT#:[id number] REPORT STATUS: Signed REPORT INITIALIZATION DATE:04/08/24 TIME: 721 PATIENT: FARHAD WELLS UNIT #: [id number] ROOM/BED: [place] [address] : 46 AGE: 79 SEX: M ATTEND: Sol Sutton MD ADM AUTHOR: Falguni Hawkins APRN REPT SERVICE DT/TIME: 04/08/24721 * ALL edits or amendments must be made on the electronic/computer document * General Post-op: day 7 Status post: post op cabg/avr/ascending aortic aneurysm replacement Subjective Chief complaint: post op cabg/avr/ascending aortic aneurysm replacement Review of Systems Constitutional: Denies: chills, generalized weakness. Skin: Denies: abrasion, diaphoresis, itching. Respiratory: Denies: [place] (dyspnea on exertion), pneumonia, SOB. Cardiovascular: Denies: chest pain, palpitations. GI: Denies: abdominal pain, nausea, vomiting. : Denies: dysuria, flank pain. Heme: Denies: adenopathy, bleeding, bruising. Endocrine: Denies: cold intolerance, heat intolerance, polydipsia. Neuro: Denies: bladder dysfunction, seizure, syncope. All systems rev neg: except as marked (fatigue) Objective General VS/I O Last Documented: Result Date Time Pulse Ox 97 04/08 0600 B/P 143/65 04/08 0600 B/P Mean 93 04/08 0600 Pulse 80 04/08 0600 Resp 22 04/08 0600 Temp 97.9 04/08 0400 O2 Delivery Room air 04/07 194 FiO2 21 04/07 1115 O2 Flow Rate 1 04/06 0133 24 hour I O ending at 0700: 04/08 0700 04/07 1900 Intake Total 1130.00 Output Total 1300 1545 Balance -1300 -415.00 Intake, IV 43.00 Intake, Oral 720 Intake, Oral 367 Supplement Number 1 2 Bowel Movements Output, Urine 1300 1545 Patient 62.6 kg Weight Weight Standing scale Measurement Method PATIENT WEIGHT: Weight (lb): 138 Weight (oz): 0.15 Weight (kg): 62.600 Dietitian Nutrition assessment The data set between the solid lines has been imported from the dietitian's assessment. BMI Calculated: 19.8 Nutrition related diagnosis: Nutrition diagnosis details: Nutrition problem: Nutrition etiology: Nutrition signs and symptoms: Nutrition prescription: Dietitian name: Layo Carnes, DIET Assessment completed: 04/03/24 Physical Exam General appearance: alert, awake, oriented Wound/incision: Location: sternum Site condition: edges approximated, incision intact HEENT: anicteric, mucosal membranes moist, pupils reactive to light Neck: full range of motion, non-tender Cardiovascular: normal heart sounds, regular rate rhythm Respiratory: aerating well, symmetric expansion, no distress Abdomen: soft, non-tender Genitourinary: urine, no bladder distention, no flank pain Extremities: dry, moves all Musculoskeletal: full range of motion, painless range of motion Neuro/POST FORM REMOVER: alert, oriented X 3 Skin: dry, intact Psychiatry: normal affect, normal mood Current Medications Medications: Active Meds + DC'd Last 24 Hrs Amiodarone HCl (CORDARONE) 200 MG BID PO Calcium Gluconate (Calcium Gluconate 1 GM/NS 50 mL (B2)) 50 ML ONCE ONE IV (DC) Amlodipine Besylate (NORVASC) 5 MG DAILY PO Furosemide (LASIX 40 mg/4 mL INJECTION) 40 MG ONCE ONE IV (DC) Cyanocobalamin (Vitamin B-12 500 mcg tab) 500 MCG DAILY PO Ferrous Sulfate (FERROUS SULFATE) 325 MG DAILY PO Dobutamine HCl/Dextrose (DOBUTamine 500MG/D5W 250ML) 250 ML TITRATE IV Calcium Carbonate (TUMS CHEW TAB) 1,000 MG Q2H PRN PRN PO Bisacodyl (DULCOLAX) 10 MG ONCE PRN RECTAL Vasopressin (VASOSTRICT 20 Unit/NS 100ML) 100 ML ASDIR IV (CKD) Insulin Human Lispro (HUMALOG) 0 AC HS SUBQ Clopidogrel Bisulfate (Plavix) 75 MG DAILY PO Polyethylene Glycol (MIRALAX) 17 GM DAILY PO Pantoprazole (PROTONIX) 40 MG DAILY@0600 PO Atorvastatin Calcium (LIPITOR) 40 MG 2100 PO Sennosides (Senna Lax 8.6 MG TABLET) 17.2 MG BEDTIME PO Aspirin (ASPIRIN) 81 MG DAILY PO Acetaminophen (TYLENOL) 650 MG Q4H PRN PRN PO Acetaminophen (TYLENOL) 650 MG Q4H PRN PRN RECTAL Allopurinol (ZYLOPRIM) 300 MG DAILY PO Amiodarone HCl (CORDARONE) 200 MG TID PO (DC) Calcium Chloride (CALCIUM CHLORIDE) 1 GM ASDIR PRN IV Dextrose/Water (DEXTROSE 10% IN WATER) 125 ML ASDIR PRN IV (CKD) Dextrose/Water (DEXTROSE 10% IN WATER) 250 ML ASDIR PRN IV (CKD) Docusate Sodium (COLACE) 100 MG BID PO Glucagon (GLUCAGON) 1 MG ASDIR PRN IM Magnesium Sulfate (MAGNESIUM SULFATE 4GM/SWFI 100ML) 100 ML ASDIR PRN IV Magnesium Sulfate (MAGNESIUM SULFATE 2GM/SWFI 50ML) 50 ML ASDIR PRN IV Magnesium Sulfate/Dextrose (MAGNESIUM SULFATE 1GM/D5W 100ML) 100 ML ASDIR PRN IV Ondansetron HCl (ZOFRAN) 4 MG Q6H PRN PRN IV Potassium Chloride (KCL 20MEQ/SWFI 100ML) 100 ML ASDIR PRN IV Sodium Bicarbonate (SODIUM BICARBONATE) 50 MEQ ASDIR PRN IV Sodium Chloride (SODIUM CHLORIDE 0.9%) 250 ML Q24H IV Tamsulosin HCl (Flomax 0.4 mg) 0.4 MG DAILY PO Cefazolin Sodium (KEFZOL OR ANCEF) 2 GM PREOP ONCALL IV (DC) Sodium Chloride (SODIUM CHLORIDE) 20 ML PREOP ONCALL IV Vancomycin HCl (VANCOMYCIN HCL) 1,000 MG PREOP ONCALL IV (DC) Sodium Chloride (SODIUM CHLORIDE 0.9%) 250 ML Results Findings/Data: Laboratory Tests 04/08 04/07 04/07 04/07 04/07 0254 2038 1651 1123 0740 Chemistry Sodium (134 - 147 mEq/L) 132 L 131 L Potassium (3.4 - 5.0 mEq/L) 4.0 3.7 Chloride (100 - 108 mEq/L) 101 99 L Carbon Dioxide (21 - 33 mEq/l) 25 25 Anion Gap (0 - 20) 10 11 BUN (7 - 25 mg/dL) 23 28 H Creatinine (0.6 - 1.3 mg/dL) 1.5 H 1.6 H Glomerular Filtr Rate (70 - 80) 47.4 L 43.8 L Glucose (77 - 141 mg/dL) 110 136 POC Glucose (70 - 110 MG/DL) 142 H 113 H 112 H Calcium (8.0 - 10.5 mg/dL) 8.3 7.7 L Ionized Calcium Katharina (1.09 - 1.30 MMOL/L) 1.07 L Magnesium (1.6 - 2.6 mg/dL) 2.34 2.11 Total Bilirubin (0.0 - 1.0 mg/dL) 1.10 H Direct Bilirubin (0.1 - 0.3 MG/DL) 0.60 H Indirect Bilirubin (MG/DL) 0.50 AST (8 - 34 IUnit/L) 58 H ALT (10 - 49 IUnit/L) 80 H Total Alk Phosphatase (20 - 125 IUnit/L) 140 H Total Protein (6.4 - 8.2 g/dL) 6.0 L Albumin (3.4 - 5.0 g/dL) 2.80 L Laboratory Tests 04/08 0254 Hematology WBC (4.5 - 11.0 x10 3/uL) 10.2 RBC (4.00 - 5.60 x10 6/uL) 2.93 L Hgb (12.5 - 16.9 g/dL) 8.2 L Hct (37.5 - 50.7 %) 25.0 L MCV (81.0 - 99.0 fL) 85.3 MCH (27.0 - 33.0 pg) 28.0 MCHC (33.0 - 37.0 g/dL) 32.8 L RDW (11.5 - 14.5 %) 15.2 H Plt Count (150 - 400 x10 3/uL) 251 MPV (7.0 - 9.0 fL) 10.6 H Neut % (Auto) (56.0 - 77.0 %) 74.3 Lymph % (Auto) (14.0 - 32.0 %) 8.9 L [place] % (Auto) (4.8 - 9.0 %) 11.1 H Eos % (Auto) (0.3 - 3.7 %) 3.9 H Baso % (Auto) (0.0 - 2.0 %) 0.2 Neut # (Auto) (2.0 - 7.6 x10 3/uL) 7.55 Lymph # (Auto) (1.0 - 3.8 x10 3/uL) 0.90 L [place] # (Auto) (0.1 - 0.8 x10 3/uL) 1.13 H Eos # (Auto) (0.0 - 0.2 x10 3/uL) 0.40 H Baso # (Auto) (0.0 - 0.2 x10 3/uL) 0.02 Abs Immat Gran (auto) (0.00 - 0.03 x10 3/uL) 0.16 H Immature Gran % (0.0 - 2.0 %) 1.6 Nucleated RBC % (0 - 0 %) 0.0 Nucleated RBCs # (Man) (0.0 - 0.1 x10 3/uL) 0.00 Radiology data: Recent Impressions: RADIOLOGY - XR CHEST 1 V 04/07 0882 Report Impression - Status: SIGNED Entered: 04/07/2024 0919 IMPRESSION: 1. Tiny pneumothorax at the medial right upper chest is improved from the prior study. 2. No other significant change. Impression By: Missy - Randall Robbins M.D. Results: labs reviewed, vital signs stable, rythm personally rev'd, x-ray personally reviewed, current med profile rev'd Treatment Prophylaxis Treatment Prophylaxis CVC/PICC documentation: The data below has been imported from nursing documentation. Any exceptions have been noted below under Provider comments. CVC/PICC insertion date/time: CVC multi lumen double Internal jugular Right Inserted 04/01/24718 Provider comments on imported nursing data: [] Quality: Trauma Gen Surg Advanced Care Plan 65 or Older Discussed with: patient Current Medications Current medication review: I attest that the foregoing medication list in the medical record is true, accurate, and complete to the best of my knowledge. Diagnosis, Assessment Plan Free Text A P: This is a 78-year-old gentleman with a past medical history of aortic valve stenosis, hyperlipidemia who was also found to have an ascending aortic aneurysm measuring 5 cm. The patient was seen by his display specialist for 6-month follow-up. Recent echocardiogram completed on 01/22/2024 showed EF 55 to 60%, aortic valve mean/peak gradient of 30/42 mmHg, NAS measuring 0.9 cm , peak velocity 4.5 m/s. Patient also noted to have moderate mitral regurgitation, mild pulmonary hypertension with RV systolic pressure 45 mmHg. The patient underwent left heart catheterization on 02/05/2024 that showed left main to be normal, LAD proximal 30 to 40%, mid diffuse 50 to 60%, then luminal irregularities. Diagonal 1 has 40 to 55% stenosis. Circumflex proximal 60% stenosis, RCA large dominant with proximal 40%, mid 30 to 40% in the PDA with diffuse 40% stenosis. 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 Patient denies any chest pain but does report occasional dyspnea on exertion. Patient is being admitted today for replacement of ascending aorta, AVR, and possible coronary artery bypass graft surgery. Assessment/plan: 1. Dyspnea on exertion 2. Aortic valve stenosis 3. Ascending aortic aneurysm 4. Coronary artery disease 5. Hypertension 6. Hyperlipidemia Patient seen and examined by Dr. Sutton. Dr. Sutton has discussed with the patient the need for aortic valve replacement as well as ascending aortic replacement and possible coronary artery bypass graft surgery. Dr. Sutton discussed with the patient the operation, risks involved, benefits, alternatives , and complications. The patient's questions were answered and patient agreed to proceed with surgery. Patient is scheduled for surgery today. Admit to CVICU postoperatively Monitor heart rhythm and hemodynamics Strict I's and O's Cardiology and critical care consulted. 04/01/24 1. Exploration of innominate artery. 2. Chimney graft to the innominate artery (8 mm Hemashield graft). 3. Aortic root replacement (29 Konect graft, Bentall procedure). 4. Replacement of ascending aorta. 5. Hemiarch replacement. 6. Total circulatory arrest with antegrade cerebral perfusion. 7. Repair of innominate artery. 8. Amputation of left atrial appendage. 04/02/24 POD 1 AAOx3, reports pain well controlled AAOx3 Respiratory: On 3L NC, wean as tolerated, Encourage IS, Deep Breathing, nebs, pep and flutter CXR reviewed, Mediastinal CT 130cc, Pleural CT 340cc, continue to monitor. Cardiac: Sinus bradycardia, temporary pacing wires in place pacing at 80, hold BB, on amiodarone gtt @ 0.5, finish IV bag, start PO amiodarone GI: Cardiac diet, Continue Bowel regimen, positive bowel sounds, on insulin gtt : Mann, 167cc urine output last night PT/OT, encourage ambulation today DVT prophylaxis Labs reviewed- replace electrolytes as needed Disposition will be home with , good family support. Patient seen and examined by Dr. Sutton. Plan of care discussed with patient and multidisciplinary team. The patient's questions were answered. 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 and 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 Patient seen and examined by Dr. Sutton. Plan of care discussed with patient and multidisciplinary team. The patient's questions were answered. 04/04/24 POD 3 AAOx3, reports pain well controlled, patient states he is feeling better today Labs reviewed, hemoglobin 7.9 On 4L NC, wean off as tolerated, Encourage spirometer use, deep Breathing, nebs, pep and flutter CXR reviewed, Mediastinal CT 30, left pleural CT 150, reassess after ambulation for discontinuation Underlying rhythm was sinus bradycardia and junctional beats, temporary epicardial pacing wires in place, AV pacing at 84, hold BB Tolerating cardiac diet, nutritional supplements, continue Bowel regimen, positive bowel sounds, glycemic control Patient started on dobutamine yesterday currently at 5 Monitoring renal function closely, creatinine 1.5, strict I's and O's and daily weights, weight up from baseline PT/OT, encourage ambulation today, out of bed to chair for meals DVT prophylaxis with SCDs, GI prophylaxis with PPI Labs reviewed- replace electrolytes as needed Disposition will be home with , good family support. Discussed plan of care with patient, RN, and Dr. Isabel. The patient's questions were answered. MDM done by Dr. Isabel 04/05/24 POD 4 Patient alert, awake and oriented, reports pain well controlled Labs reviewed, hemoglobin stable 7.4 Remains on 4L NC, wean off as tolerated, Encourage spirometer use, deep Breathing, nebs, pep and flutter CXR reviewed, both chest tubes discontinued yesterday Underlying rhythm was sinus bradycardia, junctional beats, in/out slow afib, temporary epicardial pacing wires in place, AV pacing at 80, hold BB Tolerating cardiac diet, nutritional supplements, continue Bowel regimen, positive bowel sounds, glycemic control Patient on dobutamine currently at 5, attempt to decrease to 3 and monitor outputs and perfusion Continue lasix drip at 5 mg/hr, replace electrolytes and recheck labs this afternoon Monitoring renal function closely, creatinine stable 1.5, strict I's and O's and daily weights, weight trending down, 66.7 kg from 68.2 PT/OT, encourage ambulation today, out of bed to chair for meals DVT prophylaxis with SCDs, GI prophylaxis with PPI Labs reviewed- replace electrolytes as needed Disposition will be home with , good family support. Discussed plan of care with patient, RN, and Dr. Isabel. The patient's questions were answered. MDM done by Dr. Isabel 04/06/24 POD 5 Patient alert, awake and oriented, reports pain well controlled Labs reviewed, hemoglobin stable 7.2, recheck labs this afternoon Now on room air, encourage spirometer use, deep Breathing, nebs, pep and flutter CXR reviewed shows 15% left apical pneumothorax slightly improved from prior study Underlying rhythm irregular rhythm, atrial fibrillation, PACs, heart rate 60s to 70s Temporary epicardial pacing wires in place, AV pacing at 80, hold BB threshold 2.5 for ventricular, 3.0 for atrial, EP consulted per cardiology Tolerating cardiac diet, nutritional supplements, continue Bowel regimen, reports bowel movement glycemic control Dobutamine at 3, monitor outputs and perfusion, repeat echocardiogram today Continue lasix drip at 5 mg/hr, replace electrolytes and recheck labs this afternoon Monitoring renal function closely, creatinine 1.7, strict I's and O's and daily weights, 24-hour fluid balance -944, weight trending down Recheck labs this afternoon PT/OT, encourage ambulation today, out of bed to chair for meals DVT prophylaxis with SCDs, GI prophylaxis with PPI Labs reviewed- replace electrolytes as needed Disposition will be home with , good family support. Discussed plan of care with patient, RN, and Dr. Isabel. The patient's questions were answered. MDM done by Dr. Isabel 04/07/24 POD 6 Patient alert, awake and oriented, reports pain well controlled Labs reviewed, hemoglobin stable 7.5, replace electrolytes as needed Remains on room air, encourage spirometer use, deep Breathing, nebs, pep and flutter CXR reviewed Underlying rhythm atrial fibrillation, HR 64 Temporary epicardial pacing wires in place, AV pacing at 80, hold BB threshold 2.5 for ventricular, 3.0 for atrial, EP consulted per cardiology-plan to monitor patient over the weekend Tolerating cardiac diet, nutritional supplements, continue Bowel regimen, reports bowel movement glycemic control Dobutamine at 3- decrease to 2 today, monitor outputs and perfusion, echocardiogram shows EF 55 to 60%, RV systolic function mildly reduced, RVSP 48 mmHg Discontinue Lasix drip yesterday, intermittent IV Lasix received 40 mg IV yesterday evening Monitoring renal function closely, creatinine 1.6, strict I's and O's and daily weights, 24-hour fluid balance -1416, weight trending down 63.7 kg from 65.2, pre op baseline wt 61.2 PT/OT, encourage ambulation today, out of bed to chair for meals DVT prophylaxis with SCDs, GI prophylaxis with PPI Disposition will be home with , good family support. Discussed plan of care with patient, RN, and Dr. Isabel. The patient's questions were answered. MDM done by Dr. Isabel 04/08/24 POD 7 Patient alert, awake and oriented, reports pain well controlled Labs reviewed, hemoglobin stable 8.2, replace electrolytes as needed Remains on room air, encourage spirometer use, deep Breathing, nebs, pep and flutter CXR reviewed Underlying rhythm atrial fibrillation Temporary epicardial pacing wires in place, AV pacing at 80, hold BB threshold 3.0for ventricular, 3.5 for atrial, EP following Tolerating cardiac diet, nutritional supplements, continue Bowel regimen, reports bowel movement glycemic control Dobutamine at 2- decrease to 1 today Lasix 40 mg IV x 1 Monitoring renal function closely, creatinine 1.5, strict I's and O's and daily weights, 24-hour fluid balance -1715, weight trending down 62.6 from 63.7 kg, pre op baseline wt 61.2 PT/OT, encourage ambulation, out of bed to chair for meals DVT prophylaxis with SCDs, GI prophylaxis with PPI Disposition will be home with , good family support. Discussed plan of care with patient, RN, and Dr. Isabel. The patient's questions were answered. MDM done by Dr. Isabel Orders: Procedure Date/time Status GAIT TRAINING 15 MIN 04/07 1534 Active Consultants: cardiology, critical/student records specialist Code status: full code Plan discussed with: patient, collaborating MD, nurse, interdisc care team at 0729 at 1950 RPT #:[id number] END OF REPORT [facility] 2024-04-08 06:45:00 [id number] [place] [address] PATIENT NAME: FARHAD WELLS ADMIT DATE: 04/01/24 ACCOUNT NO: [id number] ROOM NO: [id number] AGE: 79 REPORT TYPE: eELECTROCARDIOGRAM REPORT SEX: M ADMITTING PHYSICIAN:Sol Sutton MD ATTENDING PHYSICIAN:Sol Sutton MD Order: [id number] Test Reason : EKG Test Date/Time Stamp: MonApr 08 2024 06:45:16 Blood Pressure : / mmHG Vent. Rate : 066 BPM Atrial Rate : 000 BPM P-R Int : 000 ms QRS Dur : 140 ms QT Int : 494 ms P-R-T Axes : 000 093 -12 degrees QTc Int : 517 ms Atrial fibrillation Rightward axis Nonspecific intraventricular block Cannot rule out Inferior infarct (cited on or before 07-APR-2024) T wave abnormality, consider anterior ischemia Abnormal ECG When compared with ECG of 07-APR-2024 06:47, No significant change was found Confirmed by MD FATUMA, SAUD ([id number]) on 04/08/2024 12:55:52 PM Referred By: Sol Sutton Confirmed by:SAUD VELIZ MD at 1255 PATIENT NAME: FARHAD WELLS [facility] 2024-04-07 08:36:00 [facility] ([facility]) Cardiothoracic Surgery Prog REPORT#:[id number] REPORT STATUS: Signed REPORT INITIALIZATION DATE:04/07/24 TIME: 835 PATIENT: FARHAD WELLS UNIT #: [id number] ROOM/BED: [place] [address] : 46 AGE: 79 SEX: M ATTEND: Sol Sutton MD ADM AUTHOR: Falguni Hawkins APRN REPT SERVICE DT/TIME: 04/07/24835 * ALL edits or amendments must be made on the electronic/computer document * General Post-op: day 6 Status post: post op cabg/avr/ascending aortic aneurysm replacement Subjective Chief complaint: post op cabg/avr/ascending aortic aneurysm replacement Review of Systems Constitutional: Denies: chills, generalized weakness. Skin: Denies: abrasion, diaphoresis, itching. Respiratory: Denies: [place] (dyspnea on exertion), pneumonia, SOB. Cardiovascular: Denies: chest pain, palpitations. GI: Denies: abdominal pain, nausea, vomiting. : Denies: dysuria, flank pain. Heme: Denies: adenopathy, bleeding, bruising. Endocrine: Denies: cold intolerance, heat intolerance, polydipsia. Neuro: Denies: bladder dysfunction, seizure, syncope. All systems rev neg: except as marked (fatigue) Objective Physical Exam General appearance: alert, awake, oriented Wound/incision: Location: sternum Site condition: edges approximated, incision intact HEENT: anicteric, mucosal membranes moist, pupils reactive to light Neck: full range of motion, non-tender Cardiovascular: normal heart sounds, regular rate rhythm Respiratory: aerating well, symmetric expansion, no distress Abdomen: soft, non-tender Genitourinary: mann, urine, no bladder distention, no flank pain Extremities: dry, moves all Musculoskeletal: full range of motion, painless range of motion Neuro/POST FORM REMOVER: alert, oriented X 3 Skin: dry, intact Psychiatry: normal affect, normal mood Current Medications Medications: Active Meds + DC'd Last 24 Hrs Calcium Gluconate (Calcium Gluconate 1 GM/NS 50 mL (B2)) 50 ML ONCE ONE IV (DC) Calcium Gluconate (Calcium Gluconate 2 GM/NS 100 mL (B2)) 100 ML ONCE ONE IV (DC) Furosemide (LASIX 40 mg/4 mL INJECTION) 40 MG ONCE ONE IV (DC) Furosemide (LASIX) 240 MG Q24H IV (DC) Sodium Chloride (SODIUM CHLORIDE 0.9%) 24 ML Cyanocobalamin (Vitamin B-12 500 mcg tab) 500 MCG DAILY PO Ferrous Sulfate (FERROUS SULFATE) 325 MG DAILY PO Ipratropium [place] (ATROVENT) 500 MCG RTQ2H PRN PRN INH (DC) Dobutamine HCl/Dextrose (DOBUTamine 500MG/D5W 250ML) 250 ML TITRATE IV Calcium Carbonate (TUMS CHEW TAB) 1,000 MG Q2H PRN PRN PO Bisacodyl (DULCOLAX) 10 MG ONCE PRN RECTAL Vasopressin (VASOSTRICT 20 Unit/NS 100ML) 100 ML ASDIR IV (CKD) Insulin Human Lispro (HUMALOG) 0 AC HS SUBQ Clopidogrel Bisulfate (Plavix) 75 MG DAILY PO Polyethylene Glycol (MIRALAX) 17 GM DAILY PO Pantoprazole (PROTONIX) 40 MG DAILY@0600 PO Atorvastatin Calcium (LIPITOR) 40 MG 2100 PO Sennosides (Senna Lax 8.6 MG TABLET) 17.2 MG BEDTIME PO Aspirin (ASPIRIN) 81 MG DAILY PO Epinephrine (ADRENALIN CHLORIDE) 4 MG ASDIR IV (DC) Dextrose/Water (DEXTROSE 5% WATER) 246 ML Acetaminophen (TYLENOL) 650 MG Q4H PRN PRN PO Acetaminophen (TYLENOL) 650 MG Q4H PRN PRN RECTAL Allopurinol (ZYLOPRIM) 300 MG DAILY PO Amiodarone HCl (CORDARONE) 200 MG TID PO Calcium Chloride (CALCIUM CHLORIDE) 1 GM ASDIR PRN IV Dextrose/Water (DEXTROSE 10% IN WATER) 125 ML ASDIR PRN IV (CKD) Dextrose/Water (DEXTROSE 10% IN WATER) 250 ML ASDIR PRN IV (CKD) Docusate Sodium (COLACE) 100 MG BID PO Glucagon (GLUCAGON) 1 MG ASDIR PRN IM Magnesium Sulfate (MAGNESIUM SULFATE 4GM/SWFI 100ML) 100 ML ASDIR PRN IV Magnesium Sulfate (MAGNESIUM SULFATE 2GM/SWFI 50ML) 50 ML ASDIR PRN IV Magnesium Sulfate/Dextrose (MAGNESIUM SULFATE 1GM/D5W 100ML) 100 ML ASDIR PRN IV Nitroglycerin/Dextrose (NITROGLYCERIN 50,000MCG/D5W 250ML) 250 ML ASDIR IV (DC) Norepinephrine Bitartrate (NOREPINEPHRINE 8 MG/NS 250 ML) 250 ML TITRATE IV (DC) Ondansetron HCl (ZOFRAN) 4 MG Q6H PRN PRN IV Oxycodone HCl (ROXICODONE) 5 MG Q4H PRN PRN PO (DC) Oxycodone HCl (ROXICODONE) 10 MG Q4H PRN PRN PO (DC) Potassium Chloride (KCL 20MEQ/SWFI 100ML) 100 ML ASDIR PRN IV Sodium Bicarbonate (SODIUM BICARBONATE) 50 MEQ ASDIR PRN IV Sodium Chloride (SODIUM CHLORIDE 0.9%) 250 ML Q24H IV Tamsulosin HCl (Flomax 0.4 mg) 0.4 MG DAILY PO Cefazolin Sodium (KEFZOL OR ANCEF) 2 GM PREOP ONCALL IV (CKD) Sodium Chloride (SODIUM CHLORIDE) 20 ML PREOP ONCALL IV Vancomycin HCl (VANCOMYCIN HCL) 1,000 MG PREOP ONCALL IV (CKD) Sodium Chloride (SODIUM CHLORIDE 0.9%) 250 ML Results Findings/Data: Laboratory Tests 04/07 04/07 04/07 04/07 0740 0248 0248 0248 Chemistry Sodium (134 - 147 mEq/L) 133 L Potassium (3.4 - 5.0 mEq/L) 3.7 Chloride (100 - 108 mEq/L) 98 L Carbon Dioxide (21 - 33 mEq/l) 27 Anion Gap (0 - 20) 12 BUN (7 - 25 mg/dL) 31 H Creatinine (0.6 - 1.3 mg/dL) 1.6 H Glomerular Filtr Rate (70 - 80) 43.8 L Glucose (77 - 141 mg/dL) 108 POC Glucose (70 - 110 MG/DL) 112 H Calcium (8.0 - 10.5 mg/dL) 8.3 Ionized Calcium Katharina (1.09 - 1.30 MMOL/L) 1.07 L Magnesium (1.6 - 2.6 mg/dL) 2.26 Total Bilirubin (0.0 - 1.0 mg/dL) 1.10 H Direct Bilirubin (0.1 - 0.3 MG/DL) 0.60 H Indirect Bilirubin (MG/DL) 0.50 AST (8 - 34 IUnit/L) 70 H ALT (10 - 49 IUnit/L) 72 H Total Alk Phosphatase (20 - 125 IUnit/L) 123 Total Protein (6.4 - 8.2 g/dL) 5.6 L Albumin (3.4 - 5.0 g/dL) 2.70 L 04/06 1612 1155 0928 Chemistry Sodium (134 - 147 mEq/L) 132 L 132 L Potassium (3.4 - 5.0 mEq/L) 4.0 4.0 Chloride (100 - 108 mEq/L) 101 101 Carbon Dioxide (21 - 33 mEq/l) 26 27 Anion Gap (0 - 20) 9 8 BUN (7 - 25 mg/dL) 36 H 37 H Creatinine (0.6 - 1.3 mg/dL) 1.7 H 1.8 H Glomerular Filtr Rate (70 - 80) 40.8 L 38.1 L Glucose (77 - 141 mg/dL) 119 131 POC Glucose (70 - 110 MG/DL) 121 H 98 Calcium (8.0 - 10.5 mg/dL) 7.9 L 7.9 L Ionized Calcium Katharina (1.09 - 1.30 MMOL/L) 1.06 L 1.06 L Magnesium (1.6 - 2.6 mg/dL) 2.32 2.43 Laboratory Tests 04/07 04/06 0248 1612 Hematology WBC (4.5 - 11.0 x10 3/uL) 9.2 9.3 RBC (4.00 - 5.60 x10 6/uL) 2.71 L 2.72 L Hgb (12.5 - 16.9 g/dL) 7.5 L 7.5 L Hct (37.5 - 50.7 %) 23.0 L 22.5 L MCV (81.0 - 99.0 fL) 84.9 82.7 MCH (27.0 - 33.0 pg) 27.7 27.6 MCHC (33.0 - 37.0 g/dL) 32.6 L 33.3 RDW (11.5 - 14.5 %) 15.4 H 15.5 H Plt Count (150 - 400 x10 3/uL) 193 192 MPV (7.0 - 9.0 fL) 10.9 H 11.4 H Neut % (Auto) (56.0 - 77.0 %) 76.3 75.1 Lymph % (Auto) (14.0 - 32.0 %) 7.9 L 8.8 L [place] % (Auto) (4.8 - 9.0 %) 10.8 H 12.2 H Eos % (Auto) (0.3 - 3.7 %) 3.7 2.6 Baso % (Auto) (0.0 - 2.0 %) 0.2 0.3 Neut # (Auto) (2.0 - 7.6 x10 3/uL) 7.04 6.99 Lymph # (Auto) (1.0 - 3.8 x10 3/uL) 0.73 L 0.82 L [place] # (Auto) (0.1 - 0.8 x10 3/uL) 1.00 H 1.13 H Eos # (Auto) (0.0 - 0.2 x10 3/uL) 0.34 H 0.24 H Baso # (Auto) (0.0 - 0.2 x10 3/uL) 0.02 0.03 Abs Immat Gran (auto) (0.00 - 0.03 x10 3/uL) 0.10 H 0.09 H Immature Gran % (0.0 - 2.0 %) 1.1 1.0 Nucleated RBC % (0 - 0 %) 0.0 0.0 Nucleated RBCs # (Man) (0.0 - 0.1 x10 3/uL) 0.00 0.00 Results: labs reviewed, vital signs stable, rythm personally rev'd, x-ray personally reviewed, current med profile rev'd Treatment Prophylaxis Treatment Prophylaxis CVC/PICC documentation: The data below has been imported from nursing documentation. Any exceptions have been noted below under Provider comments. CVC/PICC insertion date/time: CVC multi lumen double Internal jugular Right Inserted 04/01/24 0719 Provider comments on imported nursing data: [] Quality: Trauma Gen Surg Advanced Care Plan 65 or Older Discussed with: patient Current Medications Current medication review: I attest that the foregoing medication list in the medical record is true, accurate, and complete to the best of my knowledge. Diagnosis, Assessment Plan Free Text A P: This is a 78-year-old gentleman with a past medical history of aortic valve stenosis, hyperlipidemia who was also found to have an ascending aortic aneurysm measuring 5 cm. The patient was seen by his display specialist for 6-month follow-up. Recent echocardiogram completed on 01/22/2024 showed EF 55 to 60%, aortic valve mean/peak gradient of 30/42 mmHg, NAS measuring 0.9 cm , peak velocity 4.5 m/s. Patient also noted to have moderate mitral regurgitation, mild pulmonary hypertension with RV systolic pressure 45 mmHg. The patient underwent left heart catheterization on 02/05/2024 that showed left main to be normal, LAD proximal 30 to 40%, mid diffuse 50 to 60%, then luminal irregularities. Diagonal 1 has 40 to 55% stenosis. Circumflex proximal 60% stenosis, RCA large dominant with proximal 40%, mid 30 to 40% in the PDA with diffuse 40% stenosis. 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 Patient denies any chest pain but does report occasional dyspnea on exertion. Patient is being admitted today for replacement of ascending aorta, AVR, and possible coronary artery bypass graft surgery. Assessment/plan: 1. Dyspnea on exertion 2. Aortic valve stenosis 3. Ascending aortic aneurysm 4. Coronary artery disease 5. Hypertension 6. Hyperlipidemia Patient seen and examined by Dr. Sutton. Dr. Sutton has discussed with the patient the need for aortic valve replacement as well as ascending aortic replacement and possible coronary artery bypass graft surgery. Dr. Sutton discussed with the patient the operation, risks involved, benefits, alternatives , and complications. The patient's questions were answered and patient agreed to proceed with surgery. Patient is scheduled for surgery today. Admit to CVICU postoperatively Monitor heart rhythm and hemodynamics Strict I's and O's Cardiology and critical care consulted. 04/01/24 1. Exploration of innominate artery. 2. Chimney graft to the innominate artery (8 mm Hemashield graft). 3. Aortic root replacement (29 Konect graft, Bentall procedure). 4. Replacement of ascending aorta. 5. Hemiarch replacement. 6. Total circulatory arrest with antegrade cerebral perfusion. 7. Repair of innominate artery. 8. Amputation of left atrial appendage. 04/02/24 POD 1 AAOx3, reports pain well controlled AAOx3 Respiratory: On 3L NC, wean as tolerated, Encourage IS, Deep Breathing, nebs, pep and flutter CXR reviewed, Mediastinal CT 130cc, Pleural CT 340cc, continue to monitor. Cardiac: Sinus bradycardia, temporary pacing wires in place pacing at 80, hold BB, on amiodarone gtt @ 0.5, finish IV bag, start PO amiodarone GI: Cardiac diet, Continue Bowel regimen, positive bowel sounds, on insulin gtt : Mann, 167cc urine output last night PT/OT, encourage ambulation today DVT prophylaxis Labs reviewed- replace electrolytes as needed Disposition will be home with , good family support. Patient seen and examined by Dr. Sutton. Plan of care discussed with patient and multidisciplinary team. The patient's questions were answered. 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 and 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 Patient seen and examined by Dr. Sutton. Plan of care discussed with patient and multidisciplinary team. The patient's questions were answered. 04/04/24 POD 3 AAOx3, reports pain well controlled, patient states he is feeling better today Labs reviewed, hemoglobin 7.9 On 4L NC, wean off as tolerated, Encourage spirometer use, deep Breathing, nebs, pep and flutter CXR reviewed, Mediastinal CT 30, left pleural CT 150, reassess after ambulation for discontinuation Underlying rhythm was sinus bradycardia and junctional beats, temporary epicardial pacing wires in place, AV pacing at 84, hold BB Tolerating cardiac diet, nutritional supplements, continue Bowel regimen, positive bowel sounds, glycemic control Patient started on dobutamine yesterday currently at 5 Monitoring renal function closely, creatinine 1.5, strict I's and O's and daily weights, weight up from baseline PT/OT, encourage ambulation today, out of bed to chair for meals DVT prophylaxis with SCDs, GI prophylaxis with PPI Labs reviewed- replace electrolytes as needed Disposition will be home with , good family support. Discussed plan of care with patient, RN, and Dr. Isabel. The patient's questions were answered. MDM done by Dr. Isabel 04/05/24 POD 4 Patient alert, awake and oriented, reports pain well controlled Labs reviewed, hemoglobin stable 7.4 Remains on 4L NC, wean off as tolerated, Encourage spirometer use, deep Breathing, nebs, pep and flutter CXR reviewed, both chest tubes discontinued yesterday Underlying rhythm was sinus bradycardia, junctional beats, in/out slow afib, temporary epicardial pacing wires in place, AV pacing at 80, hold BB Tolerating cardiac diet, nutritional supplements, continue Bowel regimen, positive bowel sounds, glycemic control Patient on dobutamine currently at 5, attempt to decrease to 3 and monitor outputs and perfusion Continue lasix drip at 5 mg/hr, replace electrolytes and recheck labs this afternoon Monitoring renal function closely, creatinine stable 1.5, strict I's and O's and daily weights, weight trending down, 66.7 kg from 68.2 PT/OT, encourage ambulation today, out of bed to chair for meals DVT prophylaxis with SCDs, GI prophylaxis with PPI Labs reviewed- replace electrolytes as needed Disposition will be home with , good family support. Discussed plan of care with patient, RN, and Dr. Isabel. The patient's questions were answered. MDM done by Dr. Isabel 04/06/24 POD 5 Patient alert, awake and oriented, reports pain well controlled Labs reviewed, hemoglobin stable 7.2, recheck labs this afternoon Now on room air, encourage spirometer use, deep Breathing, nebs, pep and flutter CXR reviewed shows 15% left apical pneumothorax slightly improved from prior study Underlying rhythm irregular rhythm, atrial fibrillation, PACs, heart rate 60s to 70s Temporary epicardial pacing wires in place, AV pacing at 80, hold BB threshold 2.5 for ventricular, 3.0 for atrial, EP consulted per cardiology Tolerating cardiac diet, nutritional supplements, continue Bowel regimen, reports bowel movement glycemic control Dobutamine at 3, monitor outputs and perfusion, repeat echocardiogram today Continue lasix drip at 5 mg/hr, replace electrolytes and recheck labs this afternoon Monitoring renal function closely, creatinine 1.7, strict I's and O's and daily weights, 24-hour fluid balance -944, weight trending down Recheck labs this afternoon PT/OT, encourage ambulation today, out of bed to chair for meals DVT prophylaxis with SCDs, GI prophylaxis with PPI Labs reviewed- replace electrolytes as needed Disposition will be home with , good family support. Discussed plan of care with patient, RN, and Dr. Isabel. The patient's questions were answered. MDM done by Dr. Isabel 04/07/24 POD 6 Patient alert, awake and oriented, reports pain well controlled Labs reviewed, hemoglobin stable 7.5, replace electrolytes as needed Remains on room air, encourage spirometer use, deep Breathing, nebs, pep and flutter CXR reviewed Underlying rhythm atrial fibrillation, HR 64 Temporary epicardial pacing wires in place, AV pacing at 80, hold BB threshold 2.5 for ventricular, 3.0 for atrial, EP consulted per cardiology-plan to monitor patient over the weekend Tolerating cardiac diet, nutritional supplements, continue Bowel regimen, reports bowel movement glycemic control Dobutamine at 3- decrease to 2 today, monitor outputs and perfusion, echocardiogram shows EF 55 to 60%, RV systolic function mildly reduced, RVSP 48 mmHg Discontinue Lasix drip yesterday, intermittent IV Lasix received 40 mg IV yesterday evening Monitoring renal function closely, creatinine 1.6, strict I's and O's and daily weights, 24-hour fluid balance -1416, weight trending down 63.7 kg from 65.2, pre op baseline wt 61.2 PT/OT, encourage ambulation today, out of bed to chair for meals DVT prophylaxis with SCDs, GI prophylaxis with PPI Disposition will be home with , good family support. Discussed plan of care with patient, RN, and Dr. Isabel. The patient's questions were answered. MDM done by Dr. Isabel Consultants: cardiology, critical/student records specialist Code status: full code Plan discussed with: patient, collaborating MD, nurse at 1030 at 1950 RPT #:[id number] END OF REPORT [facility] 2024-04-07 06:47:00 [id number] [facility] [place] [address] PATIENT NAME: FARHAD WELLS ADMIT DATE: 04/01/24 ACCOUNT NO: [id number] ROOM NO: [facility] AGE: 79 REPORT TYPE: eELECTROCARDIOGRAM REPORT SEX: M ADMITTING PHYSICIAN:Sol Sutton MD ATTENDING PHYSICIAN:Sol Sutton MD Order: [id number] Test Reason : off pacer test Test Date/Time Stamp: MonApr 07 2024 06:47:34 Blood Pressure : / mmHG Vent. Rate : 064 BPM Atrial Rate : 000 BPM P-R Int : 000 ms QRS Dur : 138 ms QT Int : 502 ms P-R-T Axes : 000 096 -08 degrees QTc Int : 517 ms Atrial fibrillation Rightward axis Nonspecific intraventricular block Biventricular hypertrophy Cannot rule out Inferior infarct (cited on or before 05-APR-2024) Abnormal ECG When compared with ECG of 05-APR-2024 11:25, Significant changes have occurred Confirmed by ANDRÉS LIMON ([id number]) on 04/08/2024 9:12:38 AM Referred By: Sol Sutton Confirmed by:ANDRÉS LIMON at 0912 PATIENT NAME: FARHAD WELLS [facility] 2024-04-07 06:20:00 [facility] ([facility]) Critical Care Progress Note REPORT#:[id number] REPORT STATUS: Signed REPORT INITIALIZATION DATE:04/07/24 TIME: 619 PATIENT: FARHAD WELLS UNIT #: [id number] ROOM/BED: 2206-1 : 46 AGE: 79 SEX: M ATTEND: Sol Sutton MD ADM AUTHOR: Kaushik Lopez DO REPT SERVICE DT/TIME: 04/07/24619 * ALL edits or amendments must be made on the electronic/computer document * Subjective Chief complaint: AI, Ascending aortic aneurysm HPI: Patient is a 78-year-old gentleman with past medical history of aortic valve stenosis, hyperlipidemia, hypertension. Patient was evaluated by his display specialist and found to have an ascending aortic aneurysm of 4.9 cm. He was also found to have mild to moderate aortic stenosis with moderate aortic insufficiency. He has preserved ejection fraction preoperatively. Today he underwent AVR with CABG x 1 and aortic root replacement with replacement of the ascending aorta and hemiarch replacement. He is in the CVICU for postoperative care. He is currently on a nitroglycerin infusion at 5 along with an insulin drip at 3. He remains intubated at this time. His preoperative echo showed preserved EF with severe aortic insufficiency. Postoperatively off-pump wall closing patient sustained a V-fib arrest. Differential of R on T phenomenon versus transient ischemic insult secondary to coronary calcification that could have been manipulated. He received 4 subcutaneous defibrillations and 2 internal defibrillations. After cardiac arrest episode patient was noted to have some ischemic changes on his echocardiogram with RV dilatation. He is not requiring IR inotropic support at this time. His EBL was 700. Received 750 of Cell Saver. In total he received 2 of cryo, 2 FFP 1 platelet and 1 RBC. Received 2 L of crystalloid and had a urine output of 650 throughout the case. Sedation is off at this time. He is being warmed with a warming blanket. Postoperative labs, EKG, chest x-ray pending. Will plan to extubate shortly. 04/02: Patient seen and evaluated at bedside. Patient is out of bed to chair. Pain is well-controlled. No acute events overnight. He was successfully extubated yesterday evening without difficulty. He remains on no drips at this time. Continues to require pacing and is sinus bradycardic. 04/03: Patient seen and evaluated at bedside. Started on norepi in the evening for RV support and renal perfusion. Urine output steady. Is having pre-syncope. No chest pain or sob. Formal echo pending. Will transition to vasopressin off of levo. 04/05: Patient seen and evaluated at bedside. Continued on dobutamine overnight. Still being paced. 04/06: Patient seen evaluated bedside. Pain well-controlled. No acute events overnight. Dobutamine at 3 and Lasix drip at 5. Plan to repeat an echocardiogram today. 04/07: Patient seen and evaluated overnight. No acute events. Continues to be paced. Repeat echo improved. Objective Free Text Obj Notes Free Text Obj Notes: GEN: Appears in no acute distress, interactive and conversational HEENT: Atraumatic, normocephalic, moist mucous membranes NECK: Supple, good range of motion, no tenderness, no JVD LUNGS: Symmetrical air entry, no acute respiratory distress, no accessory muscle use CV: S1, S2 regular rate and rhythm, warm and well perfused GI: Abdomen is soft, not tender or distended EXT/Musc: No edema or cyanosis. Pedal pulses present. Compartments soft Skin: Surgical site clean, dry and intact. Warm to touch NEURO: Awake, alert and oriented x3. No facial droop or focal deficit Diagnosis, Assessment Plan Free text A P: Patient is a 79-year-old male with a history of ascending aortic aneurysm and aortic insufficiency that is postoperative aortic root replacement, replacement of ascending aorta, hemiarch replacement with antegrade cerebral perfusion. Ascending aortic aneurysm Severe aortic insufficiency Postop day 6 status post aortic root replacement, replacement of ascending aorta , hemiarch, AVR CABG x 1 V-fib arrest ALAA Sinus bradycardia Volume overload Acute hypoxic respiratory insufficiency following thoracic surgery Acute blood loss anemia secondary to surgery Small apical ptx Hypertension Hyperglycemia Acute kidney injury Neuro:multimodal pain control Respiratory: Pulmonary hygiene, incentive spirometry, on room air ABG reviewed. Follow up cxr for pneumothorax resolution. Cardiovascular: Patient is on dobutamine 3 mics. Metoprolol on hold. Repeat echo shows mild RV dysfunction and no longer dilated (was dilated and severe). Consult to EP for junctional rhythm. Wean dobutamine today and continue spot dose lasix. Renal: strict I/Os, monitor Cr and replete electrolytes GI:cardiac diet ID: White count stable no fever Hem: monitor Hgb Endo: BG control with insulin sliding scale Misc: PTOT consult, DVT and GI ppx with SCD and PPI Full code Consultants: cardiology, critical/student records specialist Quality: Gen [facility] Advanced Care Plan 65 or Older Discussed with: patient at 0622 RPT #:[id number] END OF REPORT [facility] 2024-04-06 15:01:00 [id number] [place] [address] PATIENT NAME: FARHAD WELLS ADMIT DATE: 04/01/24 ACCOUNT NO: [id number] ROOM NO: [facility] [place] AGE: 79 REPORT TYPE: eECHOCARDIOGRAM REPORT SEX: M ADMITTING PHYSICIAN:Sol Sutton MD ATTENDING PHYSICIAN:Sol Sutton MD *[place] [address] Transthoracic Echocardiogram Patient: Farhad Wells Study Date: 04/06/2024 BP: 140 / 64 URN: [id number] Location: : 1945 Age: 79 Gender: M Height: 70 in / 177.8 cm Weight: 143 lb / 64.9 kg BMI/BSA: 20.5 kg/m 2 / 1.78 m 2 *Ordering Physician: * Kaushik LopezInterpreting Physician: * Svetlana Hu MD *Slasher Tender Helper: Kaitlin Sims Indications: Check RV. Study data: Transthoracic echocardiogram. Procedure: A transthoracic echocardiogram was performed. Image quality was adequate. Complete 2D, complete spectral Doppler, and color Doppler. Location: Bedside. Patient status: Inpatient. Patient room number: 2206. Study status: Stat. Heart rate: 80 bpm. Findings Left ventricle: The cavity size is normal. Wall thickness is mildly increased. Systolic function is normal. The estimated ejection fraction is 55-60%. Wall motion is normal; there are no regional wall motion abnormalities. PATIENT NAME: FARHAD WELLS Right ventricle: The cavity size is normal. Systolic function is mildly reduced. The RV pressure during systole is 48 mm Hg. Left atrium: The atrium is severely dilated. Right atrium: The atrium is normal in size. Aorta: Aortic root: The root is normal-sized. Aortic valve: A bioprosthetic valve is present. There is no evidence of stenosis. There is no regurgitation. Mitral valve: The valve is structurally normal. There is no evidence of stenosis. There is mild to moderate regurgitation. Tricuspid valve: The valve is structurally normal. There is mild-moderate regurgitation. Pulmonic valve: The valve is structurally normal. There is trace regurgitation. Pericardium: There is no pericardial effusion. Pulmonary arteries: The main pulmonary artery is normal-sized. Systemic veins: Inferior vena cava: The IVC is dilated. Respirophasic diameter changes are in the normal range (>= 50%). Measurements Left ventricle Value Ref 04/04/2024 TIAN, LAX 3.9 cm 4.2 - 5.8 3.8 ESD, LAX 3.0 cm 2.5 - 4.0 2.7 FS, LAX 23 % 25 - 43 29 TIAN major ax, A2C 8.3 cm --------- IVS, ED 1.3 cm 0.6 - 1.0 1.1 PW, ED 1.3 cm 0.6 - 1.0 1.1 IVS/PW, ED 1.04 --------- 0.99 EF 47 % 52 - 72 56 IVRT 143 ms --------- E', lat alec, TDI 10.3 cm/sec >=10.0 E/e', lat alec, TDI 8 <=13 E', med alec, TDI 11.4 cm/sec >=7.0 E/e', med alec, TDI 8 --------- E', avg, TDI 10.9 cm/sec --------- E/e', avg, TDI 8 <=14 LVOT Value Ref 04/04/2024 Diam, S 2.24 cm --------- Area 3.9 cm 2 --------- Peak marsha, S 1.12 m/sec --------- Mean marsha, S 0.75 m/sec --------- VTI, S 19.2 cm --------- Peak grad, S 5 mm Hg --------- Mean grad, S 3 mm Hg --------- SV 76 ml --------- SV/bsa 42 ml/m 2 --------- Right ventricle Value Ref 04/04/2024 TIAN, LAX 3.1 cm --------- 3.7 TAPSE, MM 0.8 cm >=1.7 0.9 PATIENT NAME: FARHAD WELLS Pressure, S 48 mm Hg --------- 48 RVOT Value Ref 04/04/2024 Peak v, S 0.87 m/sec --------- Peak grad, S 3 mm Hg --------- Left atrium Value Ref 04/04/2024 Vol/bsa, S 55 ml/m 2 34 Vol/bsa, ES, 1-p A4C 48 ml/m 2 12 - 37 Vol, ES, 2-p 104 ml --------- Vol/bsa, ES, 2-p 58 ml/m 2 34 Vol/bsa, ES, A/L 51 ml/m 2 16 34 AP dim, ES MM 4.0 cm 3.0 - 4.0 LA/Ao root ratio, MM 0.97 --------- Aortic valve Value Ref 04/04/2024 Leaflet sep, MM 1.78 cm --------- Peak v, S 1.9 m/sec --------- Mean v, S 1.51 m/sec --------- VTI, S 34.9 cm --------- Mean grad, S 10 mm Hg --------- Peak grad, S 15.2 mm Hg --------- LVOT/AV, VTI ratio 0.55 --------- NAS, VTI 2.17 cm 2 --------- LVOT/AV, Vpeak ratio 0.58 --------- NAS, Vmax 2.27 cm 2 --------- Mitral valve Value Ref 04/04/2024 Peak E 0.86 m/sec --------- Peak A 0.28 m/sec --------- Decel time 171 ms --------- PHT 50 ms --------- Peak grad, D 2.9 mm Hg --------- Peak E/A ratio 3.02 --------- MVA, PHT 4.4 cm 2 --------- MR peak v 5.41 m/sec --------- Tricuspid valve Value Ref 04/04/2024 TR peak v 3.1 m/sec <=2.8 3.1 Peak RV-RA grad, S 38 mm Hg --------- 38 Aortic root Value Ref 04/04/2024 Root diam, ED MM 4.2 cm --------- Ascending aorta Value Ref 04/04/2024 AAo AP diam, S 2.8 cm --------- Pulmonary artery Value Ref 04/04/2024 Pressure, S 40.1 mm Hg --------- Systemic veins Value Ref 04/04/2024 Estimated CVP 10 mm Hg --------- 10 PATIENT NAME: FARHAD WELLS Conclusions Summary: 1. Left ventricle: The cavity size is normal. Wall thickness is mildly increased. Systolic function is normal. The estimated ejection fraction is 55-60%. Wall motion is normal; there are no regional wall motion abnormalities. 2. Right ventricle: Systolic function is mildly reduced. The RV pressure during systole is 48 mm Hg. 3. Left atrium: The atrium is severely dilated. 4. Aortic valve: A bioprosthetic valve is present. 5. Mitral valve: There is mild to moderate regurgitation. 6. Tricuspid valve: There is mild-moderate regurgitation. Electronically signed by Svetlana Hu MD 04/06/2024 15:00 at 1501 PATIENT NAME: FARHAD WELLS [facility] 2024-04-06 10:20:00 [facility] Cardiothoracic Surgery Prog REPORT#:[id number] REPORT STATUS: Signed REPORT INITIALIZATION DATE:04/06/24 TIME: 1020 PATIENT: FARHAD WELLS UNIT #: [id number] ROOM/BED: [place] [address] : 46 AGE: 79 SEX: M ATTEND: Sol Sutton MD ADM AUTHOR: Falguni Hawkins APRN REPT SERVICE DT/TIME: 04/06/24 1020 * ALL edits or amendments must be made on the electronic/computer document * General Post-op: day 5 Status post: post op cabg/avr/ascending aortic aneurysm replacement Subjective Chief complaint: post op cabg/avr/ascending aortic aneurysm replacement Review of Systems Constitutional: Reports: generalized weakness. Denies: chills. Skin: Denies: abrasion, diaphoresis, itching. Respiratory: Denies: [place] (dyspnea on exertion), pneumonia, SOB. Cardiovascular: Denies: chest pain, palpitations. GI: Denies: abdominal pain, nausea, vomiting. : Denies: dysuria, flank pain. Heme: Denies: adenopathy, bleeding, bruising. Endocrine: Denies: cold intolerance, heat intolerance, polydipsia. Neuro: Denies: bladder dysfunction, seizure, syncope. All systems rev neg: except as marked (fatigue) Objective General VS/I O Last Documented: Result Date Time Pulse Ox 97 04/06 0800 O2 Delivery Room air 04/06 0800 B/P 140/64 04/06 0600 B/P Mean 92 04/06 0600 Pulse 69 04/06 0600 Resp 26 04/06 0600 Temp 98.3 04/06 0400 FiO2 21 04/06 0133 O2 Flow Rate 1 04/06 0133 24 hour I O ending at 0700: 04/06 0700 04/05 1900 Intake Total 425.00 1576.00 Output Total 1290 1655 Balance -865.00 -79.00 Intake, IV 185.00 102.00 Intake, Oral 240 870 Intake, Oral 604 Supplement Number 1 Bowel Movements Output, Urine 1290 1655 Patient 65.2 kg Weight Weight Standing scale Measurement Method PATIENT WEIGHT: Weight (lb): 143 Weight (oz): 11.86 Weight (kg): 65.200 Dietitian Nutrition assessment The data set between the solid lines has been imported from the dietitian's assessment. BMI Calculated: 20.6 Nutrition related diagnosis: Nutrition diagnosis details: Nutrition problem: Nutrition etiology: Nutrition signs and symptoms: Nutrition prescription: Dietitian name: Layo Carnes, DIET Assessment completed: 04/03/24 Physical Exam General appearance: alert, awake, oriented Wound/incision: Location: sternum Site condition: edges approximated, incision intact HEENT: anicteric, mucosal membranes moist, pupils reactive to light Neck: full range of motion, non-tender Cardiovascular: normal heart sounds, regular rate rhythm Respiratory: decreased breath sounds, aerating well, symmetric expansion, no distress Abdomen: soft, non-tender Genitourinary: mann, urine, no bladder distention, no flank pain Extremities: dry, moves all Musculoskeletal: full range of motion, painless range of motion Neuro/POST FORM REMOVER: alert, oriented X 3 Skin: dry, intact Psychiatry: normal affect, normal mood Current Medications Medications: Active Meds + DC'd Last 24 Hrs Calcium Gluconate (Calcium Gluconate 1 GM/NS 50 mL (B2)) 50 ML ONCE ONE IV (DC) Melatonin (Melatonin) 3 MG ONCE ONE PO (DC) Calcium Gluconate (Calcium Gluconate 1 GM/NS 50 mL (B2)) 50 ML ONCE ONE IV (DC) Potassium Chloride (POTASSIUM CHLORIDE 20MEQ TAB.ER) 20 MEQ ONCE ONE PO (DC) Furosemide (LASIX) 240 MG Q24H IV (CKD) Sodium Chloride (SODIUM CHLORIDE 0.9%) 24 ML Cyanocobalamin (Vitamin B-12 500 mcg tab) 500 MCG DAILY PO Ferrous Sulfate (FERROUS SULFATE) 325 MG DAILY PO Ipratropium [place] (ATROVENT) 500 MCG RTQ2H PRN PRN INH Dobutamine HCl/Dextrose (DOBUTamine 500MG/D5W 250ML) 250 ML TITRATE IV Calcium Carbonate (TUMS CHEW TAB) 1,000 MG Q2H PRN PRN PO Bisacodyl (DULCOLAX) 10 MG ONCE PRN RECTAL Vasopressin (VASOSTRICT 20 Unit/NS 100ML) 100 ML ASDIR IV (CKD) Insulin Human Lispro (HUMALOG) 0 AC HS SUBQ Clopidogrel Bisulfate (Plavix) 75 MG DAILY PO Polyethylene Glycol (MIRALAX) 17 GM DAILY PO Pantoprazole (PROTONIX) 40 MG DAILY@0600 PO Atorvastatin Calcium (LIPITOR) 40 MG 2100 PO Sennosides (Senna Lax 8.6 MG TABLET) 17.2 MG BEDTIME PO Aspirin (ASPIRIN) 81 MG DAILY PO Epinephrine (ADRENALIN CHLORIDE) 4 MG ASDIR IV Dextrose/Water (DEXTROSE 5% WATER) 246 ML Acetaminophen (TYLENOL) 650 MG Q4H PRN PRN PO Acetaminophen (TYLENOL) 650 MG Q4H PRN PRN RECTAL Allopurinol (ZYLOPRIM) 300 MG DAILY PO Amiodarone HCl (CORDARONE) 200 MG TID PO Calcium Chloride (CALCIUM CHLORIDE) 1 GM ASDIR PRN IV Dextrose/Water (DEXTROSE 10% IN WATER) 125 ML ASDIR PRN IV (CKD) Dextrose/Water (DEXTROSE 10% IN WATER) 250 ML ASDIR PRN IV (CKD) Docusate Sodium (COLACE) 100 MG BID PO Glucagon (GLUCAGON) 1 MG ASDIR PRN IM Magnesium Sulfate (MAGNESIUM SULFATE 4GM/SWFI 100ML) 100 ML ASDIR PRN IV Magnesium Sulfate (MAGNESIUM SULFATE 2GM/SWFI 50ML) 50 ML ASDIR PRN IV Magnesium Sulfate/Dextrose (MAGNESIUM SULFATE 1GM/D5W 100ML) 100 ML ASDIR PRN IV Mupirocin (BACTROBAN 2% 22 GM OINTMENT) 1 APPLIC BID NASAL (DC) Nitroglycerin/Dextrose (NITROGLYCERIN 50,000MCG/D5W 250ML) 250 ML ASDIR IV Norepinephrine Bitartrate (NOREPINEPHRINE 8 MG/NS 250 ML) 250 ML TITRATE IV Ondansetron HCl (ZOFRAN) 4 MG Q6H PRN PRN IV Oxycodone HCl (ROXICODONE) 5 MG Q4H PRN PRN PO (DC) Oxycodone HCl (ROXICODONE) 10 MG Q4H PRN PRN PO (DC) Potassium Chloride (KCL 20MEQ/SWFI 100ML) 100 ML ASDIR PRN IV Sodium Bicarbonate (SODIUM BICARBONATE) 50 MEQ ASDIR PRN IV Sodium Chloride (SODIUM CHLORIDE 0.9%) 250 ML Q24H IV Tamsulosin HCl (Flomax 0.4 mg) 0.4 MG DAILY PO Cefazolin Sodium (KEFZOL OR ANCEF) 2 GM PREOP ONCALL IV (CKD) Sodium Chloride (SODIUM CHLORIDE) 20 ML PREOP ONCALL IV Vancomycin HCl (VANCOMYCIN HCL) 1,000 MG PREOP ONCALL IV (CKD) Sodium Chloride (SODIUM CHLORIDE 0.9%) 250 ML Results Findings/Data: Laboratory Tests 04/06 04/06 04/06 04/05 04/05 0928 0725 0202 194 1701 Chemistry Sodium (134 - 147 mEq/L) 132 L 134 133 L Potassium (3.4 - 5.0 mEq/L) 4.0 4.4 4.2 Chloride (100 - 108 mEq/L) 101 101 103 Carbon Dioxide (21 - 33 mEq/l) 27 26 27 Anion Gap (0 - 20) 8 12 7 BUN (7 - 25 mg/dL) 37 H 38 H 38 H Creatinine (0.6 - 1.3 mg/dL) 1.8 H 1.7 H 1.6 H Glomerular Filtr Rate (70 - 80) 38.1 L 40.8 L 43.8 L Glucose (77 - 141 mg/dL) 131 121 131 POC Glucose (70 - 110 MG/DL) 115 H 117 H Calcium (8.0 - 10.5 mg/dL) 7.9 L 8.1 7.7 L Ionized Calcium Katharina (1.09 - 1.30 1.06 L 1.06 L 1.05 L MMOL/L) Magnesium (1.6 - 2.6 mg/dL) 2.43 2.57 2.46 04/05 1244 Chemistry Sodium (134 - 147 mEq/L) 134 Potassium (3.4 - 5.0 mEq/L) 3.9 Chloride (100 - 108 mEq/L) 101 Carbon Dioxide (21 - 33 mEq/l) 25 Anion Gap (0 - 20) 12 BUN (7 - 25 mg/dL) 35 H Creatinine (0.6 - 1.3 mg/dL) 1.6 H Glomerular Filtr Rate (70 - 80) 43.8 L Glucose (77 - 141 mg/dL) 158 H Calcium (8.0 - 10.5 mg/dL) 7.7 L Magnesium (1.6 - 2.6 mg/dL) 2.39 Laboratory Tests 04/06 0202 Hematology WBC (4.5 - 11.0 x10 3/uL) 8.5 RBC (4.00 - 5.60 x10 6/uL) 2.61 L Hgb (12.5 - 16.9 g/dL) 7.2 L Hct (37.5 - 50.7 %) 21.9 L MCV (81.0 - 99.0 fL) 83.9 MCH (27.0 - 33.0 pg) 27.6 MCHC (33.0 - 37.0 g/dL) 32.9 L RDW (11.5 - 14.5 %) 15.6 H Plt Count (150 - 400 x10 3/uL) 143 L MPV (7.0 - 9.0 fL) 11.5 H Neut % (Auto) (56.0 - 77.0 %) 74.3 Lymph % (Auto) (14.0 - 32.0 %) 9.2 L [place] % (Auto) (4.8 - 9.0 %) 12.1 H Eos % (Auto) (0.3 - 3.7 %) 3.1 Baso % (Auto) (0.0 - 2.0 %) 0.2 Neut # (Auto) (2.0 - 7.6 x10 3/uL) 6.29 Lymph # (Auto) (1.0 - 3.8 x10 3/uL) 0.78 L [place] # (Auto) (0.1 - 0.8 x10 3/uL) 1.02 H Eos # (Auto) (0.0 - 0.2 x10 3/uL) 0.26 H Baso # (Auto) (0.0 - 0.2 x10 3/uL) 0.02 Abs Immat Gran (auto) (0.00 - 0.03 x10 3/uL) 0.09 H Immature Gran % (0.0 - 2.0 %) 1.1 Nucleated RBC % (0 - 0 %) 0.0 Nucleated RBCs # (Man) (0.0 - 0.1 x10 3/uL) 0.00 Radiology data: Recent Impressions: RADIOLOGY - XR CHEST 1 V 04/06 6313 Report Impression - Status: SIGNED Entered: 04/06/2024 0927 IMPRESSION: 1. 15% left apical pneumothorax appears slightly improved from the prior study. 2. There is slightly improved aeration of the lungs. There is pulmonary vascular congestion and interstitial prominence with moderate bibasilar atelectasis/infiltrates and small left pleural effusion. Impression By: Missy - Randall Robbins M.D. Results: labs reviewed, vital signs stable, rythm personally rev'd, x-ray personally reviewed, current med profile rev'd Treatment Prophylaxis Treatment Prophylaxis CVC/PICC documentation: The data below has been imported from nursing documentation. Any exceptions have been noted below under Provider comments. CVC/PICC insertion date/time: CVC multi lumen double Internal jugular Right Inserted 04/01/24 0719 Provider comments on imported nursing data: [] Quality: Trauma Gen Surg Advanced Care Plan 65 or Older Discussed with: patient Current Medications Current medication review: I attest that the foregoing medication list in the medical record is true, accurate, and complete to the best of my knowledge. Diagnosis, Assessment Plan Free Text A P: This is a 78-year-old gentleman with a past medical history of aortic valve stenosis, hyperlipidemia who was also found to have an ascending aortic aneurysm measuring 5 cm. The patient was seen by his display specialist for 6-month follow-up. Recent echocardiogram completed on 01/22/2024 showed EF 55 to 60%, aortic valve mean/peak gradient of 30/42 mmHg, NAS measuring 0.9 cm , peak velocity 4.5 m/s. Patient also noted to have moderate mitral regurgitation, mild pulmonary hypertension with RV systolic pressure 45 mmHg. The patient underwent left heart catheterization on 02/05/2024 that showed left main to be normal, LAD proximal 30 to 40%, mid diffuse 50 to 60%, then luminal irregularities. Diagonal 1 has 40 to 55% stenosis. Circumflex proximal 60% stenosis, RCA large dominant with proximal 40%, mid 30 to 40% in the PDA with diffuse 40% stenosis. Patient had a CT scan done at [facility] that showed evidence of stable fusiform aneurysm dilation of the ascending thoracic aorta measuring 5 cm in caliber. Patient denies any chest pain but does report occasional dyspnea on exertion. Patient is being admitted today for replacement of ascending aorta, AVR, and possible coronary artery bypass graft surgery. Assessment/plan: 1. Dyspnea on exertion 2. Aortic valve stenosis 3. Ascending aortic aneurysm 4. Coronary artery disease 5. Hypertension 6. Hyperlipidemia Patient seen and examined by Dr. Sutton. Dr. Sutton has discussed with the patient the need for aortic valve replacement as well as ascending aortic replacement and possible coronary artery bypass graft surgery. Dr. Sutton discussed with the patient the operation, risks involved, benefits, alternatives , and complications. The patient's questions were answered and patient agreed to proceed with surgery. Patient is scheduled for surgery today. Admit to CVICU postoperatively Monitor heart rhythm and hemodynamics Strict I's and O's Cardiology and critical care consulted. 04/01/24 1. Exploration of innominate artery. 2. Chimney graft to the innominate artery (8 mm Hemashield graft). 3. Aortic root replacement (29 Konect graft, Bentall procedure). 4. Replacement of ascending aorta. 5. Hemiarch replacement. 6. Total circulatory arrest with antegrade cerebral perfusion. 7. Repair of innominate artery. 8. Amputation of left atrial appendage. 04/02/24 POD 1 AAOx3, reports pain well controlled AAOx3 Respiratory: On 3L NC, wean as tolerated, Encourage IS, Deep Breathing, nebs, pep and flutter CXR reviewed, Mediastinal CT 130cc, Pleural CT 340cc, continue to monitor. Cardiac: Sinus bradycardia, temporary pacing wires in place pacing at 80, hold BB, on amiodarone gtt @ 0.5, finish IV bag, start PO amiodarone GI: Cardiac diet, Continue Bowel regimen, positive bowel sounds, on insulin gtt : Mann, 167cc urine output last night PT/OT, encourage ambulation today DVT prophylaxis Labs reviewed- replace electrolytes as needed Disposition will be home with , good family support. Patient seen and examined by Dr. Sutton. Plan of care discussed with patient and multidisciplinary team. The patient's questions were answered. 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 and 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 Patient seen and examined by Dr. Sutton. Plan of care discussed with patient and multidisciplinary team. The patient's questions were answered. 04/04/24 POD 3 AAOx3, reports pain well controlled, patient states he is feeling better today Labs reviewed, hemoglobin 7.9 On 4L NC, wean off as tolerated, Encourage spirometer use, deep Breathing, nebs, pep and flutter CXR reviewed, Mediastinal CT 30, left pleural CT 150, reassess after ambulation for discontinuation Underlying rhythm was sinus bradycardia and junctional beats, temporary epicardial pacing wires in place, AV pacing at 84, hold BB Tolerating cardiac diet, nutritional supplements, continue Bowel regimen, positive bowel sounds, glycemic control Patient started on dobutamine yesterday currently at 5 Monitoring renal function closely, creatinine 1.5, strict I's and O's and daily weights, weight up from baseline PT/OT, encourage ambulation today, out of bed to chair for meals DVT prophylaxis with SCDs, GI prophylaxis with PPI Labs reviewed- replace electrolytes as needed Disposition will be home with , good family support. Discussed plan of care with patient, RN, and Dr. Isabel. The patient's questions were answered. MDM done by Dr. Isabel 04/05/24 POD 4 Patient alert, awake and oriented, reports pain well controlled Labs reviewed, hemoglobin stable 7.4 Remains on 4L NC, wean off as tolerated, Encourage spirometer use, deep Breathing, nebs, pep and flutter CXR reviewed, both chest tubes discontinued yesterday Underlying rhythm was sinus bradycardia, junctional beats, in/out slow afib, temporary epicardial pacing wires in place, AV pacing at 80, hold BB Tolerating cardiac diet, nutritional supplements, continue Bowel regimen, positive bowel sounds, glycemic control Patient on dobutamine currently at 5, attempt to decrease to 3 and monitor outputs and perfusion Continue lasix drip at 5 mg/hr, replace electrolytes and recheck labs this afternoon Monitoring renal function closely, creatinine stable 1.5, strict I's and O's and daily weights, weight trending down, 66.7 kg from 68.2 PT/OT, encourage ambulation today, out of bed to chair for meals DVT prophylaxis with SCDs, GI prophylaxis with PPI Labs reviewed- replace electrolytes as needed Disposition will be home with , good family support. Discussed plan of care with patient, RN, and Dr. Isabel. The patient's questions were answered. MDM done by Dr. Isabel 04/06/24 POD 5 Patient alert, awake and oriented, reports pain well controlled Labs reviewed, hemoglobin stable 7.2, recheck labs this afternoon Now on room air, encourage spirometer use, deep Breathing, nebs, pep and flutter CXR reviewed shows 15% left apical pneumothorax slightly improved from prior study Underlying rhythm irregular rhythm, atrial fibrillation, PACs, heart rate 60s to 70s Temporary epicardial pacing wires in place, AV pacing at 80, hold BB threshold 2.5 for ventricular, 3.0 for atrial, EP consulted per cardiology Tolerating cardiac diet, nutritional supplements, continue Bowel regimen, reports bowel movement glycemic control Dobutamine at 3, monitor outputs and perfusion, repeat echocardiogram today Continue lasix drip at 5 mg/hr, replace electrolytes and recheck labs this afternoon Monitoring renal function closely, creatinine 1.7, strict I's and O's and daily weights, 24-hour fluid balance -944, weight trending down Recheck labs this afternoon PT/OT, encourage ambulation today, out of bed to chair for meals DVT prophylaxis with SCDs, GI prophylaxis with PPI Labs reviewed- replace electrolytes as needed Disposition will be home with , good family support. Discussed plan of care with patient, RN, and Dr. Isabel. The patient's questions were answered. MDM done by Dr. Isabel Orders: Procedure Date/time Status CALCIUM IONIZED 04/06 0202 Complete Consultants: cardiology, critical/student records specialist Code status: full code Plan discussed with: patient, family, collaborating MD, nurse at 1027 at 1949 RPT #:[id number] END OF REPORT [facility] 2024-04-06 08:53:00 [facility] ([facility]) Critical Care Progress Note REPORT#:[id number] REPORT STATUS: Signed REPORT INITIALIZATION DATE:04/06/24 TIME: 08 PATIENT: FARHAD WELLS UNIT #: [id number] ROOM/BED: [place] [address] : 46 AGE: 79 SEX: M ATTEND: Sol Stuton MD ADM AUTHOR: Kaushik Lopez DO REPT SERVICE DT/TIME: 04/06/24 0853 * ALL edits or amendments must be made on the electronic/computer document * Subjective Chief complaint: AI, Ascending aortic aneurysm HPI: Patient is a 78-year-old gentleman with past medical history of aortic valve stenosis, hyperlipidemia, hypertension. Patient was evaluated by his display specialist and found to have an ascending aortic aneurysm of 4.9 cm. He was also found to have mild to moderate aortic stenosis with moderate aortic insufficiency. He has preserved ejection fraction preoperatively. Today he underwent AVR with CABG x 1 and aortic root replacement with replacement of the ascending aorta and hemiarch replacement. He is in the CVICU for postoperative care. He is currently on a nitroglycerin infusion at 5 along with an insulin drip at 3. He remains intubated at this time. His preoperative echo showed preserved EF with severe aortic insufficiency. Postoperatively off-pump wall closing patient sustained a V-fib arrest. Differential of R on T phenomenon versus transient ischemic insult secondary to coronary calcification that could have been manipulated. He received 4 subcutaneous defibrillations and 2 internal defibrillations. After cardiac arrest episode patient was noted to have some ischemic changes on his echocardiogram with RV dilatation. He is not requiring IR inotropic support at this time. His EBL was 700. Received 750 of Cell Saver. In total he received 2 of cryo, 2 FFP 1 platelet and 1 RBC. Received 2 L of crystalloid and had a urine output of 650 throughout the case. Sedation is off at this time. He is being warmed with a warming blanket. Postoperative labs, EKG, chest x-ray pending. Will plan to extubate shortly. 04/02: Patient seen and evaluated at bedside. Patient is out of bed to chair. Pain is well-controlled. No acute events overnight. He was successfully extubated yesterday evening without difficulty. He remains on no drips at this time. Continues to require pacing and is sinus bradycardic. 04/03: Patient seen and evaluated at bedside. Started on norepi in the evening for RV support and renal perfusion. Urine output steady. Is having pre-syncope. No chest pain or sob. Formal echo pending. Will transition to vasopressin off of levo. 04/05: Patient seen and evaluated at bedside. Continued on dobutamine overnight. Still being paced. 04/06: Patient seen evaluated bedside. Pain well-controlled. No acute events overnight. Dobutamine at 3 and Lasix drip at 5. Plan to repeat an echocardiogram today. Objective Free Text Obj Notes Free Text Obj Notes: GEN: Appears in no acute distress, interactive and conversational HEENT: Atraumatic, normocephalic, moist mucous membranes NECK: Supple, good range of motion, no tenderness, no JVD LUNGS: Symmetrical air entry, no acute respiratory distress, no accessory muscle use CV: S1, S2 regular rate and rhythm, warm and well perfused GI: Abdomen is soft, not tender or distended EXT/Musc: No edema or cyanosis. Pedal pulses present. Compartments soft Skin: Surgical site clean, dry and intact. Warm to touch NEURO: Awake, alert and oriented x3. No facial droop or focal deficit Diagnosis, Assessment Plan Free text A P: Patient is a 79-year-old male with a history of ascending aortic aneurysm and aortic insufficiency that is postoperative aortic root replacement, replacement of ascending aorta, hemiarch replacement with antegrade cerebral perfusion. Ascending aortic aneurysm Severe aortic insufficiency Postop day 5 status post aortic root replacement, replacement of ascending aorta , hemiarch, AVR CABG x 1 V-fib arrest ALAA Sinus bradycardia Volume overload Acute hypoxic respiratory insufficiency following thoracic surgery Acute blood loss anemia secondary to surgery Hypertension Hyperglycemia Acute kidney injury Neuro:multimodal pain control Respiratory: Pulmonary hygiene, incentive spirometry, on 2 L nasal cannula ABG reviewed Cardiovascular: Patient is on dobutamine 3 mics. Metoprolol on hold. In sinus rhythm. Repeat echocardiogram. Consult to EP for junctional rhythm. Renal: strict I/Os, monitor Cr and electrolytes, will continue on Lasix drip GI: bedside swallow then oral diet after extubation, bowel regimen, no bowel movement yet. ID: White count stable no fever Hem: monitor Hgb and CTs output, continue chest tube Endo: BG control with insulin sliding scale Misc: PTOT consult, DVT and GI ppx with SCD and PPI Full code Total critical care time 35 minutes spent treating the patient excluding any procedures performed Consultants: cardiology, critical/student records specialist Quality: Gen [facility] Crit Care Advanced Care Plan 65 or Older Discussed with: patient at 0857 RPT #:[id number] END OF REPORT [facility] 2024-04-06 07:09:00 [facility] ([facility]) EP Consultation Note REPORT#:[id number] REPORT STATUS: Signed REPORT INITIALIZATION DATE:04/06/24 TIME: 708 PATIENT: FARHAD WELLS UNIT #: [id number] ROOM/BED: [place] [address] : 46 AGE: 79 SEX: M ATTEND: Sol Sutton MD ADM AUTHOR: Rohith Combs MD REPT SERVICE DT/TIME: 04/06/24 07 * ALL edits or amendments must be made on the electronic/computer document * History of Present Illness Requesting clinician: Reason for consult: Complete heart block HPI: Mr. Wells is a 79 yr old man who underwent aortic root replacement, replacement of ascending aorta, Bentall procedure and CABG for AV stenosis and ascending aorta aneurysm and CAD He has been on temporary pacing support with telemetry demonstrating Asense V pacing over 80 bpm currently at 84 bpm. History - Adult longitudinal Past medical history: Reports: Coronary artery disease, Hypertension, Dyslipidemia. Past surgical history: Reports: Appendectomy, Cholecystectomy. Alcohol use: Denies EtOH use Drug use: Denies recreational drugs Smoking status for patients 13 years old or older: Former Smoker Date last smoked: 06/26/79 Allergies: Coded Allergies: Sulfa (Sulfonamide Antibiotics) (Intermediate, NAUSEA. VOMITING 03/26/24) Review of Systems All systems rev neg: except as marked (fatigue) Objective General appearance: alert, awake HEENT: mucosal membranes moist, pupils reactive to light Neck: non-tender Cardiovascular: CV assessment: regular rate and rhythm Respiratory: no distress Abdomen: non-tender Genitourinary: no flank pain Extremities: dry, moves all Musculoskeletal: normal inspection Neuro/POST FORM REMOVER: alert Diagnosis, Assessment Plan Free Text A P: Assessment: Complete heart block AV stenosis s/p replacement of aortic root and Bentall procedure Ascending aorta aneurysm s/p repair CAD s/p CABG PLan: Continue to monitor over weekend for instrinsic stable rhythm Will assess monday for any need for permanent pacing support Discussed with patient and his regarding plan Thank you for the consult! Total time spent in patient care including chart, imaging and lab review, counseling care coordination and management is 60 min Rohith Combs MD Cardiac rhythm center CLS EP Consultants: cardiology, critical/student records specialist at 0729 [facility][id number] END OF REPORT [facility] 2024-04-05 11:25:00 [id number] [place] [address] PATIENT NAME: FARHAD WELLS ADMIT DATE: 04/01/24 ACCOUNT NO: [id number] ROOM NO: G.[id number] AGE: 79 REPORT TYPE: eELECTROCARDIOGRAM REPORT SEX: M ADMITTING PHYSICIAN:Sol Sutton MD ATTENDING PHYSICIAN:Sol Sutton MD Order: [id number] Test Reason : CHECK UNDERLINE RYTHEM Test Date/Time Stamp: MonApr 05 2024 11:25:53 Blood Pressure : / mmHG Vent. Rate : 052 BPM Atrial Rate : 000 BPM P-R Int : 000 ms QRS Dur : 134 ms QT Int : 482 ms P-R-T Axes : 000 089 002 degrees QTc Int : 448 ms Atrial fibrillation with slow ventricular response Nonspecific intraventricular block Minimal voltage criteria for LVH, may be normal variant ( Sokolow-Greenwood ) Lateral injury pattern Abnormal ECG When compared with ECG of 03-APR-2024 03:55, No changes Confirmed by MD VELIZ GERARD ([id number]) on 04/07/2024 2:44:06 PM Referred By: Sol Sutton Confirmed by:SAUD VELIZ MD at 1444 PATIENT NAME: FARHAD WELLS [facility] 2024-04-05 11:00:00 [facility] Cardiothoracic Surgery Prog REPORT#:[id number] REPORT STATUS: Signed REPORT INITIALIZATION DATE:04/05/24 TIME: 1100 PATIENT: FARHAD WELLS UNIT #: [id number] ROOM/BED: [place] [id number] : 46 AGE: 79 SEX: M ATTEND: Sol Sutton MD ADM AUTHOR: Falguni Hawkins APRN REPT SERVICE DT/TIME: 04/05/24 1100 * ALL edits or amendments must be made on the electronic/computer document * General Post-op: day 4 Status post: post op cabg/avr/ascending aortic aneurysm replacement Subjective Chief complaint: post op cabg/avr/ascending aortic aneurysm replacement Review of Systems Constitutional: Reports: generalized weakness. Denies: chills. Skin: Denies: abrasion, diaphoresis, itching. Respiratory: Denies: [place] (dyspnea on exertion), pneumonia, SOB. Cardiovascular: Denies: chest pain, palpitations. GI: Denies: abdominal pain, nausea, vomiting. : Denies: dysuria, flank pain. Heme: Denies: adenopathy, bleeding, bruising. Endocrine: Denies: cold intolerance, heat intolerance, polydipsia. Neuro: Denies: bladder dysfunction, seizure, syncope. All systems rev neg: except as marked Objective General VS/I O Last Documented: Result Date Time Pulse Ox 97 04/05 748 O2 Delivery High flow nasal cannula 10/11 0748 O2 Flow Rate 2 10/11 0748 B/P 123/59 04/05 06 B/P Mean 85 04/05 600 Pulse 80 04/05 600 Resp 35 04/05 600 Temp 99.3 04/05 0500 FiO2 28 04/04 1947 24 hour I O ending at 0700: 04/05 0700 04/04 1900 Intake Total 728.30 Output Total 1740 200 Balance -1740 528.30 Intake, IV 228.30 Intake, Oral 500 Number 1 Bowel Movements Output, Chest 100 Tube Drainage Output, Urine 1740 100 Patient 66.7 kg Weight Weight Standing scale Measurement Method PATIENT WEIGHT: Weight (lb): 147 Weight (oz): 0.77 Weight (kg): 66.700 Dietitian Nutrition assessment The data set between the solid lines has been imported from the dietitian's assessment. BMI Calculated: 21.1 Nutrition related diagnosis: Nutrition diagnosis details: Nutrition problem: Nutrition etiology: Nutrition signs and symptoms: Nutrition prescription: Dietitian name: Layo Carnes, DIET Assessment completed: 04/03/24 Physical Exam General appearance: alert, awake, oriented Wound/incision: Location: sternum Site condition: dressing clean dry, dressing intact HEENT: anicteric, mucosal membranes moist, pupils reactive to light Neck: full range of motion, non-tender Cardiovascular: normal heart sounds, regular rate rhythm Respiratory: decreased breath sounds, aerating well, symmetric expansion, no distress Abdomen: soft, non-tender Genitourinary: mann, urine, no bladder distention, no flank pain Extremities: dry, moves all Musculoskeletal: full range of motion, painless range of motion Neuro/POST FORM REMOVER: alert, oriented X 3 Skin: dry, intact Psychiatry: normal affect, normal mood Current Medications Medications: Active Meds + DC'd Last 24 Hrs Calcium Gluconate (Calcium Gluconate 1 GM/NS 50 mL (B2)) 50 ML ONCE ONE IV (CAN) Furosemide (LASIX) 240 MG Q24H IV (CKD) Sodium Chloride (SODIUM CHLORIDE 0.9%) 24 ML Furosemide (LASIX 20MG INJ) 20 MG ONCE ONE IV (DC) Furosemide (LASIX 40 mg/4 mL INJECTION) 0 .STK-MED ONE IV (DC) Cyanocobalamin (Vitamin B-12 500 mcg tab) 500 MCG DAILY PO Ferrous Sulfate (FERROUS SULFATE) 325 MG DAILY PO Ipratropium [place] [facility] (ATROVENT) 500 MCG RTQ2H PRN PRN INH Dobutamine HCl/Dextrose (DOBUTamine 500MG/D5W 250ML) 250 ML TITRATE IV Calcium Carbonate (TUMS CHEW TAB) 1,000 MG Q2H PRN PRN PO Bisacodyl (DULCOLAX) 10 MG ONCE PRN RECTAL Vasopressin (VASOSTRICT 20 Unit/NS 100ML) 100 ML ASDIR IV (CKD) Insulin Human Lispro (HUMALOG) 0 AC HS SUBQ Clopidogrel Bisulfate (Plavix) 75 MG DAILY PO Polyethylene Glycol (MIRALAX) 17 GM DAILY PO Pantoprazole (PROTONIX) 40 MG DAILY@0600 PO Amiodarone HCl (AMIODARONE HCL) 450 MG .Q15H IV (DC) Dextrose/Water (D5%W NON-DEHP) 250 ML Atorvastatin Calcium (LIPITOR) 40 MG 2100 PO Sennosides (Senna Lax 8.6 MG TABLET) 17.2 MG BEDTIME PO Aspirin (ASPIRIN) 81 MG DAILY PO Epinephrine (ADRENALIN CHLORIDE) 4 MG ASDIR IV Dextrose/Water (DEXTROSE 5% WATER) 246 ML Acetaminophen (TYLENOL) 650 MG Q4H PRN PRN PO Acetaminophen (TYLENOL) 650 MG Q4H PRN PRN RECTAL Allopurinol (ZYLOPRIM) 300 MG DAILY PO Amiodarone HCl (CORDARONE) 200 MG TID PO Calcium Chloride (CALCIUM CHLORIDE) 1 GM ASDIR PRN IV Dextrose/Water (DEXTROSE 10% IN WATER) 125 ML ASDIR PRN IV (CKD) Dextrose/Water (DEXTROSE 10% IN WATER) 250 ML ASDIR PRN IV (CKD) Docusate Sodium (COLACE) 100 MG BID PO Glucagon (GLUCAGON) 1 MG ASDIR PRN IM Magnesium Sulfate (MAGNESIUM SULFATE 4GM/SWFI 100ML) 100 ML ASDIR PRN IV Magnesium Sulfate (MAGNESIUM SULFATE 2GM/SWFI 50ML) 50 ML ASDIR PRN IV Magnesium Sulfate/Dextrose (MAGNESIUM SULFATE 1GM/D5W 100ML) 100 ML ASDIR PRN IV Mupirocin (BACTROBAN 2% 22 GM OINTMENT) 1 APPLIC BID NASAL Nitroglycerin/Dextrose (NITROGLYCERIN 50,000MCG/D5W 250ML) 250 ML ASDIR IV Norepinephrine Bitartrate (NOREPINEPHRINE 8 MG/NS 250 ML) 250 ML TITRATE IV Ondansetron HCl (ZOFRAN) 4 MG Q6H PRN PRN IV Oxycodone HCl (ROXICODONE) 5 MG Q4H PRN PRN PO Oxycodone HCl (ROXICODONE) 10 MG Q4H PRN PRN PO Potassium Chloride (KCL 20MEQ/SWFI 100ML) 100 ML ASDIR PRN IV Sodium Bicarbonate (SODIUM BICARBONATE) 50 MEQ ASDIR PRN IV Sodium Chloride (SODIUM CHLORIDE 0.9%) 250 ML Q24H IV Tamsulosin HCl (Flomax 0.4 mg) 0.4 MG DAILY PO Cefazolin Sodium (KEFZOL OR ANCEF) 2 GM PREOP ONCALL IV (CKD) Sodium Chloride (SODIUM CHLORIDE) 20 ML PREOP ONCALL IV Vancomycin HCl (VANCOMYCIN HCL) 1,000 MG PREOP ONCALL IV (CKD) Sodium Chloride (SODIUM CHLORIDE 0.9%) 250 ML Results Findings/Data: Laboratory Tests 04/05 04/04 0611 1526 Blood Gas Puncture Site L Radial O2 Saturation (90 - 100 %) 93.8 93.3 ABG pH (7.35 - 7.45) 7.500 H 7.545 *H ABG pCO2 (35.0 - 45 mmHg) 33.0 L 29.3 *L ABG pO2 (80 - 100.0 mmHg) 62.6 L 60.1 L ABG HCO3 (22.0 - 26.0 MMOL/L) 25.7 25.2 ABG Total CO2 26.7 26.1 ABG Base Excess (-4.0 - 4.0 MMOL/L) 2.6 2.9 ABG Hematocrit (37.5 - 50.7 %) 24 L 28 L ABG Hemoglobin (12.5 - 16.9 G/DL) 8.2 L 9.5 L Marco Test N/A Sodium (134 - 147 mmol/L) 134 132 L Potassium (3.4 - 5.0 mmol/L) 4.0 3.9 Chloride (100 - 108 mmol/L) 99 L 99 L Ionized Calcium (1.12 - 1.32 MMOL/L) 1.09 L 1.13 Lactic Acid (0.9 - 1.7 mmol/l) 1.1 1.1 Temperature (F) 99 99.9 O2 Delivery Device Cannula Cannula Laboratory Tests 04/05 04/05 04/05 04/04 04/04 0750 9537 4053 2200 2013 Chemistry Sodium (134 - 147 mEq/L) 135 135 Potassium (3.4 - 5.0 mEq/L) 4.1 4.0 Chloride (100 - 108 mEq/L) 104 104 Carbon Dioxide (21 - 33 mEq/l) 25 25 Anion Gap (0 - 20) 10 10 BUN (7 - 25 mg/dL) 32 H 35 H Creatinine (0.6 - 1.3 mg/dL) 1.5 H 1.5 H POC Creatinine (0.8 - 1.3 mg/dL) 1.6 H Glomerular Filtr Rate (70 - 80) 47.4 L 47.4 L Glucose (77 - 141 mg/dL) 118 120 POC Glucose (70 - 110 MG/DL) 120 H 155 H POC Glucose (mg/dL) (70 - 110 MG/DL) 144 H Calcium (8.0 - 10.5 mg/dL) 7.5 L 7.6 L Magnesium (1.6 - 2.6 mg/dL) 2.32 2.43 04/04 04/04 04/04 1526 1522 1117 Chemistry Sodium (134 - 147 mEq/L) 135 Potassium (3.4 - 5.0 mEq/L) 3.9 Chloride (100 - 108 mEq/L) 104 Carbon Dioxide (21 - 33 mEq/l) 25 Anion Gap (0 - 20) 10 BUN (7 - 25 mg/dL) 31 H Creatinine (0.6 - 1.3 mg/dL) 1.4 H POC Creatinine (0.8 - 1.3 mg/dL) 1.5 H Glomerular Filtr Rate (70 - 80) 51.4 L Glucose (77 - 141 mg/dL) 133 POC Glucose (70 - 110 MG/DL) 135 H POC Glucose (mg/dL) (70 - 110 MG/DL) 145 H Calcium (8.0 - 10.5 mg/dL) 7.9 L Magnesium (1.6 - 2.6 mg/dL) 2.42 Laboratory Tests 04/05 0318 Hematology WBC (4.5 - 11.0 x10 3/uL) 9.9 RBC (4.00 - 5.60 x10 6/uL) 2.64 L Hgb (12.5 - 16.9 g/dL) 7.4 L Hct (37.5 - 50.7 %) 22.0 L MCV (81.0 - 99.0 fL) 83.3 MCH (27.0 - 33.0 pg) 28.0 MCHC (33.0 - 37.0 g/dL) 33.6 RDW (11.5 - 14.5 %) 15.6 H Plt Count (150 - 400 x10 3/uL) 106 L MPV (7.0 - 9.0 fL) 11.7 H Neut % (Auto) (56.0 - 77.0 %) 82.4 H Lymph % (Auto) (14.0 - 32.0 %) 6.9 L [place] % (Auto) (4.8 - 9.0 %) 8.4 Eos % (Auto) (0.3 - 3.7 %) 1.3 Baso % (Auto) (0.0 - 2.0 %) 0.2 Neut # (Auto) (2.0 - 7.6 x10 3/uL) 8.19 H Lymph # (Auto) (1.0 - 3.8 x10 3/uL) 0.69 L [place] # (Auto) (0.1 - 0.8 x10 3/uL) 0.83 H Eos # (Auto) (0.0 - 0.2 x10 3/uL) 0.13 Baso # (Auto) (0.0 - 0.2 x10 3/uL) 0.02 Abs Immat Gran (auto) (0.00 - 0.03 x10 3/uL) 0.08 H Immature Gran % (0.0 - 2.0 %) 0.8 Nucleated RBC % (0 - 0 %) 0.0 Nucleated RBCs # (Man) (0.0 - 0.1 x10 3/uL) 0.00 Immature Plt Fraction (0.9 - 11.2 %) 6.2 Radiology data: Recent Impressions: RADIOLOGY - XR CHEST 1 V 04/05 0553 Report Impression - Status: SIGNED Entered: 04/05/2024 0967 IMPRESSION: There is a small left pneumothorax, which is larger on today's exam compared to yesterday's exam. Otherwise, there has been no significant change compared to the prior exam. Impression By: Trini Tirado M.D. Results: labs reviewed, vital signs stable, rythm personally rev'd, x-ray personally reviewed, current med profile rev'd Treatment Prophylaxis Treatment Prophylaxis CVC/PICC documentation: The data below has been imported from nursing documentation. Any exceptions have been noted below under Provider comments. CVC/PICC insertion date/time: CVC multi lumen double Internal jugular Right Inserted 04/01/24 0719 Provider comments on imported nursing data: [] Quality: Trauma Gen Surg Advanced Care Plan 65 or Older Discussed with: patient Current Medications Current medication review: I attest that the foregoing medication list in the medical record is true, accurate, and complete to the best of my knowledge. Diagnosis, Assessment Plan Free Text A P: This is a 78-year-old gentleman with a past medical history of aortic valve stenosis, hyperlipidemia who was also found to have an ascending aortic aneurysm measuring 5 cm. The patient was seen by his display specialist for 6-month follow-up. Recent echocardiogram completed on 01/22/2024 showed EF 55 to 60%, aortic valve mean/peak gradient of 30/42 mmHg, NAS measuring 0.9 cm , peak velocity 4.5 m/s. Patient also noted to have moderate mitral regurgitation, mild pulmonary hypertension with RV systolic pressure 45 mmHg. The patient underwent left heart catheterization on 02/05/2024 that showed left main to be normal, LAD proximal 30 to 40%, mid diffuse 50 to 60%, then luminal irregularities. Diagonal 1 has 40 to 55% stenosis. Circumflex proximal 60% stenosis, RCA large dominant with proximal 40%, mid 30 to 40% in the PDA with diffuse 40% stenosis. 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 Patient denies any chest pain but does report occasional dyspnea on exertion. Patient is being admitted today for replacement of ascending aorta, AVR, and possible coronary artery bypass graft surgery. Assessment/plan: 1. Dyspnea on exertion 2. Aortic valve stenosis 3. Ascending aortic aneurysm 4. Coronary artery disease 5. Hypertension 6. Hyperlipidemia Patient seen and examined by Dr. Sutton. Dr. Sutton has discussed with the patient the need for aortic valve replacement as well as ascending aortic replacement and possible coronary artery bypass graft surgery. Dr. Sutton discussed with the patient the operation, risks involved, benefits, alternatives , and complications. The patient's questions were answered and patient agreed to proceed with surgery. Patient is scheduled for surgery today. Admit to CVICU postoperatively Monitor heart rhythm and hemodynamics Strict I's and O's Cardiology and critical care consulted. 04/01/24 1. Exploration of innominate artery. 2. Chimney graft to the innominate artery (8 mm Hemashield graft). 3. Aortic root replacement (29 Konect graft, Bentall procedure). 4. Replacement of ascending aorta. 5. Hemiarch replacement. 6. Total circulatory arrest with antegrade cerebral perfusion. 7. Repair of innominate artery. 8. Amputation of left atrial appendage. 04/02/24 POD 1 AAOx3, reports pain well controlled AAOx3 Respiratory: On 3L NC, wean as tolerated, Encourage IS, Deep Breathing, nebs, pep and flutter CXR reviewed, Mediastinal CT 130cc, Pleural CT 340cc, continue to monitor. Cardiac: Sinus bradycardia, temporary pacing wires in place pacing at 80, hold BB, on amiodarone gtt @ 0.5, finish IV bag, start PO amiodarone GI: Cardiac diet, Continue Bowel regimen, positive bowel sounds, on insulin gtt : Mann, 167cc urine output last night PT/OT, encourage ambulation today DVT prophylaxis Labs reviewed- replace electrolytes as needed Disposition will be home with , good family support. Patient seen and examined by Dr. Sutton. Plan of care discussed with patient and multidisciplinary team. The patient's questions were answered. 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 and 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 Patient seen and examined by Dr. Sutton. Plan of care discussed with patient and multidisciplinary team. The patient's questions were answered. 04/04/24 POD 3 AAOx3, reports pain well controlled, patient states he is feeling better today Labs reviewed, hemoglobin 7.9 On 4L NC, wean off as tolerated, Encourage spirometer use, deep Breathing, nebs, pep and flutter CXR reviewed, Mediastinal CT 30, left pleural CT 150, reassess after ambulation for discontinuation Underlying rhythm was sinus bradycardia and junctional beats, temporary epicardial pacing wires in place, AV pacing at 84, hold BB Tolerating cardiac diet, nutritional supplements, continue Bowel regimen, positive bowel sounds, glycemic control Patient started on dobutamine yesterday currently at 5 Monitoring renal function closely, creatinine 1.5, strict I's and O's and daily weights, weight up from baseline PT/OT, encourage ambulation today, out of bed to chair for meals DVT prophylaxis with SCDs, GI prophylaxis with PPI Labs reviewed- replace electrolytes as needed Disposition will be home with , good family support. Discussed plan of care with patient, RN, and Dr. Isabel. The patient's questions were answered. MDM done by Dr. Isabel 04/05/24 POD 4 Patient alert, awake and oriented, reports pain well controlled Labs reviewed, hemoglobin stable 7.4 Remains on 4L NC, wean off as tolerated, Encourage spirometer use, deep Breathing, nebs, pep and flutter CXR reviewed, both chest tubes discontinued yesterday Underlying rhythm was sinus bradycardia, junctional beats, in/out slow afib, temporary epicardial pacing wires in place, AV pacing at 80, hold BB Tolerating cardiac diet, nutritional supplements, continue Bowel regimen, positive bowel sounds, glycemic control Patient on dobutamine currently at 5, attempt to decrease to 3 and monitor outputs and perfusion Continue lasix drip at 5 mg/hr, replace electrolytes and recheck labs this afternoon Monitoring renal function closely, creatinine stable 1.5, strict I's and O's and daily weights, weight trending down, 66.7 kg from 68.2 PT/OT, encourage ambulation today, out of bed to chair for meals DVT prophylaxis with SCDs, GI prophylaxis with PPI Labs reviewed- replace electrolytes as needed Disposition will be home with , good family support. Discussed plan of care with patient, RN, and Dr. Isabel. The patient's questions were answered. MDM done by Dr. Isabel Consultants: cardiology, critical/student records specialist Code status: full code Plan discussed with: patient, collaborating MD, nurse at 1120 at 1949 RPT #:[id number] END OF REPORT [facility] 2024-04-05 10:38:00 [facility] ([facility]) Heart Failure Progress Note REPORT#:[id number] REPORT STATUS: Signed REPORT INITIALIZATION DATE:04/05/24 TIME: 1038 PATIENT: FARHAD WELLS UNIT #: [id number] ROOM/BED: [place] [address] : 46 AGE: 79 SEX: M ATTEND: Sol Sutton MD ADM AUTHOR: Garfield Donnelly MODERN DANCER REPT SERVICE DT/TIME: 04/05/24 1038 * ALL edits or amendments must be made on the electronic/computer document * Garfield Donnelly. 04/05/24 1038: Subjective HPI: This is a 78-year-old patient with a past medical history of aortic valve stenosis, hyperlipidemia who was also found to have an ascending aortic aneurysm measuring 5 cm. ECHO on 01/22/2024 showed EF 55 to 60%. LHC on 02/05/2024 showed left main to be normal, LAD proximal 30 to 40%, mid diffuse 50 to 60%, then luminal irregularities. Diagonal 1 has 40 to 55% stenosis. Circumflex proximal 60% stenosis, RCA large dominant with proximal 40 %, mid 30 to 40% in the PDA with diffuse 40% stenosis. 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 Patient was admitted on 04/01/24 and underwent. Intraoperatively, the patient received shocks due to V-fib; currently on Amiodarone drip 1. Exploration of innominate artery. 2. Chimney graft to the innominate artery (8 mm Hemashield graft). 3. Aortic root replacement (29 Konect graft, Bentall procedure). 4. Replacement of ascending aorta. 5. Hemiarch replacement. 6. Total circulatory arrest with antegrade cerebral perfusion. 7. Repair of innominate artery. 8. Amputation of left atrial appendage. 9. CABG x1 (CENTENO to LAD) Currently, the patient is reclining in bed, nursing staff at bedside for phlebotomy. Patient reports: some mild nausea Review of Systems Cardiovascular: Denies: chest pain, dyspnea on exertion, edema, orthopnea, palpitations, parox noctural dyspnea, unstable angina. Objective General VS/I O: Vital Signs Date Temp Pulse Resp B/P B/P Mean Pulse Ox FiO2 04/04-04/05 36.6-37.9 80-84 21-35 64-303/10-296 43-297 92-99 28 24 hour I O ending at 0700: 04/05 0700 04/04 1900 Intake Total 728.30 Output Total 1740 200 Balance -1740 528.30 Intake, IV 228.30 Intake, Oral 500 Number 1 Bowel Movements Output, Chest 100 Tube Drainage Output, Urine 1740 100 Patient 66.7 kg Weight Weight Standing scale Measurement Method PATIENT WEIGHT: Weight (lb): 147 Weight (oz): 0.77 Weight (kg): 66.700 Medications: Active Meds + DC'd Last 24 Hrs Calcium Gluconate (Calcium Gluconate 1 GM/NS 50 mL (B2)) 50 ML ONCE ONE IV (CAN) Furosemide (LASIX) 240 MG Q24H IV (CKD) Sodium Chloride (SODIUM CHLORIDE 0.9%) 24 ML Cyanocobalamin (Vitamin B-12 500 mcg tab) 500 MCG DAILY PO Ferrous Sulfate (FERROUS SULFATE) 325 MG DAILY PO Ipratropium [place] (ATROVENT) 500 MCG RTQ2H PRN PRN INH Dobutamine HCl/Dextrose (DOBUTamine 500MG/D5W 250ML) 250 ML TITRATE IV Calcium Carbonate (TUMS CHEW TAB) 1,000 MG Q2H PRN PRN PO Bisacodyl (DULCOLAX) 10 MG ONCE PRN RECTAL Vasopressin (VASOSTRICT 20 Unit/NS 100ML) 100 ML ASDIR IV (CKD) Insulin Human Lispro (HUMALOG) 0 AC HS SUBQ Clopidogrel Bisulfate (Plavix) 75 MG DAILY PO Polyethylene Glycol (MIRALAX) 17 GM DAILY PO Pantoprazole (PROTONIX) 40 MG DAILY@0600 PO Atorvastatin Calcium (LIPITOR) 40 MG 2100 PO Sennosides (Senna Lax 8.6 MG TABLET) 17.2 MG BEDTIME PO Aspirin (ASPIRIN) 81 MG DAILY PO Epinephrine (ADRENALIN CHLORIDE) 4 MG ASDIR IV Dextrose/Water (DEXTROSE 5% WATER) 246 ML Acetaminophen (TYLENOL) 650 MG Q4H PRN PRN PO Acetaminophen (TYLENOL) 650 MG Q4H PRN PRN RECTAL Allopurinol (ZYLOPRIM) 300 MG DAILY PO Amiodarone HCl (CORDARONE) 200 MG TID PO Calcium Chloride (CALCIUM CHLORIDE) 1 GM ASDIR PRN IV Dextrose/Water (DEXTROSE 10% IN WATER) 125 ML ASDIR PRN IV (CKD) Dextrose/Water (DEXTROSE 10% IN WATER) 250 ML ASDIR PRN IV (CKD) Docusate Sodium (COLACE) 100 MG BID PO Glucagon (GLUCAGON) 1 MG ASDIR PRN IM Magnesium Sulfate (MAGNESIUM SULFATE 4GM/SWFI 100ML) 100 ML ASDIR PRN IV Magnesium Sulfate (MAGNESIUM SULFATE 2GM/SWFI 50ML) 50 ML ASDIR PRN IV Magnesium Sulfate/Dextrose (MAGNESIUM SULFATE 1GM/D5W 100ML) 100 ML ASDIR PRN IV Mupirocin (BACTROBAN 2% 22 GM OINTMENT) 1 APPLIC BID NASAL Nitroglycerin/Dextrose (NITROGLYCERIN 50,000MCG/D5W 250ML) 250 ML ASDIR IV Norepinephrine Bitartrate (NOREPINEPHRINE 8 MG/NS 250 ML) 250 ML TITRATE IV Ondansetron HCl (ZOFRAN) 4 MG Q6H PRN PRN IV Oxycodone HCl (ROXICODONE) 5 MG Q4H PRN PRN PO Oxycodone HCl (ROXICODONE) 10 MG Q4H PRN PRN PO Potassium Chloride (KCL 20MEQ/SWFI 100ML) 100 ML ASDIR PRN IV Sodium Bicarbonate (SODIUM BICARBONATE) 50 MEQ ASDIR PRN IV Sodium Chloride (SODIUM CHLORIDE 0.9%) 250 ML Q24H IV Tamsulosin HCl (Flomax 0.4 mg) 0.4 MG DAILY PO Cefazolin Sodium (KEFZOL OR ANCEF) 2 GM PREOP ONCALL IV (CKD) Sodium Chloride (SODIUM CHLORIDE) 20 ML PREOP ONCALL IV Vancomycin HCl (VANCOMYCIN HCL) 1,000 MG PREOP ONCALL IV (CKD) Sodium Chloride (SODIUM CHLORIDE 0.9%) 250 ML Status post: CABG Physical Exam General appearance: alert, awake, oriented, no acute distress Cardiovascular: regular rate and rhythm Respiratory: no distress Extremities: moves all Neuro/POST FORM REMOVER: alert, oriented X 3, normal speech Skin: dry, normal color, mid sternal incision CDI without bleeding Psychiatry: normal affect, normal judgment/insight, normal mood Diagnosis, Assessment Plan Consultants: cardiology, critical/student records specialist Free Text DxA P Notes Free text DxA P notes: V-fib/R on T occured during surgery, required 8 shocks currently on amiodarone 200mg tid AV-paced rate 80 recommend EP consult for ICD/PPM evaluation Aortic root replacement, replacement of ascending aorta, hemiarch replacement, CABG x1 CENTENO to LAD, and amputation of left atrial appendage monitor for fluid overload Maintain MAP 70-90 Strict I Os and daily standing weight Maintain K 4 and Mg 2 Trend CBC, BMP2 24 hour I/O= -1211.7 ml BP 123/59 AV paced rate 80 LVEF 55-60% Meds: Plavix, Amiodarone, ASA, Lipitor, metoprolol tartrate was d/c due to bradycardia HTN Patient on dobutamine infusion HLD on atorvastatin 40mg daily Hypotension -on dobutamine IV gtt, 5mcg Patient is currently AV paced at the rate of 80. Underlying rhythm is junctional rhythm Patient is hemodynamically stable continue DAPT with aspirin and Plavix Continue Lipitor and amiodarone Maintain MAP 70-90 Maintain CVP 8-10 Strict I Os and daily standing weight Maintain K 4 and Mg 2 Trend CBC, BMP -cont. to hold BB -cont. diuresis, lasix IV gtt, 5mg -if urine output < 30 ml/hr, initiate inotrope, milrinone -obtain VBG, lactate -cont. dobutamine IV gtt Andrés Limon 04/05/24 1229: Attestations Physician Attestation Agree w/findings plan: Postcardiotomy shock RV failure s/p Aortic root replacement, replacement of ascending aorta, hemiarch replacement, s/p CABG x1 CENTENO to LAD, and amputation of left atrial appendage Hypertension Hyperlipidemia Hemodynamics better today Wean down dobutamine to 3 mcg Monitor urine output and serum lactate Continue IV Lasix drip Titrate levo as needed Goal MAP 70-90 patient is currently AV paced at the rate of 80. Underlying rhythm is junctional rhythm Follow-up with EP recommendations Continue to hold off beta-blockers Continue Lipitor and amiodarone Maintain CVP 8-10 Strict I Os and daily standing weight Maintain K 4 and Mg 2 Trend CBC, BMP Critical care time spent 35 minutes I have personally seen and examined the patient independently, and reviewed the patient's history, exam, and all cardiac and laboratory data. I agree with the history, physical, and the assessment and plan as outlined by Moises Lazo . I was present and supervised. at 1213 at 1301 RPT #:[id number] END OF REPORT [facility] 2024-04-05 08:55:00 [facility] ([facility]) Critical Care Progress Note REPORT#:[id number] REPORT STATUS: Signed REPORT INITIALIZATION DATE:04/05/24 TIME: 854 PATIENT: FARHAD WELLS UNIT #: [id number] ROOM/BED: 2206-1 : 46 AGE: 79 SEX: M ATTEND: Sol Sutton MD ADM AUTHOR: Kaushik Lopez DO REPT SERVICE DT/TIME: 04/05/24854 * ALL edits or amendments must be made on the electronic/computer document * Subjective Chief complaint: AI, Ascending aortic aneurysm HPI: Patient is a 78-year-old gentleman with past medical history of aortic valve stenosis, hyperlipidemia, hypertension. Patient was evaluated by his display specialist and found to have an ascending aortic aneurysm of 4.9 cm. He was also found to have mild to moderate aortic stenosis with moderate aortic insufficiency. He has preserved ejection fraction preoperatively. Today he underwent AVR with CABG x 1 and aortic root replacement with replacement of the ascending aorta and hemiarch replacement. He is in the CVICU for postoperative care. He is currently on a nitroglycerin infusion at 5 along with an insulin drip at 3. He remains intubated at this time. His preoperative echo showed preserved EF with severe aortic insufficiency. Postoperatively off-pump wall closing patient sustained a V-fib arrest. Differential of R on T phenomenon versus transient ischemic insult secondary to coronary calcification that could have been manipulated. He received 4 subcutaneous defibrillations and 2 internal defibrillations. After cardiac arrest episode patient was noted to have some ischemic changes on his echocardiogram with RV dilatation. He is not requiring IR inotropic support at this time. His EBL was 700. Received 750 of Cell Saver. In total he received 2 of cryo, 2 FFP 1 platelet and 1 RBC. Received 2 L of crystalloid and had a urine output of 650 throughout the case. Sedation is off at this time. He is being warmed with a warming blanket. Postoperative labs, EKG, chest x-ray pending. Will plan to extubate shortly. 04/02: Patient seen and evaluated at bedside. Patient is out of bed to chair. Pain is well-controlled. No acute events overnight. He was successfully extubated yesterday evening without difficulty. He remains on no drips at this time. Continues to require pacing and is sinus bradycardic. 04/03: Patient seen and evaluated at bedside. Started on norepi in the evening for RV support and renal perfusion. Urine output steady. Is having pre-syncope. No chest pain or sob. Formal echo pending. Will transition to vasopressin off of levo. 04/05: Patient seen and evaluated at bedside. Continued on dobutamine overnight. Still being paced. Objective Free Text Obj Notes Free Text Obj Notes: GEN: Appears in no acute distress, interactive and conversational HEENT: Atraumatic, normocephalic, moist mucous membranes NECK: Supple, good range of motion, no tenderness, no JVD LUNGS: Symmetrical air entry, no acute respiratory distress, no accessory muscle use CV: S1, S2 regular rate and rhythm, warm and well perfused GI: Abdomen is soft, not tender or distended EXT/Musc: No edema or cyanosis. Pedal pulses present. Compartments soft Skin: Surgical site clean, dry and intact. Warm to touch NEURO: Awake, alert and oriented x3. No facial droop or focal deficit Diagnosis, Assessment Plan Free text A P: Patient is a 79-year-old male with a history of ascending aortic aneurysm and aortic insufficiency that is postoperative aortic root replacement, replacement of ascending aorta, hemiarch replacement with antegrade cerebral perfusion. Ascending aortic aneurysm Severe aortic insufficiency Postop day 4 status post aortic root replacement, replacement of ascending aorta , hemiarch, AVR CABG x 1 V-fib arrest ALAA Sinus bradycardia Volume overload Acute hypoxic respiratory insufficiency following thoracic surgery Acute blood loss anemia secondary to surgery Hypertension Hyperglycemia Acute kidney injury Neuro:multimodal pain control Respiratory: Pulmonary hygiene, incentive spirometry, on 2 L nasal cannula ABG reviewed Cardiovascular: Patient is on dobutamine 5 mics. Metoprolol on hold. In sinus rhythm. Echo done today still shows RV dysfunction. Consult to EP for junctional rhythm. Renal: strict I/Os, monitor Cr and electrolytes, will continue on Lasix drip GI: bedside swallow then oral diet after extubation, bowel regimen, no bowel movement yet. ID: White count stable no fever Hem: monitor Hgb and CTs output, continue chest tube Endo: BG control with insulin sliding scale Misc: PTOT consult, DVT and GI ppx with SCD and PPI Full code Total critical care time 38 minutes spent treating the patient excluding any procedures performed Consultants: cardiology, critical/student records specialist Quality: [facility] Crit Care Advanced Care Plan 65 or Older Discussed with: patient at 0857 RPT #:[id number] END OF REPORT [facility] 2024-04-05 07:08:00 [facility] ([facility]) Cardiology Progress Note REPORT#:[id number] REPORT STATUS: Signed REPORT INITIALIZATION DATE:04/05/24 TIME: 707 PATIENT: FARHAD WELLS UNIT #: [id number] ROOM/BED: [place] [address] : 46 AGE: 79 SEX: M ATTEND: Sol Sutton MD ADM AUTHOR: Judith Barbosa REPT SERVICE DT/TIME: 04/05/24 07 * ALL edits or amendments must be made on the electronic/computer document * Subjective Comments: on Lasix and dobutamine gtt. Objective General VS/I O: 24 hour I O ending at 0700: 04/05 0700 04/04 1900 Intake Total 728.30 Output Total 1740 200 Balance -1740 528.30 Intake, IV 228.30 Intake, Oral 500 Number 1 Bowel Movements Output, Chest 100 Tube Drainage Output, Urine 1740 100 Patient 66.7 kg Weight Weight Standing scale Measurement Method Vital Signs Date Temp Pulse Resp B/P B/P Mean Pulse Ox FiO2 04/04-04/05 36.6-37.9 80-84 21-35 64-303/10-296 43-297 94-99 28 Medications: Active Meds + DC'd Last 24 Hrs Calcium Gluconate (Calcium Gluconate 1 GM/NS 50 mL (B2)) 50 ML ONCE ONE IV (CAN) Furosemide (LASIX) 240 MG Q24H IV (CKD) Sodium Chloride (SODIUM CHLORIDE 0.9%) 24 ML Furosemide (LASIX 20MG INJ) 20 MG ONCE ONE IV (DC) Furosemide (LASIX 40 mg/4 mL INJECTION) 0 .STK-MED ONE IV (DC) Cyanocobalamin (Vitamin B-12 500 mcg tab) 500 MCG DAILY PO Ferrous Sulfate (FERROUS SULFATE) 325 MG DAILY PO Ipratropium [facility] (ATROVENT) 500 MCG RTQ2H PRN PRN INH Dobutamine HCl/Dextrose (DOBUTamine 500MG/D5W 250ML) 250 ML TITRATE IV Calcium Carbonate (TUMS CHEW TAB) 1,000 MG Q2H PRN PRN PO Bisacodyl (DULCOLAX) 10 MG ONCE PRN RECTAL Magnesium Hydroxide (MILK OF MAGNESIA) 30 ML ONCE PRN PO (DC) Vasopressin (VASOSTRICT 20 Unit/NS 100ML) 100 ML ASDIR IV (CKD) Insulin Human Lispro (HUMALOG) 0 AC HS SUBQ Clopidogrel Bisulfate (Plavix) 75 MG DAILY PO Polyethylene Glycol (MIRALAX) 17 GM DAILY PO Pantoprazole (PROTONIX) 40 MG DAILY@0600 PO Amiodarone HCl (AMIODARONE HCL) 450 MG .Q15H IV (DC) Dextrose/Water (D5%W NON-DEHP) 250 ML Atorvastatin Calcium (LIPITOR) 40 MG 2100 PO Sennosides (Senna Lax 8.6 MG TABLET) 17.2 MG BEDTIME PO Aspirin (ASPIRIN) 81 MG DAILY PO Ipratropium [facility] (ATROVENT) 500 MCG RTQ4H INH (DC) Epinephrine (ADRENALIN CHLORIDE) 4 MG ASDIR IV Dextrose/Water (DEXTROSE 5% WATER) 246 ML Acetaminophen (TYLENOL) 650 MG Q4H PRN PRN PO Acetaminophen (TYLENOL) 650 MG Q4H PRN PRN RECTAL Allopurinol (ZYLOPRIM) 300 MG DAILY PO Amiodarone HCl (CORDARONE) 200 MG TID PO Calcium Chloride (CALCIUM CHLORIDE) 1 GM ASDIR PRN IV Dextrose/Water (DEXTROSE 10% IN WATER) 125 ML ASDIR PRN IV (CKD) Dextrose/Water (DEXTROSE 10% IN WATER) 250 ML ASDIR PRN IV (CKD) Docusate Sodium (COLACE) 100 MG BID PO Glucagon (GLUCAGON) 1 MG ASDIR PRN IM Magnesium Sulfate (MAGNESIUM SULFATE 4GM/SWFI 100ML) 100 ML ASDIR PRN IV Magnesium Sulfate (MAGNESIUM SULFATE 2GM/SWFI 50ML) 50 ML ASDIR PRN IV Magnesium Sulfate/Dextrose (MAGNESIUM SULFATE 1GM/D5W 100ML) 100 ML ASDIR PRN IV Mupirocin (BACTROBAN 2% 22 GM OINTMENT) 1 APPLIC BID NASAL Nitroglycerin/Dextrose (NITROGLYCERIN 50,000MCG/D5W 250ML) 250 ML ASDIR IV Norepinephrine Bitartrate (NOREPINEPHRINE 8 MG/NS 250 ML) 250 ML TITRATE IV Ondansetron HCl (ZOFRAN) 4 MG Q6H PRN PRN IV Oxycodone HCl (ROXICODONE) 5 MG Q4H PRN PRN PO Oxycodone HCl (ROXICODONE) 10 MG Q4H PRN PRN PO Potassium Chloride (KCL 20MEQ/SWFI 100ML) 100 ML ASDIR PRN IV Sodium Bicarbonate (SODIUM BICARBONATE) 50 MEQ ASDIR PRN IV Sodium Chloride (SODIUM CHLORIDE 0.9%) 250 ML Q24H IV Tamsulosin HCl (Flomax 0.4 mg) 0.4 MG DAILY PO Cefazolin Sodium (KEFZOL OR ANCEF) 2 GM PREOP ONCALL IV (CKD) Sodium Chloride (SODIUM CHLORIDE) 20 ML PREOP ONCALL IV Vancomycin HCl (VANCOMYCIN HCL) 1,000 MG PREOP ONCALL IV (CKD) Sodium Chloride (SODIUM CHLORIDE 0.9%) 250 ML Pacemaker: external Physical Exam Neck: no JVD Respiratory: decreased breath sounds, on oxygen, shortness of breath Abdomen: soft Genitourinary: urinary catheter, urine Lower extremity: LE assessment: no edema Musculoskeletal: normal inspection Neuro/[employer]M [employer]OVER: alert, oriented X 3 Skin: dry Psychiatry: normal affect, normal judgment/insight, normal mood Results Findings/Data: Laboratory Tests 04/05 04/04 0611 1526 Blood Gas Puncture Site L Radial O2 Saturation (90 - 100 %) 93.8 93.3 ABG pH (7.35 - 7.45) 7.500 H 7.545 *H ABG pCO2 (35.0 - 45 mmHg) 33.0 L 29.3 *L ABG pO2 (80 - 100.0 mmHg) 62.6 L 60.1 L ABG HCO3 (22.0 - 26.0 MMOL/L) 25.7 25.2 ABG Total CO2 26.7 26.1 ABG Base Excess (-4.0 - 4.0 MMOL/L) 2.6 2.9 ABG Hematocrit (37.5 - 50.7 %) 24 L 28 L ABG Hemoglobin (12.5 - 16.9 G/DL) 8.2 L 9.5 L Marco Test N/A Sodium (134 - 147 mmol/L) 134 132 L Potassium (3.4 - 5.0 mmol/L) 4.0 3.9 Chloride (100 - 108 mmol/L) 99 L 99 L Ionized Calcium (1.12 - 1.32 MMOL/L) 1.09 L 1.13 Lactic Acid (0.9 - 1.7 mmol/l) 1.1 1.1 Temperature (F) 99 99.9 O2 Delivery Device Cannula Cannula Laboratory Tests 04/0511 317 2200 2013 1525 Chemistry Sodium (134 - 147 mEq/L) 135 135 Potassium (3.4 - 5.0 mEq/L) 4.1 4.0 Chloride (100 - 108 mEq/L) 104 104 Carbon Dioxide (21 - 33 mEq/l) 25 25 Anion Gap (0 - 20) 10 10 BUN (7 - 25 mg/dL) 32 H 35 H Creatinine (0.6 - 1.3 mg/dL) 1.5 H 1.5 H POC Creatinine (0.8 - 1.3 mg/dL) 1.6 H 1.5 H Glomerular Filtr Rate (70 - 80) 47.4 L 47.4 L Glucose (77 - 141 mg/dL) 118 120 POC Glucose (70 - 110 MG/DL) 155 H POC Glucose (mg/dL) (70 - 110 MG/DL) 144 H 145 H Calcium (8.0 - 10.5 mg/dL) 7.5 L 7.6 L Magnesium (1.6 - 2.6 mg/dL) 2.32 2.43 04/04 04/04 04/04 1522 1117 0738 Chemistry Sodium (134 - 147 mEq/L) 135 Potassium (3.4 - 5.0 mEq/L) 3.9 Chloride (100 - 108 mEq/L) 104 Carbon Dioxide (21 - 33 mEq/l) 25 Anion Gap (0 - 20) 10 BUN (7 - 25 mg/dL) 31 H Creatinine (0.6 - 1.3 mg/dL) 1.4 H Glomerular Filtr Rate (70 - 80) 51.4 L Glucose (77 - 141 mg/dL) 133 POC Glucose (70 - 110 MG/DL) 135 H 129 H Calcium (8.0 - 10.5 mg/dL) 7.9 L Magnesium (1.6 - 2.6 mg/dL) 2.42 Laboratory Tests 10/11 0318 Hematology WBC (4.5 - 11.0 x10 3/uL) 9.9 RBC (4.00 - 5.60 x10 6/uL) 2.64 L Hgb (12.5 - 16.9 g/dL) 7.4 L Hct (37.5 - 50.7 %) 22.0 L MCV (81.0 - 99.0 fL) 83.3 MCH (27.0 - 33.0 pg) 28.0 MCHC (33.0 - 37.0 g/dL) 33.6 RDW (11.5 - 14.5 %) 15.6 H Plt Count (150 - 400 x10 3/uL) 106 L MPV (7.0 - 9.0 fL) 11.7 H Neut % (Auto) (56.0 - 77.0 %) 82.4 H Lymph % (Auto) (14.0 - 32.0 %) 6.9 L [place] % (Auto) (4.8 - 9.0 %) 8.4 Eos % (Auto) (0.3 - 3.7 %) 1.3 Baso % (Auto) (0.0 - 2.0 %) 0.2 Neut # (Auto) (2.0 - 7.6 x10 3/uL) 8.19 H Lymph # (Auto) (1.0 - 3.8 x10 3/uL) 0.69 L [place] # (Auto) (0.1 - 0.8 x10 3/uL) 0.83 H Eos # (Auto) (0.0 - 0.2 x10 3/uL) 0.13 Baso # (Auto) (0.0 - 0.2 x10 3/uL) 0.02 Abs Immat Gran (auto) (0.00 - 0.03 x10 3/uL) 0.08 H Immature Gran % (0.0 - 2.0 %) 0.8 Nucleated RBC % (0 - 0 %) 0.0 Nucleated RBCs # (Man) (0.0 - 0.1 x10 3/uL) 0.00 Immature Plt Fraction (0.9 - 11.2 %) 6.2 Laboratory Tests 04/05 2201 1522 Chemistry Magnesium (1.6 - 2.6 mg/dL) 2.32 2.43 2.42 Results: labs reviewed, vital signs reviewed, rhythm personally rev'd Telemetry Interpretation: AV paced, slow afib when off pacer Diagnosis, Assessment Plan Plan discussed with: patient, family, collaborating MD, nurse Free Text DxA P Notes Free Text DxA P Notes: This is a 71-year-old male with medical history of aortic valve stenosis, hyperlipidemia, hypertension who was found to have 5 cm ascending aortic aneurysm. The patient was brought in today and underwent aortic root replacement, replacement of ascending aorta, hemiarch replacement, CABG x1 CENTENO to LAD, and amputation of left atrial appendage. 1. Aortic root replacement, replacement of ascending aorta, hemiarch replacement , CABG x1 CENTENO to LAD, and amputation of left atrial appendage * post-op care by CTS and critical care * on DAPT, statin, no BB d/t junctional/slow afib rhythm 2. Acute RV failure * 04/02: echo LVEF 50%, TAPSE 0.6 cm, RVSP 37 mmHg, bioprosthetic AV noted * 04/04: LVEF 55%, RV mildly dilated, TAPSE 0.9cm, RVSP 48 mmHg * on dobutamine and Lasix gtt * good urine output * HF team following 3. Bradycardia ->Slow Afib/Junctional rhythm when off pacer * not on any AVN blocking agent * consult EP for PPM 4. Hypertension * monitor off BP meds 5. Hyperlipidemia * continue statin MDM by Dr. Hu. at 1617 at 1148 RPT #:[id number] END OF REPORT [facility] 2024-04-04 17:25:00 [facility] ([facility]) Critical Care Progress Note REPORT#:[id number] REPORT STATUS: Signed REPORT INITIALIZATION DATE:04/04/24 TIME: 1724 PATIENT: FARHAD WELLS UNIT #: [id number] ROOM/BED: 2206-1 : 46 AGE: 79 SEX: M ATTEND: Sol Sutton MD ADM AUTHOR: Toya Santos MD REPT SERVICE DT/TIME: 10/10/24 1725 * ALL edits or amendments must be made on the electronic/computer document * Subjective Chief complaint: AI, Ascending aortic aneurysm HPI: Patient is a 78-year-old gentleman with past medical history of aortic valve stenosis, hyperlipidemia, hypertension. Patient was evaluated by his display specialist and found to have an ascending aortic aneurysm of 4.9 cm. He was also found to have mild to moderate aortic stenosis with moderate aortic insufficiency. He has preserved ejection fraction preoperatively. Today he underwent AVR with CABG x 1 and aortic root replacement with replacement of the ascending aorta and hemiarch replacement. He is in the CVICU for postoperative care. He is currently on a nitroglycerin infusion at 5 along with an insulin drip at 3. He remains intubated at this time. His preoperative echo showed preserved EF with severe aortic insufficiency. Postoperatively off-pump wall closing patient sustained a V-fib arrest. Differential of R on T phenomenon versus transient ischemic insult secondary to coronary calcification that could have been manipulated. He received 4 subcutaneous defibrillations and 2 internal defibrillations. After cardiac arrest episode patient was noted to have some ischemic changes on his echocardiogram with RV dilatation. He is not requiring IR inotropic support at this time. His EBL was 700. Received 750 of Cell Saver. In total he received 2 of cryo, 2 FFP 1 platelet and 1 RBC. Received 2 L of crystalloid and had a urine output of 650 throughout the case. Sedation is off at this time. He is being warmed with a warming blanket. Postoperative labs, EKG, chest x-ray pending. Will plan to extubate shortly. 04/02: Patient seen and evaluated at bedside. Patient is out of bed to chair. Pain is well-controlled. No acute events overnight. He was successfully extubated yesterday evening without difficulty. He remains on no drips at this time. Continues to require pacing and is sinus bradycardic. 04/03: Patient seen and evaluated at bedside. Started on norepi in the evening for RV support and renal perfusion. Urine output steady. Is having pre-syncope. No chest pain or sob. Formal echo pending. Will transition to vasopressin off of levo. Comments: Interval history- Patient is on dobutamine 5mcg Responded to the Lasix. Objective General VS/I O Last Documented: Result Date Time Pulse Ox 98 04/04 1700 B/P 100/44 04/04 1700 B/P Mean 62 04/04 170 Temp 37.5 04/04 1700 Pulse 84 04/04 1700 Resp 24 04/04 1700 O2 Delivery Nasal cannula 04/04 1600 O2 Flow Rate 2 04/04 1600 FiO2 36 04/04 0317 24 hour I O ending at 0700: 04/04 0700 04/03 1900 Intake Total 693.00 Output Total 1140 1060 Balance -1140 -367.00 Intake, IV 143.00 Intake, Oral 550 Intake, Oral 0 Supplement Output, Chest 180 70 Tube Drainage Output, Urine 960 990 PATIENT WEIGHT: Weight (lb): 143 Weight (oz): 15.39 Weight (kg): 65.300 Medications: Active Meds + DC'd Last 24 Hrs Furosemide (LASIX) 240 MG Q24H IV (CKD) Sodium Chloride (SODIUM CHLORIDE 0.9%) 24 ML Furosemide (LASIX 20MG INJ) 20 MG ONCE ONE IV (DC) Furosemide (LASIX 40 mg/4 mL INJECTION) 0 .STK-MED ONE IV (DC) Cyanocobalamin (Vitamin B-12 500 mcg tab) 500 MCG DAILY PO Ferrous Sulfate (FERROUS SULFATE) 325 MG DAILY PO Ipratropium [facility] (ATROVENT) 500 MCG RTQ2H PRN PRN INH Potassium Chloride (POTASSIUM CHLORIDE 20MEQ TAB.ER) 20 MEQ ONCE ONE PO (DC) Dobutamine HCl/Dextrose (DOBUTamine 500MG/D5W 250ML) 250 ML TITRATE IV Calcium Carbonate (TUMS CHEW TAB) 1,000 MG Q2H PRN PRN PO Bisacodyl (DULCOLAX) 10 MG ONCE PRN RECTAL Magnesium Hydroxide (MILK OF MAGNESIA) 30 ML ONCE PRN PO (DC) Vasopressin (VASOSTRICT 20 Unit/NS 100ML) 100 ML ASDIR IV (CKD) Insulin Human Lispro (HUMALOG) 0 AC HS SUBQ Clopidogrel Bisulfate (Plavix) 75 MG DAILY PO Polyethylene Glycol (MIRALAX) 17 GM DAILY PO Pantoprazole (PROTONIX) 40 MG DAILY@0600 PO Amiodarone HCl (AMIODARONE HCL) 450 MG .Q15H IV (DC) Dextrose/Water (D5%W NON-DEHP) 250 ML Atorvastatin Calcium (LIPITOR) 40 MG 2100 PO Sennosides (Senna Lax 8.6 MG TABLET) 17.2 MG BEDTIME PO Aspirin (ASPIRIN) 81 MG DAILY PO Ipratropium [facility] (ATROVENT) 500 MCG RTQ4H INH (DC) Epinephrine (ADRENALIN CHLORIDE) 4 MG ASDIR IV Dextrose/Water (DEXTROSE 5% WATER) 246 ML Acetaminophen (TYLENOL) 650 MG Q4H PRN PRN PO Acetaminophen (TYLENOL) 650 MG Q4H PRN PRN RECTAL Allopurinol (ZYLOPRIM) 300 MG DAILY PO Amiodarone HCl (CORDARONE) 200 MG TID PO Calcium Chloride (CALCIUM CHLORIDE) 1 GM ASDIR PRN IV Dextrose/Water (DEXTROSE 10% IN WATER) 125 ML ASDIR PRN IV (CKD) Dextrose/Water (DEXTROSE 10% IN WATER) 250 ML ASDIR PRN IV (CKD) Docusate Sodium (COLACE) 100 MG BID PO Glucagon (GLUCAGON) 1 MG ASDIR PRN IM Magnesium Sulfate (MAGNESIUM SULFATE 4GM/SWFI 100ML) 100 ML ASDIR PRN IV Magnesium Sulfate (MAGNESIUM SULFATE 2GM/SWFI 50ML) 50 ML ASDIR PRN IV Magnesium Sulfate/Dextrose (MAGNESIUM SULFATE 1GM/D5W 100ML) 100 ML ASDIR PRN IV Mupirocin (BACTROBAN 2% 22 GM OINTMENT) 1 APPLIC BID NASAL Nitroglycerin/Dextrose (NITROGLYCERIN 50,000MCG/D5W 250ML) 250 ML ASDIR IV Norepinephrine Bitartrate (NOREPINEPHRINE 8 MG/NS 250 ML) 250 ML TITRATE IV Ondansetron HCl (ZOFRAN) 4 MG Q6H PRN PRN IV Oxycodone HCl (ROXICODONE) 5 MG Q4H PRN PRN PO Oxycodone HCl (ROXICODONE) 10 MG Q4H PRN PRN PO Potassium Chloride (KCL 20MEQ/SWFI 100ML) 100 ML ASDIR PRN IV Sodium Bicarbonate (SODIUM BICARBONATE) 50 MEQ ASDIR PRN IV Sodium Chloride (SODIUM CHLORIDE 0.9%) 250 ML Q24H IV Tamsulosin HCl (Flomax 0.4 mg) 0.4 MG DAILY PO Cefazolin Sodium (KEFZOL OR ANCEF) 2 GM PREOP ONCALL IV (CKD) Sodium Chloride (SODIUM CHLORIDE) 20 ML PREOP ONCALL IV Vancomycin HCl (VANCOMYCIN HCL) 1,000 MG PREOP ONCALL IV (CKD) Sodium Chloride (SODIUM CHLORIDE 0.9%) 250 ML Results Findings/data: Laboratory Tests 04/04 1526 Blood Gas Puncture Site L Radial O2 Saturation (90 - 100 %) 93.3 ABG pH (7.35 - 7.45) 7.545 *H ABG pCO2 (35.0 - 45 mmHg) 29.3 *L ABG pO2 (80 - 100.0 mmHg) 60.1 L ABG HCO3 (22.0 - 26.0 MMOL/L) 25.2 ABG Total CO2 26.1 ABG Base Excess (-4.0 - 4.0 MMOL/L) 2.9 ABG Hematocrit (37.5 - 50.7 %) 28 L ABG Hemoglobin (12.5 - 16.9 G/DL) 9.5 L Marco Test N/A Sodium (134 - 147 mmol/L) 132 L Potassium (3.4 - 5.0 mmol/L) 3.9 Chloride (100 - 108 mmol/L) 99 L Ionized Calcium (1.12 - 1.32 MMOL/L) 1.13 Lactic Acid (0.9 - 1.7 mmol/l) 1.1 Temperature (F) 99.9 O2 Delivery Device Cannula Laboratory Tests 04/04 04/04 04/04 04/04 04/04 1526 1522 1117 0738 0430 Chemistry Sodium (134 - 147 mEq/L) 135 135 Potassium (3.4 - 5.0 mEq/L) 3.9 4.2 Chloride (100 - 108 mEq/L) 104 105 Carbon Dioxide (21 - 33 mEq/l) 25 24 Anion Gap (0 - 20) 10 10 BUN (7 - 25 mg/dL) 31 H 31 H Creatinine (0.6 - 1.3 mg/dL) 1.4 H 1.5 H POC Creatinine (0.8 - 1.3 mg/dL) 1.5 H Glomerular Filtr Rate (70 - 80) 51.4 L 47.4 L Glucose (77 - 141 mg/dL) 133 118 POC Glucose (70 - 110 MG/DL) 135 H 129 H POC Glucose (mg/dL) (70 - 110 MG/DL) 145 H Calcium (8.0 - 10.5 mg/dL) 7.9 L 8.2 Magnesium (1.6 - 2.6 mg/dL) 2.42 2.09 Total Bilirubin (0.0 - 1.0 mg/dL) 0.80 Direct Bilirubin (0.1 - 0.3 MG/DL) 0.40 H Indirect Bilirubin (MG/DL) 0.40 AST (8 - 34 IUnit/L) 58 H ALT (10 - 49 IUnit/L) 19 Total Alk Phosphatase (20 - 125 IUnit/L) 59 Total Protein (6.4 - 8.2 g/dL) 5.3 L Albumin (3.4 - 5.0 g/dL) 2.90 L 04/048 2024 Chemistry Sodium (134 - 147 mEq/L) 130 L Potassium (3.4 - 5.0 mEq/L) 3.3 L Chloride (100 - 108 mEq/L) 103 Carbon Dioxide (21 - 33 mEq/l) 19 L Anion Gap (0 - 20) 11 BUN (7 - 25 mg/dL) 22 Creatinine (0.6 - 1.3 mg/dL) 1.3 Glomerular Filtr Rate (70 - 80) 56.2 L Glucose (77 - 141 mg/dL) 349 H POC Glucose (70 - 110 MG/DL) 175 H Calcium (8.0 - 10.5 mg/dL) 6.2 *L Magnesium (1.6 - 2.6 mg/dL) 1.70 Total Bilirubin (0.0 - 1.0 mg/dL) 0.60 Direct Bilirubin (0.1 - 0.3 MG/DL) 0.30 Indirect Bilirubin (MG/DL) 0.30 AST (8 - 34 IUnit/L) 48 H ALT (10 - 49 IUnit/L) 14 Total Alk Phosphatase (20 - 125 IUnit/L) 52 Total Protein (6.4 - 8.2 g/dL) 4.4 L Albumin (3.4 - 5.0 g/dL) 2.30 L Laboratory Tests 04/04 0430 Hematology WBC (4.5 - 11.0 x10 3/uL) 13.0 H RBC (4.00 - 5.60 x10 6/uL) 2.88 L Hgb (12.5 - 16.9 g/dL) 7.9 L Hct (37.5 - 50.7 %) 24.4 L MCV (81.0 - 99.0 fL) 84.7 MCH (27.0 - 33.0 pg) 27.4 MCHC (33.0 - 37.0 g/dL) 32.4 L RDW (11.5 - 14.5 %) 16.1 H Plt Count (150 - 400 x10 3/uL) 89 L MPV (7.0 - 9.0 fL) 11.6 H Neut % (Auto) (56.0 - 77.0 %) 84.0 H Lymph % (Auto) (14.0 - 32.0 %) 7.0 L [place] % (Auto) (4.8 - 9.0 %) 7.3 Eos % (Auto) (0.3 - 3.7 %) 0.1 L Baso % (Auto) (0.0 - 2.0 %) 0.1 Neut # (Auto) (2.0 - 7.6 x10 3/uL) 10.96 H Lymph # (Auto) (1.0 - 3.8 x10 3/uL) 0.91 L [place] # (Auto) (0.1 - 0.8 x10 3/uL) 0.95 H Eos # (Auto) (0.0 - 0.2 x10 3/uL) 0.01 Baso # (Auto) (0.0 - 0.2 x10 3/uL) 0.01 Abs Immat Gran (auto) (0.00 - 0.03 x10 3/uL) 0.19 H Immature Gran % (0.0 - 2.0 %) 1.5 Nucleated RBC % (0 - 0 %) 0.0 Nucleated RBCs # (Man) (0.0 - 0.1 x10 3/uL) 0.00 Platelet Estimate (150 - 400 x10 3/uL) 96 L Plt Morphology Comment LARGE PLATELETS Laboratory Tests 04/04/24 1522: [Embedded Image Not Available] 04/04/24 0430: [Embedded Image Not Available] 04/04/24 0308: [Embedded Image Not Available] Radiology data Recent Impressions: RADIOLOGY - XR CHEST 1 V 04/04 3020 Report Impression - Status: SIGNED Entered: 04/04/2024 0808 IMPRESSION: There is a tiny left apical pneumothorax. The left-sided chest tube appears relatively unchanged. There is pulmonary vascular congestion. There are patchy opacities in the lung bases bilaterally. This could be due to atelectasis or pneumonia. Impression By: Trini - Mehran Tirado M.D. Free Text Obj Notes Free Text Obj Notes: GEN: Appears in no acute distress, interactive and conversational HEENT: Atraumatic, normocephalic, moist mucous membranes NECK: Supple, good range of motion, no tenderness, no JVD LUNGS: Symmetrical air entry, no acute respiratory distress, no accessory muscle use CV: S1, S2 regular rate and rhythm, warm and well perfused GI: Abdomen is soft, not tender or distended EXT/Musc: No edema or cyanosis. Pedal pulses present. Compartments soft Skin: Surgical site clean, dry and intact. Warm to touch NEURO: Awake, alert and oriented x3. No facial droop or focal deficit Diagnosis, Assessment Plan Free text A P: Patient is a 79-year-old male with a history of ascending aortic aneurysm and aortic insufficiency that is postoperative aortic root replacement, replacement of ascending aorta, hemiarch replacement with antegrade cerebral perfusion. Ascending aortic aneurysm Severe aortic insufficiency Postop day 2 status post aortic root replacement, replacement of ascending aorta , hemiarch, AVR CABG x 1 V-fib arrest ALAA Sinus bradycardia Acute hypoxic respiratory insufficiency following thoracic surgery Acute blood loss anemia secondary to surgery Hypertension Hyperglycemia Acute kidney injury Neuro:multimodal pain control Respiratory: Pulmonary hygiene, incentive spirometry, on 2 L nasal cannula ABG reviewed Cardiovascular: Patient is on dobutamine 5 mics. Metoprolol on hold. In sinus rhythm. Echo done today still shows RV dysfunction. Renal: strict I/Os, monitor Cr and electrolytes, will start on Lasix drip GI: bedside swallow then oral diet after extubation, bowel regimen, no bowel movement yet. ID: White count stable no fever Hem: monitor Hgb and CTs output, continue chest tube Endo: BG control with insulin sliding scale Misc: PTOT consult, DVT and GI ppx with SCD and PPI Full code Total critical care time 34 minutes spent treating the patient excluding any procedures performed Consultants: cardiology, critical/student records specialist at 1731 RPT #:[id number] END OF REPORT [facility] 2024-04-04 13:37:00 [id number] [facility] on [address] [address] PATIENT NAME: FARHAD WELLS ADMIT DATE: 04/01/24 ACCOUNT NO: [id number] ROOM NO: [id number] AGE: 79 REPORT TYPE: eECHOCARDIOGRAM REPORT SEX: M ADMITTING PHYSICIAN:Sol Sutton MD ATTENDING PHYSICIAN:Sol Sutton MD *[address] [address] Limited Transthoracic Echocardiogram Patient: Farhad Wells Study Date: 04/04/2024 BP: 120 / 60 URN: [id number] Location: : 1945 Age: 79 Gender: M Height: 70 in / 177.8 cm Weight: 143 lb / 64.9 kg BMI/BSA: 20.5 kg/m 2 / 1.78 m 2 *Ordering Physician: * Toya Santos *Interpreting Physician: * Svetlana Hu MD *Slasher Tender Helper: * Cristina [address] Indications: EVALUATE RV/IVC. Study data: Transthoracic echocardiogram, limited study. Procedure: A transthoracic echocardiogram was performed. Images were obtained using a [employer] cardiac ultrasound machine. Image quality was adequate. The study was technically limited due to poor acoustic window availability. Limited 2D and limited spectral Doppler. Location: Bedside. Patient status: Inpatient. Patient room number: 2206. Study status: Stat. Heart rate: 85 bpm. Findings Left ventricle: The cavity size is normal. Wall thickness is mildly increased. Systolic function is normal. The estimated ejection fraction is 55%. PATIENT NAME: FARHAD WELLS Right ventricle: The cavity size is mildly dilated. Systolic function is reduced. Systolic pressure is increased. TAPSE is 0.9 cm. Tricuspid valve: There is mild-moderate regurgitation. The estimated RVSP is 48 mmHg. Pericardium: There is no pericardial effusion. Pulmonary arteries: Systolic pressure is increased. Systemic veins: Inferior vena cava: The IVC is dilated. Respirophasic diameter changes are blunted (< 50%). Measurements Left ventricle Value Ref 04/02/2024 TIAN, LAX 3.8 cm 4.2 - 5.8 4.2 ESD, LAX 2.7 cm 2.5 - 4.0 3.1 FS, LAX 29 % 25 - 43 25 IVS, ED 1.1 cm 0.6 - 1.0 1.0 PW, ED 1.1 cm 0.6 - 1.0 1.0 IVS/PW, ED 0.99 --------- 1.03 EF 56 % 52 - 72 50 Right ventricle Value Ref 04/02/2024 TIAN, LAX 3.7 cm --------- 4.1 TAPSE, MM 0.9 cm >=1.7 0.6 Pressure, S 48 mm Hg --------- 37 Right atrium Value Ref 04/02/2024 Estimated RAP 10 mm Hg --------- Tricuspid valve Value Ref 04/02/2024 TR peak v 3.1 m/sec <=2.8 2.7 Peak RV-RA grad, S 38 mm Hg --------- 29 Pulmonary artery Value Ref 04/02/2024 Pressure, S 42.5 mm Hg --------- 31.7 Systemic veins Value Ref 04/02/2024 Estimated CVP 10 mm Hg --------- 8 Conclusions Summary: 1. Left ventricle: The cavity size is normal. Wall thickness is mildly increased. Systolic function is normal. The estimated ejection fraction is 55%. 2. Right ventricle: The cavity size is mildly dilated. Systolic function is reduced. Systolic pressure is increased. 3. Tricuspid valve: There is mild-moderate regurgitation. The estimated RVSP is 48 mmHg. 4. Pulmonary arteries: Systolic pressure is increased. Electronically signed by PATIENT NAME: FARHAD WELLS Svetlana Hu MD 04/04/2024 13:36 at 1337 PATIENT NAME: FARHAD WELLS [facility] 2024-04-04 13:37:00 [facility] ([facility]) Heart Failure Progress Note REPORT#:[id number] REPORT STATUS: Signed REPORT INITIALIZATION DATE:04/04/24 TIME: 133 PATIENT: FARHAD WELLS UNIT #: [id number] ROOM/BED: [place] [address] : 46 AGE: 79 SEX: M ATTEND: Sol Sutton MD ADM AUTHOR: Moises Lazo REPT SERVICE DT/TIME: 04/04/24 1337 * ALL edits or amendments must be made on the electronic/computer document * Moises Lazo 04/04/24 1337: Subjective HPI: This is a 78-year-old patient with a past medical history of aortic valve stenosis, hyperlipidemia who was also found to have an ascending aortic aneurysm measuring 5 cm. ECHO on 01/22/2024 showed EF 55 to 60%. LHC on 02/05/2024 showed left main to be normal, LAD proximal 30 to 40%, mid diffuse 50 to 60%, then luminal irregularities. Diagonal 1 has 40 to 55% stenosis. Circumflex proximal 60% stenosis, RCA large dominant with proximal 40 %, mid 30 to 40% in the PDA with diffuse 40% stenosis. 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 Patient was admitted on 04/01/24 and underwent. Intraoperatively, the patient received shocks due to V-fib; currently on Amiodarone drip 1. Exploration of innominate artery. 2. Chimney graft to the innominate artery (8 mm Hemashield graft). 3. Aortic root replacement (29 Konect graft, Bentall procedure). 4. Replacement of ascending aorta. 5. Hemiarch replacement. 6. Total circulatory arrest with antegrade cerebral perfusion. 7. Repair of innominate artery. 8. Amputation of left atrial appendage. 9. CABG x1 (CENTENO to LAD) Currently, the patient is reclining in bed, nursing staff at bedside for phlebotomy. Objective General VS/I O: Vital Signs Date Temp Pulse Resp B/P B/P Mean Pulse Ox FiO2 04/03-04/04 36.8-38.2 79-84 20-40 69-167/35-77 53-110 89-98 36 24 hour I O ending at 0700: 04/04 0700 04/03 1900 Intake Total 693.00 Output Total 1140 1060 Balance -1140 -367.00 Intake, IV 143.00 Intake, Oral 550 Intake, Oral 0 Supplement Output, Chest 180 70 Tube Drainage Output, Urine 960 990 PATIENT WEIGHT: Weight (lb): 143 Weight (oz): 15.39 Weight (kg): 65.300 Medications: Medication(s) Ordered: Anti-Infective Agents Sig/Joe Start time Last Medication Dose Route Stop Time Status Admin Cefazolin Sodium 2 GM PREOP ONCALL 04/01 0500 CKD IV 04/08 459 Vancomycin HCl 1,000 MG PREOP ONCALL 04/01 050 CKD Sodium Chloride 250 ML IV 04/08 045 Autonomic Drugs Sig/Joe Start time Last Medication Dose Route Stop Time Status Admin Ipratropium [facility] 500 MCG RTQ2H PRN PRN 04/04 0851 AC INH 07/03 0850 Dobutamine HCl/ 250 ML TITRATE 04/03 1345 AC 04/03 Dextrose IV 07/02 1344 1341 Ipratropium [facility] 500 MCG RTQ4H 04/01 1200 DC 04/04 INH 04/04 0851 0806 Epinephrine 4 MG ASDIR 04/01 915 AC Dextrose/Water 246 ML IV 06/30 913 Norepinephrine 250 ML TITRATE 04/01 900 AC Bitartrate IV 06/30 0859 Tamsulosin HCl 0.4 MG DAILY 04/01 900 AC 04/04 PO 06/30 0859 0846 Blood Formation,Coagulation Sig/Joe Start time Last Medication Dose Route Stop Time Status Admin Ferrous Sulfate 325 MG DAILY 04/04 900 AC PO 07/03 0859 Clopidogrel Bisulfate 75 MG DAILY 04/02 900 AC 04/04 PO 07/01 0859 0849 Cardiovascular Drugs Sig/Joe Start time Last Medication Dose Route Stop Time Status Admin Amiodarone HCl 450 MG .Q15H 04/01 2145 DC 04/01 Dextrose/Water 250 ML IV 06/30 2143 215 Atorvastatin Calcium 40 MG 2100 04/01 2100 AC 04/03 PO 05/01 Amiodarone HCl 200 MG TID 04/01 900 AC 04/04 PO 06/30 0859 0846 Nitroglycerin/ 250 ML ASDIR 04/01 900 AC Dextrose IV 06/30 0859 Central Nervous System Agents Sig/Joe Start time Last Medication Dose Route Stop Time Status Admin Aspirin 81 MG DAILY 04/01 145 AC 04/04 PO 06/30 1450 0846 Acetaminophen 650 MG Q4H PRN PRN 04/01 900 AC 04/03 PO 06/30 0859 1934 Acetaminophen 650 MG Q4H PRN PRN 04/01 900 AC RECTAL 06/30 0859 Magnesium Sulfate 100 ML ASDIR PRN 04/01 900 AC IV 06/30 0859 Magnesium Sulfate 50 ML ASDIR PRN 04/01 900 AC 04/03 IV 06/30 0859 0607 Magnesium Sulfate/ 100 ML ASDIR PRN 04/01 900 AC 04/04 Dextrose IV 06/30 0859 0636 Oxycodone HCl 5 MG Q4H PRN PRN 04/01 900 AC 04/03 PO 04/06 0859 1400 Oxycodone HCl 10 MG Q4H PRN PRN 04/01 900 AC 04/03 PO 04/06 0859 0104 Electrolytic, Caloric, And Kylee Sig/Joe Start time Last Medication Dose Route Stop Time Status Admin Furosemide 240 MG Q24H 04/04 1215 CKD 04/04 Sodium Chloride 24 ML IV 07/03 1214 1225 Furosemide 20 MG ONCE ONE 04/04 1200 DC IV 04/04 1201 Furosemide 0 .STK-MED ONE 04/04 1155 DC 04/04 IV 1157 Potassium Chloride 20 MEQ ONCE ONE 04/03 1930 DC 04/03 PO 04/03 193 2036 Furosemide 40 MG ONCE ONE 04/03 1715 DC 04/03 IV 04/03 1716 1739 Calcium Carbonate 1,000 MG Q2H PRN PRN 04/03 1330 AC 04/04 PO 07/02 1329 1226 Calcium Chloride 1 GM ASDIR PRN 04/01 900 AC IV 06/30 0859 Dextrose/Water 125 ML ASDIR PRN 04/01 900 CKD IV 06/30 0859 Dextrose/Water 250 ML ASDIR PRN 04/01 900 CKD IV 06/30 0859 Potassium Chloride 100 ML ASDIR PRN 04/01 900 AC 04/02 IV 06/30 0859 0056 Sodium Bicarbonate 50 MEQ ASDIR PRN 04/01 900 AC IV 06/30 0859 Sodium Chloride 250 ML Q24H 04/01 900 AC IV 06/30 0859 Sodium Chloride 20 ML PREOP ONCALL 04/01 0500 AC IV 06/30 0459 Gastrointestinal Drugs Sig/Joe Start time Last Medication Dose Route Stop Time Status Admin Bisacodyl 10 MG ONCE PRN 04/03 1200 AC RECTAL 07/02 1159 Magnesium Hydroxide 30 ML ONCE PRN 04/03 1200 DC 04/04 PO 0845 Polyethylene Glycol 17 GM DAILY 04/02 900 AC 04/04 PO 07/01 0859 0847 Pantoprazole 40 MG DAILY@0600 04/02 600 AC 04/04 PO 07/01 0559 0635 Sennosides 17.2 MG BEDTIME 04/01 2100 AC 04/03 PO 06/30 Docusate Sodium 100 MG BID 04/01 900 AC 04/04 PO 06/30 0859 0847 Ondansetron HCl 4 MG Q6H PRN PRN 04/01 900 AC IV 06/30 0859 Hormones And Synthetic Substit Sig/Joe Start time Last Medication Dose Route Stop Time Status Admin Vasopressin 100 ML ASDIR 04/03 715 CKD 04/03 IV 07/02 0614 0837 Insulin Human Lispro 0 AC HS 04/02 1130 AC 04/03 SUBQ 07/01 1129 2035 Glucagon 1 MG ASDIR PRN 04/01 900 AC IM 06/30 0859 Miscellaneous Therapeutic Agen Sig/Joe Start time Last Medication Dose Route Stop Time Status Admin Allopurinol 300 MG DAILY 04/01 900 AC 04/04 PO 06/30 0859 0846 Skin And Mucous Membrane Agent Sig/Joe Start time Last Medication Dose Route Stop Time Status Admin Mupirocin 1 APPLIC BID 04/01 900 AC 04/04 NASAL 04/05 2101 0848 Vitamins Sig/Joe Start time Last Medication Dose Route Stop Time Status Admin Cyanocobalamin 500 MCG DAILY 04/04 900 AC PO 07/03 0859 Active Meds + DC'd Last 24 Hrs Furosemide (LASIX) 240 MG Q24H IV (CKD) Sodium Chloride (SODIUM CHLORIDE 0.9%) 24 ML Furosemide (LASIX 20MG INJ) 20 MG ONCE ONE IV (DC) Furosemide (LASIX 40 mg/4 mL INJECTION) 0 .STK-MED ONE IV (DC) Cyanocobalamin (Vitamin B-12 500 mcg tab) 500 MCG DAILY PO Ferrous Sulfate (FERROUS SULFATE) 325 MG DAILY PO Ipratropium [facility] (ATROVENT) 500 MCG RTQ2H PRN PRN INH Potassium Chloride (POTASSIUM CHLORIDE 20MEQ TAB.ER) 20 MEQ ONCE ONE PO (DC) Furosemide (LASIX 40 mg/4 mL INJECTION) 40 MG ONCE ONE IV (DC) Dobutamine HCl/Dextrose (DOBUTamine 500MG/D5W 250ML) 250 ML TITRATE IV Calcium Carbonate (TUMS CHEW TAB) 1,000 MG Q2H PRN PRN PO Bisacodyl (DULCOLAX) 10 MG ONCE PRN RECTAL Magnesium Hydroxide (MILK OF MAGNESIA) 30 ML ONCE PRN PO (DC) Vasopressin (VASOSTRICT 20 Unit/NS 100ML) 100 ML ASDIR IV (CKD) Insulin Human Lispro (HUMALOG) 0 AC HS SUBQ Clopidogrel Bisulfate (Plavix) 75 MG DAILY PO Polyethylene Glycol (MIRALAX) 17 GM DAILY PO Pantoprazole (PROTONIX) 40 MG DAILY@0600 PO Amiodarone HCl (AMIODARONE HCL) 450 MG .Q15H IV (DC) Dextrose/Water (D5%W NON-DEHP) 250 ML Atorvastatin Calcium (LIPITOR) 40 MG 2100 PO Sennosides (Senna Lax 8.6 MG TABLET) 17.2 MG BEDTIME PO Aspirin (ASPIRIN) 81 MG DAILY PO Ipratropium [facility] (ATROVENT) 500 MCG RTQ4H INH (DC) Epinephrine (ADRENALIN CHLORIDE) 4 MG ASDIR IV Dextrose/Water (DEXTROSE 5% WATER) 246 ML Acetaminophen (TYLENOL) 650 MG Q4H PRN PRN PO Acetaminophen (TYLENOL) 650 MG Q4H PRN PRN RECTAL Allopurinol (ZYLOPRIM) 300 MG DAILY PO Amiodarone HCl (CORDARONE) 200 MG TID PO Calcium Chloride (CALCIUM CHLORIDE) 1 GM ASDIR PRN IV Dextrose/Water (DEXTROSE 10% IN WATER) 125 ML ASDIR PRN IV (CKD) Dextrose/Water (DEXTROSE 10% IN WATER) 250 ML ASDIR PRN IV (CKD) Docusate Sodium (COLACE) 100 MG BID PO Glucagon (GLUCAGON) 1 MG ASDIR PRN IM Magnesium Sulfate (MAGNESIUM SULFATE 4GM/SWFI 100ML) 100 ML ASDIR PRN IV Magnesium Sulfate (MAGNESIUM SULFATE 2GM/SWFI 50ML) 50 ML ASDIR PRN IV Magnesium Sulfate/Dextrose (MAGNESIUM SULFATE 1GM/D5W 100ML) 100 ML ASDIR PRN IV Mupirocin (BACTROBAN 2% 22 GM OINTMENT) 1 APPLIC BID NASAL Nitroglycerin/Dextrose (NITROGLYCERIN 50,000MCG/D5W 250ML) 250 ML ASDIR IV Norepinephrine Bitartrate (NOREPINEPHRINE 8 MG/NS 250 ML) 250 ML TITRATE IV Ondansetron HCl (ZOFRAN) 4 MG Q6H PRN PRN IV Oxycodone HCl (ROXICODONE) 5 MG Q4H PRN PRN PO Oxycodone HCl (ROXICODONE) 10 MG Q4H PRN PRN PO Potassium Chloride (KCL 20MEQ/SWFI 100ML) 100 ML ASDIR PRN IV Sodium Bicarbonate (SODIUM BICARBONATE) 50 MEQ ASDIR PRN IV Sodium Chloride (SODIUM CHLORIDE 0.9%) 250 ML Q24H IV Tamsulosin HCl (Flomax 0.4 mg) 0.4 MG DAILY PO Cefazolin Sodium (KEFZOL OR ANCEF) 2 GM PREOP ONCALL IV (CKD) Sodium Chloride (SODIUM CHLORIDE) 20 ML PREOP ONCALL IV Vancomycin HCl (VANCOMYCIN HCL) 1,000 MG PREOP ONCALL IV (CKD) Sodium Chloride (SODIUM CHLORIDE 0.9%) 250 ML Physical Exam General appearance: alert, awake, oriented Cardiovascular: regular rate and rhythm Respiratory: no distress Extremities: moves all Neuro/POST FORM REMOVER: alert, oriented X 3, normal speech Skin: dry, normal color Psychiatry: normal affect, normal judgment/insight, normal mood Results Findings/data: Laboratory Tests 04/04/24 0430: [Embedded Image Not Available] 04/04/24 0308: [Embedded Image Not Available] 04/03/24 1724: [Embedded Image Not Available] Laboratory Tests 04/04 04/04 04/04 04/04 04/03 1117 0738 0430 0308 2025 Chemistry Sodium (134 - 147 mEq/L) 135 130 L Potassium (3.4 - 5.0 mEq/L) 4.2 3.3 L Chloride (100 - 108 mEq/L) 105 103 Carbon Dioxide (21 - 33 mEq/l) 24 19 L Anion Gap (0 - 20) 10 11 BUN (7 - 25 mg/dL) 31 H 22 Creatinine (0.6 - 1.3 mg/dL) 1.5 H 1.3 Glomerular Filtr Rate (70 - 80) 47.4 L 56.2 L Glucose (77 - 141 mg/dL) 118 349 H POC Glucose (70 - 110 MG/DL) 135 H 129 H 175 H Calcium (8.0 - 10.5 mg/dL) 8.2 6.2 *L Magnesium (1.6 - 2.6 mg/dL) 2.09 1.70 Total Bilirubin (0.0 - 1.0 mg/dL) 0.80 0.60 Direct Bilirubin (0.1 - 0.3 MG/DL) 0.40 H 0.30 Indirect Bilirubin (MG/DL) 0.40 0.30 AST (8 - 34 IUnit/L) 58 H 48 H ALT (10 - 49 IUnit/L) 19 14 Total Alk Phosphatase (20 - 125 59 52 IUnit/L) Total Protein (6.4 - 8.2 g/dL) 5.3 L 4.4 L Albumin (3.4 - 5.0 g/dL) 2.90 L 2.30 L 04/03 04/03 1724 1625 Chemistry Sodium (134 - 147 mEq/L) 134 Potassium (3.4 - 5.0 mEq/L) 3.8 Chloride (100 - 108 mEq/L) 103 Carbon Dioxide (21 - 33 mEq/l) 24 Anion Gap (0 - 20) 11 BUN (7 - 25 mg/dL) 30 H Creatinine (0.6 - 1.3 mg/dL) 1.5 H Glomerular Filtr Rate (70 - 80) 47.4 L Glucose (77 - 141 mg/dL) 173 H POC Glucose (70 - 110 MG/DL) 152 H Calcium (8.0 - 10.5 mg/dL) 8.2 Magnesium (1.6 - 2.6 mg/dL) 2.24 Laboratory Tests 04/04 0430 Hematology WBC (4.5 - 11.0 x10 3/uL) 13.0 H RBC (4.00 - 5.60 x10 6/uL) 2.88 L Hgb (12.5 - 16.9 g/dL) 7.9 L Hct (37.5 - 50.7 %) 24.4 L MCV (81.0 - 99.0 fL) 84.7 MCH (27.0 - 33.0 pg) 27.4 MCHC (33.0 - 37.0 g/dL) 32.4 L RDW (11.5 - 14.5 %) 16.1 H Plt Count (150 - 400 x10 3/uL) 89 L MPV (7.0 - 9.0 fL) 11.6 H Neut % (Auto) (56.0 - 77.0 %) 84.0 H Lymph % (Auto) (14.0 - 32.0 %) 7.0 L [place] % (Auto) (4.8 - 9.0 %) 7.3 Eos % (Auto) (0.3 - 3.7 %) 0.1 L Baso % (Auto) (0.0 - 2.0 %) 0.1 Neut # (Auto) (2.0 - 7.6 x10 3/uL) 10.96 H Lymph # (Auto) (1.0 - 3.8 x10 3/uL) 0.91 L [place] # (Auto) (0.1 - 0.8 x10 3/uL) 0.95 H Eos # (Auto) (0.0 - 0.2 x10 3/uL) 0.01 Baso # (Auto) (0.0 - 0.2 x10 3/uL) 0.01 Abs Immat Gran (auto) (0.00 - 0.03 x10 3/uL) 0.19 H Immature Gran % (0.0 - 2.0 %) 1.5 Nucleated RBC % (0 - 0 %) 0.0 Nucleated RBCs # (Man) (0.0 - 0.1 x10 3/uL) 0.00 Platelet Estimate (150 - 400 x10 3/uL) 96 L Plt Morphology Comment LARGE PLATELETS Laboratory Tests Test Result Date Time Chemistry B-Natriuretic Peptide (0 - 100 PG/ML) 91.0 03/26 1636 Recent Impressions: RADIOLOGY - XR CHEST 1 V 04/04 0520 Report Impression - Status: SIGNED Entered: 04/04/2024 0808 IMPRESSION: There is a tiny left apical pneumothorax. The left-sided chest tube appears relatively unchanged. There is pulmonary vascular congestion. There are patchy opacities in the lung bases bilaterally. This could be due to atelectasis or pneumonia. Impression By: Trini - Mehran Tirado M.D. Diagnosis, Assessment Plan Consultants: cardiology, critical/student records specialist Free Text DxA P Notes Free text DxA P notes: V-fib/R on T occured during surgery, required 8 shocks currently on amiodarone 200mg tid AV-paced rate 80 recommend EP consult for ICD evaluation Aortic root replacement, replacement of ascending aorta, hemiarch replacement, CABG x1 CENTENO to LAD, and amputation of left atrial appendage monitor for fluid overload Maintain MAP 70-90 Strict I Os and daily standing weight Maintain K 4 and Mg 2 Trend CBC, BMP BP 136/64 AV paced rate 80 LVEF 55-60% Meds: Plavix, Amiodarone, ASA, Lipitor, metoprolol tartrate was d/c due to bradycardia HTN stable BP without meds HLD on atorvastatin 40mg daily Hypotension -on dobutamine IV gtt, 5mcg Patient is currently AV paced at the rate of 80. Underlying rhythm is junctional rhythm Patient is hemodynamically stable continue DAPT with aspirin and Plavix Continue Lipitor and amiodarone Maintain MAP 70-90 Maintain CVP 8-10 Strict I Os and daily standing weight Maintain K 4 and Mg 2 Trend CBC, BMP -cont. to hold BB -cont. diuresis, lasix IV gtt, 5mg -if urine output < 30 ml/hr, initiate inotrope, milrinone -obtain VBG, lactate -cont. dobutamine IV gtt Andrés Limon 04/05/24 1221: Attestations Physician Attestation Agree w/findings plan: Postcardiotomy shock RV failure s/p Aortic root replacement, replacement of ascending aorta, hemiarch replacement, s/p CABG x1 CENTENO to LAD, and amputation of left atrial appendage Hypertension Hyperlipidemia Did not tolerate wean down of dobutamine from 5 to 3 Continue dobutamine 5 Continue IV Lasix drip Titrate levo as needed Goal MAP 70-90 patient is currently AV paced at the rate of 80. Underlying rhythm is junctional rhythm Recommend EP consultation Continue to hold off beta-blockers Continue Lipitor and amiodarone Maintain CVP 8-10 Strict I Os and daily standing weight Maintain K 4 and Mg 2 Trend CBC, BMP Critical care time spent 35 minutes I have personally seen and examined the patient independently, and reviewed the patient's history, exam, and all cardiac and laboratory data. I agree with the history, physical, and the assessment and plan as outlined by Moises Lazo . I was present and supervised. at 1452 at 1301 RPT #:[id number] END OF REPORT [facility] 2024-04-04 10:38:00 [facility] Cardiothoracic Surgery Prog REPORT#:[id number] REPORT STATUS: Signed REPORT INITIALIZATION DATE:04/04/24 TIME: 1038 PATIENT: FARHAD WELLS UNIT #: [id number] ROOM/BED: [place] [address] : 46 AGE: 79 SEX: M ATTEND: Sol Sutton MD ADM AUTHOR: Falguni Hawkins APRN REPT SERVICE DT/TIME: 04/04/24 1038 * ALL edits or amendments must be made on the electronic/computer document * Subjective Chief complaint: post op cabg/avr/ascending aortic aneurysm replacement Review of Systems Constitutional: Reports: generalized weakness. Denies: chills. Skin: Denies: abrasion, diaphoresis, itching. Respiratory: Denies: [place] (dyspnea on exertion), pneumonia, SOB. Cardiovascular: Denies: chest pain, palpitations. GI: Denies: abdominal pain, nausea, vomiting. : Denies: dysuria, flank pain. Heme: Denies: adenopathy, bleeding, bruising. Endocrine: Denies: cold intolerance, heat intolerance, polydipsia. Neuro: Denies: bladder dysfunction, seizure, syncope. All systems rev neg: except as marked Objective General VS/I O Last Documented: Result Date Time Pulse Ox 98 04/04 630 B/P 115/45 04/04 630 B/P Mean 66 04/04 630 Temp 100.0 04/04 630 Pulse 84 04/04 630 Resp 29 04/04 630 FiO2 36 04/04 317 O2 Delivery Nasal cannula 04/04 317 O2 Flow Rate 4 04/04 317 24 hour I O ending at 0700: 04/04 0700 04/03 1900 Intake Total 693.00 Output Total 1140 1060 Balance -1140 -367.00 Intake, IV 143.00 Intake, Oral 550 Intake, Oral 0 Supplement Output, Chest 180 70 Tube Drainage Output, Urine 960 990 PATIENT WEIGHT: Weight (lb): 143 Weight (oz): 15.39 Weight (kg): 65.300 Dietitian Nutrition assessment The data set between the solid lines has been imported from the dietitian's assessment. BMI Calculated: 20.7 Nutrition related diagnosis: Nutrition diagnosis details: Nutrition problem: Nutrition etiology: Nutrition signs and symptoms: Nutrition prescription: Dietitian name: Layo Carnes, DIET Assessment completed: 04/03/24 Physical Exam General appearance: alert, awake, oriented Wound/incision: Location: sternum Site condition: dressing clean dry, dressing intact HEENT: anicteric, mucosal membranes moist, pupils reactive to light Neck: full range of motion, non-tender Cardiovascular: normal heart sounds, regular rate rhythm Respiratory: decreased breath sounds, aerating well, symmetric expansion, no distress Abdomen: soft, non-tender Genitourinary: mann, urine, no bladder distention, no flank pain Extremities: dry, moves all Musculoskeletal: full range of motion, painless range of motion Neuro/POST FORM REMOVER: alert, oriented X 3 Skin: dry, intact Psychiatry: normal affect, normal mood Current Medications Medications: Active Meds + DC'd Last 24 Hrs Cyanocobalamin (Vitamin B-12 500 mcg tab) 500 MCG DAILY PO Ferrous Sulfate (FERROUS SULFATE) 325 MG DAILY PO Ipratropium [facility] (ATROVENT) 500 MCG RTQ2H PRN PRN INH Potassium Chloride (POTASSIUM CHLORIDE 20MEQ TAB.ER) 20 MEQ ONCE ONE PO (DC) Furosemide (LASIX 40 mg/4 mL INJECTION) 40 MG ONCE ONE IV (DC) Dobutamine HCl/Dextrose (DOBUTamine 500MG/D5W 250ML) 250 ML TITRATE IV Calcium Carbonate (TUMS CHEW TAB) 1,000 MG Q2H PRN PRN PO Bisacodyl (DULCOLAX) 10 MG ONCE PRN RECTAL Magnesium Hydroxide (MILK OF MAGNESIA) 30 ML ONCE PRN PO (DC) Vasopressin (VASOSTRICT 20 Unit/NS 100ML) 100 ML ASDIR IV (CKD) Insulin Human Lispro (HUMALOG) 0 AC HS SUBQ Clopidogrel Bisulfate (Plavix) 75 MG DAILY PO Polyethylene Glycol (MIRALAX) 17 GM DAILY PO Pantoprazole (PROTONIX) 40 MG DAILY@0600 PO Amiodarone HCl (AMIODARONE HCL) 450 MG .Q15H IV (CKD) Dextrose/Water (D5%W NON-DEHP) 250 ML Atorvastatin Calcium (LIPITOR) 40 MG 2100 PO Sennosides (Senna Lax 8.6 MG TABLET) 17.2 MG BEDTIME PO Aspirin (ASPIRIN) 81 MG DAILY PO Ipratropium [facility] (ATROVENT) 500 MCG RTQ4H INH (DC) Epinephrine (ADRENALIN CHLORIDE) 4 MG ASDIR IV Dextrose/Water (DEXTROSE 5% WATER) 246 ML Acetaminophen (TYLENOL) 650 MG Q4H PRN PRN PO Acetaminophen (TYLENOL) 650 MG Q4H PRN PRN RECTAL Allopurinol (ZYLOPRIM) 300 MG DAILY PO Amiodarone HCl (CORDARONE) 200 MG TID PO Calcium Chloride (CALCIUM CHLORIDE) 1 GM ASDIR PRN IV Dextrose/Water (DEXTROSE 10% IN WATER) 125 ML ASDIR PRN IV (CKD) Dextrose/Water (DEXTROSE 10% IN WATER) 250 ML ASDIR PRN IV (CKD) Docusate Sodium (COLACE) 100 MG BID PO Glucagon (GLUCAGON) 1 MG ASDIR PRN IM Magnesium Sulfate (MAGNESIUM SULFATE 4GM/SWFI 100ML) 100 ML ASDIR PRN IV Magnesium Sulfate (MAGNESIUM SULFATE 2GM/SWFI 50ML) 50 ML ASDIR PRN IV Magnesium Sulfate/Dextrose (MAGNESIUM SULFATE 1GM/D5W 100ML) 100 ML ASDIR PRN IV Mupirocin (BACTROBAN 2% 22 GM OINTMENT) 1 APPLIC BID NASAL Nitroglycerin/Dextrose (NITROGLYCERIN 50,000MCG/D5W 250ML) 250 ML ASDIR IV Norepinephrine Bitartrate (NOREPINEPHRINE 8 MG/NS 250 ML) 250 ML TITRATE IV Ondansetron HCl (ZOFRAN) 4 MG Q6H PRN PRN IV Oxycodone HCl (ROXICODONE) 5 MG Q4H PRN PRN PO Oxycodone HCl (ROXICODONE) 10 MG Q4H PRN PRN PO Potassium Chloride (KCL 20MEQ/SWFI 100ML) 100 ML ASDIR PRN IV Sodium Bicarbonate (SODIUM BICARBONATE) 50 MEQ ASDIR PRN IV Sodium Chloride (SODIUM CHLORIDE 0.9%) 250 ML Q24H IV Tamsulosin HCl (Flomax 0.4 mg) 0.4 MG DAILY PO Cefazolin Sodium (KEFZOL OR ANCEF) 2 GM PREOP ONCALL IV (CKD) Sodium Chloride (SODIUM CHLORIDE) 20 ML PREOP ONCALL IV Vancomycin HCl (VANCOMYCIN HCL) 1,000 MG PREOP ONCALL IV (CKD) Sodium Chloride (SODIUM CHLORIDE 0.9%) 250 ML Results Findings/Data: Laboratory Tests 04/03 1134 Blood Gas Puncture Site Central Line ABG Hematocrit (37.5 - 50.7 %) 26 L ABG Hemoglobin (12.5 - 16.9 G/DL) 9.0 L VBG pH (7.33 - 7.45) 7.393 VBG pCO2 (43 - 47 mmHg) 43.4 VBG pO2 (10 - 50 mmHG) 22.3 VBG HCO3 (22 - 27 MMOL/L) 26.4 POC VBG Total CO2 27.8 VBG O2 Saturation (60 - 80 %) 37.4 L VBG Base Excess (-4.0 - 4.0 MMOL/L) 1.5 VBG Temperature (F) 100.1 Sodium (134 - 147 mmol/L) 134 Potassium (3.4 - 5.0 mmol/L) 3.9 Chloride (100 - 108 mmol/L) 99 L Ionized Calcium (1.12 - 1.32 MMOL/L) 1.13 Lactic Acid (0.9 - 1.7 mmol/l) 2.0 H O2 Delivery Device Cannula Laboratory Tests 04/04 04/04 04/04 04/03 04/03 0738 0430 0308 5 1724 Chemistry Sodium (134 - 147 mEq/L) 135 130 L 134 Potassium (3.4 - 5.0 mEq/L) 4.2 3.3 L 3.8 Chloride (100 - 108 mEq/L) 105 103 103 Carbon Dioxide (21 - 33 mEq/l) 24 19 L 24 Anion Gap (0 - 20) 10 11 11 BUN (7 - 25 mg/dL) 31 H 22 30 H Creatinine (0.6 - 1.3 mg/dL) 1.5 H 1.3 1.5 H Glomerular Filtr Rate (70 - 80) 47.4 L 56.2 L 47.4 L Glucose (77 - 141 mg/dL) 118 349 H 173 H POC Glucose (70 - 110 MG/DL) 129 H 175 H Calcium (8.0 - 10.5 mg/dL) 8.2 6.2 *L 8.2 Magnesium (1.6 - 2.6 mg/dL) 2.09 1.70 2.24 Total Bilirubin (0.0 - 1.0 mg/dL) 0.80 0.60 Direct Bilirubin (0.1 - 0.3 MG/DL) 0.40 H 0.30 Indirect Bilirubin (MG/DL) 0.40 0.30 AST (8 - 34 IUnit/L) 58 H 48 H ALT (10 - 49 IUnit/L) 19 14 Total Alk Phosphatase (20 - 125 IUnit/L) 59 52 Total Protein (6.4 - 8.2 g/dL) 5.3 L 4.4 L Albumin (3.4 - 5.0 g/dL) 2.90 L 2.30 L 04/03 04/03 04/03 1625 1134 1046 Chemistry POC Creatinine (0.8 - 1.3 mg/dL) 1.5 H POC Glucose (70 - 110 MG/DL) 152 H 192 H POC Glucose (mg/dL) (70 - 110 MG/DL) 209 H Laboratory Tests 04/04 0430 Hematology WBC (4.5 - 11.0 x10 3/uL) 13.0 H RBC (4.00 - 5.60 x10 6/uL) 2.88 L Hgb (12.5 - 16.9 g/dL) 7.9 L Hct (37.5 - 50.7 %) 24.4 L MCV (81.0 - 99.0 fL) 84.7 MCH (27.0 - 33.0 pg) 27.4 MCHC (33.0 - 37.0 g/dL) 32.4 L RDW (11.5 - 14.5 %) 16.1 H Plt Count (150 - 400 x10 3/uL) 89 L MPV (7.0 - 9.0 fL) 11.6 H Neut % (Auto) (56.0 - 77.0 %) 84.0 H Lymph % (Auto) (14.0 - 32.0 %) 7.0 L [place] % (Auto) (4.8 - 9.0 %) 7.3 Eos % (Auto) (0.3 - 3.7 %) 0.1 L Baso % (Auto) (0.0 - 2.0 %) 0.1 Neut # (Auto) (2.0 - 7.6 x10 3/uL) 10.96 H Lymph # (Auto) (1.0 - 3.8 x10 3/uL) 0.91 L [place] # (Auto) (0.1 - 0.8 x10 3/uL) 0.95 H Eos # (Auto) (0.0 - 0.2 x10 3/uL) 0.01 Baso # (Auto) (0.0 - 0.2 x10 3/uL) 0.01 Abs Immat Gran (auto) (0.00 - 0.03 x10 3/uL) 0.19 H Immature Gran % (0.0 - 2.0 %) 1.5 Nucleated RBC % (0 - 0 %) 0.0 Nucleated RBCs # (Man) (0.0 - 0.1 x10 3/uL) 0.00 Platelet Estimate (150 - 400 x10 3/uL) 96 L Plt Morphology Comment LARGE PLATELETS Radiology data: Recent Impressions: ULTRASOUND - US SOFT TISSUE TORSO 04/03 1254 Report Impression - Status: SIGNED Entered: 04/03/2024 1347 IMPRESSION: There is a right pleural effusion. Impression By: Trini Tirado M.D. RADIOLOGY - XR CHEST 1 V 04/04 0520 Report Impression - Status: SIGNED Entered: 04/04/2024 0808 IMPRESSION: There is a tiny left apical pneumothorax. The left-sided chest tube appears relatively unchanged. There is pulmonary vascular congestion. There are patchy opacities in the lung bases bilaterally. This could be due to atelectasis or pneumonia. Impression By: Trini Tirado M.D. Results: labs reviewed, vital signs stable, rythm personally rev'd, x-ray personally reviewed, current med profile rev'd Treatment Prophylaxis Treatment Prophylaxis CVC/PICC documentation: The data below has been imported from nursing documentation. Any exceptions have been noted below under Provider comments. CVC/PICC insertion date/time: CVC multi lumen double Internal jugular Right Inserted 04/01/24718 Provider comments on imported nursing data: [] Quality: Trauma Gen Surg Advanced Care Plan 65 or Older Discussed with: patient Current Medications Current medication review: I attest that the foregoing medication list in the medical record is true, accurate, and complete to the best of my knowledge. Diagnosis, Assessment Plan Free Text A P: This is a 78-year-old gentleman with a past medical history of aortic valve stenosis, hyperlipidemia who was also found to have an ascending aortic aneurysm measuring 5 cm. The patient was seen by his display specialist for 6-month follow-up. Recent echocardiogram completed on 01/22/2024 showed EF 55 to 60%, aortic valve mean/peak gradient of 30/42 mmHg, NAS measuring 0.9 cm , peak velocity 4.5 m/s. Patient also noted to have moderate mitral regurgitation, mild pulmonary hypertension with RV systolic pressure 45 mmHg. The patient underwent left heart catheterization on 02/05/2024 that showed left main to be normal, LAD proximal 30 to 40%, mid diffuse 50 to 60%, then luminal irregularities. Diagonal 1 has 40 to 55% stenosis. Circumflex proximal 60% stenosis, RCA large dominant with proximal 40%, mid 30 to 40% in the PDA with diffuse 40% stenosis. 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 Patient denies any chest pain but does report occasional dyspnea on exertion. Patient is being admitted today for replacement of ascending aorta, AVR, and possible coronary artery bypass graft surgery. Assessment/plan: 1. Dyspnea on exertion 2. Aortic valve stenosis 3. Ascending aortic aneurysm 4. Coronary artery disease 5. Hypertension 6. Hyperlipidemia Patient seen and examined by Dr. Sutton. Dr. Sutton has discussed with the patient the need for aortic valve replacement as well as ascending aortic replacement and possible coronary artery bypass graft surgery. Dr. Sutton discussed with the patient the operation, risks involved, benefits, alternatives , and complications. The patient's questions were answered and patient agreed to proceed with surgery. Patient is scheduled for surgery today. Admit to CVICU postoperatively Monitor heart rhythm and hemodynamics Strict I's and O's Cardiology and critical care consulted. 04/01/24 1. Exploration of innominate artery. 2. Chimney graft to the innominate artery (8 mm Hemashield graft). 3. Aortic root replacement (29 Konect graft, Bentall procedure). 4. Replacement of ascending aorta. 5. Hemiarch replacement. 6. Total circulatory arrest with antegrade cerebral perfusion. 7. Repair of innominate artery. 8. Amputation of left atrial appendage. 04/02/24 POD 1 AAOx3, reports pain well controlled AAOx3 Respiratory: On 3L NC, wean as tolerated, Encourage IS, Deep Breathing, nebs, pep and flutter CXR reviewed, Mediastinal CT 130cc, Pleural CT 340cc, continue to monitor. Cardiac: Sinus bradycardia, temporary pacing wires in place pacing at 80, hold BB, on amiodarone gtt @ 0.5, finish IV bag, start PO amiodarone GI: Cardiac diet, Continue Bowel regimen, positive bowel sounds, on insulin gtt : Mann, 167cc urine output last night PT/OT, encourage ambulation today DVT prophylaxis Labs reviewed- replace electrolytes as needed Disposition will be home with , good family support. Patient seen and examined by Dr. Sutton. Plan of care discussed with patient and multidisciplinary team. The patient's questions were answered. 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 and 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 Patient seen and examined by Dr. Sutton. Plan of care discussed with patient and multidisciplinary team. The patient's questions were answered. 04/04/24 POD 3 AAOx3, reports pain well controlled, patient states he is feeling better today Labs reviewed, hemoglobin 7.9 On 4L NC, wean off as tolerated, Encourage spirometer use, deep Breathing, nebs, pep and flutter CXR reviewed, Mediastinal CT 30, left pleural CT 150, reassess after ambulation for discontinuation Underlying rhythm was sinus bradycardia and junctional beats, temporary epicardial pacing wires in place, AV pacing at 84, hold BB Tolerating cardiac diet, nutritional supplements, continue Bowel regimen, positive bowel sounds, glycemic control Patient started on dobutamine yesterday currently at 5 Monitoring renal function closely, creatinine 1.5, strict I's and O's and daily weights, weight up from baseline PT/OT, encourage ambulation today, out of bed to chair for meals DVT prophylaxis with SCDs, GI prophylaxis with PPI Labs reviewed- replace electrolytes as needed Disposition will be home with , good family support. Discussed plan of care with patient, RN, and Dr. Isabel. The patient's questions were answered. MDM done by Dr. Isabel Consultants: cardiology, critical/student records specialist Code status: full code Plan discussed with: patient, collaborating MD, nurse, interdisc care team at 1051 at [phone] RPT #:[id number] END OF REPORT [facility] 2024-04-04 09:37:00 [facility] Cardiology Progress Note REPORT#:[id number] REPORT STATUS: Signed REPORT INITIALIZATION DATE:04/04/24 TIME: 09 PATIENT: FARHAD WELLS UNIT #: [id number] ROOM/BED: [place] [id number] : 46 AGE: 79 SEX: M ATTEND: Sol Sutton MD ADM AUTHOR: Judith BarbosaCNP REPT SERVICE DT/TIME: 04/04/24 09 * ALL edits or amendments must be made on the electronic/computer document * Subjective Comments: more dyspneic today, RN report decreased urine output. On dobutamine at 5 mcg/kg /min Objective General VS/I O: 24 hour I O ending at 0700: 04/04 0700 04/03 1900 Intake Total 693.00 Output Total 1140 1060 Balance -1140 -367.00 Intake, IV 143.00 Intake, Oral 550 Intake, Oral 0 Supplement Output, Chest 180 70 Tube Drainage Output, Urine 960 990 Vital Signs Date Temp Pulse Resp B/P B/P Mean Pulse Ox FiO2 04/03-04/04 36.8-38.2 79-84 20-34 91-173/35-77 53-110 84-99 36 PATIENT WEIGHT: Weight (lb): 143 Weight (oz): 15.39 Weight (kg): 65.300 Medications: Active Meds + DC'd Last 24 Hrs Cyanocobalamin (Vitamin B-12 500 mcg tab) 500 MCG DAILY PO Ferrous Sulfate (FERROUS SULFATE) 325 MG DAILY PO Ipratropium [facility] (ATROVENT) 500 MCG RTQ2H PRN PRN INH Potassium Chloride (POTASSIUM CHLORIDE 20MEQ TAB.ER) 20 MEQ ONCE ONE PO (DC) Furosemide (LASIX 40 mg/4 mL INJECTION) 40 MG ONCE ONE IV (DC) Dobutamine HCl/Dextrose (DOBUTamine 500MG/D5W 250ML) 250 ML TITRATE IV Calcium Carbonate (TUMS CHEW TAB) 1,000 MG Q2H PRN PRN PO Bisacodyl (DULCOLAX) 10 MG ONCE PRN RECTAL Magnesium Hydroxide (MILK OF MAGNESIA) 30 ML ONCE PRN PO (DC) Vasopressin (VASOSTRICT 20 Unit/NS 100ML) 100 ML ASDIR IV (CKD) Insulin Human Lispro (HUMALOG) 0 AC HS SUBQ Clopidogrel Bisulfate (Plavix) 75 MG DAILY PO Polyethylene Glycol (MIRALAX) 17 GM DAILY PO Pantoprazole (PROTONIX) 40 MG DAILY@0600 PO Amiodarone HCl (AMIODARONE HCL) 450 MG .Q15H IV (CKD) Dextrose/Water (D5%W NON-DEHP) 250 ML Atorvastatin Calcium (LIPITOR) 40 MG 2100 PO Sennosides (Senna Lax 8.6 MG TABLET) 17.2 MG BEDTIME PO Aspirin (ASPIRIN) 81 MG DAILY PO Ipratropium [place] [facility] (ATROVENT) 500 MCG RTQ4H INH (DC) Epinephrine (ADRENALIN CHLORIDE) 4 MG ASDIR IV Dextrose/Water (DEXTROSE 5% WATER) 246 ML Acetaminophen (TYLENOL) 650 MG Q4H PRN PRN PO Acetaminophen (TYLENOL) 650 MG Q4H PRN PRN RECTAL Allopurinol (ZYLOPRIM) 300 MG DAILY PO Amiodarone HCl (CORDARONE) 200 MG TID PO Calcium Chloride (CALCIUM CHLORIDE) 1 GM ASDIR PRN IV Dextrose/Water (DEXTROSE 10% IN WATER) 125 ML ASDIR PRN IV (CKD) Dextrose/Water (DEXTROSE 10% IN WATER) 250 ML ASDIR PRN IV (CKD) Docusate Sodium (COLACE) 100 MG BID PO Glucagon (GLUCAGON) 1 MG ASDIR PRN IM Magnesium Sulfate (MAGNESIUM SULFATE 4GM/SWFI 100ML) 100 ML ASDIR PRN IV Magnesium Sulfate (MAGNESIUM SULFATE 2GM/SWFI 50ML) 50 ML ASDIR PRN IV Magnesium Sulfate/Dextrose (MAGNESIUM SULFATE 1GM/D5W 100ML) 100 ML ASDIR PRN IV Mupirocin (BACTROBAN 2% 22 GM OINTMENT) 1 APPLIC BID NASAL Nitroglycerin/Dextrose (NITROGLYCERIN 50,000MCG/D5W 250ML) 250 ML ASDIR IV Norepinephrine Bitartrate (NOREPINEPHRINE 8 MG/NS 250 ML) 250 ML TITRATE IV Ondansetron HCl (ZOFRAN) 4 MG Q6H PRN PRN IV Oxycodone HCl (ROXICODONE) 5 MG Q4H PRN PRN PO Oxycodone HCl (ROXICODONE) 10 MG Q4H PRN PRN PO Potassium Chloride (KCL 20MEQ/SWFI 100ML) 100 ML ASDIR PRN IV Sodium Bicarbonate (SODIUM BICARBONATE) 50 MEQ ASDIR PRN IV Sodium Chloride (SODIUM CHLORIDE 0.9%) 250 ML Q24H IV Tamsulosin HCl (Flomax 0.4 mg) 0.4 MG DAILY PO Cefazolin Sodium (KEFZOL OR ANCEF) 2 GM PREOP ONCALL IV (CKD) Sodium Chloride (SODIUM CHLORIDE) 20 ML PREOP ONCALL IV Vancomycin HCl (VANCOMYCIN HCL) 1,000 MG PREOP ONCALL IV (CKD) Sodium Chloride (SODIUM CHLORIDE 0.9%) 250 ML Pacemaker: external Physical Exam General appearance: frail, alert, awake Neck: no JVD Respiratory: decreased breath sounds, on oxygen, shortness of breath Abdomen: soft Genitourinary: urinary catheter, urine Lower extremity: LE assessment: no edema Musculoskeletal: normal inspection Neuro/POST FORM REMOVER: alert, oriented X 3 Skin: dry Psychiatry: normal affect, normal judgment/insight, normal mood Results Findings/Data: Laboratory Tests 04/03 1134 Blood Gas Puncture Site Central Line ABG Hematocrit (37.5 - 50.7 %) 26 L ABG Hemoglobin (12.5 - 16.9 G/DL) 9.0 L VBG pH (7.33 - 7.45) 7.393 VBG pCO2 (43 - 47 mmHg) 43.4 VBG pO2 (10 - 50 mmHG) 22.3 VBG HCO3 (22 - 27 MMOL/L) 26.4 POC VBG Total CO2 27.8 VBG O2 Saturation (60 - 80 %) 37.4 L VBG Base Excess (-4.0 - 4.0 MMOL/L) 1.5 VBG Temperature (F) 100.1 Sodium (134 - 147 mmol/L) 134 Potassium (3.4 - 5.0 mmol/L) 3.9 Chloride (100 - 108 mmol/L) 99 L Ionized Calcium (1.12 - 1.32 MMOL/L) 1.13 Lactic Acid (0.9 - 1.7 mmol/l) 2.0 H O2 Delivery Device Cannula Laboratory Tests 04/04 04/04 04/04 04/03 04/03 0738 0430 0308 2025 1724 Chemistry Sodium (134 - 147 mEq/L) 135 130 L 134 Potassium (3.4 - 5.0 mEq/L) 4.2 3.3 L 3.8 Chloride (100 - 108 mEq/L) 105 103 103 Carbon Dioxide (21 - 33 mEq/l) 24 19 L 24 Anion Gap (0 - 20) 10 11 11 BUN (7 - 25 mg/dL) 31 H 22 30 H Creatinine (0.6 - 1.3 mg/dL) 1.5 H 1.3 1.5 H Glomerular Filtr Rate (70 - 80) 47.4 L 56.2 L 47.4 L Glucose (77 - 141 mg/dL) 118 349 H 173 H POC Glucose (70 - 110 MG/DL) 129 H 175 H Calcium (8.0 - 10.5 mg/dL) 8.2 6.2 *L 8.2 Magnesium (1.6 - 2.6 mg/dL) 2.09 1.70 2.24 Total Bilirubin (0.0 - 1.0 mg/dL) 0.80 0.60 Direct Bilirubin (0.1 - 0.3 MG/DL) 0.40 H 0.30 Indirect Bilirubin (MG/DL) 0.40 0.30 AST (8 - 34 IUnit/L) 58 H 48 H ALT (10 - 49 IUnit/L) 19 14 Total Alk Phosphatase (20 - 125 IUnit/L) 59 52 Total Protein (6.4 - 8.2 g/dL) 5.3 L 4.4 L Albumin (3.4 - 5.0 g/dL) 2.90 L 2.30 L 04/03 04/03 04/03 1625 1134 1046 Chemistry POC Creatinine (0.8 - 1.3 mg/dL) 1.5 H POC Glucose (70 - 110 MG/DL) 152 H 192 H POC Glucose (mg/dL) (70 - 110 MG/DL) 209 H Laboratory Tests 04/04 0430 Hematology WBC (4.5 - 11.0 x10 3/uL) 13.0 H RBC (4.00 - 5.60 x10 6/uL) 2.88 L Hgb (12.5 - 16.9 g/dL) 7.9 L Hct (37.5 - 50.7 %) 24.4 L MCV (81.0 - 99.0 fL) 84.7 MCH (27.0 - 33.0 pg) 27.4 MCHC (33.0 - 37.0 g/dL) 32.4 L RDW (11.5 - 14.5 %) 16.1 H Plt Count (150 - 400 x10 3/uL) 89 L MPV (7.0 - 9.0 fL) 11.6 H Neut % (Auto) (56.0 - 77.0 %) 84.0 H Lymph % (Auto) (14.0 - 32.0 %) 7.0 L [place] % (Auto) (4.8 - 9.0 %) 7.3 Eos % (Auto) (0.3 - 3.7 %) 0.1 L Baso % (Auto) (0.0 - 2.0 %) 0.1 Neut # (Auto) (2.0 - 7.6 x10 3/uL) 10.96 H Lymph # (Auto) (1.0 - 3.8 x10 3/uL) 0.91 L [place] # (Auto) (0.1 - 0.8 x10 3/uL) 0.95 H Eos # (Auto) (0.0 - 0.2 x10 3/uL) 0.01 Baso # (Auto) (0.0 - 0.2 x10 3/uL) 0.01 Abs Immat Gran (auto) (0.00 - 0.03 x10 3/uL) 0.19 H Immature Gran % (0.0 - 2.0 %) 1.5 Nucleated RBC % (0 - 0 %) 0.0 Nucleated RBCs # (Man) (0.0 - 0.1 x10 3/uL) 0.00 Platelet Estimate (150 - 400 x10 3/uL) 96 L Plt Morphology Comment LARGE PLATELETS Laboratory Tests 04/04 04/04 04/03 0430 0308 1724 Chemistry Magnesium (1.6 - 2.6 mg/dL) 2.09 1.70 2.24 Radiology data: Recent Impressions: ULTRASOUND - US SOFT TISSUE TORSO 04/03 1254 Report Impression - Status: SIGNED Entered: 04/03/2024 1347 IMPRESSION: There is a right pleural effusion. Impression By: Trini Tirado M.D. RADIOLOGY - XR CHEST 1 V 04/04 0520 Report Impression - Status: SIGNED Entered: 04/04/2024 0808 IMPRESSION: There is a tiny left apical pneumothorax. The left-sided chest tube appears relatively unchanged. There is pulmonary vascular congestion. There are patchy opacities in the lung bases bilaterally. This could be due to atelectasis or pneumonia. Impression By: Trini Tirado M.D. Results: labs reviewed, vital signs reviewed, rhythm personally rev'd Telemetry Interpretation: paced Diagnosis, Assessment Plan Plan discussed with: patient, collaborating MD, nurse Free Text DxA P Notes Free Text DxA P Notes: This is a 71-year-old male with medical history of aortic valve stenosis, hyperlipidemia, hypertension who was found to have 5 cm ascending aortic aneurysm. The patient was brought in today and underwent aortic root replacement, replacement of ascending aorta, hemiarch replacement, CABG x1 CENTENO to LAD, and amputation of left atrial appendage. 1. Aortic root replacement, replacement of ascending aorta, hemiarch replacement , CABG x1 CENTENO to LAD, and amputation of left atrial appendage * post-op care by CTS and critical care * 04/02: echo LVEF 50%, TAPSE 0.6 cm, RVSP 37 mmHg, bioprosthetic AV noted * 04/04: LVEF 55%, RV mildly dilated, RVSP 48 mmHg, * off vasopressin and levophed gtt at 2mcg/min * on dobutamine gtt at 5 mcg/kg/min, decreased urine output, more dyspneic today. CXR still congested. Patient need aggressive diuresis. Heart failure team on board. 2. Hypertension * monitor off BP meds * currently on pressors 3. Hyperlipidemia * continue statin MDM by Dr. Hu. at 1705 at 1148 RPT #:[id number] END OF REPORT [facility] 2024-04-03 12:41:00 [facility] ([facility]) Heart Failure Progress Note REPORT#:[id number] REPORT STATUS: Signed REPORT INITIALIZATION DATE:04/03/24 TIME: 1241 PATIENT: FARHAD WELLS UNIT #: [id number] ROOM/BED: [place] [id number] : 46 AGE: 79 SEX: M ATTEND: Sol Sutton MD ADM AUTHOR: Moises Lazo SAW MAKER REPT SERVICE DT/TIME: 04/03/24 1241 * ALL edits or amendments must be made on the electronic/computer document * Moises Lazo 04/03/24 1241: Subjective HPI: This is a 78-year-old patient with a past medical history of aortic valve stenosis, hyperlipidemia who was also found to have an ascending aortic aneurysm measuring 5 cm. ECHO on 01/22/2024 showed EF 55 to 60%. LHC on 02/05/2024 showed left main to be normal, LAD proximal 30 to 40%, mid diffuse 50 to 60%, then luminal irregularities. Diagonal 1 has 40 to 55% stenosis. Circumflex proximal 60% stenosis, RCA large dominant with proximal 40 %, mid 30 to 40% in the PDA with diffuse 40% stenosis. 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 Patient was admitted on 04/01/24 and underwent. Intraoperatively, the patient received shocks due to V-fib; currently on Amiodarone drip 1. Exploration of innominate artery. 2. Chimney graft to the innominate artery (8 mm Hemashield graft). 3. Aortic root replacement (29 Konect graft, Bentall procedure). 4. Replacement of ascending aorta. 5. Hemiarch replacement. 6. Total circulatory arrest with antegrade cerebral perfusion. 7. Repair of innominate artery. 8. Amputation of left atrial appendage. 9. CABG x1 (CENTENO to LAD) Currently, the patient is sitting in chair, using incentive spirometer. Objective General VS/I O: Vital Signs Date Temp Pulse Resp B/P B/P Mean Pulse Ox FiO2 04/02-04/03 36.8-38.2 79-82 18-29 64-154/26-152 39-152 90-100 21 24 hour I O ending at 0700: 04/03 0700 04/02 1900 Intake Total 1688.00 Output Total 1250 820 Balance -1250 868.00 Intake, IV 1086.00 Intake, Oral 250 Intake, 352 Packed Cells Output, Chest 290 225 Tube Drainage Output, Urine 960 595 Patient 65.3 kg 64.864 kg Weight Weight Standing scale Measurement Method PATIENT WEIGHT: Weight (lb): 143 Weight (oz): 15.39 Weight (kg): 65.300 Medications: Medication(s) Ordered: Anti-Infective Agents Sig/Joe Start time Last Medication Dose Route Stop Time Status Admin Cefazolin Sodium 2 GM PREOP ONCALL 04/01 0500 CKD IV 04/08 459 Vancomycin HCl 1,000 MG PREOP ONCALL 04/01 050 CKD Sodium Chloride 250 ML IV 04/08 045 Autonomic Drugs Sig/Joe Start time Last Medication Dose Route Stop Time Status Admin Ipratropium [facility] 500 MCG RTQ2H PRN PRN 04/04 0851 AC INH 07/03 0850 Ipratropium [facility] 500 MCG RTQ4H 04/01 1200 AC 04/03 INH 04/04 0851 1111 Epinephrine 4 MG ASDIR 04/01 915 AC Dextrose/Water 246 ML IV 06/30 913 Norepinephrine 250 ML TITRATE 04/01 900 AC Bitartrate IV 06/30 858 Tamsulosin HCl 0.4 MG DAILY 04/01 900 AC 04/03 PO 06/30 0859 0808 Blood Formation,Coagulation Sig/Joe Start time Last Medication Dose Route Stop Time Status Admin Ferrous Sulfate 325 MG DAILY 04/04 900 AC PO 07/03 858 Clopidogrel Bisulfate 75 MG DAILY 04/02 900 AC 04/03 PO 07/01 0859 0808 Cardiovascular Drugs Sig/Joe Start time Last Medication Dose Route Stop Time Status Admin Amiodarone HCl 450 MG .Q15H 04/01 2145 CKD 04/01 Dextrose/Water 250 ML IV 06/30 2143 215 Atorvastatin Calcium 40 MG 2100 04/01 2100 AC 04/02 PO 05/01 Amiodarone HCl 200 MG TID 04/01 900 AC 04/03 PO 06/30 0859 0808 Nitroglycerin/ 250 ML ASDIR 04/01 900 AC Dextrose IV 06/30 0859 Central Nervous System Agents Sig/Joe Start time Last Medication Dose Route Stop Time Status Admin Aspirin 81 MG DAILY 04/01 1451 AC 04/03 PO 06/30 1450 0808 Acetaminophen 650 MG Q4H PRN PRN 04/01 900 AC 04/03 PO 06/30 0859 1004 Acetaminophen 650 MG Q4H PRN PRN 04/01 900 AC RECTAL 06/30 0859 Magnesium Sulfate 100 ML ASDIR PRN 04/01 900 AC IV 06/30 0859 Magnesium Sulfate 50 ML ASDIR PRN 04/01 900 AC 04/03 IV 06/30 0859 0607 Magnesium Sulfate/ 100 ML ASDIR PRN 04/01 900 AC 04/02 Dextrose IV 06/30 858 09 Oxycodone HCl 5 MG Q4H PRN PRN 04/01 900 AC 04/02 PO 04/06 Oxycodone HCl 10 MG Q4H PRN PRN 04/01 900 AC 04/03 PO 04/06 859 0104 Electrolytic, Caloric, And Kylee Sig/Joe Start time Last Medication Dose Route Stop Time Status Admin Furosemide 40 MG ONCE ONE 04/03 830 DC 04/03 IV 04/03 831 0840 Potassium Chloride 20 MEQ ONCE ONE 04/03 615 DC 04/03 PO 04/03 616 0624 Furosemide 40 MG ONCE ONE 04/02 1815 DC 04/02 IV 04/02 181 1820 Furosemide 10 MG ONCE ONE 04/02 1615 DC 04/02 IV 04/02 161 1637 Calcium Chloride 1 GM ASDIR PRN 04/01 900 AC IV 06/30 08 Dextrose/Water 125 ML ASDIR PRN 04/01 900 CKD IV 06/30 858 Dextrose/Water 250 ML ASDIR PRN 04/01 900 CKD IV 06/30 0859 Potassium Chloride 100 ML ASDIR PRN 04/01 900 AC 04/02 IV 06/30 0759 0056 Sodium Bicarbonate 50 MEQ ASDIR PRN 04/01 900 AC IV 06/30 0759 Sodium Chloride 250 ML Q24H 04/01 900 AC IV 06/30 0759 Sodium Chloride 20 ML PREOP ONCALL 04/01 0500 AC IV 06/30 0459 Gastrointestinal Drugs Sig/Joe Start time Last Medication Dose Route Stop Time Status Admin Bisacodyl 10 MG ONCE PRN 04/03 1200 AC RECTAL 07/02 1159 Magnesium Hydroxide 30 ML ONCE PRN 04/03 1200 AC PO Polyethylene Glycol 17 GM DAILY 04/02 900 AC 04/03 PO 07/01 858 08 Pantoprazole 40 MG DAILY@0600 04/02 600 AC 04/03 PO 07/01 558 06 Sennosides 17.2 MG BEDTIME 04/01 2100 AC 04/02 PO 06/30 Docusate Sodium 100 MG BID 04/01 900 AC 04/03 PO 06/30 858 0808 Ondansetron HCl 4 MG Q6H PRN PRN 04/01 900 AC IV 01/05 0859 Hormones And Synthetic Substit Sig/Joe Start time Last Medication Dose Route Stop Time Status Admin Vasopressin 100 ML ASDIR 04/03 0715 CKD 04/03 IV 07/02 0614 0837 Insulin Human Lispro 0 AC HS 04/02 1130 AC 04/03 SUBQ 07/01 1129 1148 Glucagon 1 MG ASDIR PRN 04/01 900 AC IM 06/30 0859 Miscellaneous Therapeutic Agen Sig/Joe Start time Last Medication Dose Route Stop Time Status Admin Allopurinol 300 MG DAILY 04/01 900 AC 04/03 PO 06/30 0859 0808 Skin And Mucous Membrane Agent Sig/Joe Start time Last Medication Dose Route Stop Time Status Admin Mupirocin 1 APPLIC BID 04/01 900 AC 04/03 NASAL 04/05 2101 0807 Vitamins Sig/Joe Start time Last Medication Dose Route Stop Time Status Admin Cyanocobalamin 500 MCG DAILY 04/04 900 AC PO 07/03 0859 Active Meds + DC'd Last 24 Hrs Cyanocobalamin (Vitamin B-12 500 mcg tab) 500 MCG DAILY PO Ferrous Sulfate (FERROUS SULFATE) 325 MG DAILY PO Ipratropium [facility] (ATROVENT) 500 MCG RTQ2H PRN PRN INH Bisacodyl (DULCOLAX) 10 MG ONCE PRN RECTAL Magnesium Hydroxide (MILK OF MAGNESIA) 30 ML ONCE PRN PO Furosemide (LASIX 40 mg/4 mL INJECTION) 40 MG ONCE ONE IV (DC) Vasopressin (VASOSTRICT 20 Unit/NS 100ML) 100 ML ASDIR IV (CKD) Potassium Chloride (K-REMBERTO 20 MEQ PACKET) 20 MEQ ONCE ONE PO (DC) Furosemide (LASIX 40 mg/4 mL INJECTION) 40 MG ONCE ONE IV (DC) Furosemide (LASIX 20MG INJ) 10 MG ONCE ONE IV (DC) Insulin Human Lispro (HUMALOG) 0 AC HS SUBQ Clopidogrel Bisulfate (Plavix) 75 MG DAILY PO Polyethylene Glycol (MIRALAX) 17 GM DAILY PO Pantoprazole (PROTONIX) 40 MG DAILY@0600 PO Amiodarone HCl (AMIODARONE HCL) 450 MG .Q15H IV (CKD) Dextrose/Water (D5%W NON-DEHP) 250 ML Atorvastatin Calcium (LIPITOR) 40 MG 2100 PO Sennosides (Senna Lax 8.6 MG TABLET) 17.2 MG BEDTIME PO Aspirin (ASPIRIN) 81 MG DAILY PO Ipratropium [facility] (ATROVENT) 500 MCG RTQ4H INH Epinephrine (ADRENALIN CHLORIDE) 4 MG ASDIR IV Dextrose/Water (DEXTROSE 5% WATER) 246 ML Acetaminophen (TYLENOL) 650 MG Q4H PRN PRN PO Acetaminophen (TYLENOL) 650 MG Q4H PRN PRN RECTAL Allopurinol (ZYLOPRIM) 300 MG DAILY PO Amiodarone HCl (CORDARONE) 200 MG TID PO Calcium Chloride (CALCIUM CHLORIDE) 1 GM ASDIR PRN IV Dextrose/Water (DEXTROSE 10% IN WATER) 125 ML ASDIR PRN IV (CKD) Dextrose/Water (DEXTROSE 10% IN WATER) 250 ML ASDIR PRN IV (CKD) Docusate Sodium (COLACE) 100 MG BID PO Glucagon (GLUCAGON) 1 MG ASDIR PRN IM Magnesium Sulfate (MAGNESIUM SULFATE 4GM/SWFI 100ML) 100 ML ASDIR PRN IV Magnesium Sulfate (MAGNESIUM SULFATE 2GM/SWFI 50ML) 50 ML ASDIR PRN IV Magnesium Sulfate/Dextrose (MAGNESIUM SULFATE 1GM/D5W 100ML) 100 ML ASDIR PRN IV Mupirocin (BACTROBAN 2% 22 GM OINTMENT) 1 APPLIC BID NASAL Nitroglycerin/Dextrose (NITROGLYCERIN 50,000MCG/D5W 250ML) 250 ML ASDIR IV Norepinephrine Bitartrate (NOREPINEPHRINE 8 MG/NS 250 ML) 250 ML TITRATE IV Ondansetron HCl (ZOFRAN) 4 MG Q6H PRN PRN IV Oxycodone HCl (ROXICODONE) 5 MG Q4H PRN PRN PO Oxycodone HCl (ROXICODONE) 10 MG Q4H PRN PRN PO Potassium Chloride (KCL 20MEQ/SWFI 100ML) 100 ML ASDIR PRN IV Sodium Bicarbonate (SODIUM BICARBONATE) 50 MEQ ASDIR PRN IV Sodium Chloride (SODIUM CHLORIDE 0.9%) 250 ML Q24H IV Tamsulosin HCl (Flomax 0.4 mg) 0.4 MG DAILY PO Cefazolin Sodium (KEFZOL OR ANCEF) 2 GM PREOP ONCALL IV (CKD) Sodium Chloride (SODIUM CHLORIDE) 20 ML PREOP ONCALL IV Vancomycin HCl (VANCOMYCIN HCL) 1,000 MG PREOP ONCALL IV (CKD) Sodium Chloride (SODIUM CHLORIDE 0.9%) 250 ML Physical Exam General appearance: alert, awake, oriented Cardiovascular: regular rate and rhythm Respiratory: no distress Extremities: moves all Neuro/POST FORM REMOVER: alert, oriented X 3, normal speech Skin: dry, normal color Psychiatry: normal affect, normal judgment/insight, normal mood Results Findings/data: Laboratory Tests 04/03/24 0225: [Embedded Image Not Available] 04/02/24 1749: [Embedded Image Not Available] 04/02/24 1626: [Embedded Image Not Available] Laboratory Tests 04/03 04/03 04/03 04/02 1134 0610 0231 1751 Blood Gas Puncture Site Central Line Art Line Art Line Art Line O2 Saturation (90 - 100 %) 94.3 90.3 86.9 L ABG pH (7.35 - 7.45) 7.459 H 7.468 H 7.447 ABG pCO2 (35.0 - 45 mmHg) 35.0 34.2 L 33.7 L ABG pO2 (80 - 100.0 mmHg) 67.6 L 54.9 L 50.0 L ABG HCO3 (22.0 - 26.0 MMOL/L) 24.9 24.8 23.2 ABG Total CO2 25.9 25.8 24.3 ABG Base Excess (-4.0 - 4.0 1.0 1.1 -0.8 MMOL/L) ABG Hematocrit (37.5 - 50.7 %) 26 L 27 L 26 L 26 L ABG Hemoglobin (12.5 - 16.9 G/DL) 9.0 L 9.3 L 8.8 L 8.9 L Marco Test N/A N/A VBG pH (7.33 - 7.45) 7.393 VBG pCO2 (43 - 47 mmHg) 43.4 VBG pO2 (10 - 50 mmHG) 22.3 VBG HCO3 (22 - 27 MMOL/L) 26.4 POC VBG Total CO2 27.8 VBG O2 Saturation (60 - 80 %) 37.4 L VBG Base Excess (-4.0 - 4.0 1.5 MMOL/L) VBG Temperature (F) 100.1 Sodium (134 - 147 mmol/L) 134 137 134 137 Potassium (3.4 - 5.0 mmol/L) 3.9 4.0 4.8 4.3 Chloride (100 - 108 mmol/L) 99 L 101 102 105 Ionized Calcium (1.12 - 1.32 1.13 1.18 1.12 1.15 MMOL/L) Lactic Acid (0.9 - 1.7 mmol/l) 2.0 H 1.1 1.1 2.2 H Temperature (F) 98.1 98.9 100 O2 Delivery Device Cannula Cannula Cannula Room Air Laboratory Tests 04/03 04/03 04/03 04/03 04/03 1134 1046 0755 0610 0231 Chemistry POC Creatinine (0.8 - 1.3 mg/dL) 1.5 H 1.5 H 1.5 H POC Glucose (70 - 110 MG/DL) 192 H 158 H POC Glucose (mg/dL) (70 - 110 MG/DL) 209 H 151 H 147 H 04/03 3178 2203 Chemistry Sodium (134 - 147 mEq/L) 138 139 Potassium (3.4 - 5.0 mEq/L) 3.9 4.3 Chloride (100 - 108 mEq/L) 108 107 Carbon Dioxide (21 - 33 mEq/l) 23 22 Anion Gap (0 - 20) 11 14 BUN (7 - 25 mg/dL) 24 23 Creatinine (0.6 - 1.3 mg/dL) 1.4 H 1.5 H POC Creatinine (0.8 - 1.3 mg/dL) 1.5 H Glomerular Filtr Rate (70 - 80) 51.4 L 47.4 L Glucose (77 - 141 mg/dL) 133 153 H POC Glucose (70 - 110 MG/DL) 137 H POC Glucose (mg/dL) (70 - 110 MG/DL) 188 H Calcium (8.0 - 10.5 mg/dL) 7.4 L 8.3 Ionized Calcium Katharina (1.09 - 1.30 MMOL/L) 1.10 Magnesium (1.6 - 2.6 mg/dL) 1.94 2.39 Total Bilirubin (0.0 - 1.0 mg/dL) 0.80 Direct Bilirubin (0.1 - 0.3 MG/DL) 0.40 H Indirect Bilirubin (MG/DL) 0.40 AST (8 - 34 IUnit/L) 96 H ALT (10 - 49 IUnit/L) 24 Total Alk Phosphatase (20 - 125 IUnit/L) 49 Total Protein (6.4 - 8.2 g/dL) 5.2 L Albumin (3.4 - 5.0 g/dL) 3.00 L 04/02 1630 Chemistry POC Glucose (70 - 110 MG/DL) 145 H Laboratory Tests 04/03 04/02 0225 1626 Hematology WBC (4.5 - 11.0 x10 3/uL) 17.3 H 12.5 H RBC (4.00 - 5.60 x10 6/uL) 3.13 L 3.10 L Hgb (12.5 - 16.9 g/dL) 8.5 L 8.6 L Hct (37.5 - 50.7 %) 25.7 L 25.6 L MCV (81.0 - 99.0 fL) 82.1 82.6 MCH (27.0 - 33.0 pg) 27.2 27.7 MCHC (33.0 - 37.0 g/dL) 33.1 33.6 RDW (11.5 - 14.5 %) 16.7 H 16.5 H Plt Count (150 - 400 x10 3/uL) 120 L 111 L MPV (7.0 - 9.0 fL) 11.9 H 11.5 H Neut % (Auto) (56.0 - 77.0 %) 78.4 H 85.2 H Lymph % (Auto) (14.0 - 32.0 %) 8.6 L 6.8 L [place] % (Auto) (4.8 - 9.0 %) 9.7 H 7.3 Eos % (Auto) (0.3 - 3.7 %) 2.5 0.0 L Baso % (Auto) (0.0 - 2.0 %) 0.2 0.1 Neut # (Auto) (2.0 - 7.6 x10 3/uL) 13.52 H 10.61 H Lymph # (Auto) (1.0 - 3.8 x10 3/uL) 1.49 0.85 L [place] # (Auto) (0.1 - 0.8 x10 3/uL) 1.68 H 0.91 H Eos # (Auto) (0.0 - 0.2 x10 3/uL) 0.43 H 0.00 Baso # (Auto) (0.0 - 0.2 x10 3/uL) 0.03 0.01 Abs Immat Gran (auto) (0.00 - 0.03 x10 3/uL) 0.10 H 0.08 H Immature Gran % (0.0 - 2.0 %) 0.6 0.6 Nucleated RBC % (0 - 0 %) 0.0 0.0 Nucleated RBCs # (Man) (0.0 - 0.1 x10 3/uL) 0.00 0.00 Immature Plt Fraction (0.9 - 11.2 %) 8.7 7.5 Laboratory Tests Test Result Date Time Chemistry B-Natriuretic Peptide (0 - 100 PG/ML) 91.0 03/26 1636 Recent Impressions: RADIOLOGY - XR ABDOMEN 1V (KUB) 04/02 1345 Report Impression - Status: SIGNED Entered: 04/02/2024 1459 IMPRESSION: Nonspecific nonobstructive bowel gas pattern. Moderate amount of stool in the colon suggestive of constipation. Recent CABG. Prosthetic aortic valve is seen. Support lines and tubes are stable. Left basilar retrocardiac opacity consistent with atelectasis and/or infiltrate. Impression By: AidenPC23 - Rich RobertsSPratima RADIOLOGY - XR CHEST 1 V 04/03 0558 Report Impression - Status: SIGNED Entered: 04/03/2024 0917 IMPRESSION: There is pulmonary vascular congestion. There are patchy opacities in the lung bases bilaterally. This could be due to atelectasis or pneumonia. The findings appear worse compared to the prior exam. Impression By: Trini - Mehran Tirado M.D. Diagnosis, Assessment Plan Consultants: cardiology, critical/student records specialist Free Text DxA P Notes Free text DxA P notes: V-fib/R on T occured during surgery, required 8 shocks currently on amiodarone drip AV-paced rate 80 recommend EP consult for ICD evaluation Aortic root replacement, replacement of ascending aorta, hemiarch replacement, CABG x1 CENTENO to LAD, and amputation of left atrial appendage monitor for fluid overload Maintain MAP 70-90 Strict I Os and daily standing weight Maintain K 4 and Mg 2 Trend CBC, BMP BP 133/70 AV paced rate 80 LVEF 55-60% Meds: Plavix, Amiodarone, ASA, Lipitor, metoprolol tartrate was d/c due to bradycardia HTN stable BP without meds HLD on atorvastatin 40mg daily Hypotension -on vaso IV gtt, 0.03U -on levo IV gtt, 2mcg Patient is currently AV paced at the rate of 80. Underlying rhythm is junctional rhythm Continue IV amio Patient is hemodynamically stable continue DAPT with aspirin and Plavix Continue Lipitor and amiodarone Maintain MAP 70-90 Maintain CVP 8-10 Strict I Os and daily standing weight Maintain K 4 and Mg 2 Trend CBC, BMP -cont. to hold BB -recommend diuresis, lasix 4omg IV bid -if urine output < 30 ml/hr, initiate inotrope, milrinone -obtain VBG, lactate Andrés Limon 04/03/24 1348: Attestations Physician Attestation Agree w/findings plan: Postcardiotomy shock RV failure s/p Aortic root replacement, replacement of ascending aorta, hemiarch replacement, s/p CABG x1 CENTENO to LAD, and amputation of left atrial appendage Hypertension Hyperlipidemia Recommend initiation of dobutamine 3 Recommend Lasix 40 mg IV twice daily Titrate levo as needed and wean off vaso Goal MAP 70-90 patient is currently AV paced at the rate of 80. Underlying rhythm is junctional rhythm Continue to hold off beta-blockers Agree with switching amio to p.o. Continue Lipitor and amiodarone Maintain MAP 70-90 Maintain CVP 8-10 Strict I Os and daily standing weight Maintain K 4 and Mg 2 Trend CBC, BMP Critical care time spent 35 minutes I have personally seen and examined the patient independently, and reviewed the patient's history, exam, and all cardiac and laboratory data. I agree with the history, physical, and the assessment and plan as outlined by Ashley Vasquez MODERN DANCER. I was present and supervised. at 1303 at 1401 [id number] END OF REPORT [facility] 2024-04-03 10:26:00 [facility] Cardiology Progress Note REPORT#:[id number] REPORT STATUS: Signed REPORT INITIALIZATION DATE:04/03/24 TIME: 1026 PATIENT: FARHAD WELLS UNIT #: [id number] ROOM/BED: [place] [address] : 46 AGE: 79 SEX: M ATTEND: Sol Sutton MD ADM AUTHOR: Judith Barbosa AGACNP REPT SERVICE DT/TIME: 04/03/24 1026 * ALL edits or amendments must be made on the electronic/computer document * Judith Barbosa 04/03/24 1026: Subjective Comments: OOB to chair. On Levophed and Vasopressin gtt. AV paced Objective General VS/I O: 24 hour I O ending at 0700: 04/03 0700 04/02 1900 Intake Total 1688.00 Output Total 1250 820 Balance -1250 868.00 Intake, IV 1086.00 Intake, Oral 250 Intake, 352 Packed Cells Output, Chest 290 225 Tube Drainage Output, Urine 960 595 Patient 65.3 kg 64.864 kg Weight Weight Standing scale Measurement Method Weight (lb): 143 Weight (oz): 15.39 Weight (kg): 65.300 Medications: Active Meds + DC'd Last 24 Hrs Cyanocobalamin (Vitamin B-12 500 mcg tab) 500 MCG DAILY PO Ferrous Sulfate (FERROUS SULFATE) 325 MG DAILY PO Ipratropium [facility] (ATROVENT) 500 MCG RTQ2H PRN PRN INH Bisacodyl (DULCOLAX) 10 MG ONCE PRN RECTAL Magnesium Hydroxide (MILK OF MAGNESIA) 30 ML ONCE PRN PO Furosemide (LASIX 40 mg/4 mL INJECTION) 40 MG ONCE ONE IV (DC) Vasopressin (VASOSTRICT 20 Unit/NS 100ML) 100 ML ASDIR IV (CKD) Potassium Chloride (K-REMBERTO 20 MEQ PACKET) 20 MEQ ONCE ONE PO (DC) Furosemide (LASIX 40 mg/4 mL INJECTION) 40 MG ONCE ONE IV (DC) Furosemide (LASIX 20MG INJ) 10 MG ONCE ONE IV (DC) Insulin Human Lispro (HUMALOG) 0 AC HS SUBQ Clopidogrel Bisulfate (Plavix) 75 MG DAILY PO Polyethylene Glycol (MIRALAX) 17 GM DAILY PO Pantoprazole (PROTONIX) 40 MG DAILY@0600 PO Amiodarone HCl (AMIODARONE HCL) 450 MG .Q15H IV (CKD) Dextrose/Water (D5%W NON-DEHP) 250 ML Atorvastatin Calcium (LIPITOR) 40 MG 2100 PO Sennosides (Senna Lax 8.6 MG TABLET) 17.2 MG BEDTIME PO Aspirin (ASPIRIN) 81 MG DAILY PO Ipratropium [facility] (ATROVENT) 500 MCG RTQ4H INH Epinephrine (ADRENALIN CHLORIDE) 4 MG ASDIR IV Dextrose/Water (DEXTROSE 5% WATER) 246 ML Acetaminophen (TYLENOL) 650 MG Q4H PRN PRN PO Acetaminophen (TYLENOL) 650 MG Q4H PRN PRN RECTAL Allopurinol (ZYLOPRIM) 300 MG DAILY PO Amiodarone HCl (CORDARONE) 200 MG TID PO Calcium Chloride (CALCIUM CHLORIDE) 1 GM ASDIR PRN IV Dextrose/Water (DEXTROSE 10% IN WATER) 125 ML ASDIR PRN IV (CKD) Dextrose/Water (DEXTROSE 10% IN WATER) 250 ML ASDIR PRN IV (CKD) Docusate Sodium (COLACE) 100 MG BID PO Glucagon (GLUCAGON) 1 MG ASDIR PRN IM Magnesium Sulfate (MAGNESIUM SULFATE 4GM/SWFI 100ML) 100 ML ASDIR PRN IV Magnesium Sulfate (MAGNESIUM SULFATE 2GM/SWFI 50ML) 50 ML ASDIR PRN IV Magnesium Sulfate/Dextrose (MAGNESIUM SULFATE 1GM/D5W 100ML) 100 ML ASDIR PRN IV Mupirocin (BACTROBAN 2% 22 GM OINTMENT) 1 APPLIC BID NASAL Nitroglycerin/Dextrose (NITROGLYCERIN 50,000MCG/D5W 250ML) 250 ML ASDIR IV Norepinephrine Bitartrate (NOREPINEPHRINE 8 MG/NS 250 ML) 250 ML TITRATE IV Ondansetron HCl (ZOFRAN) 4 MG Q6H PRN PRN IV Oxycodone HCl (ROXICODONE) 5 MG Q4H PRN PRN PO Oxycodone HCl (ROXICODONE) 10 MG Q4H PRN PRN PO Potassium Chloride (KCL 20MEQ/SWFI 100ML) 100 ML ASDIR PRN IV Sodium Bicarbonate (SODIUM BICARBONATE) 50 MEQ ASDIR PRN IV Sodium Chloride (SODIUM CHLORIDE 0.9%) 250 ML Q24H IV Tamsulosin HCl (Flomax 0.4 mg) 0.4 MG DAILY PO Cefazolin Sodium (KEFZOL OR ANCEF) 2 GM PREOP ONCALL IV (CKD) Sodium Chloride (SODIUM CHLORIDE) 20 ML PREOP ONCALL IV Vancomycin HCl (VANCOMYCIN HCL) 1,000 MG PREOP ONCALL IV (CKD) Sodium Chloride (SODIUM CHLORIDE 0.9%) 250 ML Physical Exam General appearance: alert, awake, oriented, no acute distress Neck: no JVD Respiratory: decreased breath sounds, on oxygen, no distress Abdomen: soft Genitourinary: urinary catheter, urine Lower extremity: LE assessment: no edema Musculoskeletal: normal inspection Neuro/POST FORM REMOVER: alert, oriented X 3 Skin: dry Psychiatry: normal affect, normal mood Results Findings/Data: Laboratory Tests 04/0310 1 1751 Blood Gas Puncture Site Art Line Art Line Art Line O2 Saturation (90 - 100 %) 94.3 90.3 86.9 L ABG pH (7.35 - 7.45) 7.459 H 7.468 H 7.447 ABG pCO2 (35.0 - 45 mmHg) 35.0 34.2 L 33.7 L ABG pO2 (80 - 100.0 mmHg) 67.6 L 54.9 L 50.0 L ABG HCO3 (22.0 - 26.0 MMOL/L) 24.9 24.8 23.2 ABG Total CO2 25.9 25.8 24.3 ABG Base Excess (-4.0 - 4.0 MMOL/L) 1.0 1.1 -0.8 ABG Hematocrit (37.5 - 50.7 %) 27 L 26 L 26 L ABG Hemoglobin (12.5 - 16.9 G/DL) 9.3 L 8.8 L 8.9 L Marco Test N/A N/A Sodium (134 - 147 mmol/L) 137 134 137 Potassium (3.4 - 5.0 mmol/L) 4.0 4.8 4.3 Chloride (100 - 108 mmol/L) 101 102 105 Ionized Calcium (1.12 - 1.32 MMOL/L) 1.18 1.12 1.15 Lactic Acid (0.9 - 1.7 mmol/l) 1.1 1.1 2.2 H Temperature (F) 98.1 98.9 100 O2 Delivery Device Cannula Cannula Room Air Laboratory Tests 04/03 04/03 04/03 04/03 04/02 0755 0610 230 224 2014 Chemistry Sodium (134 - 147 mEq/L) 138 Potassium (3.4 - 5.0 mEq/L) 3.9 Chloride (100 - 108 mEq/L) 108 Carbon Dioxide (21 - 33 mEq/l) 23 Anion Gap (0 - 20) 11 BUN (7 - 25 mg/dL) 24 Creatinine (0.6 - 1.3 mg/dL) 1.4 H POC Creatinine (0.8 - 1.3 mg/dL) 1.5 H 1.5 H Glomerular Filtr Rate (70 - 80) 51.4 L Glucose (77 - 141 mg/dL) 133 POC Glucose (70 - 110 MG/DL) 158 H 137 H POC Glucose (mg/dL) (70 - 110 MG/DL) 151 H 147 H Calcium (8.0 - 10.5 mg/dL) 7.4 L Magnesium (1.6 - 2.6 mg/dL) 1.94 Total Bilirubin (0.0 - 1.0 mg/dL) 0.80 Direct Bilirubin (0.1 - 0.3 MG/DL) 0.40 H Indirect Bilirubin (MG/DL) 0.40 AST (8 - 34 IUnit/L) 96 H ALT (10 - 49 IUnit/L) 24 Total Alk Phosphatase (20 - 125 49 IUnit/L) Total Protein (6.4 - 8.2 g/dL) 5.2 L Albumin (3.4 - 5.0 g/dL) 3.00 L 04/02 04/02 04/02 04/02 1751 1749 1630 1156 Chemistry Sodium (134 - 147 mEq/L) 139 Potassium (3.4 - 5.0 mEq/L) 4.3 Chloride (100 - 108 mEq/L) 107 Carbon Dioxide (21 - 33 mEq/l) 22 Anion Gap (0 - 20) 14 BUN (7 - 25 mg/dL) 23 Creatinine (0.6 - 1.3 mg/dL) 1.5 H POC Creatinine (0.8 - 1.3 mg/dL) 1.5 H Glomerular Filtr Rate (70 - 80) 47.4 L Glucose (77 - 141 mg/dL) 153 H POC Glucose (70 - 110 MG/DL) 145 H 128 H POC Glucose (mg/dL) (70 - 110 MG/DL) 188 H Calcium (8.0 - 10.5 mg/dL) 8.3 Ionized Calcium Katharina (1.09 - 1.30 MMOL/L) 1.10 Magnesium (1.6 - 2.6 mg/dL) 2.39 Laboratory Tests 04/03 04/02 0225 1626 Hematology WBC (4.5 - 11.0 x10 3/uL) 17.3 H 12.5 H RBC (4.00 - 5.60 x10 6/uL) 3.13 L 3.10 L Hgb (12.5 - 16.9 g/dL) 8.5 L 8.6 L Hct (37.5 - 50.7 %) 25.7 L 25.6 L MCV (81.0 - 99.0 fL) 82.1 82.6 MCH (27.0 - 33.0 pg) 27.2 27.7 MCHC (33.0 - 37.0 g/dL) 33.1 33.6 RDW (11.5 - 14.5 %) 16.7 H 16.5 H Plt Count (150 - 400 x10 3/uL) 120 L 111 L MPV (7.0 - 9.0 fL) 11.9 H 11.5 H Neut % (Auto) (56.0 - 77.0 %) 78.4 H 85.2 H Lymph % (Auto) (14.0 - 32.0 %) 8.6 L 6.8 L [place] % (Auto) (4.8 - 9.0 %) 9.7 H 7.3 Eos % (Auto) (0.3 - 3.7 %) 2.5 0.0 L Baso % (Auto) (0.0 - 2.0 %) 0.2 0.1 Neut # (Auto) (2.0 - 7.6 x10 3/uL) 13.52 H 10.61 H Lymph # (Auto) (1.0 - 3.8 x10 3/uL) 1.49 0.85 L [place] # (Auto) (0.1 - 0.8 x10 3/uL) 1.68 H 0.91 H Eos # (Auto) (0.0 - 0.2 x10 3/uL) 0.43 H 0.00 Baso # (Auto) (0.0 - 0.2 x10 3/uL) 0.03 0.01 Abs Immat Gran (auto) (0.00 - 0.03 x10 3/uL) 0.10 H 0.08 H Immature Gran % (0.0 - 2.0 %) 0.6 0.6 Nucleated RBC % (0 - 0 %) 0.0 0.0 Nucleated RBCs # (Man) (0.0 - 0.1 x10 3/uL) 0.00 0.00 Immature Plt Fraction (0.9 - 11.2 %) 8.7 7.5 Laboratory Tests 04/03 04/02 0225 1749 Chemistry Magnesium (1.6 - 2.6 mg/dL) 1.94 2.39 Radiology data: Recent Impressions: RADIOLOGY - XR ABDOMEN 1V (KUB) 04/02 1345 Report Impression - Status: SIGNED Entered: 04/02/2024 1459 IMPRESSION: Nonspecific nonobstructive bowel gas pattern. Moderate amount of stool in the colon suggestive of constipation. Recent CABG. Prosthetic aortic valve is seen. Support lines and tubes are stable. Left basilar retrocardiac opacity consistent with atelectasis and/or infiltrate. Impression By: [facility]CON[facility] - Elizabeth Raymond M.S. RADIOLOGY - XR CHEST 1 V 04/03 0558 Report Impression - Status: SIGNED Entered: 04/03/2024 0917 IMPRESSION: There is pulmonary vascular congestion. There are patchy opacities in the lung bases bilaterally. This could be due to atelectasis or pneumonia. The findings appear worse compared to the prior exam. Impression By: Trini Tirado M.D. Results: labs reviewed, vital signs reviewed, rhythm personally rev'd Telemetry Interpretation: paced Echo results: Summary: 1. Left ventricle: The cavity size is normal. Wall thickness is normal. Systolic function is at the lower limits of normal. The estimated ejection fraction is 50%. Wall motion is normal; there are no regional wall motion abnormalities. Left ventricular diastolic function parameters are indeterminate. 2. Right ventricle: The cavity size is mildly to moderately dilated. Systolic function is mildly to moderately reduced. The tricuspid annular plane systolic excursion is 0.6 cm. The RV pressure during systole is 37 mm Hg. 3. Left atrium: The atrium is severely dilated. 4. Right atrium: The atrium is dilated. 5. Aortic valve: A bioprosthetic valve is present. 6. Mitral valve: There is mild regurgitation. 7. Tricuspid valve: There is mild regurgitation. 8. Pericardium, extracardiac: Th Diagnosis, Assessment Plan Plan discussed with: patient, family, nurse Free Text DxA P Notes Free Text DxA P Notes: This is a 71-year-old male with medical history of aortic valve stenosis, hyperlipidemia, hypertension who was found to have 5 cm ascending aortic aneurysm. The patient was brought in today and underwent aortic root replacement, replacement of ascending aorta, hemiarch replacement, CABG x1 CENTENO to LAD, and amputation of left atrial appendage. 1. Aortic root replacement, replacement of ascending aorta, hemiarch replacement , CABG x1 CENTENO to LAD, and amputation of left atrial appendage * post-op care by CTS and critical care * 04/02: echo LVEF 50%, TAPSE 0.6 cm, RVSP 37 mmHg, bioprosthetic AV noted * on vasopressin at 0.03 units/min and levophed gtt at 2mcg/min * CVP trend does not look accurate but patient is volume expanded by exam. Had IV lasix 40 mg x 1 today. Heart failure team on board 2. Hypertension * monitor off BP meds * currently on pressors 3. Hyperlipidemia * continue statin MDM by Dr. Hu. Svetlana Hu 04/03/24 1826: Attestations Physician Attestation Agree w/findings plan: I have seen and examined the pt, I Agree with the findings and plan as documented by Judith Barbosa. at 1410 at 1827 [id number] END OF REPORT [facility] 2024-04-03 09:23:00 [id number] [place] [address] PATIENT NAME: FARHAD WELLS ADMIT DATE: 04/01/24 ACCOUNT NO: [id number] ROOM NO: [id number] AGE: 79 REPORT TYPE: eECHOCARDIOGRAM REPORT SEX: M ADMITTING PHYSICIAN:Sol Sutton MD ATTENDING PHYSICIAN:Sol Sutton MD *[place] [address] Transthoracic Echocardiogram Patient: Farhad Wells Study Date: 04/02/2024 BP: 123 / 64 URN: [id number] Location: : 1945 Age: 79 Gender: M Height: 70 in / 177.8 cm Weight: 143 lb / 64.9 kg BMI/BSA: 20.5 kg/m 2 / 1.78 m 2 *Ordering Physician: * Kaushik Lopez *Interpreting Physician: * Svetlana Hu MD *Slasher Tender Helper: * Fide Mccollum Indications: S/P AVR/CABG. Study data: Transthoracic echocardiogram. Procedure: A transthoracic echocardiogram was performed. Image quality was adequate. Complete 2D, complete spectral Doppler, and color Doppler. Location: Bedside. Patient room number: 2206. Heart rate: 81 bpm. Findings Left ventricle: The cavity size is normal. Wall thickness is normal. Systolic function is at the lower limits of normal. The estimated ejection fraction is 50%. Wall motion is normal; there are no regional wall motion abnormalities. Left ventricular diastolic function parameters are indeterminate. Right ventricle: The cavity size is mildly to moderately dilated. Systolic PATIENT NAME: FARHAD WELLS function is mildly to moderately reduced. Left atrium: The atrium is severely dilated. Right atrium: The atrium is dilated. Aorta: Aortic root: The root is normal-sized. Aortic valve: A bioprosthetic valve is present. There is no evidence of stenosis. There is no regurgitation. Mitral valve: The valve is structurally normal. There is no evidence of stenosis. There is mild regurgitation. Tricuspid valve: The valve is structurally normal. There is mild regurgitation. Pulmonic valve: The valve is structurally normal. There is no regurgitation. Pericardium: There is no pericardial effusion. Pulmonary arteries: The main pulmonary artery is normal-sized. Systemic veins: Inferior vena cava: The IVC is dilated. Respirophasic diameter changes are blunted (< 50%). Measurements Left ventricle Value Ref TIAN, LAX 4.2 cm 4.2 - 5.8 ESD, LAX 3.1 cm 2.5 - 4.0 FS, LAX 25 % 25 - 43 TIAN major ax, A2C 7.6 cm --------- ESD major ax, A2C 8.1 cm --------- IVS, ED 1.0 cm 0.6 - 1.0 PW, ED 1.0 cm 0.6 - 1.0 IVS/PW, ED 1.03 --------- EF 50 % 52 - 72 E', lat alec, TDI 12.3 cm/sec >=10.0 E/e', lat alec, TDI 9 <=13 E', med alec, TDI 8.1 cm/sec >=7.0 E/e', med alec, TDI 14 --------- E', avg, TDI 10.2 cm/sec --------- E/e', avg, TDI 11 <=14 LVOT Value Ref Diam, S 2.07 cm --------- Area 3.4 cm 2 --------- Peak marsha, S 0.98 m/sec --------- Mean marsha, S 0.57 m/sec --------- VTI, S 16.7 cm --------- Peak grad, S 4 mm Hg --------- Mean grad, S 2 mm Hg --------- SV 56 ml --------- SV/bsa 31 ml/m 2 --------- Right ventricle Value Ref TIAN, LAX 4.1 cm --------- TAPSE, MM 0.6 cm >=1.7 Pressure, S 37 mm Hg --------- S' lateral 6.0 cm/sec >=9.5 PATIENT NAME: FARHAD WELLS RVOT Value Ref Peak v, S 0.92 m/sec --------- Peak grad, S 3 mm Hg --------- Left atrium Value Ref Vol/bsa, S 49 ml/m 2 16 - 34 Vol/bsa, ES, 1-p A4C 47 ml/m 2 12 - 37 Vol, ES, 2-p 91 ml --------- Vol/bsa, ES, 2-p 51 ml/m 2 16 - 34 Vol/bsa, ES, A/L 48 ml/m 2 16 - 34 AP dim, ES MM 3.9 cm 3.0 - 4.0 LA/Ao root ratio, MM 0.96 --------- Right atrium Value Ref Area, ES 24 cm 2 10 - 18 SI dim, ES, A4C 5.7 cm 3.4 - 5.3 Vol, ES, A/L 84 ml --------- Vol, ES, 1-p A4C 81 ml --------- Vol/bsa, ES, 1-p A4C 46 ml/m 2 11 - 39 Aortic valve Value Ref Leaflet sep, MM 1.72 cm --------- Peak v, S 1.2 m/sec --------- Mean v, S 0.72 m/sec --------- VTI, S 19.6 cm --------- Mean grad, S 2 mm Hg --------- Peak grad, S 5.7 mm Hg --------- LVOT/AV, VTI ratio 0.85 --------- NAS, VTI 2.86 cm 2 --------- LVOT/AV, Vpeak ratio 0.82 --------- NAS, Vmax 2.76 cm 2 --------- Mitral valve Value Ref E-septal separation 0.6 cm --------- E-F slope 0.11 m/sec --------- Peak E 1.14 m/sec --------- Peak A 0.47 m/sec --------- Decel time 140 ms --------- PHT 41 ms --------- Peak grad, D 5.2 mm Hg --------- Peak E/A ratio 2.42 --------- MVA, PHT 5.4 cm 2 --------- Tricuspid valve Value Ref Peak E 0.79 m/sec --------- Peak A 0.58 m/sec --------- Decel time 144 ms --------- Decel slope 551.83 cm/s 2 --------- TR peak v 2.7 m/sec <=2.8 Peak RV-RA grad, S 29 mm Hg --------- Aortic root Value Ref Root diam, ED MM 4.0 cm --------- PATIENT NAME: FARHAD WELLS Pulmonary artery Value Ref Pressure, S 31.7 mm Hg --------- Systemic veins Value Ref Estimated CVP 8 mm Hg --------- Conclusions Summary: 1. Left ventricle: The cavity size is normal. Wall thickness is normal. Systolic function is at the lower limits of normal. The estimated ejection fraction is 50%. Wall motion is normal; there are no regional wall motion abnormalities. Left ventricular diastolic function parameters are indeterminate. 2. Right ventricle: The cavity size is mildly to moderately dilated. Systolic function is mildly to moderately reduced. The tricuspid annular plane systolic excursion is 0.6 cm. The RV pressure during systole is 37 mm Hg. 3. Left atrium: The atrium is severely dilated. 4. Right atrium: The atrium is dilated. 5. Aortic valve: A bioprosthetic valve is present. 6. Mitral valve: There is mild regurgitation. 7. Tricuspid valve: There is mild regurgitation. 8. Pericardium, extracardiac: There is no pericardial effusion. Electronically signed by Svetlana Hu MD 04/03/2024 09:23 at 0923 PATIENT NAME: FARHAD WELLS [facility] 2024-04-03 08:59:00 [facility] Cardiothoracic Surgery Prog REPORT#:[id number] REPORT STATUS: Signed REPORT INITIALIZATION DATE:04/03/24 TIME: 858 PATIENT: FARHAD WELLS UNIT #: [id number] ROOM/BED: [place] [address] : 46 AGE: 79 SEX: M ATTEND: Sol Sutton MD ADM AUTHOR: Falguni Hawkins APRN REPT SERVICE DT/TIME: 04/03/24 0859 * ALL edits or amendments must be made on the electronic/computer document * Subjective Chief complaint: post op cabg/avr/ascending aortic aneurysm replacement Review of Systems Constitutional: Reports: generalized weakness. Denies: chills. Skin: Denies: abrasion, diaphoresis, itching. Respiratory: Denies: [place] (dyspnea on exertion), pneumonia, SOB. Cardiovascular: Denies: chest pain, palpitations. GI: Denies: abdominal pain, nausea, vomiting. : Denies: dysuria, flank pain. Heme: Denies: adenopathy, bleeding, bruising. Endocrine: Denies: cold intolerance, heat intolerance, polydipsia. Neuro: Denies: bladder dysfunction, seizure, syncope. All systems rev neg: except as marked Objective General VS/I O Last Documented: Result Date Time Pulse Ox 100 04/03 645 B/P 121/49 04/03 645 B/P Mean 71 04/03 645 Pulse 79 04/03 645 Resp 18 04/03 645 Temp 100.6 04/03 0415 O2 Delivery High flow nasal cannula 04/03 0400 O2 Flow Rate 4 04/03 0400 FiO2 21 04/02 1553 24 hour I O ending at 0700: 04/03 0700 04/02 1900 Intake Total 1688.00 Output Total 1250 820 Balance -1250 868.00 Intake, IV 1086.00 Intake, Oral 250 Intake, 352 Packed Cells Output, Chest 290 225 Tube Drainage Output, Urine 960 595 Patient 65.3 kg 64.864 kg Weight Weight Standing scale Measurement Method PATIENT WEIGHT: Weight (lb): 143 Weight (oz): 15.39 Weight (kg): 65.300 Dietitian Nutrition assessment The data set between the solid lines has been imported from the dietitian's assessment. BMI Calculated: 20.7 Nutrition related diagnosis: Nutrition diagnosis details: Nutrition problem: Nutrition etiology: Nutrition signs and symptoms: Nutrition prescription: Dietitian name: Assessment completed: Physical Exam General appearance: alert, awake, oriented Wound/incision: Location: sternum Site condition: dressing clean dry, dressing intact HEENT: anicteric, mucosal membranes moist, pupils reactive to light Neck: full range of motion, non-tender Cardiovascular: normal heart sounds, regular rate rhythm Respiratory: decreased breath sounds, aerating well, symmetric expansion, no distress Abdomen: soft, non-tender Genitourinary: mann, urine, no bladder distention, no flank pain Extremities: dry, moves all Musculoskeletal: full range of motion, painless range of motion Neuro/POST FORM REMOVER: alert, oriented X 3 Skin: dry, intact Psychiatry: normal affect, normal mood Current Medications Medications: Active Meds + DC'd Last 24 Hrs Cyanocobalamin (Vitamin B-12 500 mcg tab) 500 MCG DAILY PO Ferrous Sulfate (FERROUS SULFATE) 325 MG DAILY PO Ipratropium [place] (ATROVENT) 500 MCG RTQ2H PRN PRN INH Bisacodyl (DULCOLAX) 10 MG ONCE PRN RECTAL Magnesium Hydroxide (MILK OF MAGNESIA) 30 ML ONCE PRN PO Furosemide (LASIX 40 mg/4 mL INJECTION) 40 MG ONCE ONE IV (DC) Vasopressin (VASOSTRICT 20 Unit/NS 100ML) 100 ML ASDIR IV (CKD) Potassium Chloride (K-REMBERTO 20 MEQ PACKET) 20 MEQ ONCE ONE PO (DC) Furosemide (LASIX 40 mg/4 mL INJECTION) 40 MG ONCE ONE IV (DC) Furosemide (LASIX 20MG INJ) 10 MG ONCE ONE IV (DC) Insulin Human Lispro (HUMALOG) 0 AC HS SUBQ Clopidogrel Bisulfate (Plavix) 75 MG DAILY PO Polyethylene Glycol (MIRALAX) 17 GM DAILY PO Pantoprazole (PROTONIX) 40 MG DAILY@0600 PO Amiodarone HCl (AMIODARONE HCL) 450 MG .Q15H IV (CKD) Dextrose/Water (D5%W NON-DEHP) 250 ML Atorvastatin Calcium (LIPITOR) 40 MG 2100 PO Sennosides (Senna Lax 8.6 MG TABLET) 17.2 MG BEDTIME PO Aspirin (ASPIRIN) 81 MG DAILY PO Ipratropium [place] (ATROVENT) 500 MCG RTQ4H INH Insulin Human Regular (HumuLIN R) 100 UNIT ASDIR IV (DC) Sodium Chloride (SODIUM CHLORIDE 0.9%) 99 ML Epinephrine (ADRENALIN CHLORIDE) 4 MG ASDIR IV Dextrose/Water (DEXTROSE 5% WATER) 246 ML Acetaminophen (TYLENOL) 650 MG Q4H PRN PRN PO Acetaminophen (TYLENOL) 650 MG Q4H PRN PRN RECTAL Allopurinol (ZYLOPRIM) 300 MG DAILY PO Amiodarone HCl (CORDARONE) 200 MG TID PO Calcium Chloride (CALCIUM CHLORIDE) 1 GM ASDIR PRN IV Dextrose/Water (DEXTROSE 10% IN WATER) 125 ML ASDIR PRN IV (CKD) Dextrose/Water (DEXTROSE 10% IN WATER) 250 ML ASDIR PRN IV (CKD) Docusate Sodium (COLACE) 100 MG BID PO Glucagon (GLUCAGON) 1 MG ASDIR PRN IM Magnesium Sulfate (MAGNESIUM SULFATE 4GM/SWFI 100ML) 100 ML ASDIR PRN IV Magnesium Sulfate (MAGNESIUM SULFATE 2GM/SWFI 50ML) 50 ML ASDIR PRN IV Magnesium Sulfate/Dextrose (MAGNESIUM SULFATE 1GM/D5W 100ML) 100 ML ASDIR PRN IV Metoprolol Tartrate (LOPRESSOR) 12.5 MG Q12HR PO (DC) Mupirocin (BACTROBAN 2% 22 GM OINTMENT) 1 APPLIC BID NASAL Nitroglycerin/Dextrose (NITROGLYCERIN 50,000MCG/D5W 250ML) 250 ML ASDIR IV Norepinephrine Bitartrate (NOREPINEPHRINE 8 MG/NS 250 ML) 250 ML TITRATE IV Ondansetron HCl (ZOFRAN) 4 MG Q6H PRN PRN IV Oxycodone HCl (ROXICODONE) 5 MG Q4H PRN PRN PO Oxycodone HCl (ROXICODONE) 10 MG Q4H PRN PRN PO Potassium Chloride (KCL 20MEQ/SWFI 100ML) 100 ML ASDIR PRN IV Sodium Bicarbonate (SODIUM BICARBONATE) 50 MEQ ASDIR PRN IV Sodium Chloride (SODIUM CHLORIDE 0.9%) 250 ML Q24H IV Tamsulosin HCl (Flomax 0.4 mg) 0.4 MG DAILY PO Cefazolin Sodium (KEFZOL OR ANCEF) 2 GM PREOP ONCALL IV (CKD) Sodium Chloride (SODIUM CHLORIDE) 20 ML PREOP ONCALL IV Vancomycin HCl (VANCOMYCIN HCL) 1,000 MG PREOP ONCALL IV (CKD) Sodium Chloride (SODIUM CHLORIDE 0.9%) 250 ML Results Findings/Data: Laboratory Tests 04/0310 0231 0238 Blood Gas Puncture Site Art Line Art Line Art Line O2 Saturation (90 - 100 %) 94.3 90.3 86.9 L ABG pH (7.35 - 7.45) 7.459 H 7.468 H 7.447 ABG pCO2 (35.0 - 45 mmHg) 35.0 34.2 L 33.7 L ABG pO2 (80 - 100.0 mmHg) 67.6 L 54.9 L 50.0 L ABG HCO3 (22.0 - 26.0 MMOL/L) 24.9 24.8 23.2 ABG Total CO2 25.9 25.8 24.3 ABG Base Excess (-4.0 - 4.0 MMOL/L) 1.0 1.1 -0.8 ABG Hematocrit (37.5 - 50.7 %) 27 L 26 L 26 L ABG Hemoglobin (12.5 - 16.9 G/DL) 9.3 L 8.8 L 8.9 L Marco Test N/A N/A Sodium (134 - 147 mmol/L) 137 134 137 Potassium (3.4 - 5.0 mmol/L) 4.0 4.8 4.3 Chloride (100 - 108 mmol/L) 101 102 105 Ionized Calcium (1.12 - 1.32 MMOL/L) 1.18 1.12 1.15 Lactic Acid (0.9 - 1.7 mmol/l) 1.1 1.1 2.2 H Temperature (F) 98.1 98.9 100 O2 Delivery Device Cannula Cannula Room Air Laboratory Tests 04/03 04/03 04/03 04/03 04/02 0755 0610 023 0222014 Chemistry Sodium (134 - 147 mEq/L) 138 Potassium (3.4 - 5.0 mEq/L) 3.9 Chloride (100 - 108 mEq/L) 108 Carbon Dioxide (21 - 33 mEq/l) 23 Anion Gap (0 - 20) 11 BUN (7 - 25 mg/dL) 24 Creatinine (0.6 - 1.3 mg/dL) 1.4 H POC Creatinine (0.8 - 1.3 mg/dL) 1.5 H 1.5 H Glomerular Filtr Rate (70 - 80) 51.4 L Glucose (77 - 141 mg/dL) 133 POC Glucose (70 - 110 MG/DL) 158 H 137 H POC Glucose (mg/dL) (70 - 110 MG/DL) 151 H 147 H Calcium (8.0 - 10.5 mg/dL) 7.4 L Magnesium (1.6 - 2.6 mg/dL) 1.94 Total Bilirubin (0.0 - 1.0 mg/dL) 0.80 Direct Bilirubin (0.1 - 0.3 MG/DL) 0.40 H Indirect Bilirubin (MG/DL) 0.40 AST (8 - 34 IUnit/L) 96 H ALT (10 - 49 IUnit/L) 24 Total Alk Phosphatase (20 - 125 49 IUnit/L) Total Protein (6.4 - 8.2 g/dL) 5.2 L Albumin (3.4 - 5.0 g/dL) 3.00 L 04/02 04/02 04/02 04/02 1751 1749 1630 1156 Chemistry Sodium (134 - 147 mEq/L) 139 Potassium (3.4 - 5.0 mEq/L) 4.3 Chloride (100 - 108 mEq/L) 107 Carbon Dioxide (21 - 33 mEq/l) 22 Anion Gap (0 - 20) 14 BUN (7 - 25 mg/dL) 23 Creatinine (0.6 - 1.3 mg/dL) 1.5 H POC Creatinine (0.8 - 1.3 mg/dL) 1.5 H Glomerular Filtr Rate (70 - 80) 47.4 L Glucose (77 - 141 mg/dL) 153 H POC Glucose (70 - 110 MG/DL) 145 H 128 H POC Glucose (mg/dL) (70 - 110 MG/DL) 188 H Calcium (8.0 - 10.5 mg/dL) 8.3 Ionized Calcium Katharina (1.09 - 1.30 MMOL/L) 1.10 Magnesium (1.6 - 2.6 mg/dL) 2.39 Laboratory Tests 04/03 04/02 0225 1626 Hematology WBC (4.5 - 11.0 x10 3/uL) 17.3 H 12.5 H RBC (4.00 - 5.60 x10 6/uL) 3.13 L 3.10 L Hgb (12.5 - 16.9 g/dL) 8.5 L 8.6 L Hct (37.5 - 50.7 %) 25.7 L 25.6 L MCV (81.0 - 99.0 fL) 82.1 82.6 MCH (27.0 - 33.0 pg) 27.2 27.7 MCHC (33.0 - 37.0 g/dL) 33.1 33.6 RDW (11.5 - 14.5 %) 16.7 H 16.5 H Plt Count (150 - 400 x10 3/uL) 120 L 111 L MPV (7.0 - 9.0 fL) 11.9 H 11.5 H Neut % (Auto) (56.0 - 77.0 %) 78.4 H 85.2 H Lymph % (Auto) (14.0 - 32.0 %) 8.6 L 6.8 L [place] % (Auto) (4.8 - 9.0 %) 9.7 H 7.3 Eos % (Auto) (0.3 - 3.7 %) 2.5 0.0 L Baso % (Auto) (0.0 - 2.0 %) 0.2 0.1 Neut # (Auto) (2.0 - 7.6 x10 3/uL) 13.52 H 10.61 H Lymph # (Auto) (1.0 - 3.8 x10 3/uL) 1.49 0.85 L [place] # (Auto) (0.1 - 0.8 x10 3/uL) 1.68 H 0.91 H Eos # (Auto) (0.0 - 0.2 x10 3/uL) 0.43 H 0.00 Baso # (Auto) (0.0 - 0.2 x10 3/uL) 0.03 0.01 Abs Immat Gran (auto) (0.00 - 0.03 x10 3/uL) 0.10 H 0.08 H Immature Gran % (0.0 - 2.0 %) 0.6 0.6 Nucleated RBC % (0 - 0 %) 0.0 0.0 Nucleated RBCs # (Man) (0.0 - 0.1 x10 3/uL) 0.00 0.00 Immature Plt Fraction (0.9 - 11.2 %) 8.7 7.5 Radiology data: Recent Impressions: RADIOLOGY - XR ABDOMEN 1V (KUB) 10/08 1345 Report Impression - Status: SIGNED Entered: 04/02/2024 6573 IMPRESSION: Nonspecific nonobstructive bowel gas pattern. Moderate amount of stool in the colon suggestive of constipation. Recent CABG. Prosthetic aortic valve is seen. Support lines and tubes are stable. Left basilar retrocardiac opacity consistent with atelectasis and/or infiltrate. Impression By: [email or web address] - Elizabeth Raymond M.S. Results: labs reviewed, vital signs stable, rythm personally rev'd, x-ray personally reviewed, current med profile rev'd Treatment Prophylaxis Treatment Prophylaxis CVC/PICC documentation: The data below has been imported from nursing documentation. Any exceptions have been noted below under Provider comments. CVC/PICC insertion date/time: CVC multi lumen double Internal jugular Right Inserted 04/01/24 0719 Provider comments on imported nursing data: [] Quality: Trauma Gen Surg Advanced Care Plan 65 or Older Discussed with: patient Current Medications Unable to obtain: Unable to obtain an accurate home medication list at this time. The patient is in an urgent or emergent medical situation where time is of the essence. To delay treatment would jeopardize the patient's health status on the day of the encounter. Diagnosis, Assessment Plan Free Text A P: This is a 78-year-old gentleman with a past medical history of aortic valve stenosis, hyperlipidemia who was also found to have an ascending aortic aneurysm measuring 5 cm. The patient was seen by his display specialist for 6-month follow-up. Recent echocardiogram completed on 01/22/2024 showed EF 55 to 60%, aortic valve mean/peak gradient of 30/42 mmHg, NAS measuring 0.9 cm , peak velocity 4.5 m/s. Patient also noted to have moderate mitral regurgitation, mild pulmonary hypertension with RV systolic pressure 45 mmHg. The patient underwent left heart catheterization on 02/05/2024 that showed left main to be normal, LAD proximal 30 to 40%, mid diffuse 50 to 60%, then luminal irregularities. Diagonal 1 has 40 to 55% stenosis. Circumflex proximal 60% stenosis, RCA large dominant with proximal 40%, mid 30 to 40% in the PDA with diffuse 40% stenosis. 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 Patient denies any chest pain but does report occasional dyspnea on exertion. Patient is being admitted today for replacement of ascending aorta, AVR, and possible coronary artery bypass graft surgery. Assessment/plan: 1. Dyspnea on exertion 2. Aortic valve stenosis 3. Ascending aortic aneurysm 4. Coronary artery disease 5. Hypertension 6. Hyperlipidemia Patient seen and examined by Dr. Sutton. Dr. Sutton has discussed with the patient the need for aortic valve replacement as well as ascending aortic replacement and possible coronary artery bypass graft surgery. Dr. Sutton discussed with the patient the operation, risks involved, benefits, alternatives , and complications. The patient's questions were answered and patient agreed to proceed with surgery. Patient is scheduled for surgery today. Admit to CVICU postoperatively Monitor heart rhythm and hemodynamics Strict I's and O's Cardiology and critical care consulted. 04/01/24 1. Exploration of innominate artery. 2. Chimney graft to the innominate artery (8 mm Hemashield graft). 3. Aortic root replacement (29 Konect graft, Bentall procedure). 4. Replacement of ascending aorta. 5. Hemiarch replacement. 6. Total circulatory arrest with antegrade cerebral perfusion. 7. Repair of innominate artery. 8. Amputation of left atrial appendage. 04/02/24 POD 1 AAOx3, reports pain well controlled AAOx3 Respiratory: On 3L NC, wean as tolerated, Encourage IS, Deep Breathing, nebs, pep and flutter CXR reviewed, Mediastinal CT 130cc, Pleural CT 340cc, continue to monitor. Cardiac: Sinus bradycardia, temporary pacing wires in place pacing at 80, hold BB, on amiodarone gtt @ 0.5, finish IV bag, start PO amiodarone GI: Cardiac diet, Continue Bowel regimen, positive bowel sounds, on insulin gtt : Mann, 167cc urine output last night PT/OT, encourage ambulation today DVT prophylaxis Labs reviewed- replace electrolytes as needed Disposition will be home with , good family support. Patient seen and examined by Dr. Sutton. Plan of care discussed with patient and multidisciplinary team. The patient's questions were answered. 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 and 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 Patient seen and examined by Dr. Sutton. Plan of care discussed with patient and multidisciplinary team. The patient's questions were answered. Consultants: cardiology, critical/student records specialist Code status: full code Plan discussed with: patient, collaborating MD, nurse, interdisc care team at 0930 at 1035 RPT #:[id number] END OF REPORT [facility] 2024-04-03 08:03:00 [facility] ([facility]) Critical Care Progress Note REPORT#:[id number] REPORT STATUS: Signed REPORT INITIALIZATION DATE:04/03/24 TIME: 802 PATIENT: FARHAD WELLS UNIT #: [id number] ROOM/BED: [place] [address] : 46 AGE: 79 SEX: M ATTEND: Sol Sutton MD ADM AUTHOR: Kaushik Lopez DO REPT SERVICE DT/TIME: 04/03/24 0803 * ALL edits or amendments must be made on the electronic/computer document * Subjective Chief complaint: AI, Ascending aortic aneurysm HPI: Patient is a 78-year-old gentleman with past medical history of aortic valve stenosis, hyperlipidemia, hypertension. Patient was evaluated by his display specialist and found to have an ascending aortic aneurysm of 4.9 cm. He was also found to have mild to moderate aortic stenosis with moderate aortic insufficiency. He has preserved ejection fraction preoperatively. Today he underwent AVR with CABG x 1 and aortic root replacement with replacement of the ascending aorta and hemiarch replacement. He is in the CVICU for postoperative care. He is currently on a nitroglycerin infusion at 5 along with an insulin drip at 3. He remains intubated at this time. His preoperative echo showed preserved EF with severe aortic insufficiency. Postoperatively off-pump wall closing patient sustained a V-fib arrest. Differential of R on T phenomenon versus transient ischemic insult secondary to coronary calcification that could have been manipulated. He received 4 subcutaneous defibrillations and 2 internal defibrillations. After cardiac arrest episode patient was noted to have some ischemic changes on his echocardiogram with RV dilatation. He is not requiring IR inotropic support at this time. His EBL was 700. Received 750 of Cell Saver. In total he received 2 of cryo, 2 FFP 1 platelet and 1 RBC. Received 2 L of crystalloid and had a urine output of 650 throughout the case. Sedation is off at this time. He is being warmed with a warming blanket. Postoperative labs, EKG, chest x-ray pending. Will plan to extubate shortly. 04/02: Patient seen and evaluated at bedside. Patient is out of bed to chair. Pain is well-controlled. No acute events overnight. He was successfully extubated yesterday evening without difficulty. He remains on no drips at this time. Continues to require pacing and is sinus bradycardic. 04/03: Patient seen and evaluated at bedside. Started on norepi in the evening for RV support and renal perfusion. Urine output steady. Is having pre-syncope. No chest pain or sob. Formal echo pending. Will transition to vasopressin off of levo. Objective Free Text Obj Notes Free Text Obj Notes: GEN: Appears in no acute distress, interactive and conversational HEENT: Atraumatic, normocephalic, moist mucous membranes NECK: Supple, good range of motion, no tenderness, no JVD LUNGS: Symmetrical air entry, no acute respiratory distress, no accessory muscle use CV: S1, S2 regular rate and rhythm, warm and well perfused GI: Abdomen is soft, not tender or distended EXT/Musc: No edema or cyanosis. Pedal pulses present. Compartments soft Skin: Surgical site clean, dry and intact. Warm to touch NEURO: Awake, alert and oriented x3. No facial droop or focal deficit Diagnosis, Assessment Plan Free text A P: Patient is a 79-year-old male with a history of ascending aortic aneurysm and aortic insufficiency that is postoperative aortic root replacement, replacement of ascending aorta, hemiarch replacement with antegrade cerebral perfusion. Ascending aortic aneurysm Severe aortic insufficiency Postop day 2 status post aortic root replacement, replacement of ascending aorta , hemiarch, AVR CABG x 1 V-fib arrest ALAA Sinus bradycardia Acute hypoxic respiratory insufficiency following thoracic surgery Acute blood loss anemia secondary to surgery Hypertension Hyperglycemia Acute kidney injury Neuro:multimodal pain control Respiratory: Pulmonary hygiene, incentive spirometry, out of, ABG and CXR reviewed. u/s chest today Cardiovascular:MAP goal 65, wean off norepi start vasopressin, CTs to suction, monitor output, ekg, PO amiodarone. Hold beta-yenifer continue IV amiodarone infusion for 24 hours. DDI pacing currently. Renal: strict I/Os, monitor Cr and electrolytes, continue lasix GI: bedside swallow then oral diet after extubation, bowel regimen ID: trend WBC, cont periop ABx per protocol Hem: monitor Hgb and CTs output, transfuse as needed, correct coagulopathy. ASA/ plavix when able. Endo: BG control with insulin gtt per protocol Misc: PTOT consult, DVT and GI ppx with SCD and PPI Total critical care time 34 minutes spent treating the patient excluding any procedures performed Consultants: cardiology at 0805 RPT #:[id number] END OF REPORT [facility] 2024-04-03 03:55:00 [id number] [place] [id number] PATIENT NAME: FARHAD WELLS ADMIT DATE: 04/01/24 ACCOUNT NO: [id number] ROOM NO: [facility] [place] AGE: 79 REPORT TYPE: eELECTROCARDIOGRAM REPORT SEX: M ADMITTING PHYSICIAN:Sol Sutton MD ATTENDING PHYSICIAN:Sol Sutton MD Order: [id number] Test Reason : POD 1 Test Date/Time Stamp: MonApr 03 2024 03:55:18 Blood Pressure : / mmHG Vent. Rate : 080 BPM Atrial Rate : 081 BPM P-R Int : 000 ms QRS Dur : 168 ms QT Int : 446 ms P-R-T Axes : 000 -52 102 degrees QTc Int : 514 ms Ventricular-paced rhythm Abnormal ECG Confirmed by MD ARETHA GINNA ([id number]) on 04/04/2024 10:09:49 AM Referred By: Sol Sutton Confirmed by:GINNA CARIAS MD at 1009 PATIENT NAME: FARHAD WELLS [facility] 2024-04-02 11:20:00 [facility] Cardiology Progress Note REPORT#:[id number] REPORT STATUS: Signed REPORT INITIALIZATION DATE:04/02/24 TIME: 112 PATIENT: FARHAD WELLS UNIT #: [id number] ROOM/BED: [place] [address] : 46 AGE: 79 SEX: M ATTEND: Sol Sutton MD ADM AUTHOR: Svetlana Hu MD REPT SERVICE DT/TIME: 04/02/24 1120 * ALL edits or amendments must be made on the electronic/computer document * Subjective Free Text Subj Notes Free Text Subj Notes: Doing okay, still on amnio drip and requiring pacing. Objective General VS/I O: 24 hour I O ending at 0700: 04/02 0700 04/01 1900 Intake Total 2037.00 1044.70 Output Total 1945 1580 Balance 93.00 -535.30 Intake, IV 1888.00 1044.70 Intake, Oral 150 Output, Chest 380 160 Tube Drainage Output, Urine 1565 1420 Patient 65.2 kg Weight Weight Standing scale Measurement Method Vital Signs: Date Time Temp Pulse Resp B/P B/P Pulse O2 O2 Flow FiO2 Mean Ox Delivery Rate 04/02 1101 97 Room air 21 04/02 09 118/61 84 04/02 900 97.5 80 25 115/47 70 97 04/02 0800 97.5 04/02 08 118/61 83 04/02 08 97.5 80 28 112/46 68 97 04/02 0731 97 Room air 21 04/02 07 110/60 80 10 07 97.0 80 21 113/45 66 99 04/02 06 116/58 79 04/02 0600 97.2 80 12 117/46 68 97 04/02 0000 High flow 10 nasal cannula 04/01 2130 111/61 81 04/01 2130 99.0 84 31 114/48 70 100 04/01 2115 111/59 80 04/01 2115 99.1 84 15 109/46 68 96 04/01 2100 114/55 77 04/01 2100 99.3 84 17 105/42 64 97 04/01 2045 110/55 76 04/01 2045 99.5 84 17 104/42 63 98 04/01 2030 111/55 77 04/01 2030 99.5 84 17 103/42 63 96 04/01 2026 100 High flow 10 nasal cannula 04/01 2015 108/56 76 04/01 2015 99.7 84 19 108/44 65 97 04/01 2000 High flow 10 nasal cannula 04/01 2000 109/56 77 04/01 2000 99.7 84 17 106/44 64 97 04/01 1945 109/55 77 04/01 1945 99.7 84 18 106/46 65 95 04/01 1931 86 20 100 04/01 1930 114/64 84 04/01 1930 99.5 84 18 119/52 74 97 04/01 1915 122/66 89 04/01 1915 99.1 84 21 126/54 78 100 04/01 1908 84 100 40 04/01 1900 114/64 84 04/01 1900 98.6 84 20 130/62 83 100 04/01 1845 101/57 73 04/01 1845 98.2 84 15 115/56 73 100 04/01 1830 101/57 74 10/07 1830 97.7 84 16 115/57 73 100 10 1815 101/56 73 10 1815 97.2 84 19 111/54 70 100 10 1811 84 100 40 10/ 1800 102/59 75 10/ 1800 96.8 84 21 113/57 74 100 10/ 1745 108/59 79 10/ 1745 96.1 84 29 118/58 75 100 10/ 1730 105/65 76 10/ 1730 95.5 84 33 116/58 76 100 10 1715 114/65 85 10/ 1715 95.2 84 21 118/62 79 100 10 1700 125/72 91 10 1700 94.8 84 20 125/67 86 100 10 1645 131/80 101 04/01 1645 94.5 84 21 139/75 97 100 10 1630 132/82 103 04/01 1630 94.1 84 22 143/77 100 100 04/01 1615 137/83 105 04/01 1615 93.9 84 20 144/77 101 100 10 1600 Ventilator 40 04/01 1600 138/87 107 04/01 1600 93.9 84 21 149/78 105 100 04/01 1545 140/83 105 04/01 1545 94.3 84 26 144/66 97 100 04/01 1540 132/79 99 04/01 1540 94.3 84 44 138/71 98 100 04/01 1535 123/79 96 04/01 1535 94.5 84 44 133/68 91 100 04/01 1530 94.9 10 1530 Ventilator 40 04/01 1530 125/75 92 04/01 1530 94.8 84 51 128/64 87 100 04/01 1521 100 Ventilator 50 04/01 1521 84 100 50 PATIENT WEIGHT: Weight (lb): 143 Weight (oz): 11.86 Weight (kg): 65.200 Medications: Active Meds + DC'd Last 24 Hrs Cyanocobalamin (Vitamin B-12 500 mcg tab) 500 MCG DAILY PO Ferrous Sulfate (FERROUS SULFATE) 325 MG DAILY PO Ipratropium [facility] (ATROVENT) 500 MCG RTQ2H PRN PRN INH Bisacodyl (DULCOLAX) 10 MG ONCE PRN RECTAL Magnesium Hydroxide (MILK OF MAGNESIA) 30 ML ONCE PRN PO Insulin Human Lispro (HUMALOG) 0 AC HS SUBQ Clopidogrel Bisulfate (Plavix) 75 MG DAILY PO Polyethylene Glycol (MIRALAX) 17 GM DAILY PO Pantoprazole (PROTONIX) 40 MG DAILY@0600 PO Morphine Sulfate (morphine SULFATE) 2 MG Q4H PRN PRN IV (CAN) Amiodarone HCl (AMIODARONE HCL) 450 MG .Q15H IV (CKD) Dextrose/Water (D5%W NON-DEHP) 250 ML Atorvastatin Calcium (LIPITOR) 40 MG 2100 PO Sennosides (Senna Lax 8.6 MG TABLET) 17.2 MG BEDTIME PO Vancomycin HCl (VANCOMYCIN HCL) 1,000 MG Q12H IV (DC) Sodium Chloride (SODIUM CHLORIDE 0.9%) 250 ML Acetaminophen (OFIRMEV 10MG/ML) 100 ML Q6H IV (DC) Aspirin (ASPIRIN) 81 MG DAILY PO Lidocaine HCl/Dextrose (LIDOCAINE 2GM/D5W 500ML) 500 ML .STK-MED ONE IV (DC) Amiodarone HCl (NEXTERONE 150MG/D5W 100ML) 100 ML .STK-MED ONE IV (DC) Amiodarone HCl (AMIODARONE HCL) 0 .STK-MED ONE IV (DC) Heparin Sodium (HEPARIN SODIUM) 0 .STK-MED ONE .ROUTE (DC) Epinephrine (EPINEPHrine) 0 .STK-MED ONE .ROUTE (DC) Calcium Chloride (CALCIUM CHLORIDE) 0 .STK-MED ONE IV (DC) Sugammadex Sodium (BRIDION) 0 .STK-MED ONE IV (DC) Fentanyl Citrate (SUBLIMAZE) 0 .STK-MED ONE IV (DC) Ipratropium [facility] (ATROVENT) 500 MCG RTQ4H INH Insulin Human Regular (HumuLIN R) 100 UNIT ASDIR IV (DC) Sodium Chloride (SODIUM CHLORIDE 0.9%) 99 ML Epinephrine (ADRENALIN CHLORIDE) 4 MG ASDIR IV Dextrose/Water (DEXTROSE 5% WATER) 246 ML Acetaminophen (TYLENOL) 650 MG Q4H PRN PRN PO Acetaminophen (TYLENOL) 650 MG Q4H PRN PRN RECTAL Albumin Human (ALBUMINAR 25%) 25 GM ASDIR PRN IV (DC) Allopurinol (ZYLOPRIM) 300 MG DAILY PO Amiodarone HCl (CORDARONE) 200 MG TID PO Calcium Chloride (CALCIUM CHLORIDE) 1 GM ASDIR PRN IV Cefazolin Sodium (KEFZOL OR ANCEF) 3 GM ONCE ONE IV (DC) Sodium Chloride (SODIUM CHLORIDE 0.9%) 250 ML Dextrose/Water (DEXTROSE 10% IN WATER) 125 ML ASDIR PRN IV (CKD) Dextrose/Water (DEXTROSE 10% IN WATER) 250 ML ASDIR PRN IV (CKD) Docusate Sodium (COLACE) 100 MG BID PO Glucagon (GLUCAGON) 1 MG ASDIR PRN IM Magnesium Sulfate (MAGNESIUM SULFATE 4GM/SWFI 100ML) 100 ML ASDIR PRN IV Magnesium Sulfate (MAGNESIUM SULFATE 2GM/SWFI 50ML) 50 ML ASDIR PRN IV Magnesium Sulfate/Dextrose (MAGNESIUM SULFATE 1GM/D5W 100ML) 100 ML ASDIR PRN IV Metoprolol Tartrate (LOPRESSOR) 12.5 MG Q12HR PO (DC) Mupirocin (BACTROBAN 2% 22 GM OINTMENT) 1 APPLIC BID NASAL Nitroglycerin/Dextrose (NITROGLYCERIN 50,000MCG/D5W 250ML) 250 ML ASDIR IV Norepinephrine Bitartrate (NOREPINEPHRINE 8 MG/NS 250 ML) 250 ML TITRATE IV Ondansetron HCl (ZOFRAN) 4 MG Q6H PRN PRN IV Oxycodone HCl (ROXICODONE) 5 MG Q4H PRN PRN PO Oxycodone HCl (ROXICODONE) 10 MG Q4H PRN PRN PO Potassium Chloride (KCL 20MEQ/SWFI 100ML) 100 ML ASDIR PRN IV Sodium Bicarbonate (SODIUM BICARBONATE) 50 MEQ ASDIR PRN IV Sodium Chloride (SODIUM CHLORIDE 0.9%) 250 ML Q24H IV Tamsulosin HCl (Flomax 0.4 mg) 0.4 MG DAILY PO Cefazolin Sodium (KEFZOL OR ANCEF) 2 GM PREOP ONCALL IV (CKD) Sodium Chloride (SODIUM CHLORIDE) 20 ML PREOP ONCALL IV Vancomycin HCl (VANCOMYCIN HCL) 1,000 MG PREOP ONCALL IV (CKD) Sodium Chloride (SODIUM CHLORIDE 0.9%) 250 ML Verapamil HCl (ISOPTIN) 16.6 MG .Q24H ONE IV (DC) Heparin Sodium (Porcine) (HEPARIN SODIUM) 1,660 UNIT Sodium Bicarbonate (SODIUM BICARBONATE) 0.7 ML Nitroglycerin/Dextrose (NITROGLYCERIN 50MG/D5W 250ML) 8.3 MG Lactated Ringer's (LACTATED RINGERS) 949.5 ML Physical Exam General appearance: alert, awake, oriented Respiratory: clear to auscultation Abdomen: soft Genitourinary: urinary catheter, urine Lower extremity: LE assessment: no edema Musculoskeletal: normal inspection 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 [employer]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 Skin: dry Psychiatry: normal affect, normal judgment/insight, normal mood Results Findings/Data: Laboratory Tests 04/02 04/02 04/01 04/01 0736 0316 9652 7003 Blood Gas Puncture Site Art Line Art Line Art Line Art Line O2 Saturation (90 - 100 %) 93.7 98.0 99.3 99.1 ABG pH (7.35 - 7.45) 7.385 7.361 7.383 7.367 ABG pCO2 (35.0 - 45 mmHg) 39.4 40.9 41.1 41.6 ABG pO2 (80 - 100.0 mmHg) 70.4 L 107.3 H 151.9 H 143.1 H ABG PO2/FiO2 Ratio (mm/Hg) 379.75 357.75 ABG HCO3 (22.0 - 26.0 MMOL/L) 23.6 23.2 24.5 23.9 ABG Total CO2 24.8 24.4 25.7 25.2 ABG Base Excess (-4.0 - 4.0 -1.4 -2.2 -0.6 -1.4 MMOL/L) ABG Hematocrit (37.5 - 50.7 %) 21 L 20 L 20 L 21 L ABG Hemoglobin (12.5 - 16.9 G/DL) 7.1 L 6.9 L 6.9 L 7.0 L Marco Test N/A N/A Sodium (134 - 147 mmol/L) 142 142 141 142 Potassium (3.4 - 5.0 mmol/L) 4.2 4.1 4.0 3.8 Chloride (100 - 108 mmol/L) 109 H 108 108 109 H Ionized Calcium (1.12 - 1.32 1.22 1.22 1.36 H 1.37 H MMOL/L) Lactic Acid (0.9 - 1.7 mmol/l) 0.9 0.9 1.4 1.3 Temperature (F) 97.5 97.2 98.4 98.2 O2 Delivery Device Room Air Cannula Adult Vent Adult Vent Vent Mode PS Vent Rate (/MIN) 20 FiO2 (%) 40 40 PEEP (cmH2O) 5 Pressure Support (cmH2O) 10 04/01 04/01 04/01 04/01 1759 1536 1424 1303 Blood Gas Puncture Site Art Line Art Line O2 Saturation (90 - 100 %) 99.1 98.9 99.9 99.9 ABG pH (7.35 - 7.45) 7.426 7.357 7.192 *L 7.330 L ABG pCO2 (35.0 - 45 mmHg) 35.2 39.3 45.1 H 44.2 ABG pO2 (80 - 100.0 mmHg) 129.7 H 129.5 H 314.4 *H 362.3 *H ABG PO2/FiO2 Ratio (mm/Hg) 324.25 259.00 ABG HCO3 (22.0 - 26.0 MMOL/L) 23.1 22.1 17.3 *L 23.3 ABG Total CO2 24.2 23.4 18.7 24.6 ABG Base Excess (-4.0 - 4.0 -1.2 -3.4 -10.2 L -2.5 MMOL/L) ABG Hematocrit (37.5 - 50.7 %) 21 L 19 L 23 L 21 L ABG Hemoglobin (12.5 - 16.9 G/DL) 7.3 L 6.6 L 7.7 L 7.2 L Marco Test N/A N/A Sodium (134 - 147 mmol/L) 143 143 143 140 Potassium (3.4 - 5.0 mmol/L) 3.7 3.9 3.5 3.9 Chloride (100 - 108 mmol/L) 109 H 110 H 112 H 106 Ionized Calcium (1.12 - 1.32 1.39 H 1.36 H 1.43 H 1.22 MMOL/L) Lactic Acid (0.9 - 1.7 mmol/l) 1.8 H 2.1 H 1.6 Temperature (F) 96.4 98 O2 Delivery Device Adult Vent Adult Vent Vent Mode AC Vent Rate (/MIN) 20 20 FiO2 (%) 40 50.0 Tidal Volume (ml) 500 PEEP (cmH2O) 5 5 Pressure Support (cmH2O) 500 04/01 1158 Blood Gas O2 Saturation (90 - 100 %) 100.0 ABG pH (7.35 - 7.45) 7.392 ABG pCO2 (35.0 - 45 mmHg) 38.4 ABG pO2 (80 - 100.0 mmHg) 384.8 *H ABG HCO3 (22.0 - 26.0 MMOL/L) 23.4 ABG Total CO2 24.6 ABG Base Excess (-4.0 - 4.0 MMOL/L) -1.4 ABG Hematocrit (37.5 - 50.7 %) 21 L ABG Hemoglobin (12.5 - 16.9 G/DL) 7.1 L Sodium (134 - 147 mmol/L) 135 Potassium (3.4 - 5.0 mmol/L) 4.7 Chloride (100 - 108 mmol/L) 104 Ionized Calcium (1.12 - 1.32 MMOL/L) 1.22 Lactic Acid (0.9 - 1.7 mmol/l) 0.8 L Laboratory Tests 04/02 04/02 04/02 04/02 04/02 0736 0736 0702 0316 0315 Chemistry Sodium (134 - 147 mEq/L) 141 Potassium (3.4 - 5.0 mEq/L) 4.3 Chloride (100 - 108 mEq/L) 111 H Carbon Dioxide (21 - 33 mEq/l) 23 Anion Gap (0 - 20) 11 BUN (7 - 25 mg/dL) 18 Creatinine (0.6 - 1.3 mg/dL) 1.5 H POC Creatinine (0.8 - 1.3 mg/dL) 1.4 H 1.5 H Glomerular Filtr Rate (70 - 80) 47.4 L Glucose (77 - 141 mg/dL) 115 POC Glucose (70 - 110 MG/DL) 95 124 H POC Glucose (mg/dL) (70 - 110 MG/DL) 121 H 128 H Calcium (8.0 - 10.5 mg/dL) 8.5 Magnesium (1.6 - 2.6 mg/dL) 2.39 04/02 04/02 04/01 04/01 04/01 0005 0003 2347 4563 3439 Chemistry Sodium (134 - 147 mEq/L) 144 Potassium (3.4 - 5.0 mEq/L) 3.7 Chloride (100 - 108 mEq/L) 113 H Carbon Dioxide (21 - 33 mEq/l) 24 Anion Gap (0 - 20) 11 BUN (7 - 25 mg/dL) 18 Creatinine (0.6 - 1.3 mg/dL) 1.5 H POC Creatinine (0.8 - 1.3 mg/dL) 1.3 1.3 Glomerular Filtr Rate (70 - 80) 47.4 L Glucose (77 - 141 mg/dL) 119 POC Glucose (70 - 110 MG/DL) 118 H 117 H POC Glucose (mg/dL) (70 - 110 MG/DL) 90 95 Calcium (8.0 - 10.5 mg/dL) 8.7 Magnesium (1.6 - 2.6 mg/dL) 2.10 Total Bilirubin (0.0 - 1.0 mg/dL) 1.30 H Direct Bilirubin (0.1 - 0.3 MG/DL) 0.70 H Indirect Bilirubin (MG/DL) 0.60 AST (8 - 34 IUnit/L) 127 H ALT (10 - 49 IUnit/L) 39 Total Alk Phosphatase (20 - 125 IUnit/L) 50 Total Protein (6.4 - 8.2 g/dL) 5.3 L Albumin (3.4 - 5.0 g/dL) 3.30 L 04/01 04/01 04/01 04/01 04/01 1759 1736 1536 1424 1303 Chemistry POC Creatinine (0.8 - 1.3 mg/dL) 1.2 1.1 1.0 1.1 POC Glucose (70 - 110 MG/DL) 101 POC Glucose (mg/dL) (70 - 110 MG/DL) 106 110 141 H 155 H 04/01 1158 Chemistry POC Creatinine (0.8 - 1.3 mg/dL) 1.0 POC Glucose (mg/dL) (70 - 110 MG/DL) 193 H Laboratory Tests 04/01 04/01 04/01 04/01 04/01 1536 1425 1304 1300 1201 Coagulation INR (0.8 - 1.2) 1.2 PTT (Sonu) (25.0 - 39.5 Seconds) 33.0 PT Patient/Control Mix (9.3 - 12.9 13.8 H SECONDS) TEG R Time Citrated (4.6 - 9.1 min) 5.1 TEG K Time Citrated (0.8 - 2.1 min) 1.6 TEG Alpha Angle Citr (63 - 78 degrees) 70.6 TEG Max Ampl Citrated (52 - 69 mm) 54.1 TEG Max Ampl Citr Rapid (52 - 70 mm) 50.5 L TEG Clot Time Rpd w Hep (4.3 - 8.3 mins) 5.7 Activated Coag Time (74 - 137 SEC) 134 128 544 H Func Fibrinogen MA (15 - 32 mm) 14.2 L Func Fibrinogen Level (278 - 581 mg/dL) 259.1 L Laboratory Tests 04/02 04/02 04/01 0736 0003 1536 Hematology WBC (4.5 - 11.0 x10 3/uL) 10.7 8.6 7.3 RBC (4.00 - 5.60 x10 6/uL) 2.63 L 2.68 L 2.45 L Hgb (12.5 - 16.9 g/dL) 7.6 L 7.7 L 7.1 L Hct (37.5 - 50.7 %) 22.7 L 23.1 L 21.1 L MCV (81.0 - 99.0 fL) 86.3 86.2 86.1 MCH (27.0 - 33.0 pg) 28.9 28.7 29.0 MCHC (33.0 - 37.0 g/dL) 33.5 33.3 33.6 RDW (11.5 - 14.5 %) 14.6 H 14.5 14.4 Plt Count (150 - 400 x10 3/uL) 107 L 104 L 80 L MPV (7.0 - 9.0 fL) 11.9 H 11.1 H 10.5 H Neut % (Auto) (56.0 - 77.0 %) 82.1 H 88.6 H 87.5 H Lymph % (Auto) (14.0 - 32.0 %) 9.0 L 4.7 L 2.8 L [place] % (Auto) (4.8 - 9.0 %) 8.3 6.2 8.5 Eos % (Auto) (0.3 - 3.7 %) 0.0 L 0.0 L 0.3 Baso % (Auto) (0.0 - 2.0 %) 0.2 0.0 0.1 Neut # (Auto) (2.0 - 7.6 x10 3/uL) 8.80 H 7.62 H 6.36 Lymph # (Auto) (1.0 - 3.8 x10 3/uL) 0.97 L 0.40 L 0.20 L [place] # (Auto) (0.1 - 0.8 x10 3/uL) 0.89 H 0.53 0.62 Eos # (Auto) (0.0 - 0.2 x10 3/uL) 0.00 0.00 0.02 Baso # (Auto) (0.0 - 0.2 x10 3/uL) 0.02 0.00 0.01 Abs Immat Gran (auto) (0.00 - 0.03 x10 3/uL) 0.04 H 0.04 H 0.06 H Immature Gran % (0.0 - 2.0 %) 0.4 0.5 0.8 Nucleated RBC % (0 - 0 %) 0.0 0.0 0.0 Nucleated RBCs # (Man) (0.0 - 0.1 x10 3/uL) 0.00 0.00 0.00 Platelet Estimate (150 - 400 x10 3/uL) 107 L Immature Plt Fraction (0.9 - 11.2 %) 5.0 Plt Morphology Comment NORMAL Laboratory Tests 04/02 04/02 0736 0003 Chemistry Magnesium (1.6 - 2.6 mg/dL) 2.39 2.10 Radiology data: Recent Impressions: RADIOLOGY - XR CHEST 1 V 04/01 1428 Report Impression - Status: SIGNED Entered: 04/01/2024 1526 Impression: Mild cardiomegaly with bibasilar opacities, left greater than right consistent with atelectasis and/or infiltrate. Patient is status post recent bypass. Right IJ central venous catheter coursing towards the brachiocephalic vein. Recommend repositioning. Other support lines and tubes are stable. Impression By: [email or web address] - Elizabeth Raymond MPratimaSPratima RADIOLOGY - XR CHEST 1 V 04/01 1534 Report Impression - Status: SIGNED Entered: 04/01/2024 1651 IMPRESSION: Minimal hazy prominent central interstitial markings, favoring pulmonary edema. Stable lines and tubes. Impression By: [email or web address] - Derrick Wells D.O. RADIOLOGY - XR CHEST 1 V 04/02 0520 Report Impression - Status: SIGNED Entered: 04/02/2024 0828 IMPRESSION: There is minimal bibasilar atelectasis. Impression By: Trini Tirado M.D. Diagnosis, Assessment Plan Consultants: cardiology Free Text DxA P Notes Free Text DxA P Notes: This is a 71-year-old male with medical history of aortic valve stenosis, hyperlipidemia, hypertension who was found to have 5 cm ascending aortic aneurysm. The patient was brought in today and underwent aortic root replacement, replacement of ascending aorta, hemiarch replacement, CABG x1 CENTENO to LAD, and amputation of left atrial appendage. 1. Aortic root replacement, replacement of ascending aorta, hemiarch replacement , CABG x1 CENTENO to LAD, and amputation of left atrial appendage * immediate post-op care by CTS and critical care 2. Hypertension * monitor off BP meds 3. Hyperlipidemia * continue statin at 1826 RPT #:[id number] END OF REPORT [facility] 2024-04-02 11:07:00 [facility] ([facility]) Heart Failure Consultation REPORT#:[id number] REPORT STATUS: Signed REPORT INITIALIZATION DATE:04/02/24 TIME: 110 PATIENT: FARHAD WELLS UNIT #: [id number] ROOM/BED: [place] [address] : 46 AGE: 79 SEX: M ATTEND: Sol Sutton MD ADM AUTHOR: Ashley Vasquez [employer]ERN [employer] REPT SERVICE DT/TIME: 04/02/24 1107 * ALL edits or amendments must be made on the electronic/computer document * Ashley Vasquez 04/02/24 1107: History of Present Illness HPI Requesting Clinician: DR HU Reason for consult: POST OP VOLUME MANAGEMENT HPI: This is a 78-year-old patient with a past medical history of aortic valve stenosis, hyperlipidemia who was also found to have an ascending aortic aneurysm measuring 5 cm. ECHO on 01/22/2024 showed EF 55 to 60%. LHC on 02/05/2024 showed left main to be normal, LAD proximal 30 to 40%, mid diffuse 50 to 60%, then luminal irregularities. Diagonal 1 has 40 to 55% stenosis. Circumflex proximal 60% stenosis, RCA large dominant with proximal 40 %, mid 30 to 40% in the PDA with diffuse 40% stenosis. 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 Patient was admitted on 04/01/24 and underwent. Intraoperatively, the patient received shocks due to V-fib; currently on Amiodarone drip 1. Exploration of innominate artery. 2. Chimney graft to the innominate artery (8 mm Hemashield graft). 3. Aortic root replacement (29 Konect graft, Bentall procedure). 4. Replacement of ascending aorta. 5. Hemiarch replacement. 6. Total circulatory arrest with antegrade cerebral perfusion. 7. Repair of innominate artery. 8. Amputation of left atrial appendage. 9. CABG x1 (CENTENO to LAD) Currently, the patient is sitting in chair, awake, alert, conversational, n/c; family is here. Dr Limon explained in detail post op expectation, v-fib and shocks, EP consult recommendation, and post op plan of care. History - Adult longitudinal Past medical history: Reports: Coronary artery disease, Hypertension, Dyslipidemia. Past surgical history: Reports: Appendectomy, Cholecystectomy. Alcohol use: Denies EtOH use Drug use: Denies recreational drugs Smoking status for patients 13 years old or older: Former Smoker Date last smoked: 06/26/79 Medications: Home Medications: Medication Dose/Rte/Freq Days Qty Entered Last Max Daily Dose Reviewed ASPIRIN EC (ECOTRIN) 81 MG PO DAILY 03/26/24 04/01/24 Strength: 81 MG TAB.EC [address] 40 MG PO DAILY 03/26/24 04/01/24 (PROTONIX) 7230 9388 Strength: 40 MG TAB. FUROSEMIDE (LASIX) 20 MG PO DAILY 03/26/24 04/01/24 Strength: 20 MG TAB 7133 4559 ALLOPURINOL (ZYLOPRIM) 300 MG PO DAILY 03/26/24 04/01/24 Strength: 300 MG TAB 4992 9637 amLODIPine (NORVASC) 5 MG PO DAILY 03/26/24 04/01/24 Strength: 5 MG TAB 0150 7903 TAMSULOSIN ER (FLOMAX) 0.4 MG PO DAILY 03/26/24 04/01/24 Strength: 0.4 MG CAP.SR.24H 9722 3654 CARVEDILOL (COREG) 6.25 MG PO 03/26/24 04/01/24 Strength: 6.25 MG TAB BID MEALS 8549 0363 Current Hospital Medications: Anti-Infective Agents Sig/Joe Start time Last Medication Dose Route Stop Time Status Admin Vancomycin HCl 1,000 MG Q12H 04/01 2100 DC 04/01 (VANCOMYCIN HCL) IV 04/01 Sodium Chloride 250 ML (SODIUM CHLORIDE 0.9%) Cefazolin Sodium 3 GM ONCE ONE 04/01 900 DC 04/01 (KEFZOL OR ANCEF) IV 04/02 459 174 Sodium Chloride 250 ML (SODIUM CHLORIDE 0.9%) Cefazolin Sodium 2 GM PREOP ONCALL 04/01 500 CKD (KEFZOL OR ANCEF) IV 04/08 459 Vancomycin HCl 1,000 MG PREOP ONCALL 04/01 500 CKD (VANCOMYCIN HCL) IV 04/08 459 Sodium Chloride 250 ML (SODIUM CHLORIDE 0.9%) Autonomic Drugs Sig/Joe Start time Last Medication Dose Route Stop Time Status Admin Ipratropium [facility] 500 MCG RTQ2H PRN PRN 04/04 0851 AC (ATROVENT) INH 07/03 0850 Epinephrine 0 .STK-MED ONE 04/01 1357 DC (EPINEPHrine) .ROUTE Ipratropium [facility] 500 MCG RTQ4H 04/01 1200 AC 04/02 (ATROVENT) INH 04/04 0851 1101 Epinephrine 4 MG ASDIR 04/01 0915 AC (ADRENALIN CHLORIDE) IV 06/30 913 Dextrose/Water 246 ML (DEXTROSE 5% WATER) Norepinephrine 250 ML TITRATE 04/01 900 AC Bitartrate IV 06/30 858 (NOREPINEPHRINE 8 MG/ NS 250 ML) Tamsulosin HCl 0.4 MG DAILY 04/01 900 AC 04/02 (Flomax 0.4 mg) PO 06/30 858 0819 Blood Derivatives Sig/Joe Start time Last Medication Dose Route Stop Time Status Admin Albumin Human 25 GM ASDIR PRN 04/01 900 DC (ALBUMINAR 25%) IV 04/02 0851 Blood Formation,Coagulation Sig/Joe Start time Last Medication Dose Route Stop Time Status Admin Ferrous Sulfate 325 MG DAILY 04/04 900 AC (FERROUS SULFATE) PO 07/03 0859 Clopidogrel Bisulfate 75 MG DAILY 04/02 900 AC 04/02 (Plavix) PO 07/01 858 0819 Heparin Sodium 0 .STK-MED ONE 04/01 1359 DC (HEPARIN SODIUM) .ROUTE Cardiovascular Drugs Sig/Joe Start time Last Medication Dose Route Stop Time Status Admin Amiodarone HCl 450 MG .Q15H 04/015 CKD 04/01 (AMIODARONE HCL) IV 06/30 2143 215 Dextrose/Water 250 ML (D5%W NON-DEHP) Atorvastatin Calcium 40 MG 2100 04/01 2100 AC (LIPITOR) PO 05/01 2059 Lidocaine HCl/ 500 ML .STK-MED ONE 04/01 1403 DC Dextrose IV (LIDOCAINE 2GM/D5W 500ML) Amiodarone HCl 100 ML .STK-MED ONE 04/01 1400 DC (NEXTERONE 150MG/D5W IV 100ML) Amiodarone HCl 0 .STK-MED ONE 04/01 1400 DC (AMIODARONE HCL) IV Amiodarone HCl 200 MG TID 04/01 900 AC 04/02 (CORDARONE) PO 06/30 0859 0818 Metoprolol Tartrate 12.5 MG Q12HR 04/01 900 DC (LOPRESSOR) PO 06/30 0859 Nitroglycerin/ 250 ML ASDIR 04/01 900 AC Dextrose IV 06/30 08 (NITROGLYCERIN 50,000MCG/D5W 250ML) Verapamil HCl 16.6 MG .Q24H ONE 04/01 0500 DC 04/01 (ISOPTIN) IV 04/02 0459 1449 Heparin Sodium 1,660 UNIT (Porcine) (HEPARIN SODIUM) Sodium Bicarbonate 0.7 ML (SODIUM BICARBONATE) Nitroglycerin/ 8.3 MG Dextrose (NITROGLYCERIN 50MG/ D5W 250ML) Lactated Ringer's 949.5 ML (LACTATED RINGERS) Central Nervous System Agents Sig/Joe Start time Last Medication Dose Route Stop Time Status Admin Morphine Sulfate 2 MG Q4H PRN PRN 04/02 0030 CAN (morphine SULFATE) IV 04/07 0029 Acetaminophen 100 ML Q6H 04/01 2000 DC 04/02 (OFIRMEV 10MG/ML) IV 04/02 814 0157 Aspirin 81 MG DAILY 04/01 1451 AC 04/02 (ASPIRIN) PO 06/30 1450 0818 Fentanyl Citrate 0 .STK-MED ONE 04/01 1203 DC (SUBLIMAZE) IV Acetaminophen 650 MG Q4H PRN PRN 04/01 900 AC (TYLENOL) PO 06/30 08 Acetaminophen 650 MG Q4H PRN PRN 04/01 900 AC (TYLENOL) RECTAL 06/30 858 Magnesium Sulfate 100 ML ASDIR PRN 04/01 900 AC (MAGNESIUM SULFATE IV 06/30 858 4GM/SWFI 100ML) Magnesium Sulfate 50 ML ASDIR PRN 04/01 900 AC (MAGNESIUM SULFATE IV 06/30 858 2GM/SWFI 50ML) Magnesium Sulfate/ 100 ML ASDIR PRN 04/01 900 AC 04/02 Dextrose IV 06/30 858 09 (MAGNESIUM SULFATE 1GM/D5W 100ML) Oxycodone HCl 5 MG Q4H PRN PRN 04/01 900 AC 04/02 (ROXICODONE) PO 04/06 08 012 Oxycodone HCl 10 MG Q4H PRN PRN 04/01 900 AC (ROXICODONE) PO 04/06 0859 Electrolytic, Caloric, And Kylee Sig/Joe Start time Last Medication Dose Route Stop Time Status Admin Calcium Chloride 0 .STK-MED ONE 04/01 1354 DC (CALCIUM CHLORIDE) IV Calcium Chloride 1 GM ASDIR PRN 04/01 900 AC (CALCIUM CHLORIDE) IV 06/30 858 Dextrose/Water 125 ML ASDIR PRN 04/01 900 CKD (DEXTROSE 10% IN IV 06/30 858 WATER) Dextrose/Water 250 ML ASDIR PRN 04/01 900 CKD (DEXTROSE 10% IN IV 06/30 858 WATER) Potassium Chloride 100 ML ASDIR PRN 04/01 900 AC 04/02 (KCL 20MEQ/SWFI IV 06/30 858 0056 100ML) Sodium Bicarbonate 50 MEQ ASDIR PRN 04/01 900 AC (SODIUM BICARBONATE) IV 06/30 858 Sodium Chloride 250 ML Q24H 04/01 900 AC (SODIUM CHLORIDE IV 06/30 858 0.9%) Sodium Chloride 20 ML PREOP ONCALL 04/01 0500 AC (SODIUM CHLORIDE) IV 06/30 0459 Gastrointestinal Drugs Sig/Joe Start time Last Medication Dose Route Stop Time Status Admin Bisacodyl 10 MG ONCE PRN 04/03 1200 AC (DULCOLAX) RECTAL 07/02 1159 Magnesium Hydroxide 30 ML ONCE PRN 04/03 1200 AC (MILK OF MAGNESIA) PO Polyethylene Glycol 17 GM DAILY 04/02 900 AC 04/02 (MIRALAX) PO 07/01 0859 0820 Pantoprazole 40 MG DAILY@0600 04/02 06 AC 04/02 (PROTONIX) PO 07/01 0559 0658 Sennosides 17.2 MG BEDTIME 04/01 2100 AC (Senna Lax 8.6 MG PO 06/30 2058 TABLET) Docusate Sodium 100 MG BID 04/01 900 AC 04/02 (COLACE) PO 06/30 0859 08 Ondansetron HCl 4 MG Q6H PRN PRN 04/01 900 AC (ZOFRAN) IV 06/30 0859 Hormones And Synthetic Substit Sig/Joe Start time Last Medication Dose Route Stop Time Status Admin Insulin Human Lispro 0 AC HS 04/02 1130 AC (HUMALOG) SUBQ 07/01 1129 Insulin Human Regular 100 UNIT ASDIR 04/01 0930 DC (HumuLIN R) IV 06/30 09 Sodium Chloride 99 ML (SODIUM CHLORIDE 0.9%) Glucagon 1 MG ASDIR PRN 04/01 900 AC (GLUCAGON) IM 06/30 0859 Miscellaneous Therapeutic Agen Sig/Joe Start time Last Medication Dose Route Stop Time Status Admin Sugammadex Sodium 0 .STK-MED ONE 04/01 1328 DC (BRIDION) IV Allopurinol 300 MG DAILY 04/01 900 AC 04/02 (ZYLOPRIM) PO 06/30 0859 0818 Skin And Mucous Membrane Agent Sig/Joe Start time Last Medication Dose Route Stop Time Status Admin Mupirocin 1 APPLIC BID 04/01 900 AC 04/02 (BACTROBAN 2% 22 GM NASAL 04/05 2101 0820 OINTMENT) Vitamins Sig/Joe Start time Last Medication Dose Route Stop Time Status Admin Cyanocobalamin 500 MCG DAILY 04/04 900 AC (Vitamin B-12 500 PO 07/03 0859 mcg tab) Allergies: Coded Allergies: Sulfa (Sulfonamide Antibiotics) (Intermediate, NAUSEA. VOMITING 03/26/24) Objective Physical Exam VS/I O: Vital Signs: Date Time Temp Pulse Resp B/P B/P Pulse O2 O2 Flow FiO2 Mean Ox Delivery Rate 04/02 1101 97 Room air 21 04/02 09 118/61 84 04/02 09 97.5 80 25 115/47 70 97 10 0800 97.5 04/02 08 118/61 83 10 0800 97.5 80 28 112/46 68 97 10/ 0731 97 Room air 21 04/02 0700 110/60 80 10/ 0700 97.0 80 21 113/45 66 99 10 0600 116/58 79 10 0600 97.2 80 12 117/46 68 97 10 0000 High flow 10 nasal cannula 04/01 2130 111/61 81 04/01 2130 99.0 84 31 114/48 70 100 04/01 2115 111/59 80 04/01 2115 99.1 84 15 109/46 68 96 04/01 2100 114/55 77 04/01 2100 99.3 84 17 105/42 64 97 04/01 2045 110/55 76 04/01 2045 99.5 84 17 104/42 63 98 04/01 2030 111/55 77 04/01 2030 99.5 84 17 103/42 63 96 04/01 2026 100 High flow 10 nasal cannula 04/01 2015 108/56 76 04/01 2015 99.7 84 19 108/44 65 97 04/01 2000 High flow 10 nasal cannula 04/01 2000 109/56 77 04/01 2000 99.7 84 17 106/44 64 97 04/01 1945 109/55 77 04/01 1945 99.7 84 18 106/46 65 95 04/01 1931 86 20 100 04/01 1930 114/64 84 04/01 1930 99.5 84 18 119/52 74 97 04/01 1915 122/66 89 04/01 1915 99.1 84 21 126/54 78 100 04/01 1908 84 100 40 04/01 1900 114/64 84 04/01 1900 98.6 84 20 130/62 83 100 04/01 184 101/57 73 04/01 184 98.2 84 15 115/56 73 100 10 1830 101/57 74 04/01 1830 97.7 84 16 115/57 73 100 04/01 1815 101/56 73 10/07 1815 97.2 84 19 111/54 70 100 10/ 1811 84 100 40 10/ 1800 102/59 75 10/ 1800 96.8 84 21 113/57 74 100 10/ 1745 108/59 79 10/ 1745 96.1 84 29 118/58 75 100 10/ 1730 105/65 76 10/ 1730 95.5 84 33 116/58 76 100 10/ 1715 114/65 85 10/ 1715 95.2 84 21 118/62 79 100 10 1700 125/72 91 10/ 1700 94.8 84 20 125/67 86 100 10 1645 131/80 101 10 1645 94.5 84 21 139/75 97 100 10 1630 132/82 103 04/01 1630 94.1 84 22 143/77 100 100 04/01 1615 137/83 105 04/01 1615 93.9 84 20 144/77 101 100 04/01 1600 Ventilator 40 04/01 1600 138/87 107 04/01 1600 93.9 84 21 149/78 105 100 04/01 1545 140/83 105 04/01 1545 94.3 84 26 144/66 97 100 04/01 1540 132/79 99 04/01 1540 94.3 84 44 138/71 98 100 04/01 1535 123/79 96 04/01 1535 94.5 84 44 133/68 91 100 04/01 1530 94.9 04/01 1530 Ventilator 40 04/01 1530 125/75 92 04/01 1530 94.8 84 51 128/64 87 100 04/01 1521 100 Ventilator 50 04/01 1521 84 100 50 24 hour I O ending at 0700: 04/02 1900 Intake Total 2037.00 1044.70 Output Total 1945 1580 Balance 93.00 -535.30 Intake, IV 1888.00 1044.70 Intake, Oral 150 Output, Chest 380 160 Tube Drainage Output, Urine 1565 1420 Patient 144 lb Weight Weight Standing scale Measurement Method PATIENT WEIGHT: Weight (lb): 143 Weight (oz): 11.86 Weight (kg): 65.200 General appearance: alert, awake, oriented, no acute distress, pleasant, conversational, no respiratory distress Cardiovascular: regular rate and rhythm Respiratory: no distress Extremities: edema (mild edema of LE and Rt hand) Neuro/POST FORM REMOVER: alert, oriented X 3, normal speech Skin: dry, normal color Psychiatry: normal affect, normal judgment/insight, normal mood Results Findings/Data: Laboratory Tests 04/0236 0066 4292 6388 Blood Gas Puncture Site Art Line Art Line Art Line Art Line O2 Saturation (90 - 100 %) 93.7 98.0 99.3 99.1 ABG pH (7.35 - 7.45) 7.385 7.361 7.383 7.367 ABG pCO2 (35.0 - 45 mmHg) 39.4 40.9 41.1 41.6 ABG pO2 (80 - 100.0 mmHg) 70.4 L 107.3 H 151.9 H 143.1 H ABG PO2/FiO2 Ratio (mm/Hg) 379.75 357.75 ABG HCO3 (22.0 - 26.0 MMOL/L) 23.6 23.2 24.5 23.9 ABG Total CO2 24.8 24.4 25.7 25.2 ABG Base Excess (-4.0 - 4.0 -1.4 -2.2 -0.6 -1.4 MMOL/L) ABG Hematocrit (37.5 - 50.7 %) 21 L 20 L 20 L 21 L ABG Hemoglobin (12.5 - 16.9 G/DL) 7.1 L 6.9 L 6.9 L 7.0 L Marco Test N/A N/A Sodium (134 - 147 mmol/L) 142 142 141 142 Potassium (3.4 - 5.0 mmol/L) 4.2 4.1 4.0 3.8 Chloride (100 - 108 mmol/L) 109 H 108 108 109 H Ionized Calcium (1.12 - 1.32 1.22 1.22 1.36 H 1.37 H MMOL/L) Lactic Acid (0.9 - 1.7 mmol/l) 0.9 0.9 1.4 1.3 Temperature (F) 97.5 97.2 98.4 98.2 O2 Delivery Device Room Air Cannula Adult Vent Adult Vent Vent Mode PS Vent Rate (/MIN) 20 FiO2 (%) 40 40 PEEP (cmH2O) 5 Pressure Support (cmH2O) 04/01 1759 1536 1424 1303 Blood Gas Puncture Site Art Line Art Line O2 Saturation (90 - 100 %) 99.1 98.9 99.9 99.9 ABG pH (7.35 - 7.45) 7.426 7.357 7.192 *L 7.330 L ABG pCO2 (35.0 - 45 mmHg) 35.2 39.3 45.1 H 44.2 ABG pO2 (80 - 100.0 mmHg) 129.7 H 129.5 H 314.4 *H 362.3 *H ABG PO2/FiO2 Ratio (mm/Hg) 324.25 259.00 ABG HCO3 (22.0 - 26.0 MMOL/L) 23.1 22.1 17.3 *L 23.3 ABG Total CO2 24.2 23.4 18.7 24.6 ABG Base Excess (-4.0 - 4.0 -1.2 -3.4 -10.2 L -2.5 MMOL/L) ABG Hematocrit (37.5 - 50.7 %) 21 L 19 L 23 L 21 L ABG Hemoglobin (12.5 - 16.9 G/DL) 7.3 L 6.6 L 7.7 L 7.2 L Marco Test N/A N/A Sodium (134 - 147 mmol/L) 143 143 143 140 Potassium (3.4 - 5.0 mmol/L) 3.7 3.9 3.5 3.9 Chloride (100 - 108 mmol/L) 109 H 110 H 112 H 106 Ionized Calcium (1.12 - 1.32 1.39 H 1.36 H 1.43 H 1.22 MMOL/L) Lactic Acid (0.9 - 1.7 mmol/l) 1.8 H 2.1 H 1.6 Temperature (F) 96.4 98 O2 Delivery Device Adult Vent Adult Vent Vent Mode AC Vent Rate (/MIN) 20 20 FiO2 (%) 40 50.0 Tidal Volume (ml) 500 PEEP (cmH2O) 5 5 Pressure Support (cmH2O) 500 04/01 1158 Blood Gas O2 Saturation (90 - 100 %) 100.0 ABG pH (7.35 - 7.45) 7.392 ABG pCO2 (35.0 - 45 mmHg) 38.4 ABG pO2 (80 - 100.0 mmHg) 384.8 *H ABG HCO3 (22.0 - 26.0 MMOL/L) 23.4 ABG Total CO2 24.6 ABG Base Excess (-4.0 - 4.0 MMOL/L) -1.4 ABG Hematocrit (37.5 - 50.7 %) 21 L ABG Hemoglobin (12.5 - 16.9 G/DL) 7.1 L Sodium (134 - 147 mmol/L) 135 Potassium (3.4 - 5.0 mmol/L) 4.7 Chloride (100 - 108 mmol/L) 104 Ionized Calcium (1.12 - 1.32 MMOL/L) 1.22 Lactic Acid (0.9 - 1.7 mmol/l) 0.8 L Laboratory Tests 04/02 04/02 04/02 04/02 04/02 0736 0736 0702 0316 0315 Chemistry Sodium (134 - 147 mEq/L) 141 Potassium (3.4 - 5.0 mEq/L) 4.3 Chloride (100 - 108 mEq/L) 111 H Carbon Dioxide (21 - 33 mEq/l) 23 Anion Gap (0 - 20) 11 BUN (7 - 25 mg/dL) 18 Creatinine (0.6 - 1.3 mg/dL) 1.5 H POC Creatinine (0.8 - 1.3 mg/dL) 1.4 H 1.5 H Glomerular Filtr Rate (70 - 80) 47.4 L Glucose (77 - 141 mg/dL) 115 POC Glucose (70 - 110 MG/DL) 95 124 H POC Glucose (mg/dL) (70 - 110 MG/DL) 121 H 128 H Calcium (8.0 - 10.5 mg/dL) 8.5 Magnesium (1.6 - 2.6 mg/dL) 2.39 04/02 04/02 04/01 04/01 04/01 0005 0003 2135 1911 7997 Chemistry Sodium (134 - 147 mEq/L) 144 Potassium (3.4 - 5.0 mEq/L) 3.7 Chloride (100 - 108 mEq/L) 113 H Carbon Dioxide (21 - 33 mEq/l) 24 Anion Gap (0 - 20) 11 BUN (7 - 25 mg/dL) 18 Creatinine (0.6 - 1.3 mg/dL) 1.5 H POC Creatinine (0.8 - 1.3 mg/dL) 1.3 1.3 Glomerular Filtr Rate (70 - 80) 47.4 L Glucose (77 - 141 mg/dL) 119 POC Glucose (70 - 110 MG/DL) 118 H 117 H POC Glucose (mg/dL) (70 - 110 MG/DL) 90 95 Calcium (8.0 - 10.5 mg/dL) 8.7 Magnesium (1.6 - 2.6 mg/dL) 2.10 Total Bilirubin (0.0 - 1.0 mg/dL) 1.30 H Direct Bilirubin (0.1 - 0.3 MG/DL) 0.70 H Indirect Bilirubin (MG/DL) 0.60 AST (8 - 34 IUnit/L) 127 H ALT (10 - 49 IUnit/L) 39 Total Alk Phosphatase (20 - 125 50 IUnit/L) Total Protein (6.4 - 8.2 g/dL) 5.3 L Albumin (3.4 - 5.0 g/dL) 3.30 L 04/01 04/01 04/01 04/01 04/01 1759 1736 1536 1424 1303 Chemistry POC Creatinine (0.8 - 1.3 mg/dL) 1.2 1.1 1.0 1.1 POC Glucose (70 - 110 MG/DL) 101 POC Glucose (mg/dL) (70 - 110 MG/DL) 106 110 141 H 155 H 04/01 1158 Chemistry POC Creatinine (0.8 - 1.3 mg/dL) 1.0 POC Glucose (mg/dL) (70 - 110 MG/DL) 193 H Laboratory Tests 04/01 04/01 04/01 04/01 1536 1425 1304 1300 Coagulation INR (0.8 - 1.2) 1.2 PTT ([place]) (25.0 - 39.5 Seconds) 33.0 PT Patient/Control Mix (9.3 - 12.9 SECONDS) 13.8 H TEG R Time Citrated (4.6 - 9.1 min) 5.1 TEG K Time Citrated (0.8 - 2.1 min) 1.6 TEG Alpha Angle Citr (63 - 78 degrees) 70.6 TEG Max Ampl Citrated (52 - 69 mm) 54.1 TEG Max Ampl Citr Rapid (52 - 70 mm) 50.5 L TEG Clot Time Rpd w Hep (4.3 - 8.3 mins) 5.7 Activated Coag Time (74 - 137 SEC) 134 128 Func Fibrinogen MA (15 - 32 mm) 14.2 L Func Fibrinogen Level (278 - 581 mg/dL) 259.1 L 04/01 1201 Coagulation Activated Coag Time (74 - 137 SEC) 544 H Laboratory Tests 04/02 04/02 04/01 0736 0003 1536 Hematology WBC (4.5 - 11.0 x10 3/uL) 10.7 8.6 7.3 RBC (4.00 - 5.60 x10 6/uL) 2.63 L 2.68 L 2.45 L Hgb (12.5 - 16.9 g/dL) 7.6 L 7.7 L 7.1 L Hct (37.5 - 50.7 %) 22.7 L 23.1 L 21.1 L MCV (81.0 - 99.0 fL) 86.3 86.2 86.1 MCH (27.0 - 33.0 pg) 28.9 28.7 29.0 MCHC (33.0 - 37.0 g/dL) 33.5 33.3 33.6 RDW (11.5 - 14.5 %) 14.6 H 14.5 14.4 Plt Count (150 - 400 x10 3/uL) 107 L 104 L 80 L MPV (7.0 - 9.0 fL) 11.9 H 11.1 H 10.5 H Neut % (Auto) (56.0 - 77.0 %) 82.1 H 88.6 H 87.5 H Lymph % (Auto) (14.0 - 32.0 %) 9.0 L 4.7 L 2.8 L [place] % (Auto) (4.8 - 9.0 %) 8.3 6.2 8.5 Eos % (Auto) (0.3 - 3.7 %) 0.0 L 0.0 L 0.3 Baso % (Auto) (0.0 - 2.0 %) 0.2 0.0 0.1 Neut # (Auto) (2.0 - 7.6 x10 3/uL) 8.80 H 7.62 H 6.36 Lymph # (Auto) (1.0 - 3.8 x10 3/uL) 0.97 L 0.40 L 0.20 L [place] # (Auto) (0.1 - 0.8 x10 3/uL) 0.89 H 0.53 0.62 Eos # (Auto) (0.0 - 0.2 x10 3/uL) 0.00 0.00 0.02 Baso # (Auto) (0.0 - 0.2 x10 3/uL) 0.02 0.00 0.01 Abs Immat Gran (auto) (0.00 - 0.03 x10 3/uL) 0.04 H 0.04 H 0.06 H Immature Gran % (0.0 - 2.0 %) 0.4 0.5 0.8 Nucleated RBC % (0 - 0 %) 0.0 0.0 0.0 Nucleated RBCs # (Man) (0.0 - 0.1 x10 3/uL) 0.00 0.00 0.00 Platelet Estimate (150 - 400 x10 3/uL) 107 L Immature Plt Fraction (0.9 - 11.2 %) 5.0 Plt Morphology Comment NORMAL Laboratory Tests 04/0236 0003 Chemistry Magnesium (1.6 - 2.6 mg/dL) 2.39 2.10 Radiology Data: Recent Impressions: RADIOLOGY - XR CHEST 1 V 04/01 1428 Report Impression - Status: SIGNED Entered: 04/01/2024 1526 Impression: Mild cardiomegaly with bibasilar opacities, left greater than right consistent with atelectasis and/or infiltrate. Patient is status post recent bypass. Right IJ central venous catheter coursing towards the brachiocephalic vein. Recommend repositioning. Other support lines and tubes are stable. Impression By: [email or web address] - Elizabeth Raymond M.S. RADIOLOGY - XR CHEST 1 V 04/01 1534 Report Impression - Status: SIGNED Entered: 04/01/2024 1651 IMPRESSION: Minimal hazy prominent central interstitial markings, favoring pulmonary edema. Stable lines and tubes. Impression By: [email or web address] - Derrick Wells D.O. RADIOLOGY - XR CHEST 1 V 04/02 0520 Report Impression - Status: SIGNED Entered: 04/02/2024 0828 IMPRESSION: There is minimal bibasilar atelectasis. Impression By: [email or web address] - Mehran M Tirado, M.D. Results: labs reviewed, vital signs reviewed, rhythm personally rev'd, current med profile rev'd Telemetry Interpretation: AV paced rate 80 Diagnosis, Assessment Plan Consultants: cardiology Free Text DxA P Notes Free Text DxA P Notes: This is a 78-year-old patient with a past medical history of aortic valve stenosis, hyperlipidemia who was also found to have an ascending aortic aneurysm measuring 5 cm. ECHO on 01/22/2024 showed EF 55 to 60%. LHC on 02/05/2024 showed left main to be normal, LAD proximal 30 to 40%, mid diffuse 50 to 60%, then luminal irregularities. Diagonal 1 has 40 to 55% stenosis. Circumflex proximal 60% stenosis, RCA large dominant with proximal 40 %, mid 30 to 40% in the PDA with diffuse 40% stenosis. 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 Patient was admitted on 04/01/24 and underwent, see below. Intraoperatively, the patient received shocks due to V-fib; currently on Amiodarone drip 1. Exploration of innominate artery. 2. Chimney graft to the innominate artery (8 mm Hemashield graft). 3. Aortic root replacement (29 Konect graft, Bentall procedure). 4. Replacement of ascending aorta. 5. Hemiarch replacement. 6. Total circulatory arrest with antegrade cerebral perfusion. 7. Repair of innominate artery. 8. Amputation of left atrial appendage. 9. CABG x1 (CENTENO to LAD) V-fib/R on T occured during surgery, required 8 shocks currently on amiodarone drip AV-paced rate 80 recommend EP consult for ICD evaluation Aortic root replacement, replacement of ascending aorta, hemiarch replacement, CABG x1 CENTENO to LAD, and amputation of left atrial appendage monitor for fluid overload Maintain MAP 70-90 Strict I Os and daily standing weight Maintain K 4 and Mg 2 Trend CBC, BMP BP 126/53 AV paced rate 80 LVEF 55-60% Meds: Plavix, Amiodarone, ASA, Lipitor, metoprolol tartrate was d/c due to bradycardia HTN stable BP without meds HLD on atorvastatin 40mg daily Andrés Limon 04/03/24 0948: Attestations Physician Attestation Agree w/findings plan: s/p Aortic root replacement, replacement of ascending aorta, hemiarch replacement, s/p CABG x1 CENTENO to LAD, and amputation of left atrial appendage Hypertension Hyperlipidemia Patient is currently AV paced at the rate of 80. Underlying rhythm is junctional rhythm Hold off on beta-blockers Continue IV amio Patient is hemodynamically stable Although mild volume overload noted, hold off on diuretic therapy for today continue DAPT with aspirin and Plavix Continue Lipitor and amiodarone Maintain MAP 70-90 Maintain CVP 8-10 Strict I Os and daily standing weight Maintain K 4 and Mg 2 Trend CBC, BMP Critical care time spent 35 minutes I have personally seen and examined the patient independently, and reviewed the patient's history, exam, and all cardiac and laboratory data. I agree with the history, physical, and the assessment and plan as outlined by Ashley Vasquez NP. I was present and supervised. at 1155 at 0956 RPT #:[id number] END OF REPORT [facility] 2024-04-02 07:41:00 [facility] Cardiothoracic Surgery Prog REPORT#:[id number] REPORT STATUS: Signed REPORT INITIALIZATION DATE:04/02/24 TIME: 740 PATIENT: FARHAD WELLS UNIT #: [id number] ROOM/BED: [place] [address] : 46 AGE: 79 SEX: M ATTEND: Sol Sutton MD ADM AUTHOR: Jeri Ambrose REPT SERVICE DT/TIME: 04/02/24 0741 * ALL edits or amendments must be made on the electronic/computer document * Review of Systems All systems rev neg: except as marked Diagnosis, Assessment Plan Free Text A P: This is a 78-year-old gentleman with a past medical history of aortic valve stenosis, hyperlipidemia who was also found to have an ascending aortic aneurysm measuring 5 cm. The patient was seen by his display specialist for 6-month follow-up. Recent echocardiogram completed on 01/22/2024 showed EF 55 to 60%, aortic valve mean/peak gradient of 30/42 mmHg, NAS measuring 0.9 cm , peak velocity 4.5 m/s. Patient also noted to have moderate mitral regurgitation, mild pulmonary hypertension with RV systolic pressure 45 mmHg. The patient underwent left heart catheterization on 02/05/2024 that showed left main to be normal, LAD proximal 30 to 40%, mid diffuse 50 to 60%, then luminal irregularities. Diagonal 1 has 40 to 55% stenosis. Circumflex proximal 60% stenosis, RCA large dominant with proximal 40%, mid 30 to 40% in the PDA with diffuse 40% stenosis. 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 Patient denies any chest pain but does report occasional dyspnea on exertion. Patient is being admitted today for replacement of ascending aorta, AVR, and possible coronary artery bypass graft surgery. Assessment/plan: 1. Dyspnea on exertion 2. Aortic valve stenosis 3. Ascending aortic aneurysm 4. Coronary artery disease 5. Hypertension 6. Hyperlipidemia Patient seen and examined by Dr. Sutton. Dr. Sutton has discussed with the patient the need for aortic valve replacement as well as ascending aortic replacement and possible coronary artery bypass graft surgery. Dr. Sutton discussed with the patient the operation, risks involved, benefits, alternatives , and complications. The patient's questions were answered and patient agreed to proceed with surgery. Patient is scheduled for surgery today. Admit to CVICU postoperatively Monitor heart rhythm and hemodynamics Strict I's and O's Cardiology and critical care consulted. 04/01/24 1. Exploration of innominate artery. 2. Chimney graft to the innominate artery (8 mm Hemashield graft). 3. Aortic root replacement (29 Konect graft, Bentall procedure). 4. Replacement of ascending aorta. 5. Hemiarch replacement. 6. Total circulatory arrest with antegrade cerebral perfusion. 7. Repair of innominate artery. 8. Amputation of left atrial appendage. 04/02/24 POD 1 AAOx3, reports pain well controlled AAOx3 Respiratory: On 3L NC, wean as tolerated, Encourage IS, Deep Breathing, nebs, pep and flutter CXR reviewed, Mediastinal CT 130cc, Pleural CT 340cc, continue to monitor. Cardiac: Sinus bradycardia, temporary pacing wires in place pacing at 80, hold BB, on amiodarone gtt @ 0.5, finish IV bag, start PO amiodarone GI: Cardiac diet, Continue Bowel regimen, positive bowel sounds, on insulin gtt : Mann, 167cc urine output last night PT/OT, encourage ambulation today DVT prophylaxis Labs reviewed- replace electrolytes as needed Disposition will be home with , good family support. Patient seen and examined by Dr. Sutton. Plan of care discussed with patient and multidisciplinary team. The patient's questions were answered. Consultants: cardiology Code status: full code Plan discussed with: patient, collaborating MD, nurse, interdisc care team at 0753 at 1058 RPT #:[id number] END OF REPORT [facility] 2024-04-02 07:12:00 [facility]) Critical Care Progress Note REPORT#:[id number] REPORT STATUS: Signed REPORT INITIALIZATION DATE:04/02/24 TIME: 711 PATIENT: FARHAD WELLS UNIT #: [id number] ROOM/BED: [place] [address] : 46 AGE: 79 SEX: M ATTEND: Sol Sutton MD ADM AUTHOR: Kaushik Lopez DO REPT SERVICE DT/TIME: 04/02/24 0712 * ALL edits or amendments must be made on the electronic/computer document * Subjective Chief complaint: AI, Ascending aortic aneurysm HPI: Patient is a 78-year-old gentleman with past medical history of aortic valve stenosis, hyperlipidemia, hypertension. Patient was evaluated by his display specialist and found to have an ascending aortic aneurysm of 4.9 cm. He was also found to have mild to moderate aortic stenosis with moderate aortic insufficiency. He has preserved ejection fraction preoperatively. Today he underwent AVR with CABG x 1 and aortic root replacement with replacement of the ascending aorta and hemiarch replacement. He is in the CVICU for postoperative care. He is currently on a nitroglycerin infusion at 5 along with an insulin drip at 3. He remains intubated at this time. His preoperative echo showed preserved EF with severe aortic insufficiency. Postoperatively off-pump wall closing patient sustained a V-fib arrest. Differential of R on T phenomenon versus transient ischemic insult secondary to coronary calcification that could have been manipulated. He received 4 subcutaneous defibrillations and 2 internal defibrillations. After cardiac arrest episode patient was noted to have some ischemic changes on his echocardiogram with RV dilatation. He is not requiring IR inotropic support at this time. His EBL was 700. Received 750 of Cell Saver. In total he received 2 of cryo, 2 FFP 1 platelet and 1 RBC. Received 2 L of crystalloid and had a urine output of 650 throughout the case. Sedation is off at this time. He is being warmed with a warming blanket. Postoperative labs, EKG, chest x-ray pending. Will plan to extubate shortly. 04/02: Patient seen and evaluated at bedside. Patient is out of bed to chair. Pain is well-controlled. No acute events overnight. He was successfully extubated yesterday evening without difficulty. He remains on no drips at this time. Continues to require pacing and is sinus bradycardic. Objective General VS/I O Last Documented: Result Date Time O2 Delivery High flow nasal cannula 04/02 O2 Flow Rate 10 04/02 0000 B/P 111/61 04/01 2130 B/P Mean 81 04/01 2130 Pulse Ox 100 04/01 2130 Temp 99.0 04/01 2130 Pulse 84 04/01 2130 Resp 31 04/01 2130 FiO2 40 04/01 1908 24 hour I O ending at 0700: 04/02 Intake Total 8.00 1044.70 Output Total 1944 1580 Balance 93.00 -535.30 Intake, IV 1888.00 1044.70 Intake, Oral 150 Output, Chest 380 160 Tube Drainage Output, Urine 1565 1420 Patient 65.2 kg Weight Weight Standing scale Measurement Method PATIENT WEIGHT: Weight (lb): 143 Weight (oz): 11.86 Weight (kg): 65.200 Free Text Obj Notes Free Text Obj Notes: GEN: Appears in no acute distress, interactive and conversational HEENT: Atraumatic, normocephalic, moist mucous membranes NECK: Supple, good range of motion, no tenderness, no JVD LUNGS: Symmetrical air entry, no acute respiratory distress, no accessory muscle use CV: S1, S2 regular rate and rhythm, warm and well perfused GI: Abdomen is soft, not tender or distended EXT/Musc: No edema or cyanosis. Pedal pulses present. Compartments soft Skin: Surgical site clean, dry and intact. Warm to touch NEURO: Awake, alert and oriented x3. No facial droop or focal deficit Diagnosis, Assessment Plan Free text A P: Patient is a 79-year-old male with a history of ascending aortic aneurysm and aortic insufficiency that is postoperative aortic root replacement, replacement of ascending aorta, hemiarch replacement with antegrade cerebral perfusion. Ascending aortic aneurysm Severe aortic insufficiency Postop day 1 status post aortic root replacement, replacement of ascending aorta , hemiarch, AVR CABG x 1 V-fib arrest ALAA Sinus bradycardia Acute hypoxic respiratory insufficiency following thoracic surgery Acute blood loss anemia secondary to surgery Hypertension Hyperglycemia Acute kidney injury Neuro:multimodal pain control Respiratory: Pulmonary hygiene, incentive spirometry, out of, ABG and CXR reviewed Cardiovascular:SBP goal <140, CTs to suction, monitor output, ekg, PO amiodarone. Hold beta-yenifer continue IV amiodarone infusion for 24 hours. DDI pacing currently. Renal: strict I/Os, monitor Cr and electrolytes, resuscitate as needed GI: bedside swallow then oral diet after extubation, bowel regimen ID: trend WBC, cont periop ABx per protocol Hem: monitor Hgb and CTs output, transfuse as needed, correct coagulopathy. ASA/ plavix when able. Endo: BG control with insulin gtt per protocol Misc: PTOT consult, DVT and GI ppx with SCD and PPI Total critical care time 38 minutes spent treating the patient excluding any procedures performed Consultants: cardiology at 0714 RPT #:[id number] END OF REPORT [facility] 2024-04-02 04:17:00 [id number] [facility] [place] [address] PATIENT NAME: FARHAD WELLS ADMIT DATE: 04/01/24 ACCOUNT NO: [id number] ROOM NO: [facility] [place] AGE: 79 REPORT TYPE: eELECTROCARDIOGRAM REPORT SEX: M ADMITTING PHYSICIAN:Sol Sutton MD ATTENDING PHYSICIAN:Sol Sutton MD Order: [id number] Test Reason : POST OP DAY 1 Test Date/Time Stamp: MonApr 02 2024 04:17:55 Blood Pressure : / mmHG Vent. Rate : 084 BPM Atrial Rate : 063 BPM P-R Int : 000 ms QRS Dur : 172 ms QT Int : 472 ms P-R-T Axes : 000 161 069 degrees QTc Int : 557 ms Ventricular-paced rhythm Abnormal ECG When compared with ECG of 01-APR-2024 15:42, Significant changes have occurred Confirmed by MD VELIZ GERARD ([id number]) on 04/02/2024 1:19:03 PM Referred By: Sol Sutton Confirmed by:SAUD VELIZ MD at 1319 PATIENT NAME: FARHAD WELLS [facility] 2024-04-01 16:00:00 [facility]) Critical Care Consult Note REPORT#:[id number] REPORT STATUS: Signed REPORT INITIALIZATION DATE:04/01/24 TIME: 1600 PATIENT: FARHAD WELLS UNIT #: [id number] ROOM/BED: [place] [address] : 46 AGE: 79 SEX: M ATTEND: Sol Sutton MD ADM AUTHOR: Kaushik Lopez DO REPT SERVICE DT/TIME: 04/01/24 1600 * ALL edits or amendments must be made on the electronic/computer document * History of Present Illness HPI Requesting clinician: Dr. Sutton Reason for consult: s/p Aortic root replacement, replacement of ascending aorta, hemiarch replacement Chief complaint: AI, Ascending aortic aneurysm HPI: Patient is a 78-year-old gentleman with past medical history of aortic valve stenosis, hyperlipidemia, hypertension. Patient was evaluated by his display specialist and found to have an ascending aortic aneurysm of 4.9 cm. He was also found to have mild to moderate aortic stenosis with moderate aortic insufficiency. He has preserved ejection fraction preoperatively. Today he underwent aortic root replacement with replacement of the ascending aorta and hemiarch replacement. He is in the CVICU for postoperative care. He is currently on a nitroglycerin infusion at 5 along with an insulin drip at 3. He remains intubated at this time. His preoperative echo showed preserved EF with severe aortic insufficiency. Postoperatively off-pump wall closing patient sustained a V-fib arrest. Differential of R on T phenomenon versus transient ischemic insult secondary to coronary calcification that could have been manipulated. He received 4 subcutaneous defibrillations and 2 internal defibrillations. After cardiac arrest episode patient was noted to have some ischemic changes on his echocardiogram with RV dilatation. He is not requiring IR inotropic support at this time. His EBL was 700. Received 750 of Cell Saver. In total he received 2 of cryo, 2 FFP 1 platelet and 1 RBC. Received 2 L of crystalloid and had a urine output of 650 throughout the case. Sedation is off at this time. He is being warmed with a warming blanket. Postoperative labs, EKG, chest x-ray pending. Will plan to extubate shortly. History - Adult longitudinal Past medical history: Reports: Coronary artery disease, Hypertension, Dyslipidemia. Past surgical history: Reports: Appendectomy, Cholecystectomy. Alcohol use: Denies EtOH use Drug use: Denies recreational drugs Smoking status for patients 13 years old or older: Former Smoker Date last smoked: 06/26/79 Allergies: Coded Allergies: Sulfa (Sulfonamide Antibiotics) (Intermediate, NAUSEA. VOMITING 03/26/24) Objective Physical Exam VS/I O: Last Documented: Result Date Time Pulse Ox 100 04/01 547 B/P 179/84 04/01 547 Temp 97.7 04/01 547 Pulse 79 04/01 547 Resp 16 04/01 547 24 hour I O ending at 0700: 04/01 0700 03/31 1900 Intake Total Output Total Balance Patient 61.2 kg Weight Weight Stated/Reported Measurement Method Patient Weight and BMI Weight (kg): 61.200 BMI: 19.4 Free Text Obj Notes Free Text Obj Notes: GEN: Appears in no acute distress, waking up from sedation at this time, intubated HEENT: Atraumatic, normocephalic, moist mucous membranes NECK: Supple, good range of motion, no tenderness, no JVD LUNGS: Symmetrical air entry, no acute respiratory distress, no accessory muscle use CV: S1, S2 regular rate and rhythm, warm and well perfused GI: Abdomen is soft, not tender or distended EXT/Musc: No edema or cyanosis. Pedal pulses present. Compartments soft Skin: Surgical site clean, dry and intact. Warm to touch NEURO: Waking up from sedation, breathing over the vent Diagnosis, Assessment Plan Diagnosis, Assessment Plan Consultants: cardiology Free text DxA P: Patient is a 79-year-old male with a history of ascending aortic aneurysm and aortic insufficiency that is postoperative aortic root replacement, replacement of ascending aorta, hemiarch replacement with antegrade cerebral perfusion. Ascending aortic aneurysm Severe aortic insufficiency Postop day 0 status post aortic root replacement, replacement of ascending aorta , hemiarch replacement V-fib arrest ALAA Total AV blockade Acute hypoxic respiratory insufficiency following thoracic surgery Acute blood loss anemia secondary to surgery Hypertension Hyperglycemia Neuro: keep off sedation, multimodal pain control , neuro exam when awake Respiratory: CPAP as tolerated, plan for extubation, ABG and CXR reviewed Cardiovascular: Hypertensive, maintain nitro drip for SBP goal <140, CTs to suction, monitor output, ekg, PO amiodarone and beta yenifer when appropriate. Continue IV amiodarone infusion for 24 hours. May go down to 0.5 after 6 hours. DDI pacing currently. Renal: strict I/Os, monitor Cr and electrolytes, resuscitate as needed GI: bedside swallow then oral diet after extubation, bowel regimen ID: trend WBC, cont periop ABx per protocol Hem: monitor Hgb and CTs output, transfuse as needed, correct coagulopathy. ASA/ plavix when able. Endo: BG control with insulin gtt per protocol Misc: PTOT consult, DVT and GI ppx with SCD and PPI Total critical care time 41 minutes spent treating the patient excluding any procedures [id number] END OF REPORT [facility] 2024-04-01 15:42:00 [id number] [place] [address] PATIENT NAME: FARHAD WELLS ADMIT DATE: 04/01/24 ACCOUNT NO: [id number] ROOM NO: [id number] AGE: 79 REPORT TYPE: eELECTROCARDIOGRAM REPORT SEX: M ADMITTING PHYSICIAN:Sol Sutton MD ATTENDING PHYSICIAN:Sol Sutton MD Order: [id number] Test Reason : Cardiac Surgery Post Op Test Date/Time Stamp: MonApr 01 2024 15:42:04 Blood Pressure : / mmHG Vent. Rate : 130 BPM Atrial Rate : 087 BPM P-R Int : 156 ms QRS Dur : 166 ms QT Int : 226 ms P-R-T Axes : 000 229 -82 degrees QTc Int : 332 ms AV dual-paced rhythm with frequent ventricular-paced complexes Abnormal ECG When compared with ECG of 26-MAR-2024 16:40, Significant changes have occurred Confirmed by MD VELIZ GERARD ([id number]) on 04/02/2024 1:18:50 PM Referred By: Sol Sutotn Confirmed by:SAUD VLEIZ MD at 1318 PATIENT NAME: FARHAD WELLS [facility] 2024-04-01 14:55:00 [facility] ([facility] Cardiology Consultation REPORT#:[id number] REPORT STATUS: Signed REPORT INITIALIZATION DATE:04/01/24 TIME: 1454 PATIENT: FARHAD WELLS UNIT #: [id number] ROOM/BED: [place] [address] : 46 AGE: 79 SEX: M ATTEND: Sol Sutton MD ADM AUTHOR: Judith Barbosa AGACNP REPT SERVICE DT/TIME: 04/01/24 1455 * ALL edits or amendments must be made on the electronic/computer document * Judith Barbosa 04/01/24 1455: History of Present Illness HPI Requesting Clinician: Dr. uStton Reason for consult: s/p replacecemt of ascending aorta and hemiarch replacement, CABG x1 CENTENO to LAD, and amputation of left atrial appendage HPI: This is a 71-year-old male with medical history of aortic valve stenosis, hyperlipidemia, hypertension who was found to have 5 cm ascending aortic aneurysm. The patient was brought in today and underwent aortic root replacement, replacement of ascending aorta, hemiarch replacement, CABG x1 CENTENO to LAD, and amputation of left atrial appendage. Hx Obtained From Family, Prior medical records History - Adult longitudinal Past medical history: Reports: Coronary artery disease, Hypertension, Dyslipidemia. Past surgical history: Reports: Appendectomy, Cholecystectomy. Alcohol use: Denies EtOH use Drug use: Denies recreational drugs Smoking status for patients 13 years old or older: Former Smoker Date last smoked: 06/26/79 Allergies: Coded Allergies: Sulfa (Sulfonamide Antibiotics) (Intermediate, NAUSEA. VOMITING 03/26/24) Review of Systems Unable to obtain due to: Intubated, sedated Objective General VS/I O: Vital Signs: Date Time Temp Pulse Resp B/P B/P Pulse O2 O2 Flow FiO2 Mean Ox Delivery Rate 04/01 0547 36.5 79 16 179/84 100 24 hour I O ending at 0700: 04/01 0700 03/31 1900 Intake Total Output Total Balance Patient 61.2 kg Weight Weight Stated/Reported Measurement Method PATIENT WEIGHT: Weight (lb): 134 Weight (oz): 14.77 Weight (kg): 61.200 Medications: Active Meds + DC'd Last 24 Hrs Cyanocobalamin (Vitamin B-12 500 mcg tab) 500 MCG DAILY PO Ferrous Sulfate (FERROUS SULFATE) 325 MG DAILY PO Ipratropium [facility] (ATROVENT) 500 MCG RTQ2H PRN PRN INH Bisacodyl (DULCOLAX) 10 MG ONCE PRN RECTAL Magnesium Hydroxide (MILK OF MAGNESIA) 30 ML ONCE PRN PO Clopidogrel Bisulfate (Plavix) 75 MG DAILY PO Polyethylene Glycol (MIRALAX) 17 GM DAILY PO Pantoprazole (PROTONIX) 40 MG DAILY@0600 PO Atorvastatin Calcium (LIPITOR) 40 MG 2100 PO Sennosides (Senna Lax 8.6 MG TABLET) 17.2 MG BEDTIME PO Vancomycin HCl (VANCOMYCIN HCL) 1,000 MG Q12H IV Sodium Chloride (SODIUM CHLORIDE 0.9%) 250 ML Aspirin (ASPIRIN) 81 MG DAILY PO Lidocaine HCl/Dextrose (LIDOCAINE 2GM/D5W 500ML) 500 ML .STK-MED ONE IV (DC) Amiodarone HCl (NEXTERONE 150MG/D5W 100ML) 100 ML .STK-MED ONE IV (DC) Amiodarone HCl (AMIODARONE HCL) 0 .STK-MED ONE IV (DC) Heparin Sodium (HEPARIN SODIUM) 0 .STK-MED ONE .ROUTE (DC) Epinephrine (EPINEPHrine) 0 .STK-MED ONE .ROUTE (DC) Calcium Chloride (CALCIUM CHLORIDE) 0 .STK-MED ONE IV (DC) Sugammadex Sodium (BRIDION) 0 .STK-MED ONE IV (DC) Fentanyl Citrate (SUBLIMAZE) 0 .STK-MED ONE IV (DC) Ipratropium [facility] (ATROVENT) 500 MCG RTQ4H INH Dextrose/Water (DEXTROSE 50% W SYRINGE) 0 .STK-MED ONE IV (DC) Isoflurane (FORANE) 0 .STK-MED ONE INH (DC) Insulin Human Regular (HumuLIN R) 100 UNIT ASDIR IV (CKD) Sodium Chloride (SODIUM CHLORIDE 0.9%) 99 ML Epinephrine (ADRENALIN CHLORIDE) 4 MG ASDIR IV Dextrose/Water (DEXTROSE 5% WATER) 246 ML Acetaminophen (TYLENOL) 650 MG Q4H PRN PRN PO Acetaminophen (TYLENOL) 650 MG Q4H PRN PRN RECTAL Albumin Human (ALBUMINAR 25%) 25 GM ASDIR PRN IV Allopurinol (ZYLOPRIM) 300 MG DAILY PO Amiodarone HCl (CORDARONE) 200 MG TID PO Calcium Chloride (CALCIUM CHLORIDE) 1 GM ASDIR PRN IV Cefazolin Sodium (KEFZOL OR ANCEF) 3 GM ONCE ONE IV Sodium Chloride (SODIUM CHLORIDE 0.9%) 250 ML Dextrose/Water (DEXTROSE 10% IN WATER) 125 ML ASDIR PRN IV (CKD) Dextrose/Water (DEXTROSE 10% IN WATER) 250 ML ASDIR PRN IV (CKD) Docusate Sodium (COLACE) 100 MG BID PO Glucagon (GLUCAGON) 1 MG ASDIR PRN IM Magnesium Sulfate (MAGNESIUM SULFATE 4GM/SWFI 100ML) 100 ML ASDIR PRN IV Magnesium Sulfate (MAGNESIUM SULFATE 2GM/SWFI 50ML) 50 ML ASDIR PRN IV Magnesium Sulfate/Dextrose (MAGNESIUM SULFATE 1GM/D5W 100ML) 100 ML ASDIR PRN IV Metoprolol Tartrate (LOPRESSOR) 12.5 MG Q12HR PO Mupirocin (BACTROBAN 2% 22 GM OINTMENT) 1 APPLIC BID NASAL Nitroglycerin/Dextrose (NITROGLYCERIN 50,000MCG/D5W 250ML) 250 ML ASDIR IV Norepinephrine Bitartrate (NOREPINEPHRINE 8 MG/NS 250 ML) 250 ML TITRATE IV Ondansetron HCl (ZOFRAN) 4 MG Q6H PRN PRN IV Oxycodone HCl (ROXICODONE) 5 MG Q4H PRN PRN PO Oxycodone HCl (ROXICODONE) 10 MG Q4H PRN PRN PO Potassium Chloride (KCL 20MEQ/SWFI 100ML) 100 ML ASDIR PRN IV Sodium Bicarbonate (SODIUM BICARBONATE) 50 MEQ ASDIR PRN IV Sodium Chloride (SODIUM CHLORIDE 0.9%) 250 ML Q24H IV Tamsulosin HCl (Flomax 0.4 mg) 0.4 MG DAILY PO Papaverine HCl (PAPAVERINE HCL) 0 .STK-MED ONE IV (DC) Cefazolin Sodium (KEFZOL OR ANCEF) 0 .STK-MED ONE .ROUTE (DC) Epinephrine HCl (EPINEPHrine 4 mg/D5W 250 mL) 250 ML .STK-MED ONE IV (DC ) Insulin Human Regular (HumuLIN R 100 UNITS/NS 100ML) 100 ML .STK-MED ONE IV (DC) Norepinephrine Bitartrate (NOREPINEPHRINE 8 MG/NS 250 ML) 250 ML .STK-MED ONE IV (DC) Protamine Sulfate (PROTAMINE SULFATE) 0 .STK-MED ONE IV (DC) Ropivacaine (NAROPIN 0.5% 150 MG/30mL) 0 .STK-MED ONE .ROUTE (DC) Propofol (DIPRIVAN 200MG/20ML INJECTION) 20 ML .STK-MED ONE IV (DC) Albumin Human (ALBUMINAR-25%) 100 ML .STK-MED ONE IV (DC) Aminocaproic Acid (AMICAR) 0 .STK-MED ONE .ROUTE (DC) Dexamethasone Sodium Phosphate (DECADRON) 0 .STK-MED ONE .ROUTE (DC) Fentanyl Citrate (SUBLIMAZE) 0 .STK-MED ONE IV (DC) Heparin Sodium (HEPARIN SODIUM) 0 .STK-MED ONE .ROUTE (DC) Heparin Sodium (HEPARIN SODIUM) 0 .STK-MED ONE .ROUTE (DC) Mannitol (Mannitol 20%) 500 ML .STK-MED ONE IV (DC) Midazolam HCl (VERSED) 0 .STK-MED ONE .ROUTE (DC) Ondansetron HCl (ZOFRAN) 0 .STK-MED ONE .ROUTE (DC) Rocuronium [facility] (ZEMURON) 0 .STK-MED ONE IV (DC) Sodium Chloride (SODIUM CHLORIDE 0.9%) 100 ML .STK-MED ONE IV (DC) Lidocaine HCl (XYLOCAINE IV) 0 .STK-MED ONE IV (DC) Magnesium Sulfate (MAGNESIUM SULFATE) 0 .STK-MED ONE IV (DC) Phenylephrine HCl (DYLAN-SYNEPHRINE 10MG/ML AMP) 0 .STK-MED ONE .ROUTE (DC ) Sodium Bicarbonate (SODIUM BICARBONATE) 0 .STK-MED ONE IV (DC) Acetaminophen (TYLENOL EXTRA STRENGTH) 0 .STK-MED ONE PO (DC) Gabapentin (NEURONTIN) 0 .STK-MED ONE PO (DC) Acetaminophen (TYLENOL EXTRA STRENGTH) 1,000 MG ONCE ONE PO (DC) Gabapentin (NEURONTIN) 200 MG ONCE ONE PO (DC) Cefazolin Sodium (KEFZOL OR ANCEF) 0 .STK-MED ONE .ROUTE (DC) Sodium Chloride (SODIUM CHLORIDE 0.9%) 250 ML .STK-MED ONE IV (DC) Vancomycin HCl (VANCOMYCIN HCL) 0 .STK-MED ONE .ROUTE (DC) Cefazolin Sodium (KEFZOL OR ANCEF) 2 GM PREOP ONCALL IV (CKD) Sodium Chloride (SODIUM CHLORIDE) 20 ML PREOP ONCALL IV Vancomycin HCl (VANCOMYCIN HCL) 1,000 MG PREOP ONCALL IV (CKD) Sodium Chloride (SODIUM CHLORIDE 0.9%) 250 ML Verapamil HCl (ISOPTIN) 16.6 MG .Q24H ONE IV (CKD) Heparin Sodium (Porcine) (HEPARIN SODIUM) 1,660 UNIT Sodium Bicarbonate (SODIUM BICARBONATE) 0.7 ML Nitroglycerin/Dextrose (NITROGLYCERIN 50MG/D5W 250ML) 8.3 MG Lactated Ringer's (LACTATED RINGERS) 949.5 ML Physical Exam General appearance: respiratory support Respiratory: on vent Abdomen: soft Genitourinary: urinary catheter, urine Lower extremity: LE assessment: no edema Musculoskeletal: normal inspection Neuro/POST FOR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 Skin: dry Psychiatry: unable to evaluate Results Findings/Data: Laboratory Tests 04/01 04/01 04/01 04/01 1424 1303 1158 1107 Blood Gas O2 Saturation (90 - 100 %) 99.9 99.9 100.0 99.6 ABG pH (7.35 - 7.45) 7.192 *L 7.330 L 7.392 7.379 ABG pCO2 (35.0 - 45 mmHg) 45.1 H 44.2 38.4 38.4 ABG pO2 (80 - 100.0 mmHg) 314.4 *H 362.3 *H 384.8 *H 190.6 H ABG HCO3 (22.0 - 26.0 MMOL/L) 17.3 *L 23.3 23.4 22.6 ABG Total CO2 18.7 24.6 24.6 23.8 ABG Base Excess (-4.0 - 4.0 MMOL/L) -10.2 L -2.5 -1.4 -2.3 ABG Hematocrit (37.5 - 50.7 %) 23 L 21 L 21 L 22 L ABG Hemoglobin (12.5 - 16.9 G/DL) 7.7 L 7.2 L 7.1 L 7.6 L Sodium (134 - 147 mmol/L) 143 140 135 134 Potassium (3.4 - 5.0 mmol/L) 3.5 3.9 4.7 6.1 *H Chloride (100 - 108 mmol/L) 112 H 106 104 102 Ionized Calcium (1.12 - 1.32 MMOL/L) 1.43 H 1.22 1.22 1.76 *H Lactic Acid (0.9 - 1.7 mmol/l) 2.1 H 1.6 0.8 L 1.7 04/01 04/01 04/01 04/01 1021 0946 0912 0822 Blood Gas O2 Saturation (90 - 100 %) 100.0 100.0 100.0 100.0 ABG pH (7.35 - 7.45) 7.411 7.421 7.391 7.384 ABG pCO2 (35.0 - 45 mmHg) 36.8 36.1 40.9 35.4 ABG pO2 (80 - 100.0 mmHg) 360.7 *H 417.3 *H 738.6 *H 578.9 *H ABG HCO3 (22.0 - 26.0 MMOL/L) 23.4 23.5 24.8 21.1 L ABG Total CO2 24.5 24.6 26.1 22.2 ABG Base Excess (-4.0 - 4.0 MMOL/L) -1.0 -0.8 -0.2 -3.5 ABG Hematocrit (37.5 - 50.7 %) 26 L 27 L 27 L 29 L ABG Hemoglobin (12.5 - 16.9 G/DL) 9.0 L 9.2 L 9.0 L 10.0 L Sodium (134 - 147 mmol/L) 137 137 137 141 Potassium (3.4 - 5.0 mmol/L) 5.5 H 5.2 H 5.4 H 3.3 L Chloride (100 - 108 mmol/L) 103 103 105 109 H Ionized Calcium (1.12 - 1.32 MMOL/L) 1.05 L 1.09 L 1.08 L 1.15 Lactic Acid (0.9 - 1.7 mmol/l) 0.4 L < 0.3 L < 0.3 L < 0.3 L 04/01 0802 Blood Gas O2 Saturation (90 - 100 %) 100.0 ABG pH (7.35 - 7.45) 7.402 ABG pCO2 (35.0 - 45 mmHg) 32.6 L ABG pO2 (80 - 100.0 mmHg) 530.2 *H ABG HCO3 (22.0 - 26.0 MMOL/L) 20.3 L ABG Total CO2 21.3 ABG Base Excess (-4.0 - 4.0 MMOL/L) -3.9 ABG Hematocrit (37.5 - 50.7 %) 28 L ABG Hemoglobin (12.5 - 16.9 G/DL) 9.5 L Sodium (134 - 147 mmol/L) 142 Potassium (3.4 - 5.0 mmol/L) 3.0 L Chloride (100 - 108 mmol/L) 109 H Ionized Calcium (1.12 - 1.32 MMOL/L) 1.10 L Lactic Acid (0.9 - 1.7 mmol/l) < 0.3 L Laboratory Tests 04/01 04/01 04/01 04/01 04/01 1424 1303 1158 1107 1021 Chemistry POC Creatinine (0.8 - 1.3 mg/dL) 1.0 1.1 1.0 0.9 1.0 POC Glucose (mg/dL) (70 - 110 MG/DL) 141 H 155 H 193 H 257 H 180 H 04/01 04/01 04/01 04/01 04/01 0946 0912 0822 0802 0625 Chemistry POC Creatinine (0.8 - 1.3 mg/dL) 1.1 1.0 1.1 1.0 POC Glucose (mg/dL) (70 - 110 MG/DL) 167 H 170 H 75 56 L Triglycerides (40 - 150 mg/dL) 80 Cholesterol (<200 mg/dL) 164 LDL Cholesterol Measurd (0 - 100 mg/dL) 104.0 H HDL Cholesterol (40 - 60 MG/DL) 48.9 Cholesterol/HDL Ratio (3.43 - 4.97 RATIO) 3.35 L 04/01 0600 Chemistry POC Glucose (70 - 110 MG/DL) 198 H Laboratory Tests 04/01 04/01 04/01 04/01 04/01 1425 1304 1300 1201 1109 Coagulation TEG R Time Citrated (4.6 - 9.1 min) 5.1 TEG K Time Citrated (0.8 - 2.1 min) 1.6 TEG Alpha Angle Citr (63 - 78 degrees) 70.6 TEG Max Ampl Citrated (52 - 69 mm) 54.1 TEG Max Ampl Citr Rapid (52 - 70 mm) 50.5 L TEG Clot Time Rpd w Hep (4.3 - 8.3 mins) 5.7 Activated Coag Time (74 - 137 SEC) 134 128 544 H 562 H Func Fibrinogen MA (15 - 32 mm) 14.2 L Func Fibrinogen Level (278 - 581 mg/dL) 259.1 L 04/01 04/01 04/01 04/01 04/01 1024 0948 0914 0835 0824 Coagulation Activated Coag Time (74 - 137 SEC) 611 H 611 H 684 H 556 H 421 H 04/01 0802 Coagulation Activated Coag Time (74 - 137 SEC) 116 Radiology Data: Recent Impressions: RADIOLOGY - XR CHEST 1 V 04/01 1428 Report Impression - Status: SIGNED Entered: 04/01/2024 1526 Impression: Mild cardiomegaly with bibasilar opacities, left greater than right consistent with atelectasis and/or infiltrate. Patient is status post recent bypass. Right IJ central venous catheter coursing towards the brachiocephalic vein. Recommend repositioning. Other support lines and tubes are stable. Impression By: [email or web address] - Elizabeth Raymond M.S. Results: labs reviewed, vital signs reviewed, rhythm personally rev'd Diagnosis, Assessment Plan Plan discussed with: spouse/partner, daughter, family, collaborating MD, nurse Free Text DxA P Notes Free Text DxA P Notes: This is a 71-year-old male with medical history of aortic valve stenosis, hyperlipidemia, hypertension who was found to have 5 cm ascending aortic aneurysm. The patient was brought in today and underwent aortic root replacement, replacement of ascending aorta, hemiarch replacement, CABG x1 CENTENO to LAD, and amputation of left atrial appendage. 1. Aortic root replacement, replacement of ascending aorta, hemiarch replacement , CABG x1 CENTENO to LAD, and amputation of left atrial appendage * immediate post-op care by CTS and critical care 2. Hypertension * monitor off BP meds 3. Hyperlipidemia * continue statin Appreciate the referral MDM by Dr. Hu. Svetlana Hu 04/03/24 1826: Attestations Physician Attestation Agree w/findings plan: I have seen and examined the pt, I Agree with the findings and plan as documented by Judith Barbosa. at 1654 at 1826 RPT #:[id number] END OF REPORT [facility] 2024-04-01 13:37:00 [id number] [place] [address] PATIENT NAME: FARHAD WELLS ADMIT DATE: 04/01/24 ACCOUNT NO: [id number] ROOM NO: [facility] [place] AGE: 79 REPORT TYPE: OPERATIVE REPORT SEX: M ADMITTING PHYSICIAN:Sol Sutton MD ATTENDING PHYSICIAN:Sol Sutton MD OPERATION DATE: 04/01/2024 PREOPERATIVE DIAGNOSES: 1. Aortic regurgitation. 2. Ascending aortic aneurysm. 3. Aortic root aneurysm. 4. Coronary artery disease. POSTOPERATIVE DIAGNOSES: 1. Aortic regurgitation. 2. Ascending aortic aneurysm. 3. Aortic root aneurysm. 4. Coronary artery disease. PROCEDURES: 1. Exploration of innominate artery. 2. Chimney graft to the innominate artery (8 mm Hemashield graft) 3. Coronary artery bypass graft surgery x 1 (CENTENO-LAD). 3. Aortic root replacement (29 Konect graft, Bentall procedure). 4. Replacement of ascending aorta. 5. Hemiarch replacement. 6. Total circulatory arrest with antegrade cerebral perfusion. (11 minutes). 7. Repair of innominate artery. 8. Amputation of left atrial appendage. SURGEON: Stefani Sutton M.D. GREASE RACK WORKER: Bobby Greene. ANESTHESIOLOGIST: Dr. Handy. ANESTHESIA: General endotracheal anesthesia. ESTIMATED BLOOD LOSS: 200 mL. INDICATIONS: Mr. Wells is a 79-year-old gentleman with severe aortic regurgitation, aortic root and ascending aortic aneurysm and single vessel coronary artery disease. After due preop counseling, he was brought to the operating room today for coronary artery bypass graft surgery x1, an aortic root replacement, replacement of the ascending aorta, hemiarch replacement under total circulatory arrest. FINDINGS: PATIENT NAME: FARHAD WELLS 1. Osteoporotic sternum. 2. Innominate artery measured about 1.5 cm in size, good quality artery. 3. Normal pericardium without any intrapericardial adhesions and minimal intrapericardial fluid. 4. LAD 2 mm, good quality artery. 5. Left atrial appendage was amputated half a centimeter from the base. This was then repaired with two layers of running pledgeted 4-0 Prolene suture. 6. About 30 minutes after we closed the chest, patient had episode of Ventricular fibrillation, We were unable to defibrilate him with external pads. Chest compresssions were commenced, chest was open and patient was defibrillated with internal paddles. Following defibrillation, patient had good LV function without any evidence of any regional abnormalites. Initially I thought this was due to air embolism, but 10 minutes later, patient again had episode of vfib and needed defibrillation, at this stage I realized patient was being paced and probably this was R on T phenomenon. We changed pacing mode to VVI and placed A wires, and then patient was AV paced. Patient was watched for additional hour in the operating room there was no further episode of Vfib. PROCEDURE IN DETAIL: Mr. Wells was identified in the preoperative holding area and brought to the operating room and placed supine on the operating table. After induction of general endotracheal anesthesia, Mann catheter, bilateral radial arterial line, antibiotics were placed. The patient's anterior torso and both lower extremities were prepped and draped in standard surgical fashion. Median sternotomy was performed. The patient was heparinized. Next, I explored the innominate artery at the upper end of the sternotomy incision. This was good quality artery measuring about 1.5 cm in size. A segment of innominate artery was isolated between 2 profunda clamps. A transverse arteriotomy was performed at the innominate artery and an 8 mm Hemashield graft was anastomosed in an end-to-side manner using running 5-0 Prolene suture. Aortic cannula was attached to the other end of the 8 mm Hemashield graft. This was used as an outflow for cardiopulmonary bypass. Next, a 3-stage cannula was placed in the right atrium. Cardiopulmonary bypass was instituted and the patient was cooled to 30 degrees centigrade. Crossclamp was applied and the heart was arrested with 1.5 liters of retrograde and antegrade cardioplegia. We began by amputating the left atrial appendage half a centimeter from the base. This was then repaired with two layers of running pledgeted 4-0 Prolene sutures. Cardioplegia was repeated at interval of 10 minutes all throughout duration of crossclamp. We began by exploring the LAD. This was good quality artery measuring 2 mm in size. Arteriotomy was performed with a Koi blade and extended with Flor scissors. CENTENO was anastomosed in an end-to-side manner using running 8-0 Prolene suture. Sternotomy was performed. Left internal mammary artery was harvested. The patient was heparinized. Innominate artery was explored at the upper end of the sternotomy incision. This was good quality artery measuring about 1.5 cm in size. A segment of innominate artery was isolated between 2 profunda clamps. A transverse arteriotomy was performed on the innominate artery and the 8 mm Hemashield graft was then sewn in an end-to-side manner using running 5-0 Prolene suture. Aortic cannula was placed at the other end of the Hemashield graft and secured in place using multiple #2 silk ties, this was used as the outflow for the cardiopulmonary bypass. A 3-stage cannula was placed in the right atrium. Cardiopulmonary bypass was instituted and the patient was cooled to 30 degrees centigrade. LV vent was placed via the right superior pulmonary vein. Crossclamp was applied and the heart was arrested with 1.5 liters of antegrade and retrograde cold blood PATIENT NAME: FARHAD WELLS cardioplegia (antegrade cardioplegia was given via direct ostial cannulation). Cardioplegia was repeated at intervals of 10 minutes all throughout duration of cardiopulmonary bypass. We began by exploring the distal LAD. This was good quality artery, measuring 2 mm in size. Arteriotomy was performed with a Koi blade and extended with Flor scissors. CENTENO was anastomosed in an end-to-side manner using running 8-0 Prolene suture. CENTENO pedicle tacked to epicardium using two interrupted 6-0 Prolene suture. A slit was made in the pericardium on the left aspect so as to accommodate the CENTENO. Next, transverse aortotomy was performed two fingerbreadth distal to sinotubular junction. The aorta was transected. Next, the aortic cusps were excised. Careful decalcification of the aortic annulus was performed. The right and left coronary buttons were harvested. The LV was irrigated with a liter of cold saline. The annulus was sized to 29 Konect graft. Next, circumferential 3-0 Ethibond pledgeted sutures were placed in the aortic annulus. A size 29 Konect graft was brought onto the surgical field. The sutures were sequentially passed through the sewing ring. The valve was lowered down onto the annulus. After confirming proper seating, the sutures were tied. An opening was made in the Konect graft corresponding to the left coronary button, which was then anastomosed in an end-to-side manner using running 5-0 Prolene suture. The Konect graft was distended and location for implantation of the right coronary button was marked. Next, an opening was made in the Konect graft using eye cautery and the right coronary button was then anastomosed in an end-to-side manner using running 5-0 Prolene suture. By this time, the patient was at 30 degrees centigrade for almost half an hour. I decided to do circulatory arrest. The patient was placed in the Trendelenburg position. The community service technician was asked to drop the flow rate of 700 mL per minute. A clamp was applied in the innominate artery proximal to the Hemashield graft. Clamp on the aorta was released and the patient was drained. Next, the ascending aorta was transected, flushed with innominate artery. The undersurface of the aortic arch was excised. The Konect graft was then sized and beveled and anastomosed to the underside of the aortic arch using running 4-0 Prolene suture. Prior to tying the anastomosis down, careful de-aeration was performed. The clamp on the innominate artery was released. The community service technician was asked to come up to full flow. DLP catheter was placed in the Konect graft. A crossclamp was applied distal to the DLP cannula and the de-airing of the heart was performed. The crossclamp was released. Rewarming was commenced at this stage. One ventricular wire was placed. A 28-Armenian chest tube was placed in the mediastinum, 28 angled chest tube was placed in the left pleural space. Once the patient was at temperature, de-airing maneuvers were repeated and the patient was weaned off cardiopulmonary bypass without any inotropic support. Heparin was reversed with protamine. Decannulation was uneventful. Next, the segment of innominate artery was isolated between 2 profunda clamps. The Hemashield graft anastomosis was taken down and the innominate artery was closed primarily using running 5-0 Prolene suture. Heparin was reversed with protamine. Decannulation was uneventful. After confirming hemostasis, the chest was closed in layers using stainless wires for the sternum, #1 Vicryl for the fascia, 2-0 Vicryl for the subcutaneous tissue and 4-0 Vicryl for the skin. About 30 minutes after we closed the chest, patient had episode of ventricular fibrillation, we were unable to defibrilate him with external pads. Chest compressions were commenced, chest was opened and patient was defibrillated with internal paddles. Following defibrillation, patient had a good LV function without evidence of any regional abnormalities. Initially I thought this was due to air embolism, but 10 minutes later, patient again had episode of vfib and needed defibrillation, at this stage I PATIENT NAME: FARHAD WELLS realized patient was bein paced and probably this was R on T phenomenon. We changed pacing mode to VVI and placed A wires, and then patient was AV paced. Patient was watched for an additional hour in the operating room where there was no further episode of Vfib.Patient was moved to the ICU intubated in stable condition. Dictated By: Stefani Sutton MD Date Dictated: 04/01/2024 13:37:26 Date Transcribed: 04/01/2024 14:29:17 /RUFUS Receipt ID: [id number] Authenticated and Edited by Sol Sutton MD On 04/02/24 5:52:36 PM at 0553 PATIENT NAME: FARHAD WELLS [facility] 2024-04-01 05:52:00 [facility] ([facility]) History Physical - Adult REPORT#:[id number] REPORT STATUS: Signed REPORT INITIALIZATION DATE:04/01/24 TIME: 551 PATIENT: FARHAD WELLS UNIT #: [id number] ROOM/BED: [place] [address] : 46 AGE: 79 SEX: M ATTEND: Sol Sutton MD ADM AUTHOR: Falguni Hawkins APRN REPT SERVICE DT/TIME: 04/01/24 0552 * ALL edits or amendments must be made on the electronic/computer document * Falguni Hawkins 04/01/24 0552: History of Present Illness HPI Chief complaint: dyspnea PCP: PCP: Emil Virk MD HPI: This is a 78-year-old gentleman with a past medical history of aortic valve stenosis, hyperlipidemia who was also found to have an ascending aortic aneurysm measuring 5 cm. The patient was seen by his display specialist for 6-month follow-up. Recent echocardiogram completed on 01/22/2024 showed EF 55 to 60%, aortic valve mean/peak gradient of 30/42 mmHg, NAS measuring 0.9 cm , peak velocity 4.5 m/s. Patient also noted to have moderate mitral regurgitation, mild pulmonary hypertension with RV systolic pressure 45 mmHg. The patient underwent left heart catheterization on 02/05/2024 that showed left main to be normal, LAD proximal 30 to 40%, mid diffuse 50 to 60%, then luminal irregularities. Diagonal 1 has 40 to 55% stenosis. Circumflex proximal 60% stenosis, RCA large dominant with proximal 40%, mid 30 to 40% in the PDA with diffuse 40% stenosis. 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 Patient denies any chest pain but does report occasional dyspnea on exertion. Patient is being admitted today for replacement of ascending aorta, AVR, and possible coronary artery bypass graft surgery. History Past medical history: Reports: Coronary artery disease, Hypertension, Dyslipidemia. Past surgical history: Reports: Appendectomy, Cholecystectomy. Alcohol use: Denies EtOH use Drug use: Denies recreational drugs Smoking status for patients 13 years old or older: Former Smoker Date last smoked: 06/26/79 Medication/Allergy-Vaccine Hx Medications: Home Medications: Medication Dose/Rte/Freq Days Qty Entered Last Max Daily Dose Reviewed ASPIRIN EC (ECOTRIN) 81 MG PO DAILY 03/26/24 04/01/24 Strength: 81 MG TAB.EC [address] 40 MG PO DAILY 03/26/24 04/01/24 (PROTONIX) 7142 9877 Strength: [address] FUROSEMIDE (LASIX) 20 MG PO DAILY 03/26/24 04/01/24 Strength: 20 MG TAB 6405 7402 ALLOPURINOL (ZYLOPRIM) 300 MG PO DAILY 03/26/24 04/01/24 Strength: 300 MG TAB 4140 0586 amLODIPine (NORVASC) 5 MG PO DAILY 03/26/24 04/01/24 Strength: 5 MG TAB 9107 2220 TAMSULOSIN ER (FLOMAX) 0.4 MG PO DAILY 03/26/24 04/01/24 Strength: 0.4 MG CAP.SR.24H 9402 7681 CARVEDILOL (COREG) 6.25 MG PO 03/26/24 04/01/24 Strength: 6.25 MG TAB BID MEALS 7725 0242 Current Hospital Medications: Anti-Infective Agents Sig/Joe Start time Last Medication Dose Route Stop Time Status Admin Cefazolin Sodium 0 .STK-MED ONE 04/01 0550 DC (KEFZOL OR ANCEF) .ROUTE Vancomycin HCl 0 .STK-MED ONE 04/01 0550 DC (VANCOMYCIN HCL) .ROUTE Cefazolin Sodium 2 GM PREOP ONCALL 04/01 500 CKD (KEFZOL OR ANCEF) IV 04/08 459 Vancomycin HCl 1,000 MG PREOP ONCALL 04/01 500 CKD (VANCOMYCIN HCL) IV 04/08 459 Sodium Chloride 250 ML (SODIUM CHLORIDE 0.9%) Cardiovascular Drugs Sig/Joe Start time Last Medication Dose Route Stop Time Status Admin Verapamil HCl 16.6 MG .Q24H ONE 04/01 500 CKD (ISOPTIN) IV 04/02 459 Heparin Sodium 1,660 UNIT (Porcine) (HEPARIN SODIUM) Sodium Bicarbonate 0.7 ML (SODIUM BICARBONATE) Nitroglycerin/ 8.3 MG Dextrose (NITROGLYCERIN 50MG/ D5W 250ML) Lactated Ringer's 949.5 ML (LACTATED RINGERS) Central Nervous System Agents Sig/Joe Start time Last Medication Dose Route Stop Time Status Admin Acetaminophen 1,000 MG ONCE ONE 04/01 600 AC (TYLENOL EXTRA PO 04/01 601 STRENGTH) Gabapentin 200 MG ONCE ONE 04/01 600 AC (NEURONTIN) PO 04/01 601 Electrolytic, Caloric, And Kylee Sig/Joe Start time Last Medication Dose Route Stop Time Status Admin Sodium Chloride 250 ML .STK-MED ONE 04/01 550 DC (SODIUM CHLORIDE IV 0.9%) Sodium Chloride 20 ML PREOP ONCALL 04/01 500 AC (SODIUM CHLORIDE) IV 06/30 458 Allergies: Coded Allergies: Sulfa (Sulfonamide Antibiotics) (Intermediate, NAUSEA. VOMITING 03/26/24) Review of Systems Constitutional: Denies: chills, fatigue, fever. Skin: Denies: abrasion, bruising, diaphoresis. Allergy/Immun: Denies: allergic reaction, anaphylaxis, itching. Eyes: Denies: redness, discharge, itching. ENT: Denies: ear drainage, hearing loss, nose bleeding. Respiratory: Reports: [place] (dyspnea on exertion). Denies: pneumonia. Cardiovascular: Denies: chest pain, palpitations. GI: Denies: abdominal pain, nausea, vomiting. Heme: Denies: adenopathy, bleeding, bruising. Neuro: Denies: dizziness, seizure, syncope. All systems rev neg: except as marked Physical Exam VS/I O Vital Signs: Date Time Temp Pulse Resp B/P B/P Pulse O2 O2 Flow FiO2 Mean Ox Delivery Rate 04/01 547 97.7 79 16 179/84 100 24 hour I O ending at 0700: 04/01 0700 03/31 1900 Intake Total Output Total Balance Patient 61.2 kg Weight Weight Stated/Reported Measurement Method PATIENT WEIGHT: Weight (lb): 134 Weight (oz): 14.77 Weight (kg): 61.200 General appearance: alert, awake, oriented Head/Eyes: atraumatic, normocephalic ENT: moist mucosal membranes, normal nose Neck: full range of motion, non-tender Cardiovascular: regular rate rhythm, normal heart sounds Respiratory: no distress, aerating well, symmetric expansion Abdomen/GI: active bowel sounds, soft, non-tender Genitourinary: urine, no flank pain Extremities: moves all, normal capillary refill, normal range of motion Musculoskeletal: full range of motion, normal inspection Neuro/POST FORM REMOVER: alert, oriented X 3 Skin: dry, intact, no gross abnormalities Psychiatry: normal affect, normal mood Results Results: labs reviewed, vital signs reviewed, vital signs stable, cath.personally reviewed Treatment Prophylaxis Treatment Prophylaxis CVC/PICC documentation: The data below has been imported from nursing documentation. Any exceptions have been noted below under Provider comments. CVC/PICC insertion date/time: Provider comments on imported nursing data: [] Diagnosis, Assessment Plan Consultants: cardiology Plan discussed with: patient, admitting physician, collaborating MD, nurse Code Status/Resusc. Discussion Resuscitation discussion: Discussed with: patient Code status: full code Free Text DxA P Notes Free Text DxA P Notes: This is a 78-year-old gentleman with a past medical history of aortic valve stenosis, hyperlipidemia who was also found to have an ascending aortic aneurysm measuring 5 cm. The patient was seen by his display specialist for 6-month follow-up. Recent echocardiogram completed on 01/22/2024 showed EF 55 to 60%, aortic valve mean/peak gradient of 30/42 mmHg, NAS measuring 0.9 cm , peak velocity 4.5 m/s. Patient also noted to have moderate mitral regurgitation, mild pulmonary hypertension with RV systolic pressure 45 mmHg. The patient underwent left heart catheterization on 02/05/2024 that showed left main to be normal, LAD proximal 30 to 40%, mid diffuse 50 to 60%, then luminal irregularities. Diagonal 1 has 40 to 55% stenosis. Circumflex proximal 60% stenosis, RCA large dominant with proximal 40%, mid 30 to 40% in the PDA with diffuse 40% stenosis. 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 Patient denies any chest pain but does report occasional dyspnea on exertion. Patient is being admitted today for replacement of ascending aorta, AVR, and possible coronary artery bypass graft surgery. Assessment/plan: 1. Dyspnea on exertion 2. Aortic valve stenosis 3. Ascending aortic aneurysm 4. Coronary artery disease 5. Hypertension 6. Hyperlipidemia Patient seen and examined by Dr. Sutton. Dr. Sutton has discussed with the patient the need for aortic valve replacement as well as ascending aortic replacement and possible coronary artery bypass graft surgery. Dr. Sutton discussed with the patient the operation, risks involved, benefits, alternatives , and complications. The patient's questions were answered and patient agreed to proceed with surgery. Patient is scheduled for surgery today. Admit to CVICU postoperatively Monitor heart rhythm and hemodynamics Strict I's and O's Cardiology and critical care consulted. Sol Sutton 04/14/24 1050: Attestations Physician Attestation Agree w/findings plan: I have seen and examined Mr. Wells. I agree with the findings and plan as documented by KIMBERLEY Hummel. Briefly, 79-year-old gentleman with aortic stenosis and dilatation of the ascending aorta being admitted to the hospital for aortic root replacement. I have explained to him the procedure, risk involved, benefit, alternative, and complications. Patient verbalized understand the risk and has consented for surgery. at 0605 at 1104 RPT #:[id number] END OF REPORT [facility] 2024-03-27 10:18:00 [id number] [address] PATIENT NAME: FARHAD WELLS ADMIT DATE: 03/26/24 ACCOUNT NO: [id number] ROOM NO: AGE: 79 REPORT TYPE: PULMONARY FUNCTION REPORT SEX: M ADMITTING PHYSICIAN: ATTENDING PHYSICIAN:Sol Sutton MD STUDY DATE: The patient's post-bronchodilator FEV1/FVC 66%, FEV1 of 103%, the FVC 112%, total lung capacity 111% and corrected DLCO 98% indicating mild obstruction, stage I COPD, no restriction and normal diffusing capacity. Dictated By: Ginna Juan MD Date Dictated: 03/27/2024 10:18:44 Date Transcribed: 03/27/2024 10:24:33 PAO/RUFUS Receipt ID: [id number] Authenticated and Edited by Ginna Juan MD On 04/08/24 4:56:33 PM at 0457 PATIENT NAME: FARHAD WELLS [facility] 2024-03-26 16:40:00 [id number] [place] [address] PATIENT NAME: FARHAD WELLS ADMIT DATE: ACCOUNT NO: [id number] ROOM NO: AGE: 78 REPORT TYPE: eELECTROCARDIOGRAM REPORT SEX: M ADMITTING PHYSICIAN:Sol Sutton MD ATTENDING PHYSICIAN:Sol Sutton MD Order: [id number] Test Reason : PRE OP Test Date/Time Stamp: MonMar 26 2024 16:40:09 Blood Pressure : / mmHG Vent. Rate : 066 BPM Atrial Rate : 066 BPM P-R Int : 236 ms QRS Dur : 092 ms QT Int : 404 ms P-R-T Axes : 045 059 069 degrees QTc Int : 423 ms Sinus rhythm with 1st degree AV block Voltage criteria for left ventricular hypertrophy Abnormal ECG No previous ECGs available Confirmed by CHAYO ANTHONY MD ([id number]) on 03/26/2024 6:41:15 PM Referred By: Sol Sutton Confirmed by:CHAYO ANTHONY MD at 2084 PATIENT NAME: FARHAD WELLS [facility]
[2024-08-29] MEDS ORDERED: HYDRALAZINE HCL 25 MG TABLET ONE (16:10)
[2024-08-29 16:20] LABS: Absolute Basophils 0.1 K/uL (0-0.5); Absolute Eosinophils 0.2 K/uL (0-0.5); Absolute Lymphocytes (CBC) 1.2 K/uL (0.7-4.9); Absolute Monocytes 0.5 K/uL (0.1-1.3); Absolute Neutrophil 7.2 K/uL (1.8-8.0); Basophils % 0.8 % (0-1.3); Eosinophils % 2.1 % (0-4.4); Lymphocytes % 12.9 % (15.3-44.8); MCH 25.4 pg (27.0-35.0); MCHC 32.5 g/dL (32.0-36.0); MCV 78.2 fL (80-100); MPV 8.9 fL (7.6-11.3); Monocytes % 5.4 % (3.3-12.3); Neutrophils % 78.8 % (41.7-73.7); Platelets 256 thou/uL (152-406); RBC Red Blood Cell Count 5.12 M/uL (4.33-5.43); Red Cell Distribution Width 16.4 % (12.1-15.2)
[2024-08-29 16:44] LABS: AST/SGOT 14 U/L (15-37); Albumin 3.6 g/dL (3.4-5.0); Albumin/Globulin Ratio 0.8 (1.1-1.8); Alkaline Phosphatase 146 U/L (45-117); Anion Gap 8.4 mEq/L (5.0-15.0); BUN Blood Urea Nitrogen 15 mg/dL (7-18); Bicarbonate 26 mEq/L (21-32); Bilirubin Direct 0.2 mg/dL (0-0.2); Bilirubin Indirect, Calculated 0.4 mg/dL (0.2-0.8); Bilirubin Total 0.6 mg/dL (0.2-1.0); Globulin 4.5 g/dL (2.3-3.5); Glomerular Filtration Rate 52 ml/min (=/>90); Glucose Level 101 mg/dL (74-106); Potassium 3.4 mEq/L (3.5-5.1); Protein, Total 8.1 g/dL (6.4-8.2); Sodium Level 137 mEq/L (136-145); Troponin High Sensitivity 13.1 pg/mL (<58.9)
[2024-08-29 16:45] LABS: ALT/SGPT < 14 U/L (16-61)
--- NOTE | 2024-08-29 17:19 | ER ---
Nurse's Notes [facility] Name: Farhad Wells Age: 79 yrs Sex: Male : 1945 Arrival Date: 08/29/2024 Time: 14:13 Bed 11 Private MD: Diagnosis: Essential (primary) hypertension Presentation: 08/29 14:29 Chief complaint: Sent from cardiac rehab for SBP 200s. Denies CP/SOB/RG.Hx of hb hypertension, takes ramipril, metoprolol, and diuretic. Coronavirus screen: At this time, the client does not indicate any symptoms associated with coronavirus-19. Ebola Screen: No symptoms or risks identified at this time. Initial Sepsis Screen: Does the patient meet any 2 criteria? No. Patient's initial sepsis screen is negative. Does the patient have a suspected source of infection? No. Patient's initial sepsis screen is negative. Risk Assessment: Do you want to hurt yourself or someone else? Patient reports no desire to harm self or others. Onset of symptoms was August 29, 2024. 14:29 Method Of Arrival: Ambulatory hb 14:29 Acuity: CHAPARRO 3 hb Historical: - Allergies: 14:31 Sulfa (Sulfonamide Antibiotics); hb - PMHx: 14:31 BPH; Hypertension; High Cholesterol; hb - PSHx: 14:31 Coronary artery bypass graft; pacemaker; hb - Immunization history:: Adult Immunizations up to date. - Infectious Disease History:: Denies. - Social history:: Smoking status: Patient denies any tobacco usage or history of. - Family history:: not pertinent. Screenin:25 [facility] ED Fall Risk Assessment (Adult) History of falling in the last 3 months, iw including since admission No falls in past 3 months (0 pts) Confusion or Disorientation No (0 pts) Intoxicated or Sedated No (0 pts) Impaired Gait No (0 pts) Mobility Assist Device Used No (0 pt) Altered Elimination No (0 pt) Score/Fall Risk Level 0 - 2 = Low Risk Oriented to surroundings, Maintained a safe environment. Abuse screen: Denies threats or abuse. Nutritional screening: No deficits noted. Tuberculosis screening: No symptoms or risk factors identified. Assessment: 16:24 General: Appears in no apparent distress. Behavior is calm, cooperative. Pain: Denies iw pain. Neuro: Level of Consciousness is awake, alert, obeys commands, Oriented to person, place, time, situation, Appropriate for age Moves all extremities. Full function. Cardiovascular: Denies chest pain, Capillary refill < 3 seconds in bilateral fingers Respiratory: Respiratory effort is even, unlabored. GI: Abdomen is non-distended. Derm: Skin is intact, is healthy with good turgor. Musculoskeletal: Range of motion: intact in all extremities. Vital Signs: 14:29 BP 195 / 85; Pulse 67; Resp 16; Temp 97.5(TE); Pulse Ox 100% on R/A; Weight 61.69 kg; hb Height 5 ft. 9 in. ; Pain 0/10; 16:23 BP 195 / 86; Pulse 64; Resp 18; Pulse Ox 97% on R/A; iw 17:09 BP 157 / 76; Pulse 77; Resp 18 S; Pulse Ox 100% on R/A; Pain 0/10; iw 14:29 Body Mass Index 20.08 (61.69 kg, 175.26 cm) hb 14:29 Pain Scale: Adult hb 17:09 Pain Scale: Adult iw ED Course: 14:16 Patient arrived in ED. cj3 14:23 Chacho Johnson MD is Attending Physician. rt 14:30 Triage completed. hb 14:31 Arm band placed on. hb 16:05 Frances Rosado, GHANSHYAM is Primary Nurse. iw 16:25 Patient has correct armband on for positive identification. Provided Education on: lab iw wait time . Client placed on continuous cardiac and pulse oximetry monitoring. NIBP monitoring applied. strategic account executive on. 16:28 No provider procedures requiring assistance completed. iw 17:52 IV discontinued, intact, bleeding controlled, No redness/swelling at site. Pressure iw dressing applied. Administered Medications: 16:23 Drug: HydrALAZINE PO 50 mg PO once Route: PO; iw 17:30 Follow up: Response: No adverse reaction; Blood pressure is lowered iw Medication: 16:25 VIS not applicable for this client. iw Outcome: 17:18 Discharge ordered by . rt 17:52 Discharged to home ambulatory, with family, iw 17:52 Condition: good 17:52 Discharge instructions given to patient, family, Instructed on discharge instructions, follow up and referral plans. Demonstrated understanding of instructions, follow-up care, 17:52 Patient left the ED. iw Signatures: Frances Rosado RN RN Daysi Menchaca, RN RN Chacho Chanel MD MD rt Marleni Xie [email or web address]
--- NOTE | 2024-08-29 17:19 | EDPHYS ---
Physician Documentation [facility] Name: Farhad Wells Age: 79 yrs Sex: Male : 1945 Arrival Date: 08/29/2024 Time: 14:13 Bed 11 Private MD: ED Physician Chacho Johnson HPI: 08/29 15:01 This 79 yrs old Male presents to ER via Ambulatory with complaints of High Blood rt Pressure. 15:01 Patient presents to the ED with hypertension at cardiac rehab. He denies chest pain, rt shortness of breath. Denies other acute complaints at this time, symptoms are moderate in severity, no other aggravating or alleviating factors.. Historical: - Allergies: 14:31 Sulfa (Sulfonamide Antibiotics); hb - PMHx: 14:31 BPH; Hypertension; High Cholesterol; hb - PSHx: 14:31 Coronary artery bypass graft; pacemaker; hb - Immunization history:: Adult Immunizations up to date. - Infectious Disease History:: Denies. - Social history:: Smoking status: Patient denies any tobacco usage or history of. - Family history:: not pertinent. ROS: 15:01 Constitutional: Negative for fever, chills, and weight loss, Cardiovascular: Negative rt for chest pain, palpitations, and edema, Respiratory: Negative for shortness of breath, cough, wheezing, and pleuritic chest pain, Abdomen/GI: Negative for abdominal pain, nausea, vomiting, diarrhea, and constipation, MS/Extremity: Negative for injury and deformity, Skin: Negative for injury, rash, and discoloration, Neuro: Negative for headache, weakness, numbness, tingling, and seizure, Exam: 15:01 Constitutional: This is a well developed, well nourished patient who is awake, alert, rt and in no acute distress. Head/Face: Normocephalic, atraumatic. Chest/axilla: Normal chest wall appearance and motion. Nontender with no deformity. No lesions are appreciated. Cardiovascular: Regular rate and rhythm with a normal S1 and S2. No gallops, murmurs, or rubs. Normal PMI, no JVD. No pulse deficits. Respiratory: Lungs have equal breath sounds bilaterally, clear to auscultation and percussion. No rales, rhonchi or wheezes noted. No increased work of breathing, no retractions or nasal flaring. Abdomen/GI: Soft, non-tender, with normal bowel sounds. No distension or tympany. No guarding or rebound. No evidence of tenderness throughout. Skin: Warm, dry with normal turgor. Normal color with no rashes, no lesions, and no evidence of cellulitis. MS/ Extremity: Pulses equal, no cyanosis. Neurovascular intact. Full, normal range of motion. Neuro: Awake and alert, GCS 15, oriented to person, place, time, and situation. Cranial nerves II-XII grossly intact. Motor strength 5/5 in all extremities. Sensory grossly intact. Cerebellar exam normal. Normal gait. 16:29 ECG was reviewed by the Attending Physician. rt Vital Signs: 14:29 BP 195 / 85; Pulse 67; Resp 16; Temp 97.5(TE); Pulse Ox 100% on R/A; Weight 61.69 kg; hb Height 5 ft. 9 in. ; Pain 0/10; 16:23 BP 195 / 86; Pulse 64; Resp 18; Pulse Ox 97% on R/A; iw 17:09 BP 157 / 76; Pulse 77; Resp 18 S; Pulse Ox 100% on R/A; Pain 0/10; iw 14:29 Body Mass Index 20.08 (61.69 kg, 175.26 cm) hb 14:29 Pain Scale: Adult hb 17:09 Pain Scale: Adult iw MDM: 14:30 Medical Screening Exam initiated rt 17:47 Differential diagnosis: Hypertension, renal failure, ACS. Data reviewed: vital signs, rt nurses notes, lab test result(s), EKG. Consideration of Admission/Observation Escalation of care including admission/observation considered. Patient was asymptomatic hypertension, no evidence of endorgan dysfunction, blood pressure is significantly improving with oral medications only, does not require admission at this time, stable for outpatient care, return precautions discussed.. I considered the following discharge prescriptions or medication management in the emergency department Medications were administered in the Emergency Department. See MAR. Test considered but Not performed: CT: No headache, CT of the head indicated. Counseling: I had a detailed discussion with the patient and/or guardian regarding the historical points, exam findings, and any diagnostic results supporting the discharge/admit diagnosis, lab results, the need for outpatient follow up, to return to the emergency department if symptoms worsen or persist or if there are any questions or concerns that arise at home. Response to treatment: the patient's symptoms have markedly improved after treatment. 08/29 14:38 Order name: Basic Metabolic Panel; Complete Time: 16:47 rt 08/29 14:38 Order name: CBC with Diff; Complete Time: 16:28 rt 08/29 14:38 Order name: LFT's; Complete Time: 16:47 rt 08/29 14:38 Order name: Troponin HS; Complete Time: 16:47 rt 08/29 14:38 Order name: EKG; Complete Time: 14:38 rt 08/29 14:38 Order name: Cardiac monitoring; Complete Time: 16:23 rt 08/29 14:38 Order name: EKG - Nurse/Tech; Complete Time: 16:23 rt 08/29 14:38 Order name: IV Saline Lock; Complete Time: 16:10 rt 08/29 14:38 Order name: Labs collected and sent; Complete Time: 16: rt 08/29 14:38 Order name: O2 Per Protocol; Complete Time: 16:23 rt 08/29 14:38 Order name: O2 Sat Monitoring; Complete Time: 16:23 rt EC:29 Rate is 67 beats/min. Rhythm is regular, 1st Degree Block with No ectopy, Right bundle rt branch block. CT interval is normal. QRS interval is normal. QT interval is normal. Administered Medications: 16:23 Drug: HydrALAZINE PO 50 mg PO once Route: PO; iw 17:30 Follow up: Response: No adverse reaction; Blood pressure is lowered iw Disposition Summary: 08/29/24 17:18 Discharge Ordered Notes: Location: Home rt Problem: new rt Symptoms: have improved rt Condition: Stable rt Diagnosis - Essential (primary) hypertension rt Followup: rt - With: Private Physician - When: 2 - 3 days - Reason: Discharge Instructions: - Discharge Summary Sheet rt - Hypertension, Adult rt Forms: - Medication Reconciliation Form rt - Antibiotic Education rt - Prescription Opioid Use rt - Patient Portal Instructions rt - Leadership Thank You Letter rt Signatures: Dispatcher [employer] Frances Collins RN RN iw Baxter, Heather, RN RN hb [place], Ryan, MD MD rt
[2024-08-29 18:19] VITALS: TEMP 97.5
[2024-08-29 18:22] VITALS: BP 157/76; O2SAT 100
== END 2024-08-29 17:52 | disposition home or self-care (01) ==
LOC: ER 14:13
DX: I10 Essential (primary) hypertension (principal); Z95.0 Presence of cardiac pacemaker; Z95.1 Presence of aortocoronary bypass graft
CPT/HCPCS: 36415; 80048; 80076; 84484; 85025; 93005; 99284